=== PATIENT | male | born 1950 | race Caucasian/White ===

== ENCOUNTER 2016-03-29 18:59 | Observation (INO) | payer MEDICARE ==
[2016-03-29] VITALS (9 sets, daily range): BP systolic 97–142; BP diastolic 51–89; PULSE 74–89; RESP 18–20; TEMP 98.1–98.5; O2SAT 93–99
[~2016-03-29] VITALS: Ht 180.3 cm; Wt 120.0 kg
[~2016-03-29 18:59] MED LIST: AMOX500T PO; APIX5TAB PO; ASPI81TA82 PO; DOXY100T PO; FURO40TA PO; GLUC1000 PO; GUAI100S6 PO; HYDR200T42 PO; LISI-363 PO; MECAP PO; METO50CR PO; NORC10TA2 PO; POTA10IN2 PO; ROSU5 PO; TIKO500C PO; TORS20TA PO; UBIQ1CAP4
[2016-03-29] MEDS ORDERED: SODIUM CHLORIDE 0.9% FLUSH 5 ML FLUSH IVF PRN ×2 (19:15→20:45)
[2016-03-29 19:41] LABS: AUTOMATED NEUTROPHIL # 5.2 TH/MM3 (1.8-7.7); BASOPHIL % 0.5 % (0.0-2.0); EOSINOPHIL # 0.2 TH/MM3 (0-0.4); EOSINOPHIL % 1.9 % (0.0-4.0); HEMATOCRIT 38.7 % (39.0-51.0); HEMO FLAGS DIFF FINAL; LYMPH % 23.3 % (9.0-44.0); LYMPHOCYTE # 1.9 TH/MM3 (1.0-4.8); MEAN CELL VOLUME 92.9 FL (80.0-100.0); MEAN CORPUSCULAR HEMOGLOBIN 30.7 PG (27.0-34.0); MONO % 10.3 % (0.0-8.0); PLATELET COUNT 299 TH/MM3 (150-450); RED BLOOD COUNT 4.17 MIL/MM3 (4.50-5.90); RED CELL DISTRIBUTION WIDTH 15.1 % (11.6-17.2); WHITE BLOOD COUNT 8.2 TH/MM3 (4.0-11.0)
--- NOTE | 2016-03-29 19:51 | RADRPT ---
EXAM DATE/TIME: 03/29/2016 19:41 [facility] COMPARISON: CHEST PA & LAT, July 07, 2013, 19:10. CHEST SINGLE AP, January 23, 2016, 21:49. INDICATIONS : Chest pain and shortness of breath. MEDICAL HISTORY : Hypertension. Congestive heart failure. Hypercholesterolemia. Diabetes,A-fib,lupus SURGICAL HISTORY : CABG. Cardiac stent. ENCOUNTER: Initial ACUITY: 1 day PAIN SCORE: 8/10 LOCATION: Bilateral chest FINDINGS: There is mild left base opacity, at least some of which is likely scarring but a mild acute infiltrat e also possible. Elevated left hemidiaphragm unchanged. No large effusion seen. No pneumothorax. Righ t lung is clear. Heart size stable, mildly enlarged. Patient has had previous median sternotomy. CONCLUSION: Mild left base atelectasis or scarring. Mild left base pneumonia possible in the proper clinical sett ing.. Landon Zarco MD on March 29, 2016 at 19:47 Board Certified Radiologist. This report was verified electronically.
--- NOTE | 2016-03-29 19:51 | PD ---
HPI Chief Complaint: Chest Pain Time Seen by Provider: 19:20 Travel History International Travel<30 days: No Contact w/Intl Traveler<30days: No History of Present Illness HPI Patient is a 65-year-old male who presents to the emergency department for evaluation of chest pain and tightness. Patient states the pain started approximately 2 hours prior to arrival when he was moving boxes. The pain was brought on with exertion, patient states he sat down and approximately 30 minutes later the pain was resolved. He denies any radiation to his arm or jaw , he denies any nausea, diaphoresis. Patient took 81 mg of aspirin this morning as he normally does. Patient reports feeling short of breath for approximately the last month. He reports being treated for pneumonia but states that he has not felt completely better. Patient does have an underlying COPD and is compliant with nebulizer treatments. PFSH Past Medical History Hx Anticoagulant Therapy: Yes (ELIQUIS) Arthritis: Yes Atrial Fibrillation: Yes Anxiety: No Depression: Yes Cancer: No Cardiac Catheterization: Yes High Cholesterol: Yes Chemotherapy: No Chest Pain: Yes Congestive Heart Failure: Yes COPD: Yes Coronary Artery Disease: Yes Diabetes: Yes Diminished Hearing: No Gastrointestinal Disorders: No Genitourinary: Yes (BPH) Hypertension: Yes Immune Disorder: No Implanted Vascular Access Dvce: No Kidney Stones: Yes Neurologic: No Reproductive: No Respiratory: No Pneumonia: Yes Past Surgical History Abdominal Surgery: Yes (HERNIA REPAIR) Cardiac Surgery: Yes (CARDIAC ABLATION X2) Coronary Artery Bypass Graft: Yes (TRIPLE BYPASS ) Coronary Stent: Yes Endocrine Surgery: No Genitourinary Surgery: Yes (LITHOTRIPSY;GREEN LIGHT PROCEDURE) Thoracic Surgery: Yes Other Surgery: Yes (FATTY TUMOR REMOVED TOP OF HEAD) Social History Alcohol Use: Yes (RARE) Tobacco Use: No Substance Use: No Allergies-Medications (Allergen,Severity, Reaction): Uncoded Allergies: STATINS (Adverse Reaction, Cramping, 06/30/13) Reported Meds & Prescriptions Reported Meds & Active Scripts Active Reported Potassium 99 Mg Tab Potassium 75 Mg Tab 1 PO DAILY Metan1 1 PO BID Metan1 1 PO Aspir-81 (Aspirin) 81 Mg Tab 81 Mg PO DAILY Ultra Coq10 (Ubiquinone) 75 Mg Cap Glucophage 1000 mg (Metformin HCl) 1,000 Mg Tab 1,000 Mg PO BIDPC Crestor (Rosuvastatin Calcium) 5 Mg Tab 5 Mg PO DAILY [id number] Mc1 500 Mcg Cap 500 Mcg PO BID Plaquenil (Hydroxychloroquine Sulfate) 200 Mg Tab 200 Mg PO BID Potassium Chloride 10 Meq Cap 1 Cap PO BID Eliquis (Apixaban) 5 Mg Tab 5 Mg PO BID Furosemide 40 Mg Tab 40 Mg PO DAILY Metoprolol Succinate ER 50 mg (Metoprolol Succinate) 50 Mg Tab 50 Mg PO DAILY [id number] M1 20 Mg Tab 20 Mg PO DAILY Lisinopril 20 mg (Lisinopril) 20 Mg Tab 10 Mg PO DAILY Review of Systems Except as stated in HPI: all other systems reviewed are Neg HENT: No: Headaches, Lightheadedness Cardiovascular: Positive: Chest Pain or Discomfort, No: Palpitations, Tachycardia, Diaphoresis, Dyspnea on exertion Respiratory: No: Shortness of Breath Gastrointestinal: No: Nausea, Abdominal Pain Neurologic: No: Dizziness, Syncope, Focal Abnormalities Physical Exam Narrative GENERAL: Obese, well-developed, alert male. Resting comfortably in no acute distress. SKIN: Warm and dry. HEAD: Atraumatic. Normocephalic. EYES: Pupils equal and round. No scleral icterus. No injection or drainage. ENT: No nasal bleeding or discharge. Mucous membranes pink and moist. NECK: Trachea midline. No JVD. CARDIOVASCULAR: Regular rate and rhythm. RESPIRATORY: No accessory muscle use. Clear to auscultation. Breath sounds equal bilaterally. GASTROINTESTINAL: Abdomen obese, soft, non-tender, nondistended. Hepatic and splenic margins not palpable. Positive bowel sounds, no rebound, no guarding. MUSCULOSKELETAL: Extremities without clubbing, cyanosis, or edema. No obvious deformities. NEUROLOGICAL: Awake and alert. No obvious cranial nerve deficits. Motor grossly within normal limits. Five out of 5 muscle strength in the arms and legs. Normal speech. PSYCHIATRIC: Appropriate mood and affect; insight and judgment normal. Data Data Last Documented VS Vital Signs Date Time Temp Pulse Resp B/P Pulse Ox O2 Delivery O2 Flow Rate FiO2 03/29/16 19:56 86 20 97/64 99 Nasal Cannula 2 03/29/16 19:47 98.1 Orders Electrocardiogram (03/29/16 19:15) B-Type Natriuretic Peptide (03/29/16 19:15) Ckmb (Isoenzyme) Profile (03/29/16 19:15) Complete Blood Count With Diff (03/29/16 19:15) Comprehensive Metabolic Panel (03/29/16 19:15) Magnesium (Mg) (03/29/16 19:15) Prothrombin Time / Inr (Pt) (03/29/16 19:15) Act Partial Throm Time (Ptt) (03/29/16 19:15) Troponin I (03/29/16 19:15) Chest, Single Ap (03/29/16 19:15) Ecg Monitoring (03/29/16 19:15) Bilateral Bp Monitoring (03/29/16 19:15) Iv Access Insert/Monitor (03/29/16 19:15) Oximetry (03/29/16 19:15) Oxygen Administration (03/29/16 19:15) Sodium Chloride 0.9% Flush (Ns Flush) (03/29/16 19:15) CKMB (03/29/16 19:25) CKMB% (03/29/16 19:25) Admit Order (Ed Use Only) (03/29/16 20:43) Activity Bed Rest With Brp (03/29/16 20:43) Vital Signs (Adult) Q4H (03/29/16 20:43) Cardiac Rhythm .As Directed (03/29/16 20:43) ^ Notify Dr: Other .PRN (03/29/16 20:43) ^ Notify Dr. Parameters (03/29/16 20:43) Resp Oxygen Nasal Cannula (03/29/16 ) Diet Npo (03/30/16 Breakfast) Ckmb (Isoenzyme) Profile (03/29/16 22:40) Ckmb (Isoenzyme) Profile (03/30/16 01:40) Troponin I (03/29/16 22:40) Troponin I (03/30/16 01:40) Electrocardiogram (03/29/16 20:43) Electrocardiogram (03/29/16 23:43) ^ Obtain (03/29/16 20:43) Sodium Chloride 0.9% Flush (Ns Flush) (03/29/16 20:45) Sodium Chloride 0.9% Flush (Ns Flush) (03/29/16 21:00) Acetaminophen (Tylenol) (03/29/16 20:45) Ondansetron Inj (Zofran Inj) (03/29/16 20:45) Pharmacologic Contraindication (03/29/16 20:43) Labs Laboratory Tests Test 03/29/16 19:25 White Blood Count 8.2 TH/MM3 Red Blood Count 4.17 MIL/MM3 Hemoglobin 12.8 GM/DL Hematocrit 38.7 % Mean Corpuscular Volume 92.9 FL Mean Corpuscular Hemoglobin 30.7 PG Mean Corpuscular Hemoglobin 33.0 % Concent Red Cell Distribution Width 15.1 % Platelet Count 299 TH/MM3 Mean Platelet Volume 7.2 FL Neutrophils (%) (Auto) 64.0 % Lymphocytes (%) (Auto) 23.3 % Monocytes (%) (Auto) 10.3 % Eosinophils (%) (Auto) 1.9 % Basophils (%) (Auto) 0.5 % Neutrophils # (Auto) 5.2 TH/MM3 Lymphocytes # (Auto) 1.9 TH/MM3 Monocytes # (Auto) 0.8 TH/MM3 Eosinophils # (Auto) 0.2 TH/MM3 Basophils # (Auto) 0.0 TH/MM3 CBC Comment DIFF FINAL Differential Comment Prothrombin Time 11.2 SEC Prothromb Time International 1.0 RATIO Ratio Activated Partial 29.2 SEC Thromboplast Time Sodium Level 137 MEQ/L Potassium Level 4.6 MEQ/L Chloride Level 100 MEQ/L Carbon Dioxide Level 30.4 MEQ/L Anion Gap 7 MEQ/L Blood Urea Nitrogen 17 MG/DL Creatinine 1.09 MG/DL Estimat Glomerular Filtration 67 ML/MIN Rate Random Glucose 102 MG/DL Calcium Level 8.5 MG/DL Magnesium Level 1.8 MG/DL Total Bilirubin 0.3 MG/DL Aspartate Amino Transf 26 U/L (AST/SGOT) Alanine Aminotransferase 49 U/L (ALT/SGPT) Alkaline Phosphatase 74 U/L Total Creatine Kinase 134 U/L Creatine Kinase MB 1.5 NG/ML Troponin I LESS THAN 0.02 NG/ML B-Type Natriuretic Peptide 114 PG/ML Total Protein 7.4 GM/DL Albumin 3.7 GM/DL MDM Medical Decision Making Medical Screen Exam Complete: Yes Emergency Medical Condition: Yes Medical Record Reviewed: Yes Interpretation(s) Vital Signs Date Time Temp Pulse Resp B/P Pulse Ox O2 Delivery O2 Flow Rate FiO2 03/29/16 19:36 96 Nasal Cannula 2 03/29/16 19:00 98.1 89 18 134/80 93 Room Air Differential Diagnosis Unstable angina versus acute UT versus PE versus CHF versus pneumonia Narrative Course Patient is a 65-year-old male who tender to emergency department for evaluation of chest pain and shortness of breath. Symptoms started approximately 2 hours prior to arrival. Patient has significant past medical history. Patient placed on telemetry monitoring, continuous pulse oximetry, IV access initiated and EKG was completed. Labs and imaging ordered and pending. at bedside. CBC shows no elevated white count or left shift, chemistry is unremarkable, troponin is negative, BNP is 114. EKG was reviewed by my attending physician. Chest x-ray shows left lower lobe scarring versus infiltrate. Patient has been afebrile with no congestion or cough. Patient is well oxygenated on room air, his vital signs are stable. Patient was also seen and evaluated by my attending physician. At this time patient is appropriate for chest pain Center , admission orders were placed. Patient and are agreeable to plan. Diagnosis Primary Impression: Chest pain on exertion Admitting Information Admitting Physician Requests: Observation Condition: Stable Nguyen Mix Mar 29, 2016 19:51
[2016-03-29 20:10] LABS: APTT (PATIENT) 29.2 SEC (24.3-30.1); PROTHROMBIN TIME - PATIENT 11.2 SEC (9.8-11.6)
[2016-03-29 20:17] LABS: ANION GAP 7 MEQ/L (5-15); AST (GOT) 26 U/L (15-37); BICARBONATE 30.4 MEQ/L (21.0-32.0); BLOOD UREA NITROGEN 17 MG/DL (7-18); CHLORIDE 100 MEQ/L (98-107); GLOMERULAR FILTRATION RATE 67 ML/MIN (>89); MAGNESIUM 1.8 MG/DL (1.5-2.5); POTASSIUM 4.6 MEQ/L (3.5-5.1); SODIUM (NA) 137 MEQ/L (136-145)
[2016-03-29 20:21] LABS: ALKALINE PHOSPHATASE 74 U/L (45-117); ALT (GPT) 49 U/L (12-78); CREATINE KINASE 134 U/L (39-308); TOTAL BILIRUBIN ADULT 0.3 MG/DL (0.2-1.0)
[2016-03-29] MEDS ORDERED: POTA75TA PO (20:22)
[2016-03-29] MEDS ORDERED: POTA99TA PO (20:22)
[2016-03-29 20:34] LABS: CKMB 1.5 NG/ML (0.5-3.6)
[2016-03-29] MEDS ORDERED: ACETAMINOPHEN 500 MG CPLT PO PRN (20:45)
[2016-03-29] MEDS ORDERED: ONDANSETRON HCL 4 MG/2 ML VIAL IV PRN (20:45)
[2016-03-29] MEDS: SODIUM CHLORIDE 0.9% FLUSH 5 ML FLUSH IVF SCH (21:00)
[2016-03-29] MEDS ORDERED: GLUCAGON 1 MG/ML VIAL OTHER PRN (21:15)
[2016-03-29] MEDS ORDERED: DEXTROSE 50% IN WATER 50 ML VIAL(D50) IV PUSH PRN (21:15)
[2016-03-29] MEDS ORDERED: CYCLOBENZAPRINE HCL 10 MG TAB PO ONE (21:30)
[2016-03-29 23:39] LABS: CREATINE KINASE 109 U/L (39-308)
[2016-03-29 23:51] LABS: CKMB 1.2 NG/ML (0.5-3.6)
[2016-03-30] VITALS: PULSE 78
[2016-03-30 02:23] LABS: CREATINE KINASE 100 U/L (39-308)
[2016-03-30 04:00] VITALS: PULSE 78
[2016-03-30 04:29] VITALS: BP 126/72; PULSE 75; RESP 18; TEMP 97.8; O2SAT 95
[2016-03-30 07:25] VITALS: BP 142/85; PULSE 83; RESP 20; TEMP 97.8; O2SAT 91
[2016-03-30 08:07] VITALS: PULSE 76
[2016-03-30] MEDS ORDERED: RESP: ALBUTEROL 2.5 MG/3 ML NEB (PRN) NEB (08:45)
[2016-03-30] MEDS ORDERED: METO50TA11 PO (08:47)
[2016-03-30] MEDS ORDERED: FURO1TAB60 PO (08:47)
[2016-03-30] MEDS ORDERED: APIX5TAB PO (08:47)
[2016-03-30] MEDS ORDERED: METF1000 PO (08:47)
[2016-03-30] MEDS ORDERED: LISI10TA3 PO (08:47)
[2016-03-30] MEDS ORDERED: ROSU5 PO (08:47)
[2016-03-30] MEDS ORDERED: PLAQ200T PO (08:51)
[2016-03-30] MEDS ORDERED: ASPI81CH CHEW (08:51)
[2016-03-30] MEDS ORDERED: DOFE500 PO (08:52)
[2016-03-30] MEDS ORDERED: LISINOPRIL 10 MG TAB PO SCH (09:30)
[2016-03-30] MEDS ORDERED: APIXABAN 5 MG TABLET PO SCH (10:00)
[2016-03-30] MEDS ORDERED: DOFETILIDE 500 MCG CAP PO SCH (10:00)
[2016-03-30] MEDS: SODIUM CHLORIDE 0.9% FLUSH 5 ML FLUSH IVF SCH (10:07)
[2016-03-30] MEDS ORDERED: TORS20TA PO (10:49)
[2016-03-30] MEDS ORDERED: L-ME1CAP2 PO (10:53)
[2016-03-30] MEDS ORDERED: POTA10CA PO (10:57)
[2016-03-30] MEDS ORDERED: MAGN250T11 PO (10:59)
[2016-03-30] MEDS ORDERED: DOFETILIDE 250 MCG CAP PO SCH (11:00)
[2016-03-30] MEDS ORDERED: HYDROXYCHLOROQUINE SULFATE 200 MG TAB PO SCH (11:00)
[2016-03-30] MEDS ORDERED: UBIQ1CAP4 PO (11:01)
[2016-03-30] MEDS ORDERED: NITROGLYCERIN 0.4 MG SL 25 TABS/BTL SL PRN (11:15)
[2016-03-30] MEDS ORDERED: REGADENOSON INJ 0.4 MG/5 ML SYR ONE (11:47)
[2016-03-30 13:00] VITALS: BP 116/68; PULSE 83; RESP 18; TEMP 97.9; O2SAT 95
--- NOTE | 2016-03-30 13:14 | RADRPT ---
EXAM DATE/TIME: 03/30/2016 11:28 [facility] COMPARISON: No previous studies available for comparison. INDICATIONS : Mid chest pain for one day. Angina. Atrial fibrillation. DOSE: 35.0 mCi Tc99m Myoview at stress. 11.0 mCi Tc99m Myoview at rest. 0.4 mg Lexiscan STRESS SYMPTOMS: Flush. EJECTION FRACTION: 48% MEDICAL HISTORY : Chronic obstructive pulmonary disease. Hypertension. Cardiovascular disease SURGICAL HISTORY : CABG Umbilical hernia repair. ENCOUNTER: Initial ACUITY: 1 day PAIN SCALE: 7/10 LOCATION: Midsternal chest TECHNIQUE: The patient underwent pharmacologic stress with infusion of prescribed dose. Continuous ECG tracing was monitored during stress. Gated SPECT imaging was performed after stress and conventional SPECT i maging was performed at rest. The examination was performed on a SPECT/CT scanner, both attenuation and non-corrected datasets were reviewed. FINDINGS: DISTRIBUTION: The maximum perfused segment at stress is in the inferior wall. PERFUSION STUDY: The pattern of perfusion at stress is within normal limits. GATED STUDY: There is intact wall motion and thickening without hypokinetic or dyskinetic segments. CONCLUSION: 1. No definite reversible perfusion defects are identified at this time. RISK CATEGORY: Intermediate (1-3% Annual Mortality Rate) Jarvis Rodrigez MD on March 30, 2016 at 13:10 Board Certified Radiologist. This report was verified electronically.
[2016-03-30] MEDS ORDERED: FUROSEMIDE 40 MG TAB PO SCH (13:30)
[2016-03-30] MEDS ORDERED: METOPROLOL SUCCINATE 50 MG EXTENDED RELEASE TAB PO SCH (13:30)
--- NOTE | 2016-03-30 13:41 | EKG ---
Date Performed: 03/29/2016 Time Performed: 19:11:27 PTAGE: 65 years EKG: Sinus rhythm WITH OCCASIONAL VENTRICULAR PREMATURE COMPLEXES POSSIBLE RIGHT VENTRICULAR HYPERTROPHY MINIMAL ST DE PRESSION PROLONGED QT INTERVAL ABNORMAL ECG Compared to PREVIOUS TRACING , there has been improvement in the anterolateral ST segment changes but otherwise no significant serial change. PREVIOUS TRACIN01/23/2016 21.01 DOCTOR: Cora Barfield Interpretating Date/Time 03/30/2016 13:41:22
--- NOTE | 2016-03-30 13:43 | EKG ---
Date Performed: 03/29/2016 Time Performed: 23:07:17 PTAGE: 65 years EKG: Sinus rhythm WITH OCCASIONAL SUPRAVENTRICULAR PREMATURE COMPLEXES POSSIBLE RIGHT VENTRICULAR HYPERTROPHY LATERAL MYOCARDIAL INFARCTION ABNORMAL ECG Compared to PREVIOUS TRACING , there has been some reduction in limb lead voltage. Possibility of an ectopic atrial rhythm persists. PREVIOUS TRACING 03/29/2016 19.11.27 DOCTOR: Cora Barfield Interpretating Date/Time 03/30/2016 13:42:30
--- NOTE | 2016-03-30 13:44 | EKG ---
Date Performed: 03/30/2016 Time Performed: 01:48:01 PTAGE: 65 years EKG: ECTOPIC ATRIAL RHYTHM INTRAVENTRICULAR CONDUCTION DELAY MINIMAL ANTEROLATERAL ST SEGMENT CH ANGES ABNORMAL ECG Since PREVIOUS TRACING , no significant change noted PREVIOUS TRACIN03/29/2016 19.11 DOCTOR: Cora Barfield Interpretating Date/Time 03/30/2016 13:43:10
--- NOTE | 2016-03-30 13:58 | TR ---
Date Performed: 03/30/2016 Time Performed: 11:59:36 DOCTOR: Marcial Parsons DRUG LIST: CLINICAL HISTORY: ANGINA REASON FOR TEST: Angina REASON FOR ENDING: OBSERVATION: CONCLUSION: Lexiscan stress test was performed under standard four minute protocol. Radionuclide was injected one minute prior to ending the test. Developed flushing of the face. Frequent PACs were noted. No electrocardiographic abnormalities were present to suggest ischemia. Recovery was quick an d uneventful with resolution of facial flushing. Nuclear imaging and interpretation are pending. COMMENTS:
[2016-03-30] MEDS ORDERED: MAGNESIUM OXIDE 400 MG TAB PO SCH (14:00)
[2016-03-30] MEDS ORDERED: NITR1SUB3 SL (14:20)
--- NOTE | 2016-03-30 14:21 | HHI.DCPOC ---
Discharge Care Plan Diagnosis: (1) Atypical chest pain (2) Hx of coronary artery disease Goals to Promote Your Health * To prevent worsening of your condition and complications * To maintain your health at the optimal level Directions to Meet Your Goals Take your medications as prescribed Follow your dietary instruction Follow activity as directed Keep your appointments as scheduled Take your immunizations and boosters as scheduled If your symptoms worsen call your PCP, if no PCP go to Urgent Care Center or Emergency Room Smoking is Dangerous to Your Health. Avoid second hand smoke Call the 24-hour hour crisis hotline for domestic abuse at [facility] Mar 30, 2016 14:21
--- NOTE | 2016-03-31 08:34 | MH ---
cc: OSCAR PARSONS DATE OF ADMISSION: 03/29/2016 DATE OF : 1950 CHIEF COMPLAINT Chest pain. HISTORY OF PRESENT ILLNESS: This is a 65-year-old patient with known coronary artery disease, triple bypass, hypertension, hyperlipidemia and type 2 diabetes, and COPD, who presents to the emergency room for further evaluation with an onset of substernal chest pressure approximately 3:00 p.m. yesterday while moving boxes at his office. He describes the characteristic as a quick pressure and pain, however, was not severe. Duration was 2 hours. The pain gradually went away on its own. Associated symptoms included some shortness of breath, however, he does state it is difficult for him differentiate between his COPD. Precipitating factors, he has had pain similar to this in the past but usually lasts about 20 to 30 minutes and is relieved by holding area and has no known relieving factors. PAST MEDICAL HISTORY: 1. Hypertension. 2. Hyperlipidemia. 3. Type 2 diabetes. 4. A-fib. 5. COPD. 6. Chronic kidney stones. 7. PAD. 8. Lupus. 9. Congestive heart failure. 10. Depression. 11. BPH. 12. Angina. 13. Cardiomyopathy. PAST SURGICAL HISTORY: 1. One cardiac stent placed 8 years ago. 2. CABG x3 12 years ago. 3. Hernia repair. 4. Fatty tumor removed from his head. 5. Four ablations. SOCIAL HISTORY: He is . 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 He quit smoking 28 years ago. However, he does state he smoked heavily prior to that, anywhere from 3 to 3-1/2 pack of cigarettes daily, for approximately 10 years. Rare alcohol use. No illegal drug use. He does have hypertension, hyperlipidemia and diabetes. He has not been very active lately, related to his COPD. He becomes very short of breath and has been using a motor cart mostly to get around. PAST CARDIAC TESTING He has had a total of four ablations, the last ablation completed 05/03/14, with Dr. Kline which was successful to his knowledge, and last stress test was four years ago, it was an exercise stress test. He follows with Dr. Barfield, structures assembler, and Dr. Kline for his A-fib. There has been no recent cardiac testing. ALLERGIES STATINS CAUSES CRAMPING IN HIS LOWER LEGS MEDICATIONS Current medications include: 1. Lisinopril 10 mg daily. 2. Eliquis 5 mg b.i.d. 3. Metoprolol succinate 50 q day. 4. Tikosyn 500 micrograms b.i.d. 5. Plaquenil 200 milligrams p.o. b.i.d. 6. Metformin 1000 milligrams b.i.d. 7. Crestor 5 milligrams daily. He has not taken this for five days. He was having muscle cramps from his legs. He was concerned it could be from the Crestor, however, the muscle cramps in legs has not relieved since starting Crestor. 8. Furosemide 40 milligrams daily. He takes this in the evening. 9. Torsemide 20 milligrams daily. He takes in the a.m. 10. Aspirin 81 milligrams. 11. Potassium [id number] 99 milligram tablet. 12. Potassium chloride 10 milliequivalents p.o. b.i.d. 13. Metanx one capsule b.i.d. 14. Magnesium 250 milligrams daily. REVIEW OF SYSTEMS General: No recent illness, fevers, chills, weakness, fatigue, change in appetite. HEENT: No headache or visual changes, nasal congestion or dysphagia. Cardiovascular: No current chest pain or pressure or palpitations. Respiratory: Believes his COPD is well controlled. He does not wear oxygen at home. No recent upper respiratory infection. He had pneumonia at the end of December, however, this has since resolved. Wheeze occasionally on exertion and he is currently in the process of having a home C-PAP machine for the evening. Abdomen: No bowel changes, diarrhea, constipation, pain, distension, blood in stool or dark stool, nausea or vomiting or change in appetite. : No dysuria, hematuria. Extremities: He has chronic lower leg edema. This is unchanged and stable. Musculoskeletal: He has lower leg peripheral neuropathy. Skin: There are no rashes or concerning lesions. He does follow with a hide inspector and recently has noticed his second digit on his right foot looks as though he hit it, and has made an appointment to follow up as he has had chronic sores in the past which he follows with a hide inspector in [place]. Neuro: No difficulty with balance per se although due to shortness of breath. He uses a motorized cart. There are no motor or sensory deficits, loss of consciousness, change in memory. Psych: No anxiety or depression. PHYSICAL EXAMINATION: Vital signs: Temperature 97.8, pulse 83, respiratory 20, blood pressure 142/85 and 95% on room air. General: He is alert, obese, well-nourished, well-developed in no acute distress, pleasant man. Head: Normocephalic, atraumatic. Eyes: Sclerae clear. Pupils were equal and round. Neck: Supple. Trachea is midline. Cardiovascular: He has a regular rate and rhythm without murmur, rub or gallop. S1-S2. No S3. No S4. Respiratory: He has actually clear lung sounds bilaterally with no crackles, wheezes or rhonchi, nonlabored, symmetrical chest rise. Abdomen: Soft, obese, non-tender, non-distended. No masses. Positive bowel tones. Extremities: Pulses +2 x4. There is +2 pitting edema of his lower extremities. Musculoskeletal: Normal tone x4. No obvious deformities, nontender. Neuro: CN II-XII grossly intact. Motor strength 5/5. Psych: Alert and oriented x 3, pleasant affect. Appropriate mood, insight and judgment. Skin: Normal turgor, normal texture. Warm and dry. Brisk capillary refill. There are no rashes. Second digit on his right foot toe is purple. LABORATORY DATA: CBC: Hemoglobin 12.8, hematocrit 38.7. Chemistry is unremarkable. Three sets of cardiac enzymes are negative. Coagulation is unremarkable. BNP 114. Chest x-ray read by the radiologist has an impression of conclusion of mild left base atelectasis or scarring. Mild left base pneumonia, possible in the proper clinical settiang. EKG: Normal sinus rhythm and sinus arrhythmia with slight ST depression in V3-4 and 5. ASSESSMENT/PLAN 1. Chest pain. Patient has been admitted to the chest pain center and was ruled out with three sets of EKGs, cardiac enzymes and monitoring overnight. He will be seen and evaluated by Dr. Oscar Parsons. He will also undergo a chemical stress test this a.m. This has been discussed with the patient and he is agreeable to this plan as he is concerned that although he feels his shortness of breath and chest discomfort could be coming from his COPD he would like to be reassured that his coronary arteries are not blocked. Naturally if his Lexiscan comes back negative he will be encouraged to follow up with Dr. Barfield as previously scheduled and his primary care provider, Dr. Ring. 2. COPD, p.r.n. treatments ordered. 3. A-fib. I have reordered his antiarrhythmic and Eliquis as previously ordered prior to coming to the emergency room. All of his other medications will be reordered as appropriate while in the Chest Pain Center and his oral anti-glycemic will be held at this time. Dictated by ERICA Márquez MD FANNIE Mckeon/JENNIE /10:56 AM /8:31 AM
[2016-03-31] MEDS ORDERED: ASPIRIN 325 MG TAB PO SCH (09:00)
--- NOTE | 2016-03-31 18:06 | EKG ---
Date Performed: 03/30/2016 Time Performed: 13:09:59 PTAGE: 65 years EKG: Sinus rhythm WITH OCCASIONAL VENTRICULAR PREMATURE COMPLEXES POSSIBLE RIGHT VENTRICULAR HYPERTROPHY MINIMAL ST DE PRESSION PROLONGED QT INTERVAL When compared to previous tracing, the patient has a prolonged QT inte rval. ABNORMAL ECG PREVIOUS TRACING : 03/30/2016 01.48 DOCTOR: Barbi Chaves Interpretating Date/Time 03/31/2016 18:05:38
== END 2016-03-30 15:35 | disposition home or self-care (01) ==
LOC: NEPE 18:59 → NEDA 20:47 → NEPHCDU 22:17
PROVIDERS: ADMIT Family Medicine; ATTEND Family Medicine
DX: R07.89 Other chest pain (principal); J44.0 Chronic obstructive pulmonary disease with (acute) lower respiratory infection; Z79.01 Long term (current) use of anticoagulants; I48.91 Unspecified atrial fibrillation; I50.9 Heart failure, unspecified; I25.10 Atherosclerotic heart disease of native coronary artery without angina pectoris; I10 Essential (primary) hypertension; E11.9 Type 2 diabetes mellitus without complications; J18.9 Pneumonia, unspecified organism; E78.00 Pure hypercholesterolemia, unspecified; M19.90 Unspecified osteoarthritis, unspecified site; E78.5 Hyperlipidemia, unspecified; M32.9 Systemic lupus erythematosus, unspecified; I42.9 Cardiomyopathy, unspecified; N40.0 Benign prostatic hyperplasia without lower urinary tract symptoms; Z95.5 Presence of coronary angioplasty implant and graft; Z95.1 Presence of aortocoronary bypass graft; Z87.442 Personal history of urinary calculi; Z87.891 Personal history of nicotine dependence; Z79.84 Long term (current) use of oral hypoglycemic drugs
CPT/HCPCS: 71010; 78452; 80053; 82550; 82552; 82948; 83735; 83880; 84484; 85025; 85610; 85730; 93005; 93017; 99285; A9502; G0378; J2785

== ENCOUNTER 2016-04-16 07:25 | Day surgery (SDC) | payer MEDICARE ==
[~2016-04-16] VITALS: Ht 190.5 cm; Wt 148.1 kg
[~2016-04-16 07:25] MED LIST changes: -AMOX500T PO; +ASPI81CH CHEW; -ASPI81TA82 PO; +DOFE500 PO; -DOXY100T PO; +FURO1TAB60 PO; -FURO40TA PO; -GLUC1000 PO; -GUAI100S6 PO; -HYDR200T42 PO; +L-ME1CAP2 PO; -LISI-363 PO; +LISI10TA3 PO; +MAGN250T11 PO; -MECAP PO; +METF1000 PO; -METO50CR PO; +METO50TA11 PO; +NITR1SUB3 SL; -NORC10TA2 PO; +PLAQ200T PO; +POTA10CA PO; -POTA10IN2 PO; +POTA99TA PO; -TIKO500C PO; -UBIQ1CAP4; +UBIQ1CAP4 PO
[2016-04-16] MEDS ORDERED: NS 1000P @30 MLS/HR (KVO) IV SCH (07:45)
[2016-04-16 08:12] VITALS: BP 120/82; PULSE 76; RESP 18; TEMP 98; O2SAT 93
[2016-04-16] MEDS ORDERED: HYDR-3583 PO (08:24)
[2016-04-16] MEDS ORDERED: BACL10TA PO (08:24)
[2016-04-16] MEDS ORDERED: PLAQ200T PO (08:24)
[2016-04-16] MEDS ORDERED: BUDE1SUS2 NASAL (08:24)
[2016-04-16] MEDS ORDERED: FLUT50SP EACH NARE (08:24)
[2016-04-16] MEDS ORDERED: MAGN400T2 PO (08:24)
[2016-04-16] MEDS ORDERED: ALBU1.25 NEB (08:24)
[2016-04-16] MEDS ORDERED: VITA500T49 SL (08:24)
[2016-04-16] MEDS ORDERED: APIX2.5T PO (08:24)
[2016-04-16] MEDS ORDERED: FLUT1INH INH (08:24)
[2016-04-16] MEDS ORDERED: LIVA4TAB PO (08:24)
[2016-04-16 08:32] LABS: BASOPHIL # 0.1 TH/MM3 (0-0.2); BASOPHIL % 1.1 % (0.0-2.0); EOSINOPHIL # 0.2 TH/MM3 (0-0.4); EOSINOPHIL % 2.6 % (0.0-4.0); HEMATOCRIT 39.2 % (39.0-51.0); HEMO FLAGS DIFF FINAL; LYMPH % 24.1 % (9.0-44.0); LYMPHOCYTE # 1.6 TH/MM3 (1.0-4.8); MEAN CELL VOLUME 93.1 FL (80.0-100.0); MEAN CORPUSCULAR HEMOGLOBIN 30.6 PG (27.0-34.0); MEAN CORPUSCULAR HGB CONC 32.9 % (32.0-36.0); MONO % 10.6 % (0.0-8.0); NEUT % 61.6 % (16.0-70.0); PLATELET COUNT 323 TH/MM3 (150-450); RED BLOOD COUNT 4.21 MIL/MM3 (4.50-5.90); RED CELL DISTRIBUTION WIDTH 15.7 % (11.6-17.2); WHITE BLOOD COUNT 6.5 TH/MM3 (4.0-11.0)
[2016-04-16 08:37] LABS: INTERNATIONAL NORMALIZED RATIO 1.1 RATIO; PROTHROMBIN TIME - PATIENT 11.8 SEC (9.8-11.6)
[2016-04-16 08:48] LABS: BICARBONATE 27.8 MEQ/L (21.0-32.0); POTASSIUM 4.6 MEQ/L (3.5-5.1)
[2016-04-16] MEDS ORDERED: HEPARIN-NS/PF INJ 500 ML ONE (09:15)
[2016-04-16] MEDS ORDERED: MIDAZOLAM HCL 2 MG/2 ML VIAL ONE (09:16)
[2016-04-16] MEDS ORDERED: HEPARIN SODIUM - IV 10,000 UNITS/10 ML VIAL ONE (09:16)
[2016-04-16] MEDS ORDERED: VERAPAMIL HCL 5 MG/2 ML VIAL ONE (09:16)
[2016-04-16] MEDS ORDERED: NITROGLYCERIN INJ 5 ML ONE (09:16)
[2016-04-16] MEDS ORDERED: MISC INFORMATION XX ONE (11:45)
[2016-04-16] MEDS ORDERED: SODIUM CHLORIDE 0.9% FLUSH 5 ML FLUSH IVF PRN (11:45)
[2016-04-16] MEDS ORDERED: IOHEXOL 350 MG/ML 100 ML BTL (for Cath Lab) OTHER ONE (16:18)
[2016-04-16] MEDS ORDERED: SODIUM CHLORIDE 0.9% FLUSH 5 ML FLUSH IVF SCH (21:00)
--- NOTE | 2016-04-16 22:07 | MA ---
cc: CORA ANTHONY M.D., VINCENT G. DO DATE: April 16, 2016 PRIMARY [employer]S REQUIREMENTS PLANNER [address]. Cora Anthony PROCEDURE Left heart catheterization, right heart catheterization, coronary angiogram, ultrasound-guided venous access. PREPROCEDURE DIAGNOSIS Chest pain with a Micronesian anginal score of three, shortness of breath, pulmonary hypertension by echocardiogram. POSTPROCEDURE DIAGNOSIS Coronary artery disease, history of coronary artery bypass grafting, elevated LVEDP, moderate pulmonary hypertension by cardiac catheterization. MEDICATIONS 1. Versed 0.5 mg. 2. Fentanyl 50 mcg 3. Radial cocktail of Verapamil 2.5 mg. 4. Nitro 200 mcg. 5. Heparin 5000 units. FLUOROSCOPY 15 minutes CONTRAST USED 100 cc ESTIMATED BLOOD LOSS 10 cc PROCEDURAL SUMMARY Marcial Paulino is a pleasant 65-year-old male who was originally seen by Dr. Anthony in the outpatient setting. He recently underwent stress testing which was found to have no ischemic areas, but of concern Mr. Paulino continues to have chest pain concerning for angina at such a low level of exertion to where it affects him daily. Because of his concern for his symptoms it was felt that he should undergo coronary angiography for coronary visualization to determine if there was any disease that may be causing his angina. The risks, benefits, alternatives were explained to him and he signed consent as such. He was brought to the lab and prepped in the usual sterile fashion. Left radial artery was accessed using a modified Seldinger technique and placement of a 5/6 slender sheath. Left brachial vein was then accessed with ultrasound guidance in a modified Seldinger technique and placement of a 5/6 slender sheath. Both sheaths were aspirated and flushed with ease. [place] catheter was then advanced from a left brachial vein to a wedge position. Pressures and saturations were measured in the usual fashion on pullback throughout the heart. [place] catheter was then removed. A JR-4 was then advanced over a J-wire to the left subclavian artery. I was unable to get a selective angiography of the BRENNAN to LAD bypass so the JR-4 was then exchanged for an IM catheter. Selective angiography of the [place] to LAD shows no significant disease through the [place] or touchdown with disease proximal to the touchdown of 50-60%. Distal runoff is good from the LAD and appears to supply either a wraparound LAD were some collaterals to the distal RCA. The catheter was then exchanged for a JR-4 and this was advanced to the ascending aortic root over the J-wire. The [place] RCA does have a mid lesion of 40-50% with diffuse disease throughout. A small secondary posterior lateral branch has a 70% lesion. The PDA is extremely small and has multiple subtotal occlusions throughout it. The JR-4 was then removed and used to access the other bypass grafts. The first was an SVG to PDA which is totally occluded. The second one is a large bypass graft which ends up being a Y graft to an obtuse marginal and probable ramus. The graft has no significant disease throughout and does not appear to have disease at touchdown but both [place] vessels are extremely small and attaches to, but did not appear to have significant disease. The JR-4 was then exchanged for a JL-4. This was used for selective angiography of the left coronary system. Left main does not appear to have significant disease. The LAD is a 99% occluded proximally with some distal competitive flow. The ramus is 99% occluded proximally with some competitive flow distally. Left circumflex has diffuse 50% disease throughout and is a small vessel. Previous stent placement in 2010 does have 30 to 40% In-stent restenosis. The JL-4 was then exchanged for a pigtail catheter and this was used to cross into the LV and measure left ventricular pressures as well as pullback showing no significant gradient of aortic stenosis. Pigtail catheter was removed over a J-wire. A TR band was placed and the radial sheath was removed. ACT was measured and since it was below 180 the left brachial sheath was removed and pressure was held. The patient left the catheterization lab stable. HEMODYNAMIC RESULTS Right atrium 16. Right ventricle 66/69 with an RVEDP of 19. Pulmonary artery 68/34 with a mean of 45. Wedge 25. Cardiac output 5.6. Cardiac index 2.1. LEFT VENTRICLE 119/23 with an LVEDP of 29. IMPRESSION: 1. Coronary artery disease with a history of coronary artery bypass grafting and PCI as above with no disease felt to be intervening upon at this time. 2. Elevated LVEDP. 3. Moderate to severe pulmonary hypertension with a mean of 45. RECOMMENDATIONS: 1. At this time Mr. Paulino does not appear to have coronary arteries that should be intervened upon, and I feel that we should continue with medical management and consider escalating his anti-anginals by adding either Norvasc or Imdur. I have asked that he carry nitro sublingual with him as he has never used one in his recent history. 2. I did talk to him that he needs to work on weight loss as I think this will help his shortness of breath and he is agreeable. 3. He did say that he is going to be worked up for obstructive sleep apnea and will attempt to wear CPAP mask if diagnosed with it, which I think is a great idea. 4. I did previously speak to Dr. Anthony preprocedure, about the consideration of further treatment options in a pulmonary hypertension clinic. Thank you for allowing me to see Marcial Paulino. If there are any questions please to not hesitate to call. Vladimir Torres DO VGP/JENNIE /9:13 PM /9:39 PM
--- NOTE | 2016-04-17 21:29 | EKG ---
Date Performed: 04/16/2016 Time Performed: 08:49:24 PTAGE: 65 years EKG: Atrial fibrillation Prolonged QT interval Right axis deviation Extensive ST-T changes are n onspecific Abnormal ECG PREVIOUS TRACING : 03/30/2016 13.09 DOCTOR: Sherwin Damon Interpretating Date/Time 04/17/2016 21:15:00
== END 2016-04-16 14:45 | disposition home or self-care (01) ==
LOC: HDOC 07:25 → HDIC 07:26 → HDOC 14:45
PROVIDERS: ATTEND Nuclear Medicine Nuclear Cardiology
DX: I20.8 Other forms of angina pectoris (principal)
CPT/HCPCS: 80048; 82810; 85002; 85025; 85610; 85730; 93005; 93456; C1769; C1893; J1644; J2250; J3010; Q9967

== ENCOUNTER 2016-08-20 15:07 | Observation (INO) | payer MEDICARE ==
[~2016-08-20 15:07] MED LIST changes: +ALBU1.25 NEB; +APIX2.5T PO; -APIX5TAB PO; +BACL10TA PO; +BUDE1SUS2 NASAL; +FLUT1INH INH; +FLUT50SP EACH NARE; +HYDR-3583 PO; -L-ME1CAP2 PO; +LIVA4TAB PO; -MAGN250T11 PO; +MAGN400T2 PO; -POTA99TA PO; -ROSU5 PO; -UBIQ1CAP4 PO; +VITA500T49 SL
[2016-08-20 15:09] VITALS: BP 132/74; PULSE 73; RESP 20; TEMP 99; O2SAT 94
--- NOTE | 2016-08-20 15:24 | PD ---
HPI Chief Complaint: Respiratory Distress Time Seen by Provider: 15:16 Travel History International Travel<30 days: No Contact w/Intl Traveler<30days: No Traveled to known affect area: No History of Present Illness HPI This is a 66-year-old gentleman with a history of diabetes mellitus, hypertension, paroxysmal atrial fib, COPD, CHF, who presents from Dr. Mitchell's office for evaluation of shortness of breath. The patient states over the last 5 days he's become progressively short of breath. He denies any chest pain, chest pressure. He states that he is unable to lay flat at night. He has to use pillows. He had a cough however denies a cough at this time. He denies any nausea or diaphoresis. PFSH Past Medical History Hx Anticoagulant Therapy: Yes (ELOQUIS) Arthritis: Yes Atrial Fibrillation: Yes Anxiety: No Depression: Yes Heart Rhythm Problems: Yes (A-Fib) Cancer: No Cardiac Catheterization: Yes Cardiovascular Problems: Yes (A-FIB) High Cholesterol: Yes Chemotherapy: No Chest Pain: Yes Congestive Heart Failure: Yes COPD: Yes Coronary Artery Disease: Yes Diabetes: Yes (METFORMIN) Patient Takes Glucophage: Yes Diminished Hearing: No Gastrointestinal Disorders: No Genitourinary: Yes (BPH) Heparin Induced Thrombocytopen: No Hypertension: Yes Immune Disorder: No Implanted Vascular Access Dvce: No Kidney Stones: Yes Neurologic: No Reproductive: No Respiratory: Yes (COPD) Pneumonia: Yes Past Surgical History Abdominal Surgery: Yes (HERNIA REPAIR) Cardiac Surgery: Yes (ABLATION x4, TRIPLE BYPASS) Coronary Artery Bypass Graft: Yes (Triple bypass) Coronary Stent: Yes Endocrine Surgery: No Genitourinary Surgery: Yes (LITHOTRIPSY;GREEN LIGHT PROCEDURE) Neurologic Surgery: No Thoracic Surgery: Yes Other Surgery: Yes (FATTY TUMOR REMOVED TOP OF HEAD) Family History Family Myocardial Infarction: No Social History Alcohol Use: Yes (RARE) Tobacco Use: No Substance Use: No Allergies-Medications (Allergen,Severity, Reaction): Coded Allergies: CRESTOR (Verified Adverse Reaction, Unknown, muscle cramps, 08/20/16) Reported Meds & Prescriptions Reported Meds & Active Scripts Active Nitroglycerin SL (Nitroglycerin) 0.4 Mg Subl 0.4 Mg SL DIRECTED PRN ONE TABLET UNDER THE TONGUE NEEDED FOR CHEST PAIN, MAY REPEAT EVERY FIVE MINUTES FOR A TOTAL OF 3 DOSES OR CALL 911 IF NO RELIEF Reported Crestor (Rosuvastatin Calcium) 5 Mg Tab 5 Mg PO HS Coq10 (Coenzyme Q10 (Ubidecarenone)) 200 Mg Cap 200 Mg PO HS One Daily (Multiple Vitamin) 1 Tab 1 Tab PO DAILY Toprol XL (Metoprolol Succinate) 25 Mg Tab 25 Mg PO HS Brovana Neb (Arformoterol Neb) 15 Mcg/2 Ml Vial 1 Nebule NEB BID NEB Maintenance treatment of bronchoconstriction in COPD. Budesonide Neb 0.5 Mg/2 Ml Neb 0.5 Mg NEB BID NEB B-12 (Cyanocobalamin) 2,500 Mcg Tab 2,500 Mcg PO DAILY Eliquis (Apixaban) 5 Mg Tab 5 Mg PO BID Magnesium Oxide 400 Mg Tab 400 Mg PO DAILY Plaquenil (Hydroxychloroquine Sulfate) 200 Mg Tab 200 Mg PO BID Take with food Hydrocodone-Acetaminophen 10-325 mg Tab 1 Tab PO TID PRN Potassium Chloride ER (Potassium Chloride) 10 Meq Cap 10 Meq PO BID Torsemide 20 Mg Tab 20 Mg PO BID Tikosyn (Dofetilide) 500 Mcg Cap 500 Mcg PO BID For Creatinine Clearance >60 mL/min Aspirin 81 Mg Chew 81 Mg CHEW BID Metformin (Metformin HCl) 1,000 Mg Tab 1,000 Mg PO BIDPC With meals Metoprolol Succinate ER 24 HR (Metoprolol Succinate) 50 Mg Tab 50 Mg PO DAILY IN THE MORNING Lisinopril 10 Mg Tab 10 Mg PO HS Review of Systems Except as stated in HPI: all other systems reviewed are Neg General / Constitutional: No: Fever, Chills HENT: No: Headaches, Lightheadedness Cardiovascular: Positive: Irregular Rhythm (history of paroxysmal atrial fibrillation), No: Chest Pain or Discomfort, Palpitations Respiratory: Positive: Shortness of Breath, No: Cough, Wheezing Gastrointestinal: No: Nausea, Vomiting, Abdominal Pain Musculoskeletal: No: Weakness, Pain Neurologic: No: Weakness, Dizziness, Headache, Change in Mentation Physical Exam Narrative GENERAL: Developed well-nourished gentleman in mild to moderate respiratory discomfort. SKIN: Focused skin assessment warm/dry. HEAD: Atraumatic. Normocephalic. EYES: No scleral icterus. No injection or drainage. ENT: Mucous membranes pink and moist. NECK: Trachea midline. No JVD. Supple CARDIOVASCULAR: Regular rate and rhythm. No murmur appreciated. RESPIRATORY: No Rales appreciated. He has decreased breath sounds noted his left lung base. GASTROINTESTINAL: Abdomen soft, non-tender, nondistended. MUSCULOSKELETAL: No obvious deformities. No clubbing. No cyanosis. 2+ pitting edema bilateral lower extremities. NEUROLOGICAL: Awake and alert. No obvious cranial nerve deficits. Motor grossly within normal limits. Normal speech. PSYCHIATRIC: Appropriate mood and affect; insight and judgment normal. Data Data Last Documented VS Vital Signs Date Time Temp Pulse Resp B/P Pulse Ox O2 Delivery O2 Flow Rate FiO2 08/20/16 16:15 97 Nasal Cannula 4.00 08/20/16 15:09 99.0 73 20 132/74 Orders Complete Blood Count With Diff (08/20/16 15:16) Comprehensive Metabolic Panel (08/20/16 15:16) B-Type Natriuretic Peptide (08/20/16 15:16) Ckmb (Isoenzyme) Profile (08/20/16 15:16) Troponin I (08/20/16 15:16) Arterial Blood Gas (Abg) (08/20/16 15:16) Iv Access Insert/Monitor (08/20/16 15:16) Ecg Monitoring (08/20/16 15:16) Oximetry (08/20/16 15:16) Oxygen Administration (08/20/16 15:16) Chest, Single Ap (08/20/16 15:16) Sodium Chloride 0.9% Flush (Ns Flush) (08/20/16 15:30) Electrocardiogram (08/20/16 15:32) Methylprednisolone So Succ Inj (Solumedr (08/20/16 16:15) Albuterol-Ipratropium Neb (Duoneb Neb) (08/20/16 16:15) Albuterol Neb (Albuterol Neb) (08/20/16 16:15) Admit To Inpatient (08/20/16 ) Code Status (08/20/16 16:48) Vital Signs (Adult) KATIE.Q4H (08/20/16 16:48) Activity Oob With Assistance (08/20/16 16:48) Senior Civil Engineer / Telemetry KATIE.Q8H (08/20/16 16:48) Diet 1800 Ada Cons Carb (08/20/16 Dinner) Resp Oxygen [place] C Titrat 1-4 L (08/20/16 ) Sodium Chloride 0.9% Flush (Ns Flush) (08/20/16 17:00) Sodium Chloride 0.9% Flush (Ns Flush) (08/20/16 21:00) Inpatient Certification (08/20/16 ) Admit Order (Ed Use Only) (08/20/16 16:44) Labs Laboratory Tests Test 08/20/16 08/20/16 15:22 15:36 White Blood Count 10.0 TH/MM3 Red Blood Count 4.58 MIL/MM3 Hemoglobin 13.5 GM/DL Hematocrit 41.7 % Mean Corpuscular Volume 91.0 FL Mean Corpuscular Hemoglobin 29.5 PG Mean Corpuscular Hemoglobin 32.4 % Concent Red Cell Distribution Width 16.1 % Platelet Count 249 TH/MM3 Mean Platelet Volume 7.7 FL Neutrophils (%) (Auto) 65.4 % Lymphocytes (%) (Auto) 22.1 % Monocytes (%) (Auto) 9.7 % Eosinophils (%) (Auto) 2.4 % Basophils (%) (Auto) 0.4 % Neutrophils # (Auto) 6.5 TH/MM3 Lymphocytes # (Auto) 2.2 TH/MM3 Monocytes # (Auto) 1.0 TH/MM3 Eosinophils # (Auto) 0.2 TH/MM3 Basophils # (Auto) 0.0 TH/MM3 CBC Comment DIFF FINAL Differential Comment Sodium Level 138 MEQ/L Potassium Level 4.5 MEQ/L Chloride Level 100 MEQ/L Carbon Dioxide Level 30.8 MEQ/L Anion Gap 7 MEQ/L Blood Urea Nitrogen 25 MG/DL Creatinine 1.33 MG/DL Estimat Glomerular Filtration 53 ML/MIN Rate Random Glucose 107 MG/DL Calcium Level 9.2 MG/DL Total Bilirubin 0.5 MG/DL Aspartate Amino Transf 25 U/L (AST/SGOT) Alanine Aminotransferase 31 U/L (ALT/SGPT) Alkaline Phosphatase 85 U/L Total Creatine Kinase 87 U/L Troponin I LESS THAN 0.02 NG/ML B-Type Natriuretic Peptide 155 PG/ML Total Protein 7.4 GM/DL Albumin 3.9 GM/DL Blood Gas Puncture Site RT RADIAL Blood Gas Patient Temperature 98.6 Blood Gas HCO3 27 mmol/L Blood Gas Base Excess 3.1 mmol/L Blood Gas Oxygen Saturation 90 % Arterial Blood pH 7.43 Arterial Blood Partial 42 mmHg Pressure CO2 Arterial Blood Partial 66 mmHG Pressure O2 Arterial Blood Oxygen Content 18.5 Vol % Arterial Blood 0.0 % Carboxyhemoglobin Arterial Blood Methemoglobin 0.5 % Blood Gas Hemoglobin 14.7 G/DL Oxygen Delivery Device RA Blood Gas Inspired Oxygen 21 % MDM Medical Decision Making Medical Screen Exam Complete: Yes Emergency Medical Condition: Yes Differential Diagnosis COPD exacerbation versus CHF versus acute coronary syndrome versus pneumothorax Narrative Course 66-year-old male who presents with shortness of breath progressive over 5 days. The patient has a history of COPD, CHF, diabetes mellitus, atrial fibrillation. He is scheduled for a cardiac ablation tomorrow. The patient has what appears to be a large atelectatic area in his left lower lung field. This could be contributing to his shortness of breath. He has been given nebulizer treatments 3 first with Atrovent. He is also been given Solu-Medrol 125 mg I V times one. There is a call out to the [facility] teaching service for admission. There is also call out to Dr. Napoles since he is scheduled for an ablation tomorrow. Suspect this is likely a COPD exacerbation as he does not appear to be in congestive heart failure. Diagnosis Primary Impression: COPD exacerbation Additional Impressions: left sided pulmonary atelectasis versus infiltrate Diabetes mellitus Atrial fibrillation Shree Pitt MD August 20, 2016 15:24
[2016-08-20] MEDS ORDERED: SODIUM CHLORIDE 0.9% FLUSH 10 ML FLUSH IVF PRN (15:30)
[2016-08-20 15:34] LABS: AUTOMATED NEUTROPHIL # 6.5 TH/MM3 (1.8-7.7); BASOPHIL % 0.4 % (0.0-2.0); EOSINOPHIL # 0.2 TH/MM3 (0-0.4); EOSINOPHIL % 2.4 % (0.0-4.0); HEMATOCRIT 41.7 % (39.0-51.0); HEMO FLAGS DIFF FINAL; LYMPH % 22.1 % (9.0-44.0); LYMPHOCYTE # 2.2 TH/MM3 (1.0-4.8); MEAN CORPUSCULAR HEMOGLOBIN 29.5 PG (27.0-34.0); MEAN CORPUSCULAR HGB CONC 32.4 % (32.0-36.0); MONO % 9.7 % (0.0-8.0); NEUT % 65.4 % (16.0-70.0); PLATELET COUNT 249 TH/MM3 (150-450); RED BLOOD COUNT 4.58 MIL/MM3 (4.50-5.90); RED CELL DISTRIBUTION WIDTH 16.1 % (11.6-17.2)
[2016-08-20 15:46] LABS: BLOOD GAS BASE EXCESS 3.1 mmol/L (-2-2); BLOOD GAS HCO3 27 mmol/L (22-26); BLOOD GAS METHEMOGLOBIN 0.5 % (0-2); BLOOD GAS O2 HGB SATURATION 90 % (90-100); BLOOD GAS OXYGEN CONTENT 18.5 Vol % (12.0-20.0); BLOOD GAS PCO2 42 mmHg (38-42); BLOOD GAS PO2 66 mmHG (61-120); BLOOD GAS TOTAL HGB 14.7 G/DL (12.0-16.0); TEMP CORR TO 98.6
[2016-08-20 15:47] LABS: ANION GAP 7 MEQ/L (5-15); BICARBONATE 30.8 MEQ/L (21.0-32.0); BLOOD UREA NITROGEN 25 MG/DL (7-18); CHLORIDE 100 MEQ/L (98-107); POTASSIUM 4.5 MEQ/L (3.5-5.1); SODIUM (NA) 138 MEQ/L (136-145)
[2016-08-20 15:47] LABS: CRITICAL VALUE NO; DRAW SITE RT RADIAL; FIO2 21 %; NUMBER OF ARTERIAL PUNCTURES 1; OXYGEN DEVICE RA; STAT YES; ULNAR PULSE PRESENT
[2016-08-20 15:55] LABS: ALKALINE PHOSPHATASE 85 U/L (45-117); ALT (GPT) 31 U/L (12-78); AST (GOT) 25 U/L (15-37); GLOMERULAR FILTRATION RATE 53 ML/MIN (>89); TOTAL BILIRUBIN ADULT 0.5 MG/DL (0.2-1.0)
[2016-08-20 16:02] LABS: CREATINE KINASE 87 U/L (39-308)
[2016-08-20] MEDS: RESP: ALBUTEROL 2.5 MG/3 ML NEB (SCH) INH (16:11)
[2016-08-20 16:15] VITALS: O2SAT 97
[2016-08-20] MEDS ORDERED: RESP: ALBUTEROL 2.5 MG/IPRATROPIUM 0.5 MG NEB (SCH) INH ONE (16:15)
[2016-08-20] MEDS ORDERED: methylPREDNISolone SOD SUCC 125 MG/2 ML VIAL IVP ONE (16:15)
--- NOTE | 2016-08-20 16:20 | RADRPT ---
EXAM DATE/TIME: 08/20/2016 15:50 [facility] COMPARISON: CHEST SINGLE AP, March 29, 2016, 19:41. INDICATIONS : Short of breath and chest tightness. MEDICAL HISTORY : Hypertension. Congestive heart failure. Hypercholesterolemia. A-fib. SURGICAL HISTORY : CABG. Cardiac stents. ENCOUNTER: Initial ACUITY: 4 - 6 days PAIN SCORE: 4/10 LOCATION: Bilateral chest FINDINGS: A single view of the chest demonstrates persistent area consolidation in the left base. Lungs are oth erwise clear. Heart size is prominent but well compensated. Postsurgical changes and findings of prio r CABG. Osseous structures are intact. CONCLUSION: 1. Persistent left basilar consolidation which may represent scarring or chronic atelectasis. 2. However, a superimposed infiltrate cannot be completely excluded. Findings are basically stable fr om February 2016. 3. Compensated cardiomegaly. 4. Stable postsurgical changes with findings of prior CABG. David Baltazar MD on August 20, 2016 at 16:16 Board Certified Radiologist. This report was verified electronically.
[2016-08-20] MEDS ORDERED: APIX5TAB PO (16:49)
[2016-08-20] MEDS ORDERED: BUDE0.5S NEB (16:53)
[2016-08-20] MEDS ORDERED: CYAN2500 PO (16:53)
[2016-08-20] MEDS ORDERED: BROV15NE NEB (16:55)
[2016-08-20] MEDS ORDERED: TOPR25TA PO (16:59)
[2016-08-20 17:00] VITALS: BP 130/84; PULSE 63; RESP 26; O2SAT 97
[2016-08-20] MEDS ORDERED: SODIUM CHLORIDE 0.9% FLUSH 10 ML FLUSH IV FLUSH PRN (17:00)
[2016-08-20] MEDS ORDERED: MULT-207 PO (17:01)
[2016-08-20] MEDS ORDERED: COQ1200C PO (17:01)
[2016-08-20] MEDS ORDERED: ROSU5 PO ×2 (17:02→17:34)
[2016-08-20] MEDS ORDERED: L-ME1CAP2 PO (17:08)
[2016-08-20] MEDS ORDERED: NALOXONE HCL 0.4 MG/ML AMP IV PRN (17:15)
[2016-08-20] MEDS ORDERED: DEXTROSE 50% IN WATER 50 ML VIAL(D50) IV PRN (17:30)
[2016-08-20] MEDS ORDERED: GLUCAGON 1 MG/ML VIAL OTHER PRN (17:30)
[2016-08-20] MEDS ORDERED: ACETAMINOPHEN/HYDROcodone 325 MG/10 MG TAB PO PRN (17:30)
[2016-08-20] MEDS ORDERED: NITROGLYCERIN 0.4 MG SL 25 TABS/BTL SL PRN (17:30)
--- NOTE | 2016-08-20 18:09 | HHI.HP ---
[facility] Service Family Medicine Primary Care Physician Uvaldo Arcos MD Admission Diagnosis COPD Exacerbation, large left atelectatic vs effusion, Diagnoses: International Travel<30 Days: No Contact w/Intl Traveler<30days: No Known Affected Area: No History of Present Illness 66-year-old male with history of COPD, CAD, triple bypass, HTN, HLD, atrial fibrillation, type 2 DM, and lupus, who presents to the emergency room for worsening shortness of breath over the past 5 days. Was seen in his cardiology office today, Dr. Mitchell, and was told to come to the ED. -He states that he is not able to sleep lying down over past 5 days and has to sit up with multiple pillows -Short of breath just walking a few feet to go across the room -Has to stop and hold onto the wall in order to catch his breath -Thinks he had an echocardiogram within the last year -States he has had laryngitis since February and is unsure of the cause -Denies chest pain, nausea or vomiting, diarrhea or constipation. -Has muscle cramping in the calves that is worse at night. In the past muscle relaxers have worked for this. Has tried many [id number] and herbal supplements without relief. Currently taking Crestor with coenzyme Q10. He used to be on Crestor alone, and had severe muscle cramping. Since using the combination, muscle cramping has been less. -Does not have an outpatient front counter clerk, but would like to see Dr. Schwartz if possible as he was seen by this doctor during the last admission here and prefers follow up with him Review of Systems Constitutional: DENIES: Fever, Chills Respiratory: COMPLAINS OF: Shortness of breath, DENIES: Cough Cardiovascular: COMPLAINS OF: Dyspnea on Exertion, Lower Extremity Edema, Orthopnea, DENIES: Chest pain Gastrointestinal: DENIES: Abdominal pain, Constipation, Diarrhea, Nausea, Vomiting Genitourinary: DENIES: Urinary frequency, Dysuria Musculoskeletal: DENIES: Back pain Neurologic: DENIES: Headache Past Family Social History Past Medical History Hypertension Hyperlipidemia Type 2 diabetes A-fib COPD Chronic kidney stones PAD Lupus Congestive heart failure Depression BPH Angina Cardiomyopathy Past Surgical History Triple bypass surgery [address] 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 In no acute distress SKIN: Warm/dry. HEAD: Atraumatic. Normocephalic. EYES: No scleral icterus. No injection or drainage. ENT: Mucous membranes pink and moist. NECK: Trachea midline. No JVD. Supple. CARDIOVASCULAR: Regular rate and rhythm. No murmur appreciated. RESPIRATORY: No increased work of breathing. Lungs are clear anteriorly and posteriorly without wheezing rhonchi or crackles. Decreased breath sounds noted his left lung base. On 4L nasal cannula GASTROINTESTINAL: +BS. Abdomen soft, non-tender, nondistended. MUSCULOSKELETAL: No obvious deformities. No clubbing. No cyanosis. 2+ pitting edema bilateral lower extremities. NEUROLOGICAL: Awake and alert. No obvious cranial nerve deficits. Motor grossly within normal limits. Normal speech. PSYCHIATRIC: Appropriate mood and affect; insight and judgment normal. Laboratory Laboratory Tests Test 08/20/16 08/20/16 15:22 15:36 White Blood Count 10.0 Red Blood Count 4.58 Hemoglobin 13.5 Hematocrit 41.7 Mean Corpuscular Volume 91.0 Mean Corpuscular Hemoglobin 29.5 Mean Corpuscular Hemoglobin 32.4 Concent Red Cell Distribution Width 16.1 Platelet Count 249 Mean Platelet Volume 7.7 Neutrophils (%) (Auto) 65.4 Lymphocytes (%) (Auto) 22.1 Monocytes (%) (Auto) 9.7 Eosinophils (%) (Auto) 2.4 Basophils (%) (Auto) 0.4 Neutrophils # (Auto) 6.5 Lymphocytes # (Auto) 2.2 Monocytes # (Auto) 1.0 Eosinophils # (Auto) 0.2 Basophils # (Auto) 0.0 CBC Comment DIFF FINAL Differential Comment Sodium Level 138 Potassium Level 4.5 Chloride Level 100 Carbon Dioxide Level 30.8 Anion Gap 7 Blood Urea Nitrogen 25 Creatinine 1.33 Estimat Glomerular Filtration 53 Rate Random Glucose 107 Calcium Level 9.2 Total Bilirubin 0.5 Aspartate Amino Transf 25 (AST/SGOT) Alanine Aminotransferase 31 (ALT/SGPT) Alkaline Phosphatase 85 Total Creatine Kinase 87 Troponin I LESS THAN 0.02 B-Type Natriuretic Peptide 155 Total Protein 7.4 Albumin 3.9 Blood Gas Puncture Site RT RADIAL Blood Gas Patient Temperature 98.6 Blood Gas HCO3 27 Blood Gas Base Excess 3.1 Blood Gas Oxygen Saturation 90 Arterial Blood pH 7.43 Arterial Blood Partial 42 Pressure CO2 Arterial Blood Partial 66 Pressure O2 Arterial Blood Oxygen Content 18.5 Arterial Blood 0.0 Carboxyhemoglobin Arterial Blood Methemoglobin 0.5 Blood Gas Hemoglobin 14.7 Oxygen Delivery Device RA Blood Gas Inspired Oxygen 21 Result Diagram: 08/20/16 1522 08/20/16 1522 Imaging Last 48 hours Impressions Chest X-Ray 08/20/16 1516 Signed Impressions: Service Date/Time: Saturday, August 20, 2016 15:50 - CONCLUSION: 1. Persistent left basilar consolidation which may represent scarring or chronic atelectasis. 2. However, a superimposed infiltrate cannot be completely excluded. Findings are basically stable from February 2016. 3. Compensated cardiomegaly. 4. Stable postsurgical changes with findings of prior CABG. David Baltazar MD Assessment and Plan Assessment and Plan 66-year-old male presents to the ED with worsening shortness of breath, and lower extremity edema admitted for COPD exacerbation Code Status Full Discussed Condition With [facility] Dr. Strong Problem List: (1) COPD exacerbation Status: Acute Plan: Worsening shortness of breath progressive over past 5 days. No reported increased sputum production or increased sputum purulence. Current lower extremity edema is worse compared to baseline per pt. History of COPD and CHF. Could also be a component of CHF exacerbation. He is scheduled for a cardiac procedure tomorrow, patient states it is not an ablation. -Given breathing treatment and IV Solu-Medrol in ED with some improvement. -Temperature 99.9, oxygen saturation 97% 4 L nasal cannula. WBC normal at 10.0. CMP with elevated creatinine at 1.33, otherwise normal. Troponin less than 0.02. BNP 155. -ABG on room air shows PO2 of 90, pH 7.43, CO2 42. Bicarb slightly elevated at 27 -Chest x-ray shows: "persistent left basilar consolidation which may represent scarring or chronic atelectasis. A superimposed infiltrate cannot be completely excluded. Findings stable from February 2016. Compensated cardiomegaly." Plan: * Pulmonology consulted, patient prefers to see Dr. Schwartz * Duonebs q4 hrs. diaz, Albuterol Q2 hrs PRN * Solu-Medrol 60 mg IV every 6 hours * Protonix 40 mg PO daily * Will hold off on antibiotics, no leukocytosis, meets one of three criteria for abx (increased dyspnea, but no increased sputum volume or increased sputum purulence) * Incentive spirometry * Supplemental O2 to maintain sats 88-92% (2) chronic medical problems Status: Chronic Plan: Diabetes type 2: Low dose sliding scale. On metformin at home Atrial fibrillation: Continue Eliquis 5mg BID, continue aspirin 81 mg daily, continue Tikosyn 500 mcg PO BID Coronary artery disease: Hypertension: Continue Metoprolol succinate ER 50 mg in the morning and 25 mg in the evening and lisinopril 10 mg by mouth daily at bedtime Hyperlipidemia: Continue Crestor 5 mg daily at bedtime, continue coenzyme Q10 200 mg by mouth daily at bedtime (Will need to bring on medication from home) PAD/muscle spams: Provided Flexeril when necessary Congestive heart failure: Continue torsemide 20 mg by mouth twice a day. Continue lisinopril 10 mg by mouth twice a day Lupus: Continue plaque when [place] milligram by mouth twice a day (3) Nutrition, metabolism, and development symptoms Status: Acute Plan: Fluids: None, tolerating by mouth Electrolytes: Normal, continue to monitor 2000 ADA diet with 2 g sodium restriction, nothing by mouth after midnight with by mouth meds in case of cardiac procedure tomorrow (4) Deep vein thrombosis (DVT) prophylaxis prescribed at discharge Status: Acute Plan: On Eliquis 5 mg by mouth twice a day Ayanna Mejia MD August 20, 2016 18:08
[2016-08-20] MEDS ORDERED: RESP: ALBUTEROL 2.5 MG/3 ML NEB (PRN) NEB (18:30)
[2016-08-20] MEDS: TORSEMIDE 20 MG TAB PO SCH (18:50)
[2016-08-20] MEDS ORDERED: RESP: ALBUTEROL 2.5 MG/3 ML NEB (PRN) INH (19:00)
[2016-08-20] MEDS: RESP: ALBUTEROL 2.5 MG/IPRATROPIUM 0.5 MG NEB (SCH) INH ×2 (19:38→23:27)
[2016-08-20 19:59] VITALS: BP 129/72; PULSE 78; RESP 20; TEMP 98.9; O2SAT 95
[2016-08-20] MEDS ORDERED: ARFORMOTEROL 15 MCG NEB SCH (20:00)
[2016-08-20 20:09] VITALS: BP 168/71; PULSE 60; RESP 20; TEMP 97.1; O2SAT 98
[2016-08-20] MEDS ORDERED: METHYLFOLATE ALGAE PO SCH (21:00)
[2016-08-20] MEDS ORDERED: DOFETILIDE 500 MCG CAP PO SCH (21:00)
[2016-08-20] MEDS: COENZYME Q10 200 MG PO SCH (21:00)
[2016-08-20] MEDS ORDERED: PATIENT OWN MEDICATION SCH (21:00)
[2016-08-20] MEDS: INSULIN ASPART SUPPLEMENTAL SCALE SQ SCH (21:26)
[2016-08-20] MEDS: ASPIRIN 81 MG CHEW TAB CHEW SCH (21:27)
[2016-08-20] MEDS: APIXABAN 5 MG TABLET PO SCH (21:27)
[2016-08-20] MEDS: METOPROLOL SUCCINATE 25 MG EXTENDED RELEASE TAB PO SCH (21:27)
[2016-08-20] MEDS: ATORVASTATIN 10 MG TAB PO SCH (21:27)
[2016-08-20] MEDS: methylPREDNISolone SOD SUCC 125 MG/2 ML VIAL IVP SCH (21:27)
[2016-08-20] MEDS: LISINOPRIL 10 MG TAB PO SCH (21:27)
[2016-08-20] MEDS: POTASSIUM CHLORIDE 10 MEQ CAP PO SCH (21:28)
[2016-08-20] MEDS: SODIUM CHLORIDE 0.9% FLUSH 10 ML FLUSH IV FLUSH SCH (21:28)
[2016-08-20] MEDS: HYDROXYCHLOROQUINE SULFATE 200 MG TAB PO SCH (21:28)
[2016-08-20] MEDS: DOFETILIDE 250 MCG CAP PO SCH (21:29)
[2016-08-20] MEDS: CYCLOBENZAPRINE HCL 10 MG TAB PO PRN (21:37)
[2016-08-20] MEDS ORDERED: cloNIDine HCL 0.1 MG TAB PO PRN (23:15)
[2016-08-20] MEDS ORDERED: hydrALAZINE HCL 10 MG TAB PO PRN (23:15)
[2016-08-20 23:28] VITALS: O2SAT 96
[2016-08-21] VITALS (14 sets, daily range): BP systolic 91–135; BP diastolic 51–81; PULSE 64–81; RESP 18–21; TEMP 96.6–98.5; O2SAT 91–97
[2016-08-21] MEDS: methylPREDNISolone SOD SUCC 125 MG/2 ML VIAL IVP SCH ×4 (02:16→23:05)
[2016-08-21] MEDS: RESP: ALBUTEROL 2.5 MG/IPRATROPIUM 0.5 MG NEB (SCH) INH ×5 (03:30→23:15)
--- NOTE | 2016-08-21 06:13 | HHI.FPPN ---
Subjective Remarks Marcial Paulino is a 66yo gentleman with history significant for COPD, CAD, 3V CABG, a fib and lupus admitted for worsening SOB for 5 days. He was evaluated at his director of materials management's office (Dr. Barfield) who advised pt to go to ER. SOB has been associated with orthopnea, exertional dyspnea, muscle cramps at night. For further details, please see resident H&P. This morning, he was to have cardiac ablation, but was in sinus rhythm at the time. He reports his breathing is better. He states he has a heart coordinator, Dr. Harman, who he sees regularly. After exam/interview, he had respiratory walk test, with O2 dropping to 86% on room air during test. ROS: + SOB, although improved. No chest pain, no palpitations. No cough. All other systems reviewed are negative. PMH/PSxH/SocHx/FamHx: Per resident H&P. Significant for: COPD, PAD, Lupus, HTN, hyperlipidemia, CAD s/p 3v CABG, a fib, DM II, nephrolithiasis, CHF with unknown last echo. BRENDAN 04/2015 with EF 50-55%; cardiac cath 03/2016 with CAD and pulmonary hypertension noted. Patient reports sleep apnea but unable to tolerate mask. 3v CABG in 2011; ablation x 4. Prior tobacco abuse. Occasional alcohol. No recreational drug use. Objective Vitals Vital Signs Date Time Temp Pulse Resp B/P Pulse Ox O2 Delivery O2 Flow Rate FiO2 08/21/16 04:00 98.1 70 20 135/68 95 08/21/16 00:00 98.4 75 20 131/81 95 08/20/16 23:28 96 Nasal Cannula 2.00 08/20/16 20:09 97.1 60 20 168/71 98 08/20/16 19:59 98.9 78 20 129/72 95 08/20/16 17:00 63 26 130/84 97 Nasal Cannula 2 08/20/16 16:15 97 Nasal Cannula 4.00 08/20/16 15:19 92 Room Air 08/20/16 15:19 Room Air 08/20/16 15:16 Room Air 08/20/16 15:09 99.0 73 20 132/74 94 I/O 08/20/16 08/20/16 08/20/16 08/21/16/25/17 5/25/17 07:00 15:00 23:00 07:00 15:00 23:00 Intake Total 220 ml Output Total 450 ml Balance -230 ml Intake Oral 220 ml Output Urine Total 450 ml Result Diagram: 08/20/16 1522 08/20/16 1522 Objective Remarks GENERAL: in NAD, no resp distress, nontoxic. Talks in complete sentences. 95% on room air during exam/interview. HEENT: NCAT, EOMI, no scleral icterus, no conjunctival injection. MMM. OP clear. NECK: Supple, no meningeal signs. CV: RRR, S1 S2. 1-2/6 systolic murmur CHEST/PULM: Decreased air movement. Otherwise, clear. No wheezes. No crackles. ABD/GI: +BS, soft, nontender, nondistended. Obese EXT: 1+ pitting edema to mid jarquin. No calf tenderness. 1+ DP pulses. NEURO: Awake, alert. Normal muscle tone. Grossly nonfocal. SKIN: No rashes, no jaundice. PSYCH: Mood and affect are appropriate. Speech fluent. Does not appear to respond to internal stimuli. A/P Assessment and Plan 66 yo gentleman admitted for worsening SOB; suspected to have COPD exacerbation Discharge Planning Patient has failed the O2 walk test and has demonstrated continued need for oxygen supplementation. Anticipate discharge in 1-2 more days. Attending Attestation Patient seen, examined, and discussed with resident team. Problem List: (1) COPD exacerbation Status: Acute Plan: Progressive worsening of SOB x 5 days. Known h/o COPD, CHF, and a fib. Continue solumedrol, nebulizers, oxygen as needed. Add antibiotics today, as well as Advair (inhaled corticosteroid/long acting beta agonist) Continue incentive spirometer. Patient failed oxygen walk test today, with 86% sat on room air. ABG on room air demonstrates PO2 of 90, pH 7.43, CO2 42. Bicarb slightly elevated at 27 Chest x-ray demonstrates: "persistent left basilar consolidation which may represent scarring or chronic atelectasis. A superimposed infiltrate cannot be completely excluded. Findings stable from February 2016. Compensated cardiomegaly." Patient has heart coordinator (Dr. Harman) as an outpatient with whom he can follow up after discharge. (2) Acute renal insufficiency Status: Resolved Plan: Resolved overnight. Will continue to monitor. (3) Atrial fibrillation Status: Chronic Plan: Continue Eliquis 5mg BID, continue aspirin 81 mg daily, continue Tikosyn 500 mcg PO BID Pt in sinus rhythm this morning. (4) Diabetes mellitus Status: Chronic Plan: Continue Low dose sliding scale. He is on metformin at home (5) CAD (coronary artery disease) Status: Chronic Plan: Asymptomatic. Continue medical management. (6) Hypertension Status: Chronic Plan: Continue Metoprolol succinate ER 50 mg in the morning and 25 mg in the evening and lisinopril 10 mg by mouth daily at bedtime (7) Lupus Status: Chronic Plan: Continue plaquenil. (8) CHF (congestive heart failure) Status: Chronic Plan: Continue medical management. Monitor Is/Os. (9) Hyperlipidemia Status: Chronic Plan: Continue statin. Patient has coenzyme Q10 to bring from home. Problem Qualifiers (1) Diabetes mellitus: (2) Lupus: Eleonora Strong MD August 21, 2016 06:13 Eleonora Strong MD August 21, 2016 06:13
[2016-08-21] MEDS: INSULIN ASPART SUPPLEMENTAL SCALE SQ SCH ×4 (07:00→23:09)
[2016-08-21] MEDS: PANTOPRAZOLE SOD 40 MG DELAYED RELEASE TAB PO SCH (08:05)
[2016-08-21] MEDS: METOPROLOL SUCCINATE 50 MG EXTENDED RELEASE TAB PO SCH (08:05)
[2016-08-21] MEDS: MAGNESIUM OXIDE 400 MG TAB PO SCH (08:05)
[2016-08-21] MEDS: DOFETILIDE 250 MCG CAP PO SCH ×2 (08:05→23:08)
[2016-08-21] MEDS: HYDROXYCHLOROQUINE SULFATE 200 MG TAB PO SCH ×2 (08:05→23:10)
[2016-08-21] MEDS: APIXABAN 5 MG TABLET PO SCH ×2 (08:05→23:10)
[2016-08-21] MEDS: ASPIRIN 81 MG CHEW TAB CHEW SCH ×2 (08:05→23:07)
[2016-08-21] MEDS: TORSEMIDE 20 MG TAB PO SCH ×2 (08:06→17:45)
[2016-08-21] MEDS: SODIUM CHLORIDE 0.9% FLUSH 10 ML FLUSH IV FLUSH SCH ×2 (08:06→23:10)
[2016-08-21] MEDS: POTASSIUM CHLORIDE 10 MEQ CAP PO SCH ×2 (08:06→23:08)
[2016-08-21 08:15] LABS: BICARBONATE 29.4 MEQ/L (21.0-32.0); POTASSIUM 4.5 MEQ/L (3.5-5.1)
[2016-08-21] MEDS: CYCLOBENZAPRINE HCL 10 MG TAB PO PRN (13:07)
[2016-08-21] MEDS: FLUTICASONE 100 MCG/VILANTEROL 25 MCG INHALER INH SCH (15:22)
--- NOTE | 2016-08-21 16:44 | EKG ---
Date Performed: 08/21/2016 Time Performed: 08:32:42 PTAGE: 66 years EKG: Sinus rhythm with 1st degree A-V block. Prolonged QT interval Right axis deviation Right ventricular hypertrophy Extensive ST-T changes are probably due to ventricular hypertrophy Abnormal ECG PREVIOUS TRACING : 08/20/2016 15.10 Compared to prior tracing no significant change DOCTOR: Vladimir Torres Interpretating Date/Time 08/21/2016 16:43:42
--- NOTE | 2016-08-21 17:01 | MB ---
cc: NIRANJAN REAVES M.D. DATE OF CONSULTATION: 08/21/2016. REASON FOR CONSULTATION: Electrophysiology consult for shortness of breath and atrial fibrillation. HISTORY OF PRESENT ILLNESS: Mr. Paulino is a 66-year-old gentleman with history of COPD, coronary artery disease, coronary bypass grafting, atrial fibrillation who was admitted due to shortness of breath. During hospitalization, the patient converted into sinus rhythm. He has a normal ejection fraction. I was consulted for further evaluation and management. The chart was reviewed. The patient was evaluated. ALLERGIES: . SOCIAL HISTORY: Denies smoking and drinking. FAMILY HISTORY: Noncontributory to his current medical condition. MEDICATIONS: The patient is currently on: 1. [place]. 2. Albuterol inhaler. 3. Eliquis 5 milligrams twice a day. 4. Aspirin. 5. Lipitor 10 milligrams a day. 6. Tikosyn 500 micrograms twice a day. 7. Lisinopril. 8. Metoprolol ER 50 milligrams a day. REVIEW OF SYSTEMS: Currently the patient refers feeling better. The shortness of breath has significantly improved. No vomiting. No fever. PHYSICAL EXAMINATION: GENERAL: Alert, fully oriented. VITAL SIGNS: Blood pressure 109/70, pulse 68, respiratory rate 18. LUNGS: Ventilated. CARDIOVASCULAR: S1 and S2 regular. No gallop. ABDOMEN: Abdomen soft, no mass. EXTREMITIES: No edema. EKGS: Electrocardiogram show sinus rhythm, PACs, Q-T around 440 milliseconds. LABORATORY DATA: Hemoglobin 13.1, white blood cells 10.0. Potassium 4.5, creatinine 1.13. GFR is 65%. ASSESSMENT AND RECOMMENDATIONS: Mr. Paulino is back into sinus rhythm. Metoprolol was increased at his last office visit. Doing better. There was no need at this point to cardiovert him. His condition has significantly improved. He is ambulating. My recommendation is to continue with current management. Mr. Paulino can be discharged home and can follow as an outpatient by Dr. Barfield. Niranjan Reaves MD /[facility] /3:15 PM /4:58 PM
--- NOTE | 2016-08-21 17:31 | EKG ---
Date Performed: 08/20/2016 Time Performed: 15:10:49 PTAGE: 66 years EKG: Sinus rhythm WITH SINUS ARRHYTHMIA POSSIBLE RIGHT VENTRICULAR HYPERTROPHY ST DEVIATION AND MODERATE T-WAVE ABNORM ALITY, CONSIDER ANTERIOR ISCHEMIA ABNORMAL ECG Compared to the PREVIOUS TRACING from 04/16/16, no significant change DOCTOR: Vladimir Torres Interpretating Date/Time 08/21/2016 17:30:06
[2016-08-21] MEDS: METOPROLOL SUCCINATE 25 MG EXTENDED RELEASE TAB PO SCH (21:00)
[2016-08-21] MEDS: LISINOPRIL 10 MG TAB PO SCH (21:00)
[2016-08-21] MEDS: COENZYME Q10 200 MG PO SCH (23:03)
[2016-08-21] MEDS: ATORVASTATIN 10 MG TAB PO SCH (23:07)
[2016-08-21] MEDS ORDERED: PROT40TA PO (23:33)
[2016-08-21] MEDS ORDERED: PRED20 PO (23:33)
[2016-08-21] MEDS ORDERED: FLUT1INH INH (23:33)
--- NOTE | 2016-08-21 23:34 | HHI.DCPOC ---
Discharge Care Plan Diagnosis: (1) COPD exacerbation Your Health Problems Are: Shortness of Breath Goals to Promote Your Health * To prevent worsening of your condition and complications, and to maintain your health at the optimal level follow up with your primary care physician and mobile home installer. Directions to Meet Your Goals Take your medications as prescribed Follow your dietary instruction Follow activity as directed Keep your appointments as scheduled Take your immunizations and boosters as scheduled If your symptoms worsen call your PCP, if no PCP go to Urgent Care Center or Emergency Room Smoking is Dangerous to Your Health. Avoid second hand smoke Call the 24-hour hour crisis hotline for domestic abuse at Donta Arcos MD R1 August 21, 2016 23:34
[2016-08-22] MEDS: methylPREDNISolone SOD SUCC 125 MG/2 ML VIAL IVP SCH ×2 (02:45→08:25)
[2016-08-22] MEDS: RESP: ALBUTEROL 2.5 MG/IPRATROPIUM 0.5 MG NEB (SCH) INH ×3 (02:55→10:56)
[2016-08-22 03:34] VITALS: BP 95/56; PULSE 74; RESP 18; TEMP 97.8; O2SAT 94
[2016-08-22] MEDS: INSULIN ASPART SUPPLEMENTAL SCALE SQ SCH ×3 (06:05→12:34)
[2016-08-22 07:17] VITALS: O2SAT 93
[2016-08-22 07:37] VITALS: BP 105/64; PULSE 77; RESP 20; TEMP 97.6; O2SAT 92
[2016-08-22 08:00] VITALS: PULSE 74
[2016-08-22] MEDS: APIXABAN 5 MG TABLET PO SCH (08:22)
[2016-08-22] MEDS: MAGNESIUM OXIDE 400 MG TAB PO SCH (08:22)
[2016-08-22] MEDS: POTASSIUM CHLORIDE 10 MEQ CAP PO SCH (08:22)
[2016-08-22] MEDS: ASPIRIN 81 MG CHEW TAB CHEW SCH (08:23)
[2016-08-22] MEDS: METOPROLOL SUCCINATE 50 MG EXTENDED RELEASE TAB PO SCH (08:23)
[2016-08-22] MEDS: TORSEMIDE 20 MG TAB PO SCH (08:23)
[2016-08-22] MEDS: DOFETILIDE 250 MCG CAP PO SCH (08:24)
[2016-08-22] MEDS: PANTOPRAZOLE SOD 40 MG DELAYED RELEASE TAB PO SCH (08:24)
[2016-08-22] MEDS: HYDROXYCHLOROQUINE SULFATE 200 MG TAB PO SCH (08:24)
[2016-08-22] MEDS: FLUTICASONE 100 MCG/VILANTEROL 25 MCG INHALER INH SCH (08:26)
[2016-08-22] MEDS: SODIUM CHLORIDE 0.9% FLUSH 10 ML FLUSH IV FLUSH SCH (08:26)
[2016-08-22] MEDS ORDERED: DOFE500 PO (08:47)
[2016-08-22] MEDS ORDERED: OXYGENTANK NAS.CANULA (09:49)
--- NOTE | 2016-08-22 10:58 | HHI.FPPN ---
Subjective Remarks Patient is doing well today. He will like to go home. He understands he needs to go home with oxygen. Denies chest pain, nausea, vomiting, fever. (Bandar Briggs MD R2) Objective Vitals Vital Signs Date Time Temp Pulse Resp B/P Pulse Ox O2 Delivery O2 Flow Rate FiO2 08/22/16 08:58 3.00 08/22/16 08:00 74 08/22/16 07:37 97.6 77 20 105/64 92 08/22/16 07:17 93 21 08/22/16 03:34 97.8 74 18 95/56 94 08/21/16 23:45 98.5 80 18 101/57 91 08/21/16 23:29 98.0 64 19 118/78 95 08/21/16 22:00 81 08/21/16 20:38 97 21 08/21/16 20:09 96.6 77 20 99/62 91 08/21/16 16:18 72 08/21/16 15:44 97.5 70 20 91/51 92 08/21/16 11:57 97.9 70 19 92/53 94 I/O 08/21/16 08/21/16 08/21/16 08/22/16 08/22/16 08/22/16 07:00 15:00 23:00 07:00 15:00 23:00 Intake Total 300 ml 750 ml Balance 300 ml 750 ml Intake Oral 300 ml 750 ml # Voids 2 2 # Bowel Movements 1 (Bandar Briggs MD R2) Result Diagram: 08/20/16 1522 08/21/16 0725 Objective Remarks GENERAL: in NAD, no resp distress, nontoxic. Talks in complete sentences. HEENT: NCAT, EOMI, no scleral icterus, no conjunctival injection. MMM. OP clear. NECK: Supple, no meningeal signs. CV: RRR, S1 S2. 1-2/6 systolic murmur CHEST/PULM: Decreased air movement. Otherwise, clear. No wheezes. No crackles. ABD/GI: +BS, soft, nontender, nondistended. Obese EXT: 1+ pitting edema to mid jarquin. No calf tenderness. 1+ DP pulses. NEURO: Awake, alert. Normal muscle tone. Grossly nonfocal. SKIN: No rashes, no jaundice. PSYCH: Mood and affect are appropriate. Speech fluent. Does not appear to respond to internal stimuli. (Bandar rBiggs MD R2) A/P Assessment and Plan 66 yo gentleman admitted for worsening SOB; suspected to have COPD exacerbation Discharge Planning Discharge home today with oxygen. (Bandar Briggs MD R2) Attending Attestation Patient seen and examined, discussed with resident team. I agree with assessment and management as documented and discussed with me. Pt feels much better this AM. He feels breathing is improved. He ambulated to bathroom without SOB. He requests discharge today. Will arrange home O2 as patient failed walk test again today. Consider changing metoprolol to cardioselective beta juan vs CCB as an outpatient - will leave this decision up to cardiology. (Eleonora Strong MD) Problem List: (1) COPD exacerbation Status: Acute Plan: Progressive worsening of SOB x 5 days. Known h/o COPD, CHF, and a fib. Continue solumedrol, nebulizers, oxygen as needed. Add antibiotics today, as well as Advair (inhaled corticosteroid/long acting beta agonist) Continue incentive spirometer. Home with oxygen Patient failed oxygen walk test, with 86% sat on room air. Patient has medical scribe (Dr. Harman) as an outpatient with whom he can follow up after discharge. (2) Acute renal insufficiency Status: Resolved Plan: Resolved overnight. Will continue to monitor. (3) Atrial fibrillation Status: Chronic Plan: Continue Eliquis 5mg BID, continue aspirin 81 mg daily, continue Tikosyn 500 mcg PO BID Pt in sinus rhythm this morning. (4) Diabetes mellitus Status: Chronic Plan: Continue Low dose sliding scale. He is on metformin at home (5) CAD (coronary artery disease) Status: Chronic Plan: Asymptomatic. Continue medical management. (6) Hypertension Status: Chronic Plan: Continue Metoprolol succinate ER 50 mg in the morning and 25 mg in the evening and lisinopril 10 mg by mouth daily at bedtime (7) Lupus Status: Chronic Plan: Continue plaquenil. (8) CHF (congestive heart failure) Status: Chronic Plan: Continue medical management. Monitor Is/Os. (9) Hyperlipidemia Status: Chronic Plan: Continue statin. Patient has coenzyme Q10 to bring from home. (Bandar Briggs MD R2) Problem Qualifiers (1) Diabetes mellitus: (2) Lupus: Bandar Briggs MD R2 August 22, 2016 10:58 Eleonora Strong MD August 22, 2016 15:28
--- NOTE | 2016-08-23 16:52 | EKG ---
Date Performed: 08/22/2016 Time Performed: 23:43:45 PTAGE: 66 years EKG: Sinus rhythm WITH OCCASIONAL SUPRAVENTRICULAR PREMATURE COMPLEXES INTRAVENTRICULAR CONDUCTION DELAY POSSIBLE RIGH T VENTRICULAR HYPERTROPHY DIFFUSED ST-T CHANGES WHICH ARE NONSPECIFIC. SINCE PREVIOUS TRACING 08/22/19 17, QT INTERVAL NO LONGER PROLONGED, OTHERWISE NO SIGNIFICANT CHANGE. ABNORMAL ECG PREVIOUS TRACING : 08/21/2016 08.32 DOCTOR: Marcial Matthews Interpretating Date/Time 08/23/2016 16:50:01
--- NOTE | 2016-08-28 13:04 | HHI.DS ---
Discharge Summary Admission Date August 20, 2016 at 16:53 Discharge Date: August 22, 2016 Admitting Diagnosis COPD Exacerbation, large left atelectatic vs effusion, (1) COPD exacerbation Diagnosis: Principal Plan: Progressive worsening of SOB x 5 days. Known h/o COPD, CHF, and a fib. Continue solumedrol, nebulizers, oxygen as needed. Add antibiotics today, as well as Advair (inhaled corticosteroid/long acting beta agonist) Continue incentive spirometer. Home with oxygen Patient failed oxygen walk test, with 86% sat on room air. Patient has employment director (Dr. Harman) as an outpatient with whom he can follow up after discharge. (2) Acute renal insufficiency Diagnosis: Secondary Plan: Resolved overnight. Will continue to monitor. (3) Atrial fibrillation Diagnosis: Secondary Plan: Continue Eliquis 5mg BID, continue aspirin 81 mg daily, continue Tikosyn 500 mcg PO BID Pt in sinus rhythm this morning. (4) Diabetes mellitus Diagnosis: Secondary Plan: Continue Low dose sliding scale. He is on metformin at home (5) CAD (coronary artery disease) Diagnosis: Secondary Plan: Asymptomatic. Continue medical management. (6) Hypertension Diagnosis: Secondary Plan: Continue Metoprolol succinate ER 50 mg in the morning and 25 mg in the evening and lisinopril 10 mg by mouth daily at bedtime (7) Lupus Diagnosis: Secondary Plan: Continue plaquenil. (8) CHF (congestive heart failure) Diagnosis: Secondary Plan: Continue medical management. Monitor Is/Os. (9) Hyperlipidemia Diagnosis: Secondary Plan: Continue statin. Patient has coenzyme Q10 to bring from home. Procedures Oxygen walk test Brief History 66-year-old male with history of COPD, CAD, triple bypass, HTN, HLD, atrial fibrillation, type 2 DM, and lupus, who presents to the emergency room for worsening shortness of breath over the past 5 days. Was seen in his cardiology office today, Dr. Mitchell, and was told to come to the ED. -He states that he is not able to sleep lying down over past 5 days and has to sit up with multiple pillows -Short of breath just walking a few feet to go across the room -Has to stop and hold onto the wall in order to catch his breath -Thinks he had an echocardiogram within the last year -States he has had laryngitis since February and is unsure of the cause -Denies chest pain, nausea or vomiting, diarrhea or constipation. -Has muscle cramping in the calves that is worse at night. In the past muscle relaxers have worked for this. Has tried many [id number] and herbal supplements without relief. Currently taking Crestor with coenzyme Q10. He used to be on Crestor alone, and had severe muscle cramping. Since using the combination, muscle cramping has been less. -Does not have an outpatient employment director, but would like to see Dr. Schwartz if possible as he was seen by this doctor during the last admission here and prefers follow up with him Imaging Last Impressions Chest X-Ray 08/20/16 1516 Signed Impressions: Service Date/Time: Thursday, August 20, 2016 15:50 - CONCLUSION: 1. Persistent left basilar consolidation which may represent scarring or chronic atelectasis. 2. However, a superimposed infiltrate cannot be completely excluded. Findings are basically stable from February 2016. 3. Compensated cardiomegaly. 4. Stable postsurgical changes with findings of prior CABG. David Baltazar MD PE at Discharge GENERAL: in NAD, no resp distress, nontoxic. Talks in complete sentences. HEENT: NCAT, EOMI, no scleral icterus, no conjunctival injection. MMM. OP clear. NECK: Supple, no meningeal signs. CV: RRR, S1 S2. 1-2/6 systolic murmur CHEST/PULM: Decreased air movement. Otherwise, clear. No wheezes. No crackles. ABD/GI: +BS, soft, nontender, nondistended. Obese EXT: 1+ pitting edema to mid jarquin. No calf tenderness. 1+ DP pulses. NEURO: Awake, alert. Normal muscle tone. Grossly nonfocal. SKIN: No rashes, no jaundice. PSYCH: Mood and affect are appropriate. Speech fluent. Does not appear to respond to internal stimuli. Hospital Course Patient was feeling better the next day and was requesting to go home. However , he failed his oxygen walk test and was requiring oxygen on discharge. Case management helped to arrange oxygen as an outpatient. I did call his medical office receptionist office and left a message that we were considering changing his metoprolol medication, but we would leave that decision to his medical office receptionist given the extent of his COPD requiring oxygen treatment. On discharge, the patient assured us he would take it easy for the next week or 2. Planning to follow with his employment director,Dr. Harman as an outpatient. Pt Condition on Discharge: Fair Discharge Disposition: Discharge Home Discharge Instructions DIET: Follow Instructions for: As Tolerated, No Restrictions Activities you can perform: Regular-No Restrictions Follow up Referrals: PCP Follow-up - 1 Week Pulmonology - 1 Week New Medications: Dofetilide (Tikosyn) 500 Mcg Cap 500 MCG PO BID For Creatinine Clearance >60 mL/min Regulate Heart Beat #60 Ref 0 CAP NS Oxygen tank (Oxygen tank) 1 Ea Tank 2 LITER JENNIE.CANAviary CONTINUOUS Oxygen Concentrator Portable Gaseous 2 L/min via Nasal Cannula Continuous For 99 months HYPOXEMIA PREVENTION #2 CYLINDER Prednisone (Prednisone) 20 Mg Tab 40 MG PO DAILY Take 40 mg (2 tablets) daily for 5 days #5 Ref 0 TAB Fluticasone-Vilanterol Inh (Breo Ellipta Inh) 100-25 Mcg/Act Inh 1 PUFF INH DAILY #30 INHALER Pantoprazole (Protonix) 40 Mg Tab 40 MG PO DAILY #14 TAB Continued Medications: Apixaban (Eliquis) 5 Mg Tab 5 MG PO BID Blood Clot Prevention #60 Ref 0 TAB Aspirin (Aspirin) 81 Mg Chew 81 MG CHEW BID Ref 0 TAB Cyanocobalamin (B-12) 2,500 Mcg Tab 2500 MCG PO DAILY Nutritional Supplement #1 Ref 0 BOTTLE Hydrocodone-Acetaminophen (Hydrocodone-Acetaminophen) 10-325 mg Tab 1 TAB PO TID PRN PAIN #30 Ref 0 TAB Hydroxychloroquine (Plaquenil) 200 Mg Tab 200 MG PO BID Take with food #30 Ref 0 TAB [id number] (Metanx) 1 Cap 1 CAP PO BID Lisinopril (Lisinopril) 10 Mg Tab 10 MG PO HS #30 Ref 0 TAB Magnesium Oxide (Magnesium Oxide) 400 Mg Tab 400 MG PO DAILY Nutritional Supplement Ref 0 TAB Metformin (Metformin) 1,000 Mg Tab 1000 MG PO BIDPC With meals Blood Sugar Management #60 Ref 0 TAB Metoprolol Succinate ER 24 HR (Metoprolol Succinate ER 24 HR) 50 Mg Tab 50 MG PO DAILY IN THE MORNING #30 Ref 0 TAB Metoprolol Succinate ER 24 HR (Toprol XL) 25 Mg Tab 25 MG PO HS #30 Ref 0 TAB Multiple Vitamin (One Daily) 1 Tab 1 TAB PO DAILY Nutritional Supplement Ref 0 TAB Nitroglycerin SL (Nitroglycerin SL) 0.4 Mg Subl 0.4 MG SL DIRECTED ONE TABLET UNDER THE TONGUE NEEDED FOR CHEST PAIN, MAY REPEAT EVERY FIVE MINUTES FOR A TOTAL OF 3 DOSES OR CALL 911 IF NO RELIEF PRN CHEST PAIN #100 Ref 1 TAB.SL Potassium Chloride ER (Potassium Chloride ER) 10 Meq Cap 10 MEQ PO BID Electrolyte Replacement #60 Ref 0 CAP Rosuvastatin (Crestor) 5 Mg Tab 5 MG PO HS Cholesterol Management #30 Ref 0 TAB Torsemide (Torsemide) 20 Mg Tab 20 MG PO BID #30 Ref 0 TAB Discontinued Medications: Arformoterol Neb (Brovana Neb) 15 Mcg/2 Ml Vial 15 MCG NEB BID NEB Maintenance treatment of bronchoconstriction in COPD. Broncospasm #60 NEBULE Budesonide Neb (Budesonide Neb) 0.5 Mg/2 Ml Neb 0.5 MG NEB BID NEB Breathing Treatment #60 Ref 0 NEBULE Dofetilide (Tikosyn) 500 Mcg Cap 500 MCG PO BID For Creatinine Clearance >60 mL/min Regulate Heart Beat #30 Ref 0 CAP Bandar Briggs MD R2 Aug 28, 2016 13:04
== END 2016-08-22 14:05 | disposition home or self-care (01) ==
LOC: NEPC 15:07 → NEDA 16:53 → NEPHCDU 18:36
PROVIDERS: ADMIT Family Medicine; ATTEND Family Medicine
DX: J44.1 Chronic obstructive pulmonary disease with (acute) exacerbation (principal); N28.9 Disorder of kidney and ureter, unspecified; I48.0 Paroxysmal atrial fibrillation; E11.9 Type 2 diabetes mellitus without complications; I25.10 Atherosclerotic heart disease of native coronary artery without angina pectoris; I11.0 Hypertensive heart disease with heart failure; I50.9 Heart failure, unspecified; E78.5 Hyperlipidemia, unspecified; E78.00 Pure hypercholesterolemia, unspecified; I42.9 Cardiomyopathy, unspecified; M32.9 Systemic lupus erythematosus, unspecified; N40.0 Benign prostatic hyperplasia without lower urinary tract symptoms; Z87.891 Personal history of nicotine dependence; Z95.1 Presence of aortocoronary bypass graft; Z79.82 Long term (current) use of aspirin; Z79.84 Long term (current) use of oral hypoglycemic drugs
CPT/HCPCS: 36600; 71010; 80048; 80053; 82550; 82805; 82948; 83880; 84484; 85025; 93005; 94150; 94620; 94640; 94664; 99285; G0378; J1815; J2930; J7613

== ENCOUNTER 2016-08-22 23:24 | Inpatient (IN) | payer MEDICARE ==
[~2016-08-22] VITALS: Ht 190.5 cm; Wt 125.2 kg
[~2016-08-22 23:24] MED LIST changes: -ALBU1.25 NEB; -APIX2.5T PO; +APIX5TAB PO; -BACL10TA PO; +BROV15NE NEB; +BUDE0.5S NEB; -BUDE1SUS2 NASAL; +CYAN2500 PO; -FLUT50SP EACH NARE; -FURO1TAB60 PO; +L-ME1CAP2 PO; -LIVA4TAB PO; +MULT-207 PO; +OXYGENTANK NAS.CANULA; +PRED20 PO; +PROT40TA PO; +ROSU5 PO; +TOPR25TA PO; -VITA500T49 SL
[2016-08-22 23:35] VITALS: BP 157/109; PULSE 86; RESP 18; TEMP 98.7; O2SAT 94
[2016-08-22 23:55] VITALS: BP 133/87; PULSE 76; RESP 26; O2SAT 95
[2016-08-23] VITALS (11 sets, daily range): BP systolic 101–150; BP diastolic 55–90; PULSE 69–82; RESP 2–20; TEMP 95.4–96.7; O2SAT 7–97
--- NOTE | 2016-08-23 00:14 | PD ---
HPI Chief Complaint: Abdominal Pain Time Seen by Provider: 00:13 Travel History International Travel<30 days: No Contact w/Intl Traveler<30days: No Traveled to known affect area: No History of Present Illness HPI 66-year-old male came to the emergency room with history of severe abdominal pain sudden onset about 2 hours prior to coming into the emergency room. Patient was just discharged a few hours ago from the hospital after staying for 2 days for chest pain. Patient [facility]. Soon after that he started having severe abdominal pain. He seems extremely uncomfortable. He says no position was getting him comfortable. He was nauseous and vomited a little bit as well. He did have a bowel movement earlier which was 1 small hard stool followed by some liquid behind it. No blood in it. He pointed the pain from subxiphoid going up to the umbilical area. No aggravating or relieving factors identified. No radiation of the pain. PFSH Past Medical History Narrative Medical List of his past medical, surgical, social and family history was reviewed from the nursing note. Hx Anticoagulant Therapy: Yes (ELOQUIS) Arthritis: Yes Atrial Fibrillation: Yes Anxiety: No Depression: Yes Heart Rhythm Problems: Yes (A-Fib) Cancer: No Cardiac Catheterization: Yes Cardiovascular Problems: Yes High Cholesterol: Yes Chemotherapy: No Chest Pain: Yes Congestive Heart Failure: Yes COPD: Yes Coronary Artery Disease: Yes Diabetes: No (type 2) Diminished Hearing: No Gastrointestinal Disorders: No Genitourinary: Yes (BPH) Heparin Induced Thrombocytopen: No Hypertension: Yes Immune Disorder: No Implanted Vascular Access Dvce: No Kidney Stones: Yes Neurologic: No Reproductive: No Respiratory: Yes (COPD) Pneumonia: Yes Past Surgical History Abdominal Surgery: Yes (HERNIA REPAIR) Cardiac Surgery: Yes (ABLATION x4, TRIPLE BYPASS) Coronary Artery Bypass Graft: Yes (Triple bypass) Coronary Stent: Yes Endocrine Surgery: No Genitourinary Surgery: Yes (LITHOTRIPSY;GREEN LIGHT PROCEDURE) Neurologic Surgery: No Thoracic Surgery: Yes Other Surgery: Yes (FATTY TUMOR REMOVED TOP OF HEAD) Social History Alcohol Use: Yes (RARE) Tobacco Use: No Substance Use: No Allergies-Medications (Allergen,Severity, Reaction): Coded Allergies: JOSE JUAN (Verified Adverse Reaction, Unknown, muscle cramps, 08/23/16) Comments List of his allergies reviewed from the nursing note. Reported Meds & Prescriptions Reported Meds & Active Scripts Active Oxygen tank (Oxygen) 1 Ea Tank 2 Liter JENNIE.CANULA CONTINUOUS Oxygen Concentrator Portable Gaseous 2 L/min via Nasal Cannula Continuous For 99 months Tikosyn (Dofetilide) 500 Mcg Cap 500 Mcg PO BID For Creatinine Clearance >60 mL/min Prednisone 20 Mg Tab 40 Mg PO DAILY Take 40 mg (2 tablets) daily for 5 days Protonix (Pantoprazole Sodium) 40 Mg Tab 40 Mg PO DAILY Breo Ellipta Inh (Fluticasone/Vilanterol) 100-25 Mcg/Act Inh 1 Puff INH DAILY Crestor (Rosuvastatin Calcium) 5 Mg Tab 5 Mg PO HS Nitroglycerin SL (Nitroglycerin) 0.4 Mg Subl 0.4 Mg SL DIRECTED PRN ONE TABLET UNDER THE TONGUE NEEDED FOR CHEST PAIN, MAY REPEAT EVERY FIVE MINUTES FOR A TOTAL OF 3 DOSES OR CALL 911 IF NO RELIEF Reported Metanx (m-Sizmnyuscfom-Uhgpe) 1 Cap 1 Cap PO BID One Daily (Multiple Vitamin) 1 Tab 1 Tab PO DAILY Toprol XL (Metoprolol Succinate) 25 Mg Tab 25 Mg PO HS B-12 (Cyanocobalamin) 2,500 Mcg Tab 2,500 Mcg PO DAILY Eliquis (Apixaban) 5 Mg Tab 5 Mg PO BID Magnesium Oxide 400 Mg Tab 400 Mg PO DAILY Plaquenil (Hydroxychloroquine Sulfate) 200 Mg Tab 200 Mg PO BID Take with food Hydrocodone-Acetaminophen 10-325 mg Tab 1 Tab PO TID PRN Potassium Chloride ER (Potassium Chloride) 10 Meq Cap 10 Meq PO BID Torsemide 20 Mg Tab 20 Mg PO BID Aspirin 81 Mg Chew 81 Mg CHEW BID Metformin (Metformin HCl) 1,000 Mg Tab 1,000 Mg PO BIDPC With meals Metoprolol Succinate ER 24 HR (Metoprolol Succinate) 50 Mg Tab 50 Mg PO DAILY IN THE MORNING Lisinopril 10 Mg Tab 10 Mg PO HS Narrative Medication List of his home medications reviewed from the nursing note. Review of Systems Except as stated in HPI: all other systems reviewed are Neg Physical Exam Narrative GENERAL: Awake, alert, anxious, significant distress, morbidly obese SKIN: Focused skin assessment warm/dry. HEAD: Atraumatic. Normocephalic. EYES: Pupils equal and round. No scleral icterus. No injection or drainage. ENT: No nasal bleeding or discharge. Mucous membranes pink and moist. NECK: Trachea midline. No JVD. CARDIOVASCULAR: Regular rate and rhythm. No murmur appreciated. RESPIRATORY: No accessory muscle use. Clear to auscultation. Breath sounds equal bilaterally. GASTROINTESTINAL: Abdomen tense, distended, diffuse tenderness. Hepatic and splenic margins not palpable. MUSCULOSKELETAL: No obvious deformities. No clubbing. No cyanosis. No edema. NEUROLOGICAL: Awake and alert. No obvious cranial nerve deficits. Motor grossly within normal limits. Normal speech. PSYCHIATRIC: Appropriate mood and affect; insight and judgment normal. Data Data Last Documented VS Vital Signs Date Time Temp Pulse Resp B/P Pulse Ox O2 Delivery O2 Flow Rate FiO2 08/23/16 04:46 79 20 125/82 95 Nasal Cannula 2 08/22/16 23:35 98.7 Orders Complete Blood Count With Diff (08/23/16 00:18) Comprehensive Metabolic Panel (08/23/16 00:18) Lipase (08/23/16 00:18) Prothrombin Time / Inr (Pt) (08/23/16 00:18) Ct Abd/Pel W/O Iv Contrast (08/23/16 00:18) Iv Access Insert/Monitor (08/23/16 00:18) Ecg Monitoring (08/23/16 00:18) Oximetry (08/23/16 00:18) Morphine Inj (Morphine Inj) (08/23/16 00:30) Ondansetron Inj (Zofran Inj) (08/23/16 00:30) Sodium Chloride 0.9% Flush (Ns Flush) (08/23/16 00:30) Sodium Chlorid 0.9% 500 Ml Inj (Ns 500 M (08/23/16 00:30) Troponin I (08/23/16 01:51) Fleets Enema PRN (08/23/16 01:51) Lactic Acid (08/23/16 01:52) Morphine Inj (Morphine Inj) (08/23/16 02:15) Piperacil-Tazo 4.5 Gm Premix (Zosyn 4.5 (08/23/16 04:00) Sodium Chlor 0.9% 1000 Ml Inj (Ns 1000 M (08/23/16 04:00) Admit Order (Ed Use Only) (08/23/16 04:46) Labs Laboratory Tests Test 08/23/16 08/23/16 00:15 02:35 White Blood Count 20.8 TH/MM3 Red Blood Count 4.55 MIL/MM3 Hemoglobin 13.8 GM/DL Hematocrit 41.1 % Mean Corpuscular Volume 90.5 FL Mean Corpuscular Hemoglobin 30.3 PG Mean Corpuscular Hemoglobin 33.5 % Concent Red Cell Distribution Width 16.1 % Platelet Count 279 TH/MM3 Mean Platelet Volume 7.8 FL Neutrophils (%) (Auto) 87.6 % Lymphocytes (%) (Auto) 5.6 % Monocytes (%) (Auto) 6.7 % Eosinophils (%) (Auto) 0.0 % Basophils (%) (Auto) 0.1 % Neutrophils # (Auto) 18.2 TH/MM3 Lymphocytes # (Auto) 1.2 TH/MM3 Monocytes # (Auto) 1.4 TH/MM3 Eosinophils # (Auto) 0.0 TH/MM3 Basophils # (Auto) 0.0 TH/MM3 CBC Comment DIFF FINAL Differential Comment Prothrombin Time 12.0 SEC Prothromb Time International 1.1 RATIO Ratio Sodium Level 139 MEQ/L Potassium Level 4.7 MEQ/L Chloride Level 103 MEQ/L Carbon Dioxide Level 27.5 MEQ/L Anion Gap 9 MEQ/L Blood Urea Nitrogen 30 MG/DL Creatinine 1.28 MG/DL Estimat Glomerular Filtration 56 ML/MIN Rate Random Glucose 171 MG/DL Calcium Level 9.1 MG/DL Total Bilirubin 0.5 MG/DL Aspartate Amino Transf 27 U/L (AST/SGOT) Alanine Aminotransferase 35 U/L (ALT/SGPT) Alkaline Phosphatase 73 U/L Total Protein 7.5 GM/DL Albumin 4.0 GM/DL Lipase 177 U/L Lactic Acid Level 3.3 mmol/L Troponin I LESS THAN 0.02 NG/ML MDM Medical Decision Making Medical Screen Exam Complete: Yes Emergency Medical Condition: Yes Medical Record Reviewed: Yes Interpretation(s) Twelve-lead EKG was reviewed by me. Atrial fibrillation, normal axis, diffuse ST depression and T-wave inversions but they are unchanged from 08/22/2015. Heart rate of 77 bpm. Differential Diagnosis Acute cholecystitis, acute pancreatitis, renal colic, small bowel obstruction, ACS Narrative Course 4:30 AM blood test results of back and suggestive of significant leukocytosis and lactic acidosis. CT scan of the abdomen and pelvis however does not show any acute abnormality except for moderate sized stool with distended bowel loops. I ordered a Fleet enema for this patient. Patient was also given IV Zosyn for the lactic acidosis and leukocytosis. He has received total of 2 L of IV fluid bolus. He had to be medicated for pain times twice. At this point I feel that there might be some intra-abdominal pathology going on that CAT scan has not discovered. However he was very uncomfortable with the pain and his leukocytosis and lactic acidosis is reflective of that. I would like to admit him and awaiting for the residents to call back. I discussed this with the patient and he is comfortable with the plan. Critical Care Narrative Aggregate critical care time was 45 minutes. Time to perform other separately billable procedures was not included in the critical care time. My time did not include minutes spent treating any other patients simultaneously or on activities that did not directly contribute to the patient's treatment. The services I provided to this patient were to treat and/or prevent clinically significant deterioration that could result in: Leukocytosis, lactic acidosis I provided critical care services requiring my management, as noted below: Chart data review, documentation time, medication orders and management, vital sign assessments/reviewing monitor data, ordering and reviewing lab tests, ordering and interpreting/reviewing x-rays and diagnostic studies, care of the patient and discussion of the patient with the admitting physicians. Procedures EKG Prior to Arrival: No Diagnosis Primary Impression: Abdominal pain Qualified Code: R10.9 - Abdominal pain, unspecified location Additional Impressions: Leukocytosis Qualified Code: D72.829 - Leukocytosis, unspecified type Lactic acidosis Admitting Information Admitting Physician Requests: Varsha Vizcarra MD August 23, 2016 00:14
[2016-08-23] MEDS ORDERED: SODIUM CHLORID 0.9% 500 ML INJ 500 ML IV ONE (00:30)
[2016-08-23] MEDS ORDERED: MORPHINE SULFATE 4 MG/ML INJ IV PUSH ONE ×2 (00:30→02:15)
[2016-08-23] MEDS ORDERED: ONDANSETRON HCL 4 MG/2 ML VIAL IVP ONE (00:30)
[2016-08-23] MEDS: SODIUM CHLORIDE 0.9% FLUSH 10 ML FLUSH IV FLUSH PRN ×3 (00:32→09:40)
[2016-08-23 00:59] LABS: AUTOMATED NEUTROPHIL # 18.2 TH/MM3 (1.8-7.7); BASOPHIL % 0.1 % (0.0-2.0); HEMATOCRIT 41.1 % (39.0-51.0); HEMO FLAGS DIFF FINAL; LYMPH % 5.6 % (9.0-44.0); LYMPHOCYTE # 1.2 TH/MM3 (1.0-4.8); MEAN CELL VOLUME 90.5 FL (80.0-100.0); MEAN CORPUSCULAR HEMOGLOBIN 30.3 PG (27.0-34.0); MEAN CORPUSCULAR HGB CONC 33.5 % (32.0-36.0); MONO % 6.7 % (0.0-8.0); NEUT % 87.6 % (16.0-70.0); PLATELET COUNT 279 TH/MM3 (150-450); RED BLOOD COUNT 4.55 MIL/MM3 (4.50-5.90); RED CELL DISTRIBUTION WIDTH 16.1 % (11.6-17.2); WHITE BLOOD COUNT 20.8 TH/MM3 (4.0-11.0)
[2016-08-23 01:12] LABS: INTERNATIONAL NORMALIZED RATIO 1.1 RATIO
--- NOTE | 2016-08-23 01:17 | RADRPT ---
EXAM DATE/TIME: 08/23/2016 00:55 [facility] COMPARISON: No previous studies available for comparison. INDICATIONS : Epigastric pain. ORAL CONTRAST: No oral contrast ingested. RADIATION DOSE: 27.21 CTDIvol (mGy) MEDICAL HISTORY : Cardiovascular disease. Diabetes mellitus type 2. Chronic obstructive pulmonary disease. SURGICAL HISTORY : CABG Hernia repair ENCOUNTER: Initial ACUITY: 1 day PAIN SCALE: 10/10 LOCATION: abdomen TECHNIQUE: Volumetric scanning of the abdomen and pelvis was performed. Using automated exposure control and ad justment of the mA and/or kV according to patient size, radiation dose was kept as low as reasonably achievable to obtain optimal diagnostic quality images. FINDINGS: LOWER LUNGS: Minimal scarring and consolidation in the left lower lobe. The heart is enlarged LIVER: Homogeneous density without lesion. There is no dilation of the biliary tree. No calcified gallston es. SPLEEN: Normal size without lesion. PANCREAS: Within normal limits. KIDNEYS: Normal in size and shape. There is no mass, stone, or hydronephrosis except for tiny left exophytic cyst. ADRENAL GLANDS: Within normal limits. VASCULAR: There is no aortic aneurysm. BOWEL/MESENTERY: The stomach, small bowel, and colon demonstrate no acute abnormality. There is no free intraperitone al air or fluid. A small amount of fluid in the right lower quadrant. The appendix is normal. Stool d ensity material throughout the small bowel without any evidence of obstruction or dilatation ABDOMINAL WALL: Within normal limits. RETROPERITONEUM: There is no lymphadenopathy. BLADDER: No wall thickening or mass. REPRODUCTIVE: Within normal limits. INGUINAL: There is no lymphadenopathy or hernia. MUSCULOSKELETAL: Within normal limits for patient age. CONCLUSION: Unremarkable exam with the exception of free fluid in the right lower quadrant. The appendix is casimiro l. There is extensive stool type density throughout the small bowel without any evidence of obstructi on or dilated lumen. Mayco Johnson MD on August 23, 2016 at 1:12 Board Certified Radiologist. This report was verified electronically.
[2016-08-23 01:27] LABS: ALT (GPT) 35 U/L (12-78); ANION GAP 9 MEQ/L (5-15); AST (GOT) 27 U/L (15-37); BICARBONATE 27.5 MEQ/L (21.0-32.0); BLOOD UREA NITROGEN 30 MG/DL (7-18); CHLORIDE 103 MEQ/L (98-107); GLOMERULAR FILTRATION RATE 56 ML/MIN (>89); POTASSIUM 4.7 MEQ/L (3.5-5.1); SODIUM (NA) 139 MEQ/L (136-145)
[2016-08-23 01:29] LABS: ALKALINE PHOSPHATASE 73 U/L (45-117); TOTAL BILIRUBIN ADULT 0.5 MG/DL (0.2-1.0)
[2016-08-23] MEDS ORDERED: SODIUM CHLOR 0.9% 1000 ML INJ 1,000 ML IV ONE (04:00)
[2016-08-23] MEDS ORDERED: PIPERACIL-TAZO 4.5 GM PREMIX 100 ML IV ONE (04:00)
--- NOTE | 2016-08-23 05:24 | HHI.HP ---
[facility] Service Family Medicine Primary Care Physician Uvaldo Arcos MD Admission Diagnosis abdominal pain, lactic acidosis, leukocytosis Diagnoses: International Travel<30 Days: No Contact w/Intl Traveler<30days: No Known Affected Area: No History of Present Illness 66-year-old male with history of COPD, CAD, triple bypass, HTN, HLD, atrial fibrillation, type 2 DM, and lupus. He was recently hospitalized for COPD exacerbation. 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 While there they saw a restaurant next door that looked appealing, he went over and had some [employer] olmedo chops. He says this was very tasty however shortly afterwards he started to have severe abdominal pain. He took some Gas-X was did not help, and he tried to rest and relax and thought the pain would eventually go away, however it continued to worsen. He started to feel nauseated and vomited a small about 1 time. He also had one hard small bowel movement followed by some liquid stool and nothing since. He feels like he really needs to have a bowel movement but feels unable to do so. At its worst the pain has been a 10 out of 10. He reports most of his pain being the epigastric region though the left upper and lower quadrants are also tender. With all this going on around midnight () he decided to return to the hospital to be evaluated. His pain was only slightly relieved with morphine in the ED. His labs showed leukocytosis and an elevated lactic acid and it was decided that he be readmitted to the hospital. (Charlie Crowell MD R2) Review of Systems Constitutional: COMPLAINS OF: Fatigue, Change in appetite (decreased), DENIES : Fever, Weight gain, Weight loss, Dizziness Endocrine: DENIES: Polyuria Eyes: DENIES: Blurred vision, Eye pain, Double Vision Ears, nose, mouth, throat: COMPLAINS OF: Hoarseness, DENIES: Nasal discharge, Throat pain, Running Nose, Sinus Pain Respiratory: COMPLAINS OF: Cough (mild), Sputum production (mild), Shortness of breath Cardiovascular: COMPLAINS OF: Dyspnea on Exertion, Lower Extremity Edema, DENIES: Chest pain Gastrointestinal: COMPLAINS OF: Abdominal pain, Constipation, Nausea, Vomiting Musculoskeletal: DENIES: Joint pain, Stiffness, Back pain Integumentary: DENIES: Rash Hematologic/lymphatic: DENIES: Bruising Immunologic/allergic: DENIES: Eczema Neurologic: DENIES: Abnormal gait, Seizures, Tremor, Poor Balance Psychiatric: DENIES: Anxiety, Confusion, Depression (Charlie Crowell MD R2) Past Family Social History Past Medical History Hypertension Hyperlipidemia Type 2 diabetes A-fib COPD Chronic kidney stones PAD Lupus Congestive heart failure Depression BPH Angina Cardiomyopathy Past Surgical History Triple bypass surgery [address] 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 Reported Medications Reported Meds & Active Scripts Active Oxygen tank (Oxygen) 1 Ea Tank 2 Liter [facility] CONTINUOUS Oxygen Concentrator Portable Gaseous 2 L/min via Nasal Cannula Continuous For 99 months Tikosyn (Dofetilide) 500 Mcg Cap 500 Mcg PO BID For Creatinine Clearance >60 mL/min Prednisone 20 Mg Tab 40 Mg PO DAILY Take 40 mg (2 tablets) daily for 5 days Protonix (Pantoprazole Sodium) 40 Mg Tab 40 Mg PO DAILY Breo Ellipta Inh (Fluticasone/Vilanterol) 100-25 Mcg/Act Inh 1 Puff INH DAILY Crestor (Rosuvastatin Calcium) 5 Mg Tab 5 Mg PO HS Nitroglycerin SL (Nitroglycerin) 0.4 Mg Subl 0.4 Mg SL DIRECTED PRN ONE TABLET UNDER THE TONGUE NEEDED FOR CHEST PAIN, MAY REPEAT EVERY FIVE MINUTES FOR A TOTAL OF 3 DOSES OR CALL 911 IF NO RELIEF Reported Metanx (r-[id number]) 1 Cap 1 Cap PO BID One Daily (Multiple Vitamin) 1 Tab 1 Tab PO DAILY Toprol XL (Metoprolol Succinate) 25 Mg Tab 25 Mg PO HS B-12 (Cyanocobalamin) 2,500 Mcg Tab 2,500 Mcg PO DAILY Eliquis (Apixaban) 5 Mg Tab 5 Mg PO BID Magnesium Oxide 400 Mg Tab 400 Mg PO DAILY Plaquenil (Hydroxychloroquine Sulfate) 200 Mg Tab 200 Mg PO BID Take with food Hydrocodone-Acetaminophen 10-325 mg Tab 1 Tab PO TID PRN Potassium Chloride ER (Potassium Chloride) 10 Meq Cap 10 Meq PO BID Torsemide 20 Mg Tab 20 Mg PO BID Aspirin 81 Mg Chew 81 Mg CHEW BID Metformin (Metformin HCl) 1,000 Mg Tab 1,000 Mg PO BIDPC With meals Metoprolol Succinate ER 24 HR (Metoprolol Succinate) 50 Mg Tab 50 Mg PO DAILY IN THE MORNING Lisinopril 10 Mg Tab 10 Mg PO HS (Charlie Crowell MD R2) Allergies: Coded Allergies: CRESTOR (Verified Adverse Reaction, Unknown, muscle cramps, 08/23/16) Family History noncontributory Social History Alcohol Use: Occasional Tobacco Use: Quit 30 years sago Substance Use: Denies (Charlie Crowell MD R2) Physical Exam Vital Signs Vital Signs Date Time Temp Pulse Resp B/P Pulse Ox O2 Delivery O2 Flow Rate FiO2 08/23/16 04:46 79 20 125/82 95 Nasal Cannula 2 08/23/16 02:33 82 19 150/90 95 Nasal Cannula 2 08/23/16 00:05 94 Room Air 08/22/16 23:55 76 26 133/87 95 Room Air 08/22/16 23:35 98.7 86 18 157/109 94 Room Air Physical Exam GENERAL: Pleasant, alert, obese, well developed. In no acute distress SKIN: Warm/dry. HEAD: Atraumatic. Normocephalic. EYES: No scleral icterus. No injection or drainage. ENT: Mucous membranes pink and moist. NECK: Trachea midline. No JVD. Supple. CARDIOVASCULAR: Regular rate and rhythm. No murmur appreciated. RESPIRATORY: No increased work of breathing. Lungs are clear anteriorly and posteriorly without wheezing rhonchi or crackles. On 1L nasal cannula GASTROINTESTINAL: +BS. Abdomen obese, soft, tender to palpation in the epigastric, LUQ and LLQ. The tenderness is most severe in the epigastric region. nondistended. No hepatosplenomegaly. No palpable masses MUSCULOSKELETAL: No obvious deformities. No clubbing. No cyanosis. 2+ pitting edema bilateral lower extremities. NEUROLOGICAL: Awake and alert. No obvious cranial nerve deficits. Motor grossly within normal limits. Normal speech. PSYCHIATRIC: Appropriate mood and affect; insight and judgment normal. Laboratory Laboratory Tests Test 08/23/16 08/23/16 00:15 02:35 White Blood Count 20.8 Red Blood Count 4.55 Hemoglobin 13.8 Hematocrit 41.1 Mean Corpuscular Volume 90.5 Mean Corpuscular Hemoglobin 30.3 Mean Corpuscular Hemoglobin 33.5 Concent Red Cell Distribution Width 16.1 Platelet Count 279 Mean Platelet Volume 7.8 Neutrophils (%) (Auto) 87.6 Lymphocytes (%) (Auto) 5.6 Monocytes (%) (Auto) 6.7 Eosinophils (%) (Auto) 0.0 Basophils (%) (Auto) 0.1 Neutrophils # (Auto) 18.2 Lymphocytes # (Auto) 1.2 Monocytes # (Auto) 1.4 Eosinophils # (Auto) 0.0 Basophils # (Auto) 0.0 CBC Comment DIFF FINAL Differential Comment Prothrombin Time 12.0 Prothromb Time International 1.1 Ratio Sodium Level 139 Potassium Level 4.7 Chloride Level 103 Carbon Dioxide Level 27.5 Anion Gap 9 Blood Urea Nitrogen 30 Creatinine 1.28 Estimat Glomerular Filtration 56 Rate Random Glucose 171 Calcium Level 9.1 Total Bilirubin 0.5 Aspartate Amino Transf 27 (AST/SGOT) Alanine Aminotransferase 35 (ALT/SGPT) Alkaline Phosphatase 73 Total Protein 7.5 Albumin 4.0 Lipase 177 Lactic Acid Level 3.3 Troponin I LESS THAN 0.02 (Charlie Crowell MD R2) Result Diagram: 08/23/16 0015 08/23/16 0015 Imaging Last Impressions Abdomen/Pelvis CT 08/23/16 0018 Signed Impressions: Service Date/Time: Thursday, August 23, 2016 00:55 - CONCLUSION: Unremarkable exam with the exception of free fluid in the right lower quadrant. The appendix is normal. There is extensive stool type density throughout the small bowel without any evidence of obstruction or dilated lumen. Mayco Johnson MD (Charlie Crowell MD R2) Assessment and Plan Assessment and Plan 66-year-old male with history of COPD, CAD, triple bypass, HTN, HLD, atrial fibrillation, type 2 DM, and lupus. Being admitted for severe abdominal pain current cause believed to be constipation. Also concern for infection due to Leukocytosis and elevated Lactic acid. Code Status full code Discussed Condition With wdw: Dr. Strong and Med Team B (Charlie Croewll MD R2) Attending Attestation Patient seen, examined, and discussed with Dr. Arcos. I agree with assessment and management as documented and discussed with me. The patient has been seen and examined. The chart and all resident notes have been reviewed. I agree that inpatient care is appropriate and that a two midnight stay is expected for the reasons documented in the resident history and physical. I have discussed this with the resident and certify the resident s order for inpatient admission. Marcial Paulino is a 66yo gentleman admitted earlier this morning for severe abdominal pain. He was recently admitted under observation for SOB and felt to have COPD exacerbation. He was treated with oral steroids, but also with PPI for stomach protection. This morning, patient reports abdominal pain has improved with pain medication to a 5/10 (down from 10/10). He denies flatus. Last BM was yesterday. He had one episode of vomiting. No nausea. No diarrhea. Concern for mesenteric ischemia, with elevated lactic acid, dilated loops of bowel on Abd Xray, and severe pain occurring after a meal. Check CTA abdomen/ pelvis to evaluate. Continue NPO. (Eleonora Strong MD) Problem List: (1) Abdominal pain Status: Acute Plan: Patient is having severe abdominal pain. CT of the abdomen does not show any small bowel obstruction. It does show large amounts of stool in the small bowel consistent with severe constipation. Actually identify all sources of abdominal pain not completely certain at this time. * Admitted to inpatient * Consulted GI, recommendations appreciated, day team can decide whether they wish to continue this consult if patient has a bowel movement and symptoms improve * Nothing by mouth except medications, discussed NG tube patient wishes to further discuss this with day team or GI * D5 half-normal saline at 100 MLS per hour, will stop once patient is taking an adequate oral intake * [place] 5/325 by mouth every 4 hours when necessary pain scale 1-5 * [place] 10/325 by mouth every 4 hours when necessary pain scale 6-10 * Morphine 2 mg IV every 4 hours when necessary breakthrough pain * Zofran 4 mg IV every 6 hours when necessary nausea * Protonix 40 mg IV will transition to by mouth with improvement of abdominal pain * Jihan-Colace 2 tablets by mouth twice a day * Fleets enema 1 pending * Abdomen flat and upright x-ray pending * CBC, BMP ordered for a.m. (2) Leukocytosis Status: Acute Plan: Patient is meeting SIRS criteria due to leukocytosis of 20 and elevated lactic acid of 3.3, he is afebrile, and no source of infection is known at this time. Possible reasons for leukocytosis is steroid-induced, stress-induced, or infection. Status post NS bolus 2 * Continue Zosyn 4.5 g IV every 8 hours * Blood cultures pending * UA pending * Continue to monitor white blood cell count and for fevers * Lactic acid protocol pending (3) chronic medical problems Status: Chronic Plan: Diabetes type 2: Low dose sliding scale. On metformin at home Atrial fibrillation: Continue Eliquis 5mg BID, continue aspirin 81 mg daily, continue Tikosyn 500 mcg PO BID Coronary artery disease: Continue Eliquis Hypertension: Continue Metoprolol succinate ER 50 mg in the morning and 25 mg in the evening and lisinopril 10 mg by mouth daily at bedtime Hyperlipidemia: Continue Crestor 5 mg daily at bedtime, continue coenzyme Q10 200 mg by mouth daily at bedtime (Will need to bring on medication from home) PAD/muscle spams: Provided Flexeril when necessary Congestive heart failure: Continue torsemide 20 mg by mouth twice a day. Continue lisinopril 10 mg by mouth twice a day Lupus: Continue plaque when Pioneer milligram by mouth twice a day COPD with recent exacerbation: Continue Prednisone 40mg daily per discharge orders, Alternate albuterol and DuoNeb's, Continue oxygen as needed (4) Nutrition, metabolism, and development symptoms Status: Acute Plan: Diet: Nothing by mouth at this time due to abdominal pain Fluids: D5 half-normal saline at 100 MLS per hour Out of bed ad willard. Vitals every 4 Monitor electrolytes replace accordingly DVT prophylaxis with Eliquis and SCDs CODE STATUS: Full code Disposition: Pending improvement of abdominal pain (Charlie Crowell MD R2) Physician Certification 2 Midnight Certification Type: Admission for Inpatient Services Order for Inpatient Services The services are ordered in accordance with Medicare regulations or non- Medicare payer requirements, as applicable. In the case of services not specified as inpatient-only, they are appropriately provided as inpatient services in accordance with the 2-midnight benchmark. Estimated LOS (days): 3 days is the estimated time the patient will need to remain in the hospital, assuming treatment plan goals are met and no additional complications. Post-Hospital Plan: Home (Charlie Crowell MD R2) Problem Qualifiers (1) Abdominal pain: Qualified Code: R10.9 - Abdominal pain, unspecified location (2) Leukocytosis: Qualified Code: D72.829 - Leukocytosis, unspecified type Charlie Crowell MD R2 August 23, 2016 05:24 Eleonora Strong MD August 23, 2016 17:33
[2016-08-23] MEDS ORDERED: SOD PHOSPHATE/SOD BIPHOSPHATE (ADULT) ENEMA 133ML PR PRN (05:30)
[2016-08-23] MEDS ORDERED: ACETAMINOPHEN/HYDROcodone 325 MG/5 MG TAB PO PRN (05:30)
[2016-08-23] MEDS ORDERED: ZOLPIDEM TARTRATE 5 MG TAB PO PRN (05:30)
[2016-08-23] MEDS: ACETAMINOPHEN/HYDROcodone 325 MG/10 MG TAB PO PRN ×3 (05:56→16:25)
[2016-08-23] MEDS ORDERED: RESP: ALBUTEROL 2.5 MG/3 ML NEB (PRN) NEB (06:00)
[2016-08-23] MEDS ORDERED: GLUCAGON 1 MG/ML VIAL OTHER PRN (06:00)
[2016-08-23] MEDS ORDERED: DEXTROSE 50% IN WATER 50 ML VIAL(D50) IV PRN (06:00)
[2016-08-23] MEDS ORDERED: HEPARIN SODIUM - SQ 10,000 UNITS/ML VIAL SQ SCH (06:00)
[2016-08-23] MEDS: D5-1/2 NS + KCL 20 MEQ INJ 1,000 ML IV SCH ×3 (06:29→17:57)
--- NOTE | 2016-08-23 06:36 | RADRPT ---
EXAM DATE/TIME: 08/23/2016 05:59 [facility] COMPARISON: No previous studies available for comparison. INDICATIONS : Pt having upper abdominal pain x 1 day. MEDICAL HISTORY : Cardiovascular disease. Chronic obstructive pulmonary disease. Diabetes mellitus type II. SURGICAL HISTORY : CABG. Hernia repair ENCOUNTER: Initial ACUITY: 1 day PAIN SCORE: 8/10 LOCATION: Bilateral Abdomen FINDINGS: Supine and upright views of the abdomen were performed. The patient has numerous distended and dilate d mostly air filled loops of small bowel throughout the abdomen. No air fluid levels are seen. No a bnormal masses, calcifications, or organomegaly is seen. The visualized lower lungs are clear. No e vidence of free intraperitoneal gas. The osseous structures are unremarkable. CONCLUSION: Dilated loops of small bowel throughout the abdomen up to 5.6 cm across. Mayco Johnson MD on August 23, 2016 at 6:34 Board Certified Radiologist. This report was verified electronically.
[2016-08-23] MEDS: INSULIN ASPART SUPPLEMENTAL SCALE SQ SCH ×4 (07:00→20:57)
--- NOTE | 2016-08-23 07:51 | HHI.FPPN ---
Subjective Remarks Patient states his abdominal pain is now at about a 2-3/10 after receiving morphine. He states his abdominal pain was at a 10/10 after eating his meal last night at [facility]. He describes that abdominal pain as epigastric and mid abdominal pain, very severe, non radiating, and lasting for about 5 hours before finally coming into the ED. He states his last BM was last night at 19:30; he states he had a small bowel movement. He states he vomited a small amount that appeared to be gravy last night as well. Denies any other episode of vomiting. He denies visible blood in stools or melena. (Donta Arcos MD R1) Objective Vitals Vital Signs Date Time Temp Pulse Resp B/P Pulse Ox O2 Delivery O2 Flow Rate FiO2 08/23/16 07:15 Nasal Cannula 1.00 08/23/16 05:54 80 20 128/82 97 Nasal Cannula 1 08/23/16 04:46 79 20 125/82 95 Nasal Cannula 2 08/23/16 02:33 82 19 150/90 95 Nasal Cannula 2 08/23/16 00:05 94 Room Air 08/22/16 23:55 76 26 133/87 95 Room Air 08/22/16 23:35 98.7 86 18 157/109 94 Room Air (Donta Arcos MD R1) Result Diagram: 08/23/16 0015 08/23/16 0015 Objective Remarks GENERAL: Pleasant, alert, obese, well developed. NAD SKIN: Warm/dry. HEAD: Atraumatic. Normocephalic. EYES: No scleral icterus. No injection or drainage. ENT: Mucous membranes pink and moist. NECK: Trachea midline. No JVD. Supple. CARDIOVASCULAR: Regular rate and rhythm. No murmur appreciated. RESPIRATORY: No increased work of breathing. Lungs are clear anteriorly without wheezing rhonchi or crackles. GASTROINTESTINAL: +BS. Abdomen obese, soft, slightly tender to palpation in the epigastric region. Nondistended. No palpable masses. No rebound tenderness. No guarding. MUSCULOSKELETAL: No obvious deformities. No clubbing. No cyanosis. 2+ pitting edema bilateral lower extremities. NEUROLOGICAL: Awake and alert. No obvious cranial nerve deficits. Motor grossly within normal limits. Normal speech. PSYCHIATRIC: Appropriate mood and affect; insight and judgment normal. ( Donta Arcos MD R1) A/P Assessment and Plan 66-year-old male with history of COPD, CAD s/p 3-vessel CABG, HTN, HLD, atrial fibrillation, type 2 DM, and lupus. Patient admitted due to severe 10/10 epigastric abdominal pain somewhat concerning for mesenteric ischemia given his elevated lactic acid and pain out of proportion to the examination as well as abdominal x-ray showing dilated loops of small bowel throughout the abdomen. Discharge Planning Unclear timetable. Pending ongoing studies. (Donta Arcos MD R1) Attending Attestation Patient seen, examined, and discussed with Dr. Arcos. I agree with assessment and management as documented and discussed with me. See H&P from today for my attending attestation. (Eleonora Strong MD) Problem List: (1) Abdominal pain Status: Acute Plan: Patient admitted with severe abdl pain now better controlled with morphine. CT of the abdomen does not show any small bowel obstruction. It does show large amounts of stool in the small bowel. * Consulted GI, recommendations appreciated * D5 half-normal saline at 100 MLS per hour, will stop once patient is taking an adequate oral intake * Sharon 5/325 by mouth every 4 hours when necessary pain scale 1-5 * [place] 10/325 by mouth every 4 hours when necessary pain scale 6-10 * Morphine 2 mg IV every 4 hours when necessary breakthrough pain * Zofran 4 mg IV every 6 hours when necessary nausea * Protonix 40 mg IV will transition to by mouth with improvement of abdominal pain * Jihan-Colace 2 tablets by mouth twice a day * Lactic acid 3.3 on admission, repeat 2.5 * Abdomen is soft, mild TTP epigastric region, nondistended, no guarding, no rebound tenderness * Concern for mesenteric ischemia * Will obtain CTA abdomen/pelvis and consult general surgery pending results (2) Leukocytosis Status: Acute Plan: Patient is meeting SIRS criteria due to leukocytosis of 20 and elevated lactic acid of 3.3, he is afebrile, and no source of infection is known at this time. Possible reasons for leukocytosis is steroid-induced, stress-induced, or infection. Status post NS bolus 2 * Continue Zosyn 4.5 g IV every 8 hours * Blood cultures pending * Obtain UA * Continue to monitor white blood cell count and for fevers * Lactic acid this AM 2.5 (3) chronic medical problems Status: Chronic Plan: Diabetes type 2: Low dose sliding scale. On metformin at home Atrial fibrillation: Continue Eliquis 5mg BID, continue aspirin 81 mg daily, continue Tikosyn 500 mcg PO BID Coronary artery disease: Continue Eliquis Hypertension: Continue Metoprolol succinate ER 50 mg in the morning and 25 mg in the evening and lisinopril 10 mg by mouth daily at bedtime Hyperlipidemia: Continue Crestor 5 mg daily at bedtime, continue coenzyme Q10 200 mg by mouth daily at bedtime (Will need to bring on medication from home) PAD/muscle spams: Provided Flexeril when necessary Congestive heart failure: Continue torsemide 20 mg by mouth twice a day. Continue lisinopril 10 mg by mouth twice a day Lupus: Continue Plaquenil COPD with recent exacerbation: Continue Prednisone 40mg daily per discharge orders, Alternate albuterol and DuoNeb's, Continue oxygen as needed (4) Nutrition, metabolism, and development symptoms Status: Acute Plan: Diet: NPO for now, awaiting CTA results Fluids: D5 half-normal saline at 100 cc/hr Monitor electrolytes replace accordingly DVT prophylaxis: Eliquis and SCDs (Donta Arcos MD R1) Problem Qualifiers (1) Abdominal pain: Qualified Code: R10.9 - Abdominal pain, unspecified location (2) Leukocytosis: Qualified Code: D72.829 - Leukocytosis, unspecified type Donta Arcos MD R1 August 23, 2016 07:50 Eleonora Strong MD August 23, 2016 17:35
[2016-08-23] MEDS ORDERED: PANTOPRAZOLE SOD 40 MG DELAYED RELEASE TAB PO SCH (09:00)
[2016-08-23 09:03] LABS: AUTOMATED NEUTROPHIL # 15.9 TH/MM3 (1.8-7.7); BASOPHIL % 0.2 % (0.0-2.0); HEMATOCRIT 41.8 % (39.0-51.0); HEMO FLAGS DIFF FINAL; LYMPH % 6.6 % (9.0-44.0); LYMPHOCYTE # 1.2 TH/MM3 (1.0-4.8); MEAN CELL VOLUME 91.8 FL (80.0-100.0); MEAN CORPUSCULAR HEMOGLOBIN 29.3 PG (27.0-34.0); MEAN CORPUSCULAR HGB CONC 31.9 % (32.0-36.0); MONO % 7.5 % (0.0-8.0); NEUT % 85.7 % (16.0-70.0); PLATELET COUNT 254 TH/MM3 (150-450); RED BLOOD COUNT 4.56 MIL/MM3 (4.50-5.90); RED CELL DISTRIBUTION WIDTH 16.2 % (11.6-17.2); WHITE BLOOD COUNT 18.5 TH/MM3 (4.0-11.0)
[2016-08-23 09:35] LABS: BICARBONATE 28.8 MEQ/L (21.0-32.0); POTASSIUM 5.1 MEQ/L (3.5-5.1)
[2016-08-23] MEDS: TORSEMIDE 20 MG TAB PO SCH ×2 (09:39→20:35)
[2016-08-23] MEDS: ASPIRIN 81 MG CHEW TAB CHEW SCH ×2 (09:39→20:36)
[2016-08-23] MEDS: HYDROXYCHLOROQUINE SULFATE 200 MG TAB PO SCH ×2 (09:39→20:37)
[2016-08-23] MEDS: METOPROLOL SUCCINATE 50 MG EXTENDED RELEASE TAB PO SCH (09:39)
[2016-08-23] MEDS: DOFETILIDE 250 MCG CAP PO SCH ×2 (09:39→21:37)
[2016-08-23] MEDS: predniSONE 20 MG TAB PO SCH (09:39)
[2016-08-23] MEDS: PANTOPRAZOLE SODIUM 40 MG VIAL IV PUSH SCH (09:40)
[2016-08-23] MEDS: MORPHINE SULFATE 4 MG/ML INJ IV PRN ×2 (09:42→20:43)
[2016-08-23] MEDS ORDERED: IOHEXOL 350 MG/ML 10 ML VIAL (for RAD DIAG) IV ONE (10:25)
[2016-08-23 10:55] LABS: LACTIC ACID GHOST NOT REPORTABLE
[2016-08-23] MEDS: FLUTICASONE 100 MCG/VILANTEROL 25 MCG INHALER INH SCH (10:58)
--- NOTE | 2016-08-23 11:26 | RADRPT ---
EXAM DATE/TIME: 08/23/2016 10:09 [facility] COMPARISON: CT ABDOMEN & PELVIS W/O CONTRAST, August 23, 2016, 0:55. INDICATIONS : Abdominal pain, lactic acidosis; evaluate for ischemia. IV CONTRAST: 73 cc Omnipaque 350 (iohexol) IV ORAL CONTRAST: No oral contrast ingested. RADIATION DOSE: 7.53 CTDIvol (mGy) MEDICAL HISTORY : Renal calculi. Cardiovascular disease Chronic obstructive pulmonary disease.Diabetes, Lupus. SURGICAL HISTORY : Inguinal hernia repair. CABG ENCOUNTER: Initial ACUITY: 3 days PAIN SCALE: 4/10 LOCATION: Bilateral upper chest TECHNIQUE: Volumetric scanning was performed using a multi-row detector CT scanner. The data was post processed with a variety of visualization algorithms including full volume maximum intensity projection, multi -planar sliding thin slab reformation, curved planar reformation, and surface rendering techniques. Using automated exposure control and adjustment of the mA and/or kV according to patient size, radiat ion dose was kept as low as reasonably achievable to obtain optimal diagnostic quality images. FINDINGS: There is severe atherosclerotic disease of the abdominal aorta. Celiac trunk demonstrates atheroscler otic disease. Splenic artery and common hepatic artery demonstrate mild atherosclerotic disease. Righ t hepatic artery arises from the superior mesenteric artery. The SMA demonstrates [id number] at herosclerotic disease. However, no occlusion is appreciated. NINA is patent. There are 2 left renal ar teries and a single right renal artery without significant stenosis identified. The the NINA remains p atent. Iliac vessels demonstrate moderate to severe atherosclerotic disease but no occlusion. Small bowel is mildly dilated similar to the prior study measuring up to 3.4 cm. Some of the small blane wel loops contain fecal-like material. Also, there is mild fluid and stranding within the ileal mesen silviano in the right mid abdomen. This is a new finding. No bowel wall thickening or pneumatosis intesti nalis is visualized. The appendix is normal. There is no free intraperitoneal air. Other findings include stable complex left pleural effusion. There is a stable 2.1 cm left renal cyst . CONCLUSION: 1. Moderate to severe atherosclerotic disease of the aorta with moderate atherosclerotic disease of t he mesenteric arterial vasculature. However, no occlusion is visualized. Please note that the venous side of the mesenteric vasculature is not assessed on this examination. 2. Abnormal small bowel gas pattern with dilated mid to distal small bowel measuring up to 3.4 cm. Ad ditionally, some of the small bowel segments contain fecal like material and there is mild fluid and stranding in the ileal mesentery in the right abdomen. There is no bowel wall thickening. Although no nspecific these could represent some of the earliest findings of enteric ischemia. Imaging findings o f mesenteric ischemia are usually very late findings. 3. Stable complex left pleural effusion. Landon Rodríguez MD on August 23, 2016 at 11:17 Board Certified Radiologist. This report was verified electronically.
[2016-08-23] MEDS: PIPERACIL-TAZO 4.5 GM PREMIX 100 ML IV SCH ×2 (12:16→20:36)
--- NOTE | 2016-08-23 12:30 | HHI.FPPN ---
Addendum to progress note ADDENDUM Reason for addendum: Additonal documentation Additional information Patient seen and examined. Spoke with Dr. Henriquez, general surgery, regarding CTA findings of early findings that may suggest enteric ischemia. Recommended continuing with medical management as surgery would not be indicated at this time. Continue with serial abdominal exams, IV fluid hydration, pain control, and antibiotics. Patient stated his abdominal pain is now at a 0/10. He states he has not had any new nausea, vomiting, or BMs since last examination earlier this morning. Abdomen was soft, protuberant, slightly tender to palpation in mid abdomen, no longer tender in epigastric region, nontender in other quadrants, hypoactive bowel sounds, no guarding, no rebound tenderness. Will continue with serial abdominal exams q4h and place call out to Dr. Henriquez or covering general surgeon if there are any concerning signs such as worsening abdominal pain, fevers, hypotension, tachycardia, or increasing lactic acid. Donta Arcos MD R1 August 23, 2016 12:30
--- NOTE | 2016-08-23 14:07 | PD.CONS ---
HPI History of Present Illness Mr. Paulino is a pleasant 66 y/o WM with COPD, CAD s/p CABG, HTN, Hyperlipidemia , diabetes, atrial fibrillation, and lupus. He was recently hospitalized for COPD exacerbation and was discharged yesterday. He states that after discharge he went out to eat at a restaurant and ate [place] olmedo chops. He states that about 90mins later he started having severe abd pain and nausea. Most of his pain was in the epigastric region though the left upper and lower quadrants were also tender. He tried taking some Gas-X which did not help. He tried to induce vomiting but this did not help the pain go away either. He had one hard small bowel movement followed by some liquid stool last night as well. Last night prior to admission the pain was at a 10 out of 10. His pain was only slightly relieved with morphine in the ED. His labs showed leukocytosis and an elevated lactic acid. KUB in the ED noted dilated loops of small bowel throughout the abdomen up to 5.[address] Abd/pelvis w/o IV contrast in the ED noted unremarkable exam with the exception of free fluid in the right lower quadrant, the appendix was normal, extensive stool type density throughout the small bowel without any evidence of obstruction or dilated lumen. (Sarai Kay) PFSH Past Medical History Hypertension Hyperlipidemia Diabetes mellitus A. fib Pulmonary HTN per cardiac cath in 03/2016 COPD CKD PAD Lupus CHF Depression BPH Cardiomyopathy Past Surgical History Cardiac cath in 03/2016 Triple bypass surgery 2012 Ablation x [address] 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 (Sarai Kay) Coded Allergies: CRESTOR (Verified Adverse Reaction, Unknown, muscle cramps, 08/23/16) Medications Oxygen tank (Oxygen) 1 Ea Tank 2 Liter JENNIE.CANULA CONTINUOUS Oxygen Concentrator Portable Gaseous 2 L/min via Nasal Cannula Continuous For 99 months Tikosyn (Dofetilide) 500 Mcg Cap 500 Mcg PO BID For Creatinine Clearance >60 mL/min Prednisone 20 Mg Tab 40 Mg PO DAILY Take 40 mg (2 tablets) daily for 5 days Protonix (Pantoprazole Sodium) 40 Mg Tab 40 Mg PO DAILY Breo Ellipta Inh (Fluticasone/Vilanterol) 100-25 Mcg/Act Inh 1 Puff INH DAILY Crestor (Rosuvastatin Calcium) 5 Mg Tab 5 Mg PO HS Nitroglycerin SL (Nitroglycerin) 0.4 Mg Subl 0.4 Mg SL DIRECTED PRN ONE TABLET UNDER THE TONGUE NEEDED FOR CHEST PAIN, MAY REPEAT EVERY FIVE MINUTES FOR A TOTAL OF 3 DOSES OR CALL 911 IF NO RELIEF Reported Metanx ([id number]) 1 Cap 1 Cap PO BID One Daily (Multiple Vitamin) 1 Tab 1 Tab PO DAILY Toprol XL (Metoprolol Succinate) 25 Mg Tab 25 Mg PO HS B-12 (Cyanocobalamin) 2,500 Mcg Tab 2,500 Mcg PO DAILY Eliquis (Apixaban) 5 Mg Tab 5 Mg PO BID Magnesium Oxide 400 Mg Tab 400 Mg PO DAILY Plaquenil (Hydroxychloroquine Sulfate) 200 Mg Tab 200 Mg PO BID Take with food Hydrocodone-Acetaminophen 10-325 mg Tab 1 Tab PO TID PRN Potassium Chloride ER (Potassium Chloride) 10 Meq Cap 10 Meq PO BID Torsemide 20 Mg Tab 20 Mg PO BID Aspirin 81 Mg Chew 81 Mg CHEW BID Metformin (Metformin HCl) 1,000 Mg Tab 1,000 Mg PO BIDPC With meals Metoprolol Succinate ER 24 HR (Metoprolol Succinate) 50 Mg Tab 50 Mg PO DAILY IN THE MORNING Lisinopril 10 Mg Tab 10 Mg PO HS Family History Noncontributory Social History Occasional alcohol use Denies any tobacco or illicit drug use Pt with a remote hx of tobacco use, quit 30 years ago (Sarai Kay) Review of Systems Constitutional: DENIES: Fever, Chills Respiratory: DENIES: Sputum production Cardiovascular: DENIES: Chest pain, Palpitations Gastrointestinal: COMPLAINS OF: Abdominal pain, Constipation, Nausea, Vomiting Genitourinary: DENIES: Urgency, Hematuria Integumentary: DENIES: Jaundice Neurologic: DENIES: Headache (Sarai Kay) GI Exam Vitals I&O Vital Signs Date Time Temp Pulse Resp B/P Pulse Ox O2 Delivery O2 Flow Rate FiO2 08/23/16 11:50 95.4 82 18 101/63 92 08/23/16 07:23 95.7 72 18 135/90 92 08/23/16 07:15 Nasal Cannula 1.00 08/23/16 05:54 80 20 128/82 97 Nasal Cannula 1 08/23/16 04:46 79 20 125/82 95 Nasal Cannula 2 08/23/16 02:33 82 19 150/90 95 Nasal Cannula 2 08/23/16 00:05 94 Room Air 08/22/16 23:55 76 26 133/87 95 Room Air 08/22/16 23:35 98.7 86 18 157/109 94 Room Air I/O 08/22/16 08/22/16 08/22/16 08/23/16 08/23/16 08/23/16 07:00 15:00 23:00 07:00 15:00 23:00 Intake Total 400 ml Balance 400 ml Intake IV Total 400 ml Imaging Last Impressions Abdomen X-Ray 08/23/16 0600 Signed Impressions: Service Date/Time: Tuesday, August 23, 2016 05:59 - CONCLUSION: Dilated loops of small bowel throughout the abdomen up to 5.6 cm across. Mayco Johnson MD Abdomen/Pelvis CT 08/23/16 0018 Signed Impressions: Service Date/Time: Tuesday, August 23, 2016 00:55 - CONCLUSION: Unremarkable exam with the exception of free fluid in the right lower quadrant. The appendix is normal. There is extensive stool type density throughout the small bowel without any evidence of obstruction or dilated lumen. Mayco Johnson MD Laboratory Test 08/23/16 08/23/16 08/23/16 08/23/16 00:15 02:35 08:50 12:28 White Blood Count 20.8 TH/MM3 18.5 TH/MM3 Red Blood Count 4.55 MIL/MM3 4.56 MIL/MM3 Hemoglobin 13.8 GM/DL 13.3 GM/DL Hematocrit 41.1 % 41.8 % Mean Corpuscular Volume 90.5 FL 91.8 FL Mean Corpuscular Hemoglobin 30.3 PG 29.3 PG Mean Corpuscular Hemoglobin 33.5 % 31.9 % Concent Red Cell Distribution Width 16.1 % 16.2 % Platelet Count 279 TH/MM3 254 TH/MM3 Mean Platelet Volume 7.8 FL 7.4 FL Neutrophils (%) (Auto) 87.6 % 85.7 % Lymphocytes (%) (Auto) 5.6 % 6.6 % Monocytes (%) (Auto) 6.7 % 7.5 % Eosinophils (%) (Auto) 0.0 % 0.0 % Basophils (%) (Auto) 0.1 % 0.2 % Neutrophils # (Auto) 18.2 TH/MM3 15.9 TH/MM3 Lymphocytes # (Auto) 1.2 TH/MM3 1.2 TH/MM3 Monocytes # (Auto) 1.4 TH/MM3 1.4 TH/MM3 Eosinophils # (Auto) 0.0 TH/MM3 0.0 TH/MM3 Basophils # (Auto) 0.0 TH/MM3 0.0 TH/MM3 CBC Comment DIFF FINAL DIFF FINAL Differential Comment Prothrombin Time 12.0 SEC Prothromb Time International 1.1 RATIO Ratio Sodium Level 139 MEQ/L 139 MEQ/L Potassium Level 4.7 MEQ/L 5.1 MEQ/L Chloride Level 103 MEQ/L 102 MEQ/L Carbon Dioxide Level 27.5 MEQ/L 28.8 MEQ/L Anion Gap 9 MEQ/L 8 MEQ/L Blood Urea Nitrogen 30 MG/DL 30 MG/DL Creatinine 1.28 MG/DL 1.14 MG/DL Estimat Glomerular Filtration 56 ML/MIN 64 ML/MIN Rate Random Glucose 171 MG/DL 175 MG/DL Calcium Level 9.1 MG/DL 8.4 MG/DL Total Bilirubin 0.5 MG/DL Aspartate Amino Transf 27 U/L (AST/SGOT) Alanine Aminotransferase 35 U/L (ALT/SGPT) Alkaline Phosphatase 73 U/L Total Protein 7.5 GM/DL Albumin 4.0 GM/DL Lipase 177 U/L Lactic Acid Level 3.3 mmol/L 2.5 mmol/L 2.2 mmol/L Troponin I LESS THAN 0.02 NG/ML Amylase Level 62 U/L Date/Time Procedure Status Source Growth 08/23/16 08:50 Aerobic Blood Culture Received Blood Peripheral Pending 08/23/16 08:50 Anaerobic Blood Culture Received Blood Peripheral Pending Physical Examination HEENT: Pupils round and reactive to light; normocephalic; atraumatic; no jaundice. Throat is clear. NECK: Neck is supple, no JVD, no lymphadenopathy. CHEST: CTA CARDIAC: Regular ABDOMEN: +BS, soft, protuberant, minimal epigastric tenderness. EXTREMITIES: Bilateral LE edema and venous stasis skin changes SKIN: Normal; no rash; no jaundice. LOGISTICIAN: No focal deficits; alert and oriented times three. (Sarai Kay E TISH) Assessment and Plan Plan ASSESSMENT: - Severe abdominal pain. Pt was admitted with severe abdominal pain that began yesterday evening about 90 mins after eating a large meal. There was associated nausea and one episode of vomiting. Pt had a small hard BM with some loose stools following that. He has had resolution of the abd pain since admission. Denies any previous similar episodes. CT Abd/ pelvis w/o IV contrast (08/23/16) --> Unremarkable exam with the exception of free fluid in the right lower quadrant. The appendix is normal. There is extensive stool type density throughout the small bowel without any evidence of obstruction or dilated lumen. CTA Abd/pelvis (08/23) --> moderate to severe atherosclerotic disease of the aorta with moderate disease of the mesenteric arterial vasculature. However, no occlusion is visualized. Abnormal small bowel gas pattern with dilated mid to distal small bowel measuring up to 3.4cm. Additionally, some of the small bowel segments contain fecal like material and there is mild fluid and stranding in the ileal mesentery in the right abdomen. There is no bowel wall thickening. Although nonspecific these could represent some of the earliest findings of enteric ischemia. General Surgery is following. No surgical intervention planned at this time. Serial abdominal exam evaluation planned currently. Pt is currently pain free. Pts last colonoscopy was 5-6 years ago in [place]. He denies any hx of polyps, IBD, or diverticulosis that he is aware of. - Constipation. Pt appears to have stool throughout on the CT scans. Pt hasn't had a significant BM in several days. - Leukocytosis. Pt has been afebrile, no source of infection is known at this time. Zosyn 4.5 g IV every 8 hours. Blood cultures pending. Of note pt is on steroids for recent COPD exacerbation. - Diabetes mellitus, Atrial fibrillation on Eliquis 5mg BID and ASA 81 mg daily , CAD, HTN, Hyperlipidemia, CHF, Lupus. Management per attending. PLAN: - Lactulose 30mg daily, first dose now - Stool softeners - Cont. serial abdominal examination. - General Surgery is aware of the pt should his clinical status worsen - Monitor labs and clinical status closely - Would hold off on evaluation with colonoscopy at this time and monitor clinical status, the pt is on Eliquis. - Supportive care - Pt is currently NPO except meds - IVF - Further recs as the case develops - The pt was seen and examined by myself and Dr. Santoro, this note was written on his behalf. (Sarai Kay) Physician Comments Seen and examined, stable and asymptomatic now, will start clear liquid diet and follow plan as above, further recommendations to follow. (Kristi Santoro MD) Sarai Kay August 23, 2016 14:07 Kristi Santoro MD August 23, 2016 16:44
[2016-08-23] MEDS ORDERED: LACTULOSE SYRUP 20 GM/30 ML CUP PO ONE (14:45)
[2016-08-23] MEDS: APIXABAN 5 MG TABLET PO SCH ×2 (16:23→20:36)
[2016-08-23 19:52] LABS: AUTOMATED NEUTROPHIL # 13.1 TH/MM3 (1.8-7.7); BASOPHIL % 0.2 % (0.0-2.0); EOSINOPHIL % 0.1 % (0.0-4.0); HEMATOCRIT 40.3 % (39.0-51.0); HEMO FLAGS DIFF FINAL; LYMPH % 6.2 % (9.0-44.0); LYMPHOCYTE # 0.9 TH/MM3 (1.0-4.8); MEAN CELL VOLUME 91.8 FL (80.0-100.0); MEAN CORPUSCULAR HEMOGLOBIN 30.1 PG (27.0-34.0); MEAN CORPUSCULAR HGB CONC 32.8 % (32.0-36.0); NEUT % 86.5 % (16.0-70.0); PLATELET COUNT 257 TH/MM3 (150-450); RED BLOOD COUNT 4.39 MIL/MM3 (4.50-5.90); RED CELL DISTRIBUTION WIDTH 16.6 % (11.6-17.2); WHITE BLOOD COUNT 15.1 TH/MM3 (4.0-11.0)
[2016-08-23 20:24] LABS: ALKALINE PHOSPHATASE 61 U/L (45-117); ALT (GPT) 41 U/L (12-78); ANION GAP 10 MEQ/L (5-15); AST (GOT) 32 U/L (15-37); BICARBONATE 27.4 MEQ/L (21.0-32.0); BLOOD UREA NITROGEN 34 MG/DL (7-18); CHLORIDE 103 MEQ/L (98-107); GLOMERULAR FILTRATION RATE 57 ML/MIN (>89); POTASSIUM 4.7 MEQ/L (3.5-5.1); SODIUM (NA) 140 MEQ/L (136-145); TOTAL BILIRUBIN ADULT 0.7 MG/DL (0.2-1.0)
--- NOTE | 2016-08-23 20:35 | HHI.FPPN ---
Addendum to progress note ADDENDUM Reason for addendum: Additonal documentation Additional information ADDENDUM Patient seen and examined at bedside to assess patient status. Noted in EMR that general surgery consult was canceled per day team, patient was placed on clear liquid diet per GI. Patient ate soup and drank some water, stated thereafter he had mid-abdominal pain of 4/10 intensity. Abdominal exam performed and noted for slightly tender to palpation in mid abdomen along midline and above umbilicus. No rebound tenderness. Bowel sounds hyperactive in lower quadrants, normoactive in upper quadrants. Cardiac exam normal sinus rhythm, rate approx 80 on palpation. Patient walking about the room without assistance normally. Assessment: Patient with DM and atrial fibrillation. Severe abdominal pain on admission. Recent admission for atrial fibrillation which spontaneously converted. Lactic acidosis. Imaging studies as below. No significant change in exam. Pain returned after eating clear liquid diet. CT Abd/pelvis w/o IV contrast (08/23/16) --> Unremarkable exam with the exception of free fluid in the right lower quadrant. The appendix is normal. There is extensive stool type density throughout the small bowel without any evidence of obstruction or dilated lumen. CTA Abd/pelvis (08/23) --> moderate to severe atherosclerotic disease of the aorta with moderate disease of the mesenteric arterial vasculature. However, no occlusion is visualized. Abnormal small bowel gas pattern with dilated mid to distal small bowel measuring up to 3.4cm. Additionally, some of the small bowel segments contain fecal like material and there is mild fluid and stranding in the ileal mesentery in the right abdomen. There is no bowel wall thickening. Although nonspecific these could represent some of the earliest findings of enteric ischemia. Plan: Make patient NPO except meds. Get abdominal flat and upright ordered now to assess if any change. If pain worsens, will re-consult general surgery as it appears consult has been canceled. Would consider mesenteric ischemia work-up ( arteriogram) if patient's pain worsens acutely. GI on board. Lactulose 30mg daily, stool softeners. Continue IVF. Haydee Hoffman MD R1 August 23, 2016 20:35 - General Surgery is aware of the pt should his clinical status worsen - Monitor labs and clinical status closely - Would hold off on evaluation with colonoscopy at this time and monitor clinical status, the pt is on Eliquis. - Supportive care - Pt is currently NPO except meds - IVF - Further recs as the case develops - The pt was seen and examined by myself and Dr. Santoro, this note was written on his behalf. (Sarai Kay) Physician Comments Seen and examined, stable and asymptomatic now, will start clear liquid diet and follow plan as above, further recommendations to follow. (Kristi Santoro MD) Haydee Hoffman MD R1 August 23, 2016 20:35
[2016-08-23] MEDS: METOPROLOL SUCCINATE 25 MG EXTENDED RELEASE TAB PO SCH (20:36)
[2016-08-23] MEDS: ATORVASTATIN 10 MG TAB PO SCH (20:36)
[2016-08-23] MEDS: LISINOPRIL 10 MG TAB PO SCH (20:36)
--- NOTE | 2016-08-23 22:05 | RADRPT ---
EXAM DATE/TIME: 08/23/2016 21:27 [facility] COMPARISON: CTA ABDOMEN & PELVIS W 3D RECON, August 23, 2016, 10:09. ABDOMEN FLAT & UPRIGHT , August 23, 2016, 5:59. INDICATIONS : Lower abdominal pain. MEDICAL HISTORY : Cardiovascular disease. Chronic obstructive pulmonary disease. Diabetes SURGICAL HISTORY : CABG. Hernia repair. ENCOUNTER: Subsequent ACUITY: 1 day PAIN SCORE: 10/10 LOCATION: Bilateral abdomen. FINDINGS: There are multiple air-fluid levels present in predominantly small bowel with some colonic gas. Ther e is solid stool in the cecum. There is no significant stool in the descending colon. There is no f ree air. CONCLUSION: Abnormal bowel gas pattern. There is no significant air in the descending colon. This is similar to what was seen on the CTA of 08/24/2016. At that time, the descending colon was noted to be decompres sed. Hebert Saldana MD FACR on August 23, 2016 at 21:56 Board Certified Radiologist. This report was verified electronically.
[2016-08-23 22:29] LABS: BLOOD, URINE NEG (NEG); GLUCOSE,URINE NEG (NEG); KETONE, URINE NEG (NEG); NITRITE,URINE NEG (NEG); PH, URINE 5.5 (5.0-8.5); URINE COLOR YELLOW (YELLW/STRAW)
[2016-08-23 22:30] LABS: COMMENT (UR) CULT NOT INDICATED; CULTURE IF INDICATED CULT NOT INDICATED
[2016-08-24] VITALS (7 sets, daily range): BP systolic 106–123; BP diastolic 63–79; PULSE 64–70; RESP 18–19; TEMP 95.8–97.6; O2SAT 92–93
[2016-08-24] MEDS: DOCUSATE SODIUM 50 MG/SENNA 8.6 MG TAB PO PRN (04:06)
[2016-08-24] MEDS: D5-1/2 NS + KCL 20 MEQ INJ 1,000 ML IV SCH ×3 (04:09→21:23)
[2016-08-24] MEDS: PIPERACIL-TAZO 4.5 GM PREMIX 100 ML IV SCH ×3 (04:51→21:07)
[2016-08-24] MEDS: PANTOPRAZOLE SODIUM 40 MG VIAL IV PUSH SCH (06:07)
[2016-08-24] MEDS: INSULIN ASPART SUPPLEMENTAL SCALE SQ SCH ×4 (06:38→21:20)
[2016-08-24 07:40] LABS: AUTOMATED NEUTROPHIL # 10.3 TH/MM3 (1.8-7.7); BASOPHIL % 0.1 % (0.0-2.0); HEMATOCRIT 38.4 % (39.0-51.0); HEMO FLAGS DIFF FINAL; LYMPH % 8.4 % (9.0-44.0); MEAN CELL VOLUME 91.6 FL (80.0-100.0); MEAN CORPUSCULAR HEMOGLOBIN 29.4 PG (27.0-34.0); MEAN CORPUSCULAR HGB CONC 32.1 % (32.0-36.0); MONO % 7.5 % (0.0-8.0); PLATELET COUNT 224 TH/MM3 (150-450); RED BLOOD COUNT 4.19 MIL/MM3 (4.50-5.90); RED CELL DISTRIBUTION WIDTH 16.2 % (11.6-17.2); WHITE BLOOD COUNT 12.2 TH/MM3 (4.0-11.0)
[2016-08-24 08:02] LABS: ALT (GPT) 52 U/L (12-78); ANION GAP 11 MEQ/L (5-15); AST (GOT) 39 U/L (15-37); BLOOD UREA NITROGEN 29 MG/DL (7-18); CHLORIDE 102 MEQ/L (98-107); GLOMERULAR FILTRATION RATE 65 ML/MIN (>89); POTASSIUM 4.7 MEQ/L (3.5-5.1); SODIUM (NA) 140 MEQ/L (136-145)
--- NOTE | 2016-08-24 08:02 | HHI.FPPN ---
Subjective Remarks Patient seen and evaluated overnight. Patient had 4/10 abdominal pain after trial of clear liquid diet. Patient had then been made NPO again. This AM he states his abdominal pain is 0/10. He reports he has not had a BM since being readmitted here. His last bowel movement was the evening of 08/22 before admission. He does state this morning he has been able to pass a small amount of gas. He does not have any other complaints; denies chest pain, shortness of breath, pain elsewhere. He states his temperatures have been low, and the temperature in his room was increased; he states this was too hot and the temperature was brought back down. (Donta Arcos MD R1) Objective Vitals Vital Signs Date Time Temp Pulse Resp B/P Pulse Ox O2 Delivery O2 Flow Rate FiO2 08/24/16 07:28 96.2 67 19 111/67 92 08/24/16 04:30 95.8 70 19 106/63 93 08/23/16 23:09 96.7 70 20 111/55 92 08/23/16 21:52 96.3 08/23/16 21:30 96.1 08/23/16 20:59 95.5 73 19 133/89 93 08/23/16 15:16 95.8 69 18 136/83 93 08/23/16 11:50 95.4 82 18 101/63 92 I/O 08/23/16 08/23/16 08/23/16 08/24/16 08/24/16 08/24/16 07:00 15:00 23:00 07:00 15:00 23:00 Intake Total 400 ml 510 ml 0 ml Output Total 1000 ml Balance 400 ml 510 ml -1000 ml Intake Oral 0 ml 510 ml 0 ml IV Total 400 ml Output Urine Total 1000 ml Stool Total 0 ml # Voids 3 4 # Bowel Movements 0 0 (Donta Arcos MD R1) Result Diagram: 08/24/16 0556 08/23/161936 Objective Remarks GENERAL: Pleasant, alert, obese, well developed. NAD SKIN: Warm/dry. HEAD: Atraumatic. Normocephalic. EYES: No scleral icterus. No injection or drainage. ENT: Mucous membranes pink and moist. NECK: Trachea midline. No JVD. Supple. CARDIOVASCULAR: Regular rate and rhythm. No murmur appreciated. RESPIRATORY: No increased work of breathing. Lungs are clear anteriorly without wheezing rhonchi or crackles. GASTROINTESTINAL: +BS throughout. Abdomen obese, soft, slightly tender to palpation in the mid-abdominal region. Nontender in other quadrants. Appears distended compared to prior examination. No palpable masses. No rebound tenderness. No guarding. MUSCULOSKELETAL: No obvious deformities. No clubbing. No cyanosis. 2+ pitting edema bilateral lower extremities. NEUROLOGICAL: Awake and alert. No obvious cranial nerve deficits. Motor grossly within normal limits. Normal speech. PSYCHIATRIC: Appropriate mood and affect; insight and judgment normal. ( Donta Arcos MD R1) A/P Assessment and Plan 66-year-old male with history of COPD, CAD s/p 3-vessel CABG, HTN, HLD, atrial fibrillation, type 2 DM, and lupus. Patient admitted due to severe /10 epigastric abdominal pain somewhat concerning for mesenteric ischemia given his elevated lactic acid and pain out of proportion to the examination as well as abdominal x-ray showing dilated loops of small bowel throughout the abdomen. His abdominal pain this AM 08/24 seems to have resolved, however there is still a concern given his elevated lactic acid of 2.7 and no bowel movements. Discharge Planning Unclear timetable. Pending resolution of abdominal pain and further studies if indicated (Donta Arcos MD R1) Attending Attestation Patient seen and examined, discussed with resident team. I agree with assessment and management as documented and discussed with me. Patient denies pain. No successful BM with enema. On exam today, patient with tenderness to palpation of abdomen, rebound tenderness, as well as abdominal pain with rotation of his hip. Decreased bowel sounds. (Eleonora Strong MD) Problem List: (1) Abdominal pain Status: Acute Plan: Patient admitted with severe abdl pain now better controlled with morphine. CT of the abdomen does not show any small bowel obstruction. It does show large amounts of stool in the small bowel. * Consulted GI, recommendations appreciated * D5 half-normal saline at 100 mL/hr, will stop once patient is taking an adequate oral intake * Give fleets enema x1 now * Continue lactulose per GI recommendations; 30 mL PO daily * Strawberry 5/325 by mouth every 4 hours when necessary pain scale 1-5 * Strawberry 10/325 by mouth every 4 hours when necessary pain scale 6-10 * Morphine 2 mg IV every 4 hours when necessary breakthrough pain * Zofran 4 mg IV every 6 hours when necessary nausea * Protonix 40 mg IV will transition to by mouth with improvement of abdominal pain * Jihan-Colace 2 tablets by mouth twice a day * Lactic acid 3.3 on admission, repeat 2.5 -> 2.2 -> 2.7 * Abdomen is soft, mild TTP mid abdominal region, slightly distended compared to prior exam, no guarding, no rebound tenderness * Concern for mesenteric ischemia * CTA abdomen/pelvis showed abnormal small bowel gas pattern with dilated mid to distal small bowel measuring up to 3.4 cm. Some small bowel segments containing fecal like material and mild fluid and stranding in the ileal mesentery in the right abdomen. No bowel wall thickening. There are nonspecific but could represent some of the earliest findings of enteric ischemia * General surgery is aware of the case and findings on scans. Recommended to continue with serial abdominal exams, antibiotics, pain control, IVF hydration, and close monitoring of vitals. Will consult general surgery of abdominal pain does not resolve (2) Leukocytosis Status: Acute Plan: Patient is meeting SIRS criteria due to leukocytosis of 20 and elevated lactic acid of 3.3, he is afebrile, and no source of infection is known at this time. Possible reasons for leukocytosis is steroid-induced, stress-induced, or infection. Status post NS bolus 2 * Continue Zosyn 4.5 g IV every 8 hours * Blood cultures pending * UA not indicating culture * Continue to monitor WBC and vital signs (3) chronic medical problems Status: Chronic Plan: Diabetes type 2: Low dose sliding scale. On metformin at home Atrial fibrillation: Continue Eliquis 5mg BID, continue aspirin 81 mg daily, continue Tikosyn 500 mcg PO BID Coronary artery disease: Continue Eliquis Hypertension: Continue Metoprolol succinate ER 50 mg in the morning and 25 mg in the evening and lisinopril 10 mg by mouth daily at bedtime Hyperlipidemia: Continue Crestor 5 mg daily at bedtime, continue coenzyme Q10 200 mg by mouth daily at bedtime (Will need to bring on medication from home) PAD/muscle spams: Provided Flexeril when necessary Congestive heart failure: Continue torsemide 20 mg by mouth twice a day. Continue lisinopril 10 mg by mouth twice a day Lupus: Continue Plaquenil COPD with recent exacerbation: Continue Prednisone 40mg daily per discharge orders, Alternate albuterol and DuoNeb's, Continue oxygen as needed (4) Nutrition, metabolism, and development symptoms Status: Acute Plan: Diet: NPO for now Fluids: D5 half-normal saline at 100 cc/hr Electrolytes: WNLs, continue to monitor and replete as necessary DVT prophylaxis: Eliquis and SCDs GI prophylaxis: Continue Protonix (Donta Arcos MD R1) Problem Qualifiers (1) Abdominal pain: Qualified Code: R10.9 - Abdominal pain, unspecified location (2) Leukocytosis: Qualified Code: D72.829 - Leukocytosis, unspecified type Donta Arcos MD R1 August 24, 2016 08:02 Eleonora Strong MD August 24, 2016 11:35
[2016-08-24 08:04] LABS: ALKALINE PHOSPHATASE 59 U/L (45-117); TOTAL BILIRUBIN ADULT 0.7 MG/DL (0.2-1.0)
[2016-08-24] MEDS ORDERED: SOD PHOSPHATE/SOD BIPHOSPHATE (ADULT) ENEMA 133ML RECTAL ONE ×2 (08:15→12:00)
[2016-08-24] MEDS: DOFETILIDE 250 MCG CAP PO SCH ×2 (08:35→21:06)
[2016-08-24] MEDS: ASPIRIN 81 MG CHEW TAB CHEW SCH ×2 (08:36→21:06)
[2016-08-24] MEDS: TORSEMIDE 20 MG TAB PO SCH ×2 (08:36→21:07)
[2016-08-24] MEDS: predniSONE 20 MG TAB PO SCH (08:37)
[2016-08-24] MEDS: HYDROXYCHLOROQUINE SULFATE 200 MG TAB PO SCH ×2 (08:37→21:07)
[2016-08-24] MEDS: METOPROLOL SUCCINATE 50 MG EXTENDED RELEASE TAB PO SCH ×2 (08:37→08:50)
[2016-08-24] MEDS: APIXABAN 5 MG TABLET PO SCH ×2 (08:37→21:06)
[2016-08-24] MEDS: LACTULOSE SYRUP 20 GM/30 ML CUP PO SCH (08:39)
[2016-08-24] MEDS: FLUTICASONE 100 MCG/VILANTEROL 25 MCG INHALER INH SCH (08:40)
--- NOTE | 2016-08-24 11:58 | HHI.GIFU ---
Subjective Remarks Had a minimal abdominal discomfort after a trial of fluid diet, minimal flatus over the last 24 hours. Objective Vitals I&O Vital Signs Date Time Temp Pulse Resp B/P Pulse Ox O2 Delivery O2 Flow Rate FiO2 08/24/16 07:28 96.2 67 19 111/67 92 08/24/16 07:05 96.7 08/24/16 04:30 95.8 70 19 106/63 93 08/23/16 23:09 96.7 70 20 111/55 92 08/23/16 21:52 96.3 08/23/16 21:30 96.1 08/23/16 20:59 95.5 73 19 133/89 93 08/23/16 15:16 95.8 69 18 136/83 93 I/O 08/23/16 08/23/16 08/23/16 08/24/16 08/24/16 08/24/16 07:00 15:00 23:00 07:00 15:00 23:00 Intake Total 400 ml 510 ml 0 ml Output Total 1000 ml Balance 400 ml 510 ml -1000 ml Intake Oral 0 ml 510 ml 0 ml IV Total 400 ml Output Urine Total 1000 ml Stool Total 0 ml # Voids 3 4 # Bowel Movements 0 0 Laboratory Laboratory Tests Test 08/23/16 08/23/16 08/23/16 08/24/16 12:28 19:37 22:13 05:56 Lactic Acid Level 2.2 2.7 White Blood Count 15.1 12.2 Red Blood Count 4.39 4.19 Hemoglobin 13.2 12.3 Hematocrit 40.3 38.4 Mean Corpuscular Volume 91.8 91.6 Mean Corpuscular Hemoglobin 30.1 29.4 Mean Corpuscular Hemoglobin 32.8 32.1 Concent Red Cell Distribution Width 16.6 16.2 Platelet Count 257 224 Mean Platelet Volume 7.6 7.8 Neutrophils (%) (Auto) 86.5 84.0 Lymphocytes (%) (Auto) 6.2 8.4 Monocytes (%) (Auto) 7.0 7.5 Eosinophils (%) (Auto) 0.1 0.0 Basophils (%) (Auto) 0.2 0.1 Neutrophils # (Auto) 13.1 10.3 Lymphocytes # (Auto) 0.9 1.0 Monocytes # (Auto) 1.1 0.9 Eosinophils # (Auto) 0.0 0.0 Basophils # (Auto) 0.0 0.0 CBC Comment DIFF FINAL DIFF FINAL Differential Comment Sodium Level 140 140 Potassium Level 4.7 4.7 Chloride Level 103 102 Carbon Dioxide Level 27.4 27.0 Anion Gap 10 11 Blood Urea Nitrogen 34 29 Creatinine 1.25 1.13 Estimat Glomerular Filtration 57 65 Rate Random Glucose 187 154 Calcium Level 8.5 7.9 Total Bilirubin 0.7 0.7 Aspartate Amino Transf 32 39 (AST/SGOT) Alanine Aminotransferase 41 52 (ALT/SGPT) Alkaline Phosphatase 61 59 Total Protein 6.7 6.1 Albumin 3.6 3.2 Urine Color YELLOW Urine Turbidity CLEAR Urine pH 5.5 Urine Specific [place] 1.033 Urine Protein TRACE Urine Glucose (UA) NEG Urine Ketones NEG Urine Occult Blood NEG Urine Nitrite NEG Urine Bilirubin NEG Urine Urobilinogen LESS THAN 2.0 Urine Leukocyte Esterase NEG Urine RBC LESS THAN 1 Microscopic Urinalysis Comment CULT NOT INDICATED Date/Time Procedure Status Source Growth 08/23/16 08:50 Aerobic Blood Culture - Preliminary Resulted Blood Peripheral NO GROWTH IN 1 DAY 08/23/16 08:50 Anaerobic Blood Culture - Preliminary Resulted Blood Peripheral NO GROWTH IN 1 DAY Physical Exam HEENT: Pupils round and reactive to light; normocephalic; atraumatic; no jaundice. Throat is clear. NECK: Neck is supple, no JVD, no lymphadenopathy. CHEST: Chest is clear to auscultation and percussion. CARDIAC: Regular rate and rhythm with no murmur gallop or rubs. ABDOMEN: Soft, distended, nontender; no hepatosplenomegaly; bowel sounds Faint. EXTREMITIES: No clubbing, cyanosis, or edema. SKIN: Normal; no rash; no jaundice. 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 Assessment and Plan Plan ASSESSMENT: - Severe abdominal pain. Pt was admitted with severe abdominal pain that began yesterday evening about 90 mins after eating a large meal. There was associated nausea and one episode of vomiting. Pt had a small hard BM with some loose stools following that. He has had resolution of the abd pain since admission. Denies any previous similar episodes. CT Abd/ pelvis w/o IV contrast (08/23/16) --> Unremarkable exam with the exception of free fluid in the right lower quadrant. The appendix is normal. There is extensive stool type density throughout the small bowel without any evidence of obstruction or dilated lumen. CTA Abd/pelvis (08/23) --> moderate to severe atherosclerotic disease of the aorta with moderate disease of the mesenteric arterial vasculature. However, no occlusion is visualized. Abnormal small bowel gas pattern with dilated mid to distal small bowel measuring up to 3.4cm. Additionally, some of the small bowel segments contain fecal like material and there is mild fluid and stranding in the ileal mesentery in the right abdomen. There is no bowel wall thickening. Although nonspecific these could represent some of the earliest findings of enteric ischemia. General Surgery is following. No surgical intervention planned at this time. Serial abdominal exam evaluation planned currently. Pt is currently pain free. Pts last colonoscopy was 5-6 years ago in [place]. He denies any hx of polyps, IBD, or diverticulosis that he is aware of. - Constipation. Pt appears to have stool throughout on the CT scans. Pt hasn't had a significant BM in several days. - Leukocytosis. Pt has been afebrile, no source of infection is known at this time. Zosyn 4.5 g IV every 8 hours. Blood cultures pending. Of note pt is on steroids for recent COPD exacerbation. - Diabetes mellitus, Atrial fibrillation on Eliquis 5mg BID and ASA 81 mg daily , CAD, HTN, Hyperlipidemia, CHF, Lupus. Management per attending. PLAN: - Re trial with clear liquid diet - Abd X-Ray Erect - Daily Lactic Acid - Lactulose 30mg daily - Stool softeners - Cont. serial abdominal examination. - General Surgery is aware of the pt should his clinical status worsen - Monitor labs and clinical status closely - Would hold off on evaluation with colonoscopy at this time and monitor clinical status, the pt is on Eliquis. - Supportive care - IVF Kristi Santoro MD August 24, 2016 11:58
--- NOTE | 2016-08-24 14:40 | PD.VS.CON ---
History of Present Illness Chief Complaint: Abdominal pain, possible mesenteric ischemia Consult Requested by: [facility] [place] of Present Illness 66 yo male with CAD and COPD who presented through the emergency department w abdominal pain. Onset was 1h after eating steak dinner and was unlike anything he has had before. Pain has subsided but he has not eaten anything more substantial than liquid and has had narcotics for pain control. No antecedent post-prandial abdominal pain. 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 Home Medications Active Scripts Oxygen tank 1 Ea Tank #2 Liter Zenon.canAyudarum Continuous Oxygen Concentrator Portable Gaseous 2 L/min via Nasal Cannula Continuous For 99 months Prov:Bandar Briggs MD R2 08/22/16 Dofetilide (Tikosyn)500 Mcg Pzm762 Mcg PO BID #60 CAP Ref 0 NS For Creatinine Clearance >60 mL/min Prov:Eleonora Strong MD 08/22/16 Prednisone 20 Mg Tab40 Mg PO DAILY #5 TAB Ref 0 Take 40 mg (2 tablets) daily for 5 days Prov:Donta Arcos MD R1 08/21/16 Pantoprazole (Protonix)40 Mg Tab40 Mg PO DAILY #14 TAB Prov:Donta Arcos MD R1 08/21/16 Fluticasone-Vilanterol Inh (Breo Ellipta Inh)100-25 Mcg/Act Inh1 Puff INH DAILY #30 INHALER Prov:Donta Arcos MD R1 08/21/16 Rosuvastatin (Crestor)5 Mg Tab5 Mg PO HS #30 TAB Ref 0 Prov:Ayanna Mejia MD 08/20/16 Nitroglycerin SL 0.4 Mg Subl0.4 Mg SL DIRECTED PRN (CHEST PAIN) #100 TAB.SL Ref 1 ONE TABLET UNDER THE TONGUE NEEDED FOR CHEST PAIN, MAY REPEAT EVERY FIVE MINUTES FOR A TOTAL OF 3 DOSES OR CALL 911 IF NO RELIEF Prov:Crystal Artis 03/30/16 Reported Medications [id number] (Metanx)1 Cap1 Cap PO BID 08/20/16 Multiple Vitamin (One Daily)1 Tab1 Tab PO DAILY Ref 0 08/20/16 Metoprolol Succinate ER 24 HR (Toprol XL)25 Mg Tab25 Mg PO HS #30 TAB Ref 0 08/20/16 Cyanocobalamin (B-12)2,500 Mcg Tab2,500 Mcg PO DAILY #1 BOTTLE Ref 0 08/20/16 Apixaban (Eliquis)5 Mg Tab5 Mg PO BID #60 TAB Ref 0 08/20/16 Magnesium Oxide 400 Mg Nck403 Mg PO DAILY Ref 0 04/16/16 Hydroxychloroquine (Plaquenil)200 Mg Fgk805 Mg PO BID #30 TAB Ref 0 Take with food 04/16/16 Hydrocodone-Acetaminophen 10-325 mg Tab1 Tab PO TID PRN (PAIN) #30 TAB Ref 0 04/16/16 Potassium Chloride ER 10 Meq Cap10 Meq PO BID #60 CAP Ref 0 03/30/16 Torsemide 20 Mg Tab20 Mg PO BID #30 TAB Ref 0 03/30/16 Aspirin 81 Mg Chew81 Mg CHEW BID Ref 0 03/30/16 Metformin 1,000 Mg Tab1,000 Mg PO BIDPC #60 TAB Ref 0 With meals 03/30/16 Metoprolol Succinate ER 24 HR 50 Mg Tab50 Mg PO DAILY IN THE MORNING #30 TAB Ref 0 03/30/16 Lisinopril 10 Mg Tab10 Mg PO HS #30 TAB Ref 0 03/30/16 Discontinued Reported Medications Arformoterol Neb (Brovana Neb)15 Mcg/2 Ml Vial15 Mcg NEB BID NEB #60 NEBULE Maintenance treatment of bronchoconstriction in COPD. 08/20/16 Budesonide Neb 0.5 Mg/2 Ml Neb0.5 Mg NEB BID NEB #60 NEBULE Ref 0 08/20/16 Dofetilide (Tikosyn)500 Mcg Mif532 Mcg PO BID #30 CAP Ref 0 For Creatinine Clearance >60 mL/min 03/30/16 Rosuvastatin (Crestor)5 Mg Tab5 Mg PO HS #30 TAB Ref 0 08/20/16 Cyanocobalamin (Vitamin B12)500 Mcg Tab1,000 Mcg SL DAILY #1 BOTTLE 04/16/16 Pitavastatin (Livalo)4 Mg Tab4 Mg PO DAILY #30 TAB Ref 0 04/16/16 Fluticasone Nasal [place] 50 Mcg/Act Naspr50 Mcg EACH NARE BID #1 BOTTLE Ref 0 50 mcg/spray 04/16/16 Apixaban (Eliquis)2.5 Mg Tab2.5 Mg PO BID Ref 0 04/16/16 Budesonide (Nasal) (Budesonide)32 Mcg/Act Sus0.5 Mg NASAL DAILY 04/16/16 Fluticasone-Vilanterol Inh (Breo Ellipta Inh)100-25 Mcg/Act Inh1 Puff INH DAILY #1 INHALER Ref 0 Use daily at the same time. 04/16/16 Baclofen 10 Mg Tab10 Mg PO DIRECTED PRN (MUSCLE SPASM) Ref 0 04/16/16 Albuterol Neb 1.25 Mg/3 Ml Neb1.25 Mg NEB TID NEB PRN (SHORTNESS OF BREATH) # 100 NEBULE Ref 0 04/16/16 Furosemide (Lasix)40 Mg Tab40 Mg PO DAILY #30 TAB Ref 0 03/30/16 Coded Allergies: CRESTOR (Verified Adverse Reaction, Unknown, muscle cramps, 08/23/16) Review of Systems Constitutional: DENIES: Fatigue, Weight loss Respiratory: COMPLAINS OF: Shortness of breath Gastrointestinal: COMPLAINS OF: Bloody stools, Constipation Physical Exam Vitals/I&O Date Time Temp Pulse Resp B/P Pulse Ox O2 Delivery O2 Flow Rate FiO2 08/24/16 11:32 96.2 70 19 119/77 93 08/24/16 07:28 96.2 67 19 111/67 92 08/24/16 07:05 96.7 08/24/16 04:30 95.8 70 19 106/63 93 08/23/16 23:09 96.7 70 20 111/55 92 08/23/16 21:52 96.3 08/23/16 21:30 96.1 08/23/16 20:59 95.5 73 19 133/89 93 08/23/16 15:16 95.8 69 18 136/83 93 Neuro: WARREN; resting comfortably in bed HEENT: NC/AT; anicteric sclera Neck: no JVD Heart: + systolic murmur; occasionally irreg beat Lungs: clear B Abdomen: mildly TTP but no peritonitis Vascular: difficult to palpate femoral pulses (?body habitus) Laboratory Tests Test 08/23/16 08/23/16 08/24/16 5/28/17 19:37 22:13 05:56 12:18 White Blood Count 15.1 12.2 Red Blood Count 4.39 4.19 Hemoglobin 13.2 12.3 Hematocrit 40.3 38.4 Mean Corpuscular Volume 91.8 91.6 Mean Corpuscular Hemoglobin 30.1 29.4 Mean Corpuscular Hemoglobin 32.8 32.1 Concent Red Cell Distribution Width 16.6 16.2 Platelet Count 257 224 Mean Platelet Volume 7.6 7.8 Neutrophils (%) (Auto) 86.5 84.0 Lymphocytes (%) (Auto) 6.2 8.4 Monocytes (%) (Auto) 7.0 7.5 Eosinophils (%) (Auto) 0.1 0.0 Basophils (%) (Auto) 0.2 0.1 Neutrophils # (Auto) 13.1 10.3 Lymphocytes # (Auto) 0.9 1.0 Monocytes # (Auto) 1.1 0.9 Eosinophils # (Auto) 0.0 0.0 Basophils # (Auto) 0.0 0.0 CBC Comment DIFF FINAL DIFF FINAL Differential Comment Sodium Level 140 140 Potassium Level 4.7 4.7 Chloride Level 103 102 Carbon Dioxide Level 27.4 27.0 Anion Gap 10 11 Blood Urea Nitrogen 34 29 Creatinine 1.25 1.13 Estimat Glomerular Filtration 57 65 Rate Random Glucose 187 154 Lactic Acid Level 2.7 2.5 Calcium Level 8.5 7.9 Total Bilirubin 0.7 0.7 Aspartate Amino Transf 32 39 (AST/SGOT) Alanine Aminotransferase 41 52 (ALT/SGPT) Alkaline Phosphatase 61 59 Total Protein 6.7 6.1 Albumin 3.6 3.2 Urine Color YELLOW Urine Turbidity CLEAR Urine pH 5.5 Urine Specific [place] 1.033 Urine Protein TRACE Urine Glucose (UA) NEG Urine Ketones NEG Urine Occult Blood NEG Urine Nitrite NEG Urine Bilirubin NEG Urine Urobilinogen LESS THAN 2.0 Urine Leukocyte Esterase NEG Urine RBC LESS THAN 1 Microscopic Urinalysis Comment CULT NOT INDICATED Date/Time Procedure Status Source Growth 08/23/16 08:50 Aerobic Blood Culture - Preliminary Resulted Blood Peripheral NO GROWTH IN 1 DAY 08/23/16 08:50 Anaerobic Blood Culture - Preliminary Resulted Blood Peripheral NO GROWTH IN 1 DAY Last 48 hours Impressions Abdomen X-Ray 08/23/16 0600 Signed Impressions: Service Date/Time: Tuesday, August 23, 2016 05:59 - CONCLUSION: Dilated loops of small bowel throughout the abdomen up to 5.6 cm across. Mayco Johnson MD Abdomen/Pelvis CT 08/23/16 0018 Signed Impressions: Service Date/Time: Tuesday, August 23, 2016 00:55 - CONCLUSION: Unremarkable exam with the exception of free fluid in the right lower quadrant. The appendix is normal. There is extensive stool type density throughout the small bowel without any evidence of obstruction or dilated lumen. Mayco Johnson MD Abdomen/Pelvis CT 08/23/16 0000 Signed Impressions: Service Date/Time: Tuesday, August 23, 2016 10:09 - CONCLUSION: 1. Moderate to severe atherosclerotic disease of the aorta with moderate atherosclerotic disease of the mesenteric arterial vasculature. However, no occlusion is visualized. Please note that the venous side of the mesenteric vasculature is not assessed on this examination. 2. Abnormal small bowel gas pattern with dilated mid to distal small bowel measuring up to 3.4 cm. Additionally, some of the small bowel segments contain fecal like material and there is mild fluid and stranding in the ileal mesentery in the right abdomen. There is no bowel wall thickening. Although nonspecific these could represent some of the earliest findings of enteric ischemia. Imaging findings of mesenteric ischemia are usually very late findings. 3. Stable complex left pleural effusion. Landon Rodríguez MD Abdomen X-Ray 08/23/16 0000 Signed Impressions: Service Date/Time: Tuesday, August 23, 2016 21:27 - CONCLUSION: Abnormal bowel gas pattern. There is no significant air in the descending colon. This is similar to what was seen on the CTA of 08/24/2016. At that time, the descending colon was noted to be decompressed. Hebert Saldana MD FACR Assessment and Plan Plan Likely non-vascular cause of mesenteric ischemia. I reviewed his CTA and he has infrarenal (aorto-iliac) calcific disease but no aortic ostial visceral occlusive disease that would be consistent with mesenteric ischemia and certainly he does not appear the classic patient for this despite the risk factors. Additionally, he does not appear to have embolic mesenteric ischemia by CT and by the fact that his abdominal pain has largely gone away, albeit with pain medications. Furthermore, I don't think he has IVORY (non-occlusive mesenteric ischemia) given CI 2.1 on [facility] in Mar. The only vascular etiology not evaluated is mesenteric venous thrombosis and if no other cause of abdominal pain identified, would recommend delayed CT with IV contrast. Thank you for this consult. I talked with the patient and his about the low chance of needing vascular intervention. I will follow with you. Dalton Reilly MD FACS machine tool operator [facility] - Heart and Vascular Surgery at [facility] [phone] Dalton Reilly MD August 24, 2016 14:40
[2016-08-24] MEDS: MORPHINE SULFATE 4 MG/ML INJ IV PRN (15:27)
--- NOTE | 2016-08-24 16:49 | MB ---
cc: LADARIUS SNELL DATE OF CONSULTATION 08/24/[address] Eden Santos MD REASON FOR CONSULTATION Abdominal pain. HISTORY OF PRESENT ILLNESS The patient is a 66-year-old male with an extensive heart history who was in his normal state of health with sudden, onset of constant, nonradiating periumbilical abdominal pain. This was associated with the one episode of vomiting and he also had some obstipation initially. The patient presented to the [facility] Emergency Department and underwent admission. The patient did have complete relief of this pain with morphine, however, this recurred today. The patient did have an evaluation with a CT angiogram which was essentially negative. The patient continued to have persistent pain after 24 hours did have a KUB that showed some dilated loops of small bowel. The patient has no nausea or vomiting at this time. The patient is able to tolerate clear liquids without any vomiting but does have some recurrence of the pain. The patient denies fever, chills, night sweats. Denies chest pain, shortness of breath or urinary symptoms. REVIEW OF SYSTEMS 12-point you systems described from the patient is negative except for the pertinent positives mentioned above. PAST MEDICAL HISTORY 1. History of COPD. 2. Coronary artery disease status post coronary artery bypass grafting. 3. Hypertension. 4. Hyperlipidemia. 5. Diabetes. 6. Atrial fibrillation. 7. Lupus. PAST SURGICAL HISTORY 1. Cardiac catheterization in March of 2016. 2. Triple bypass in 2011. 3. History of previous ablation. 4. Coronary artery bypass grafting 12 years ago. 5. Hernia repair. 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 MEDICATIONS 1. Tikosyn. 2. Oxygen. 3. Prednisone 40 mg daily. 4. Protonix. 5. Fluticasone. 6. vitamins. 7. Nitroglycerin p.r.n. 8. Toprol XL. 9. Plaquenil. 10. Aspirin 81 milligrams. 11. Eliquis. 12. Lisinopril. 13. Metformin. FAMILY HISTORY Noncontributory. SOCIAL HISTORY The patient occasionally uses alcohol. Denies tobacco or illicit drug use. PHYSICAL EXAMINATION VITAL SIGNS: Temperature is 96.2, heart rate 70, blood pressure 119/77, O2 saturation 93%. GENERAL: The patient is an obese, elderly male no acute distress. Does not appear acute or chronically ill. HEENT: Head is normocephalic, atraumatic. Pupils round and reactive to light and accommodation. Sclerae anicteric. Mucous membranes are moist. NECK: Supple. No JVD. LUNGS: Clear to auscultation bilaterally. Nonlabored breathing pattern. HEART: Regular rate and rhythm. ABDOMEN: Soft. Mildly distended, tympanic to percussion. He has some subjective tenderness in the right upper quadrant and periumbilical area and less in the other areas. No diffuse rebound tenderness. No hernias. BACK: No CVA tenderness. EXTREMITIES: No clubbing, cyanosis or edema. NEUROLOGIC: The patient is awake, alert, oriented times three. Moving all extremities. Nonfocal. Cranial nerves II through XII grossly intact. LABORATORY FINDINGS White blood cell count 20. Lactic acid 2.2. ASSESSMENT/PLAN Patient is a 66-year-old male with abdominal pain, lactic acidosis, leukocytosis. Multiple cardiac and medical comorbidities. I agree with the current management with empiric antibiotics and serial abdominal examinations. The patient was seen by gastroenterology and recommended catharsis. The patient seen by vascular surgery and felt that the patient does not have acute bowel ischemia. I agree the patient likely has acute bowel ischemia as his imaging and clinical history and exam are not consistent with this. The patient does have a clinical history that could be consistent with acute cholecystitis. However with atypical presentation perhaps due to his immunosuppressive medications I feel we should rule this out. I will order a HIDA scan, questionable decompressed gallbladder with some inflammation on the CT scan. Also if the patient does not improve, a small bowel follow-through with water soluble contrast would also be indicated to better evaluate the patient rule out obstruction and evaluate the patient's small bowel. I will follow along with the patient. Thank you very much for this consultation. MD BRIDGER Felix/MATT /3:27 PM /4:17 PM MTDPavle
[2016-08-24] MEDS: ATORVASTATIN 10 MG TAB PO SCH (21:06)
[2016-08-24] MEDS: METOPROLOL SUCCINATE 25 MG EXTENDED RELEASE TAB PO SCH (21:06)
[2016-08-24] MEDS: LISINOPRIL 10 MG TAB PO SCH (21:06)
--- NOTE | 2016-08-24 22:47 | HHI.PR ---
Addendum to Inpatient Note Addendum Reason: Additional Documentation Additional Information S: Patient seen and examined at bedside to assess status. Patient currently lying in bed in no acute distress. He does complain of mild epigastric abdominal tenderness upon self palpation, however the patient reports that this is his baseline since admission. He states that his abdominal pain is currently a 4/10 on the pain scale with only one dose morphine given today at approximately 1530. He has not had a bowel movement, but has passed "a little gas." He denies any fevers, chills, shortness of breath, chest pain, NVD, or calf tenderness. Patient was evaluated by GI, Dr. Santoro, this afternoon who recommended restarting a clear liquid diet and an additional erect abdominal x-ray. Patient was evaluated by vascular surgery, Dr. Reilly, for possible vascular cause of abdominal pain who currently recommends medical management at this time. Patient was also evaluated by general surgery, Dr. Cordero, who has ordered a HIDA scan and will consider a possible small bowel follow-through without clinical improvement to rule out obstruction. O: GENERAL: 66-year-old obese male lying in bed in no acute distress. SKIN: Warm and dry. No rash. HEENT: Normocephalic. Atraumatic. MMM. No scleral icterus. No injection or drainage. PERRLA. EOMI. NECK: No visible JVD or lymphadenopathy. CARDIOVASCULAR: RRR with no MGR. RESPIRATORY: CTAB with no CRW. GASTROINTESTINAL: Abdomen soft, mildly distended with bowel sounds in all 4 quadrants. Patient mildly tender to deep palpation in the epigastric region of the upper 2 quadrants. No rebound tenderness. No Funez's sign. No hepatosplenomegaly or mass appreciated. MUSCULOSKELETAL: Strength grossly WNL. 2+ pulses in all 4 extremities. 2+ pitting edema of the BL LE. NEURO/PSYCH: Afocal. Awake, alert, and oriented x3. A: Mr. Paulino is a 66 y/o with history of COPD, CAD s/p 3-vessel CABG, HTN, HLD, atrial fibrillation, type 2 DM, and lupus admitted for severe abdominal pain due to unknown etiology at this time. P: Exam unchanged from prior examinations throughout the day. Continue current medical management. Continue clear liquid diet as tolerated. Fleets enema 2 unsuccessful in producing a bowel movement during the day. Continue to monitor. Repeat erect abdominal x-ray, HIDA scan ordered. Discussed with patient the need to notify staff with any acute change in abdominal pain. Nursing order placed previously to notify M.D. with any worsening abdominal pain, tachycardia, hypotension, or fevers. Humberto Silva MD R1 August 24, 2016 22:47
[2016-08-25] VITALS (7 sets, daily range): BP systolic 118–149; BP diastolic 77–90; PULSE 67–69; RESP 18–20; TEMP 95.6–96.5; O2SAT 92–96
[2016-08-25] MEDS: RESP: ALBUTEROL 2.5 MG/IPRATROPIUM 0.5 MG NEB (PRN) NEB (01:36)
[2016-08-25] MEDS: BENZONATATE 100 MG CAP PO PRN (03:17)
[2016-08-25] MEDS: PANTOPRAZOLE SODIUM 40 MG VIAL IV PUSH SCH (05:55)
[2016-08-25] MEDS: PIPERACIL-TAZO 4.5 GM PREMIX 100 ML IV SCH ×3 (05:55→20:33)
[2016-08-25] MEDS: ACETAMINOPHEN/HYDROcodone 325 MG/10 MG TAB PO PRN ×3 (06:08→17:33)
[2016-08-25] MEDS: INSULIN ASPART SUPPLEMENTAL SCALE SQ SCH ×4 (06:12→20:33)
[2016-08-25] MEDS: predniSONE 20 MG TAB PO SCH (09:00)
[2016-08-25] MEDS: FLUTICASONE 100 MCG/VILANTEROL 25 MCG INHALER INH SCH (09:00)
[2016-08-25] MEDS: APIXABAN 5 MG TABLET PO SCH (09:34)
[2016-08-25] MEDS: ASPIRIN 81 MG CHEW TAB CHEW SCH ×2 (09:34→20:33)
[2016-08-25] MEDS: DOFETILIDE 250 MCG CAP PO SCH ×2 (09:34→20:33)
[2016-08-25] MEDS: METOPROLOL SUCCINATE 50 MG EXTENDED RELEASE TAB PO SCH (09:34)
[2016-08-25] MEDS: LACTULOSE SYRUP 20 GM/30 ML CUP PO SCH (09:34)
[2016-08-25] MEDS: TORSEMIDE 20 MG TAB PO SCH ×2 (09:35→20:33)
[2016-08-25] MEDS: D5-1/2 NS + KCL 20 MEQ INJ 1,000 ML IV SCH ×3 (09:36→23:45)
[2016-08-25] MEDS: HYDROXYCHLOROQUINE SULFATE 200 MG TAB PO SCH ×2 (09:36→20:33)
--- NOTE | 2016-08-25 09:41 | RADRPT ---
EXAM DATE/TIME: 08/25/2016 09:12 [place] COMPARISON: CTA ABDOMEN & PELVIS W 3D RECON, August 23, 2016, 10:09. ABDOMEN FLAT & UPRIGHT, August 23, 2016, 21:27. INDICATIONS : Low abdominal pain, evaluate for ileus MEDICAL HISTORY : Cardiovascular disease. Chronic obstructive pulmonary disease. diabetic SURGICAL HISTORY : CABG. hernia repair ENCOUNTER: Subsequent ACUITY: 3 days PAIN SCORE: 7/10 LOCATION: Bilateral abdomen FINDINGS: Supine and upright views of the abdomen demonstrate abnormally dilated small bowel measuring up to 5. 8 cm similar to the prior study. There is mild gaseous distention of the stomach. Upright image demon strates no significant air-fluid level or free intraperitoneal air. There is a paucity of distal smal l bowel gas and colon gas. The bones demonstrate no acute finding. CONCLUSION: Abnormal small bowel gas pattern suspicious for some degree of small bowel obstruction. Based on the amount of dilated bowel present and the prior studies, the transition point is somewhere in the mid t o distal small bowel. There has been no significant change since the study from 2 days ago. Landon Rodríguez MD on August 25, 2016 at 9:36 Board Certified Radiologist. This report was verified electronically.
[2016-08-25 09:51] LABS: BASOPHIL % 0.1 % (0.0-2.0); HEMATOCRIT 40.5 % (39.0-51.0); HEMO FLAGS DIFF FINAL; LYMPH % 9.5 % (9.0-44.0); MEAN CELL VOLUME 91.8 FL (80.0-100.0); MEAN CORPUSCULAR HGB CONC 31.6 % (32.0-36.0); MONO % 9.3 % (0.0-8.0); NEUT % 81.1 % (16.0-70.0); PLATELET COUNT 225 TH/MM3 (150-450); RED BLOOD COUNT 4.41 MIL/MM3 (4.50-5.90); RED CELL DISTRIBUTION WIDTH 16.1 % (11.6-17.2)
[2016-08-25 10:18] LABS: ALKALINE PHOSPHATASE 53 U/L (45-117); ALT (GPT) 57 U/L (12-78); ANION GAP 8 MEQ/L (5-15); AST (GOT) 28 U/L (15-37); BICARBONATE 31.1 MEQ/L (21.0-32.0); BLOOD UREA NITROGEN 31 MG/DL (7-18); CHLORIDE 103 MEQ/L (98-107); GLOMERULAR FILTRATION RATE 54 ML/MIN (>89); POTASSIUM 4.9 MEQ/L (3.5-5.1); SODIUM (NA) 142 MEQ/L (136-145); TOTAL BILIRUBIN ADULT 0.7 MG/DL (0.2-1.0)
[2016-08-25] MEDS ORDERED: MAGNESIUM CITRATE SOLN 300 ML BTL PO PRN (10:30)
[2016-08-25] MEDS ORDERED: BISACODYL 10 MG SUPP RECTAL PRN (10:45)
[2016-08-25] MEDS ORDERED: BISACODYL 10 MG SUPP RECTAL ONE (10:45)
--- NOTE | 2016-08-25 11:07 | HHI.GIFU ---
Subjective Remarks Still having episodes of epigastric pain after eating. Objective Vitals I&O Vital Signs Date Time Temp Pulse Resp B/P Pulse Ox O2 Delivery O2 Flow Rate FiO2 08/25/16 07:22 96.3 68 19 149/83 92 08/25/16 04:00 96.0 68 20 118/77 93 08/25/16 01:40 95 21 08/24/16 23:55 97.6 69 19 123/79 93 08/24/16 19:00 96.0 64 18 117/74 93 08/24/16 15:30 97.1 67 19 115/74 93 08/24/16 11:32 96.2 70 19 119/77 93 I/O 08/24/16 08/24/16 08/24/16 08/25/16 08/25/16 08/25/16 07:00 15:00 23:00 07:00 15:00 23:00 Intake Total 0 ml 480 ml 480 ml 480 ml Output Total 1000 ml 600 ml 600 ml Balance -1000 ml 480 ml -120 ml -120 ml Intake Oral 0 ml 480 ml 480 ml 480 ml Output Urine Total 1000 ml 600 ml 600 ml Stool Total 0 ml # Voids 4 # Bowel Movements 0 0 0 Laboratory Laboratory Tests Test 08/24/16 08/25/16 08/25/16 12:18 08:36 09:36 Lactic Acid Level 2.5 Sodium Level 142 Potassium Level 4.9 Chloride Level 103 Carbon Dioxide Level 31.1 Anion Gap 8 Blood Urea Nitrogen 31 Creatinine 1.31 Estimat Glomerular Filtration 54 Rate Random Glucose 174 Calcium Level 8.4 Total Bilirubin 0.7 Aspartate Amino Transf 28 (AST/SGOT) Alanine Aminotransferase 57 (ALT/SGPT) Alkaline Phosphatase 53 Total Protein 6.4 Albumin 3.3 White Blood Count 11.0 Red Blood Count 4.41 Hemoglobin 12.8 Hematocrit 40.5 Mean Corpuscular Volume 91.8 Mean Corpuscular Hemoglobin 29.0 Mean Corpuscular Hemoglobin 31.6 Concent Red Cell Distribution Width 16.1 Platelet Count 225 Mean Platelet Volume 7.7 Neutrophils (%) (Auto) 81.1 Lymphocytes (%) (Auto) 9.5 Monocytes (%) (Auto) 9.3 Eosinophils (%) (Auto) 0.0 Basophils (%) (Auto) 0.1 Neutrophils # (Auto) 9.0 Lymphocytes # (Auto) 1.0 Monocytes # (Auto) 1.0 Eosinophils # (Auto) 0.0 Basophils # (Auto) 0.0 CBC Comment DIFF FINAL Differential Comment Date/Time Procedure Status Source Growth 08/23/16 08:50 Aerobic Blood Culture - Preliminary Resulted Blood Peripheral NO GROWTH IN 1 DAY 08/23/16 08:50 Anaerobic Blood Culture - Preliminary Resulted Blood Peripheral NO GROWTH IN 1 DAY Physical Exam HEENT: Pupils round and reactive to light; normocephalic; atraumatic; no jaundice. Throat is clear. NECK: Neck is supple, no JVD, no lymphadenopathy. CHEST: Chest is clear to auscultation and percussion. CARDIAC: Regular rate and rhythm with no murmur gallop or rubs. ABDOMEN: Soft, minimal tenderness; no hepatosplenomegaly; bowel sounds Faint. EXTREMITIES: No clubbing, cyanosis, or edema. SKIN: Normal; no rash; no jaundice. HABILITATION SPECIALIST: No focal deficits; alert and oriented times three. Assessment and Plan Plan ASSESSMENT: - Severe abdominal pain/ Epigastric. Pt was admitted with severe abdominal pain that began yesterday evening about 90 mins after eating a large meal. There was associated nausea and one episode of vomiting. Pt had a small hard BM with some loose stools following that. He has had resolution of the abd pain since admission. Denies any previous similar episodes. CT Abd/ pelvis w/o IV contrast (08/23/16) --> Unremarkable exam with the exception of free fluid in the right lower quadrant. The appendix is normal. There is extensive stool type density throughout the small bowel without any evidence of obstruction or dilated lumen. CTA Abd/pelvis (08/23) --> moderate to severe atherosclerotic disease of the aorta with moderate disease of the mesenteric arterial vasculature. However, no occlusion is visualized. Abnormal small bowel gas pattern with dilated mid to distal small bowel measuring up to 3.4cm. Additionally, some of the small bowel segments contain fecal like material and there is mild fluid and stranding in the ileal mesentery in the right abdomen. There is no bowel wall thickening. Although nonspecific these could represent some of the earliest findings of enteric ischemia. General Surgery is following. No surgical intervention planned at this time. Serial abdominal exam evaluation planned currently. Pt is currently pain free. Pts last colonoscopy was 5-6 years ago in [place]. He denies any hx of polyps, IBD, or diverticulosis that he is aware of. - Constipation. Pt appears to have stool throughout on the CT scans. Pt hasn't had a significant BM in several days. - Leukocytosis. Pt has been afebrile, no source of infection is known at this time. Zosyn 4.5 g IV every 8 hours. Blood cultures pending. Of note pt is on steroids for recent COPD exacerbation. - Diabetes mellitus, Atrial fibrillation on Eliquis 5mg BID and ASA 81 mg daily , CAD, HTN, Hyperlipidemia, CHF, Lupus. Management per attending. PLAN: - EGD in AM ( diagnostic while on Eliquis) - Hold next dose of Eliquis - NPO after midnight - Daily Lactic Acid - Lactulose 30mg daily - Stool softeners. - Supportive care - Further recommendations to follow Kristi Santoro MD August 25, 2016 11:07
--- NOTE | 2016-08-25 11:22 | HHI.FPPN ---
Subjective Remarks No acute events overnight. Afebrile, vitals stable. Patient continues to report 4/10 abdominal pain in his mid to upper abdomen. He states it may be slightly worse after eating his CLD. Denies any radiation of the pain. Denies pain in outer quadrants. Denies N/V. Denies any BMs still. States the last time he passed gas was yesterday morning. Denies fevers, CP, SOB, pain elsewhere. (Donta Arcos MD R1) Objective Vitals Vital Signs Date Time Temp Pulse Resp B/P Pulse Ox O2 Delivery O2 Flow Rate FiO2 08/25/16 07:22 96.3 68 19 149/83 92 08/25/16 04:00 96.0 68 20 118/77 93 08/25/16 01:40 95 21 08/24/16 23:55 97.6 69 19 123/79 93 08/24/16 19:00 96.0 64 18 117/74 93 08/24/16 15:30 97.1 67 19 115/74 93 08/24/16 11:32 96.2 70 19 119/77 93 I/O 08/24/16 08/24/16 08/24/16 08/25/16 08/25/16 08/25/16 07:00 15:00 23:00 07:00 15:00 23:00 Intake Total 0 ml 480 ml 480 ml 480 ml Output Total 1000 ml 600 ml 600 ml Balance -1000 ml 480 ml -120 ml -120 ml Intake Oral 0 ml 480 ml 480 ml 480 ml Output Urine Total 1000 ml 600 ml 600 ml Stool Total 0 ml # Voids 4 # Bowel Movements 0 0 0 (Donta Arcos MD R1) Result Diagram: 08/25/16 0936 08/25/16 0836 Objective Remarks GENERAL: Pleasant, alert, obese, well developed, sitting in chair. NAD SKIN: Warm/dry. HEAD: Atraumatic. Normocephalic. EYES: No scleral icterus. No injection or drainage. ENT: Mucous membranes pink and moist. NECK: Trachea midline. No JVD. Supple. CARDIOVASCULAR: Regular rate and rhythm. No murmur appreciated. RESPIRATORY: No increased work of breathing. Lungs are clear anteriorly without wheezing rhonchi or crackles. GASTROINTESTINAL: +BS throughout. Abdomen obese, soft, mild to moderate tenderness to palpation in the mid-abdominal region. Nontender in other quadrants. Appears equally distended compared to prior examination. No palpable masses. ?rebound tenderness in the mid-abdominal region. No guarding. MUSCULOSKELETAL: No obvious deformities. No clubbing. No cyanosis. 2+ pitting edema bilateral lower extremities. NEUROLOGICAL: Awake and alert. No obvious cranial nerve deficits. Motor grossly within normal limits. Normal speech. PSYCHIATRIC: Appropriate mood and affect; insight and judgment normal. ( Donta Arcos MD R1) A/P Assessment and Plan 66-year-old male with history of COPD, CAD s/p 3-vessel CABG, HTN, HLD, atrial fibrillation, type 2 DM, and lupus. Patient admitted due to severe 10/10 epigastric abdominal pain somewhat concerning for mesenteric ischemia given his elevated lactic acid and pain out of proportion to the examination as well as abdominal x-ray showing dilated loops of small bowel throughout the abdomen. Discharge Planning Unclear timetable. Pending resolution of abdominal pain and further studies if indicated (Donta Arcos MD R1) Attending Attestation Patient seen, examined, and discussed with resident team. I agree with assessment and management as documented and discussed with me. Pt remains with 4/10 abdominal pain. Exam essentially unchanged. He remains without flatus or BM. (Eleonora Strong MD) Problem List: (1) Abdominal pain Status: Acute Plan: Patient admitted with severe abdl pain now better controlled with morphine. CT of the abdomen does not show any small bowel obstruction. It does show large amounts of stool in the small bowel. * Continue D5 half-normal saline at 100 mL/hr * Patient given fleets enema x2 08/24 AM; no BMs * Continue lactulose per GI recommendations; 30 mL PO daily * [place] 5/325 by mouth every 4 hours when necessary pain scale 1-5 * [place] 10/325 by mouth every 4 hours when necessary pain scale 6-10 * Morphine 2 mg IV every 4 hours when necessary breakthrough pain * Zofran 4 mg IV every 6 hours when necessary nausea * Protonix 40 mg IV will transition to by mouth with improvement of abdominal pain * Jihan-Colace 2 tablets by mouth twice a day * Lactic acid 3.3 on admission, repeat 2.5 -> 2.2 -> 2.7; continue to monitor daily * Abdomen is soft, mild-moderate TTP mid abdominal region, appears equally distended compared to prior exam, no guarding, ?rebound tenderness in mid-abdl region, +BS * Concern for mesenteric ischemia remains * CTA abdomen/pelvis showed abnormal small bowel gas pattern with dilated mid to distal small bowel measuring up to 3.4 cm. Some small bowel segments containing fecal like material and mild fluid and stranding in the ileal mesentery in the right abdomen. No bowel wall thickening. There are nonspecific but could represent some of the earliest findings of enteric ischemia * Abdomen x-ray 08/25 shows abnormal small bowel gas pattern suspicious for some degree of small bowel obstruction * Consulted GI, recommendations appreciated; holding Eliquis today ahead of EGD tomorrow AM. Patient NPO after MN * General surgery consulted, appreciate recommendations. Continue empiric antibiotics and serial abdominal examinations. Obtain HIDA scan to help r/o acute cholecystitis. If the patient does not improve, consider SBFT * Vascular surgery consulted, appreciate seeing the patient. Considering non- vascular cause of mesenteric ischemia; if no other cause of abdominal pain is identified, recommended to obtain delayed CT with IV contrast (2) Leukocytosis Status: Resolved Plan: Patient met SIRS criteria due to leukocytosis of 20 and elevated lactic acid of 3.3, he is afebrile, and no source of infection is known at this time. Possible reasons for leukocytosis is steroid-induced, stress-induced, or infection * Continue Zosyn 4.5 g IV every 8 hours * Blood cultures no growth after 2 days * UA not indicating culture * Continue to monitor WBC and vital signs (3) chronic medical problems Status: Chronic Plan: Diabetes type 2: Low dose sliding scale. On metformin at home Atrial fibrillation: Hold Eliquis 5mg BID today, continue aspirin 81 mg daily, continue Tikosyn 500 mcg PO BID Coronary artery disease: Hold Eliquis Hypertension: Continue Metoprolol succinate ER 50 mg in the morning and 25 mg in the evening and lisinopril 10 mg by mouth daily at bedtime Hyperlipidemia: Continue Crestor 5 mg daily at bedtime, continue coenzyme Q10 200 mg by mouth daily at bedtime (Will need to bring on medication from home) PAD/muscle spams: Provided Flexeril when necessary Congestive heart failure: Continue torsemide 20 mg by mouth twice a day. Continue lisinopril 10 mg by mouth twice a day Lupus: Continue Plaquenil COPD with recent exacerbation: Continue Prednisone 40mg daily per discharge orders, Alternate albuterol and DuoNeb's, Continue oxygen as needed (4) Nutrition, metabolism, and development symptoms Status: Acute Plan: Diet: CLD, NPO after MN Fluids: D5 half-normal saline at 100 cc/hr Electrolytes: WNLs, continue to monitor and replete as necessary DVT prophylaxis: b/l SCDs; hold Eliquis today GI prophylaxis: Continue Protonix 40 mg IV q24h (Donta Arcos MD R1) Problem Qualifiers (1) Abdominal pain: Qualified Code: R10.84 - Generalized abdominal pain (2) Leukocytosis: Qualified Code: D72.829 - Leukocytosis, unspecified type Donta Arcos MD R1 August 25, 2016 11:22 Eleonora Strong MD August 25, 2016 12:42
--- NOTE | 2016-08-25 11:51 | HHI.PR ---
Subjective Subjective Notes DAILY PROGRESS NOTE FOR SURGICAL ATTENDING, DR. CHARISSE NAVARRO Up to chair Reports epigastric pain after eating Objective Vitals/I&O Vital Signs Date Time Temp Pulse Resp B/P Pulse Ox O2 Delivery O2 Flow Rate FiO2 08/25/16 11:26 96.3 69 18 132/86 94 08/25/16 01:40 21 08/23/16 07:15 Nasal Cannula 1.00 Labs Laboratory Tests Test 08/24/16 08/25/16 08/25/16 12:18 08:36 09:36 Lactic Acid Level 2.5 Sodium Level 142 Potassium Level 4.9 Chloride Level 103 Carbon Dioxide Level 31.1 Anion Gap 8 Blood Urea Nitrogen 31 Creatinine 1.31 Estimat Glomerular Filtration 54 Rate Random Glucose 174 Calcium Level 8.4 Total Bilirubin 0.7 Aspartate Amino Transf 28 (AST/SGOT) Alanine Aminotransferase 57 (ALT/SGPT) Alkaline Phosphatase 53 Total Protein 6.4 Albumin 3.3 White Blood Count 11.0 Red Blood Count 4.41 Hemoglobin 12.8 Hematocrit 40.5 Mean Corpuscular Volume 91.8 Mean Corpuscular Hemoglobin 29.0 Mean Corpuscular Hemoglobin 31.6 Concent Red Cell Distribution Width 16.1 Platelet Count 225 Mean Platelet Volume 7.7 Neutrophils (%) (Auto) 81.1 Lymphocytes (%) (Auto) 9.5 Monocytes (%) (Auto) 9.3 Eosinophils (%) (Auto) 0.0 Basophils (%) (Auto) 0.1 Neutrophils # (Auto) 9.0 Lymphocytes # (Auto) 1.0 Monocytes # (Auto) 1.0 Eosinophils # (Auto) 0.0 Basophils # (Auto) 0.0 CBC Comment DIFF FINAL Differential Comment Date/Time Procedure Status Source Growth 08/23/16 08:50 Aerobic Blood Culture - Preliminary Resulted Blood Peripheral NO GROWTH IN 2 DAYS 08/23/16 08:50 Anaerobic Blood Culture - Preliminary Resulted Blood Peripheral NO GROWTH IN 2 DAYS Cardiovascular: Regular Lungs: Clear Abdomen: Other (epigastric pain with palpation ) Extremities: No edema A/P Problem List: (1) Abdominal pain (2) chronic medical problems (3) CHF (congestive heart failure) (4) CAD (coronary artery disease) (5) Diabetes mellitus (6) Atrial fibrillation (7) CHF exacerbation (8) Acute renal insufficiency (9) Constipation Assessment and Plan 66 year old male with extensive cardiac history with epigastric pain; unknown etiology -GI following---plan for EDG tomorrow -Reviewed scans -Cathartics -HIDA scan today to evaluate gallbladder Attending Statement NOTE FOR SURGICAL ATTENDING, DR. CHARISSE NAVARRO I agree with above assessment and plan. The exam, history, and the medical decision-making described in the above note were completed with the assistance of the mid-level provider. I reviewed and agree with the findings presented. Patient appears to be tender in the midepigastric region down to the umbilicus in the midline Minimal pain to the right upper quadrant Await HIDA scan EGD later May have a Component of Constipation I attest that I had a [id number] encounter with the patient on the same day, and personally performed and documented my assessment and findings in the medical record. The following services were provided during this hospital visit: Chart data review, vital sign assessments/reviewing monitor data Review of consultations notes if present. Medication orders/review and/or management Ordering and/or reviewing lab tests Ordering and/or interpreting/reviewing x-rays and/or diagnostic studies Care of the patient and discussion of the patient with the care team Documentation time To help prompt me to consider important information that might be impacting today's encounter and assessment, information from prior notes written by myself or my colleagues may have been "brought forward/copy and pasted" into today's note. Problem Qualifiers (1) Abdominal pain: Qualified Code: R10.84 - Generalized abdominal pain Karena Cordon August 25, 2016 11:51 Charisse Navarro MD August 25, 2016 12:31
[2016-08-25] MEDS: MORPHINE SULFATE 4 MG/ML INJ IV PRN (16:03)
[2016-08-25] MEDS: METOPROLOL SUCCINATE 25 MG EXTENDED RELEASE TAB PO SCH (20:33)
[2016-08-25] MEDS: ATORVASTATIN 10 MG TAB PO SCH (20:33)
[2016-08-25] MEDS: LISINOPRIL 10 MG TAB PO SCH (20:33)
[2016-08-26] VITALS (8 sets, daily range): BP systolic 139–148; BP diastolic 85–99; PULSE 64–81; RESP 16–19; TEMP 95.2–98; O2SAT 93–98
[2016-08-26] MEDS: MORPHINE SULFATE 4 MG/ML INJ IV PRN ×2 (01:24→12:37)
[2016-08-26] MEDS: RESP: ALBUTEROL 2.5 MG/IPRATROPIUM 0.5 MG NEB (PRN) NEB (01:55)
[2016-08-26] MEDS: ACETAMINOPHEN/HYDROcodone 325 MG/10 MG TAB PO PRN ×3 (02:29→10:28)
[2016-08-26] MEDS: PIPERACIL-TAZO 4.5 GM PREMIX 100 ML IV SCH ×3 (05:44→20:50)
[2016-08-26] MEDS: PANTOPRAZOLE SODIUM 40 MG VIAL IV PUSH SCH (05:45)
[2016-08-26 06:17] LABS: AUTOMATED NEUTROPHIL # 8.9 TH/MM3 (1.8-7.7); BASOPHIL % 0.2 % (0.0-2.0); HEMATOCRIT 39.8 % (39.0-51.0); LYMPH % 8.7 % (9.0-44.0); MEAN CELL VOLUME 90.8 FL (80.0-100.0); MEAN CORPUSCULAR HEMOGLOBIN 30.2 PG (27.0-34.0); MEAN CORPUSCULAR HGB CONC 33.2 % (32.0-36.0); MONO % 11.6 % (0.0-8.0); NEUT % 79.5 % (16.0-70.0); PLATELET COUNT 242 TH/MM3 (150-450); RED BLOOD COUNT 4.39 MIL/MM3 (4.50-5.90); RED CELL DISTRIBUTION WIDTH 16.3 % (11.6-17.2); WHITE BLOOD COUNT 11.2 TH/MM3 (4.0-11.0)
[2016-08-26 06:21] LABS: HEMO FLAGS AUTO DIFF
[2016-08-26] MEDS: INSULIN ASPART SUPPLEMENTAL SCALE SQ SCH ×4 (06:29→21:03)
[2016-08-26 06:54] LABS: ALKALINE PHOSPHATASE 51 U/L (45-117); ALT (GPT) 69 U/L (12-78); ANION GAP 9 MEQ/L (5-15); AST (GOT) 38 U/L (15-37); BICARBONATE 28.3 MEQ/L (21.0-32.0); BLOOD UREA NITROGEN 30 MG/DL (7-18); CHLORIDE 103 MEQ/L (98-107); GLOMERULAR FILTRATION RATE 61 ML/MIN (>89); POTASSIUM 4.3 MEQ/L (3.5-5.1); SODIUM (NA) 140 MEQ/L (136-145); TOTAL BILIRUBIN ADULT 0.9 MG/DL (0.2-1.0)
[2016-08-26 08:27] LABS: OVALOCYTES 1+ (NORMAL); SCAN/DIFF AUTO DIFF CONFIRMED
--- NOTE | 2016-08-26 08:59 | HHI.FPPN ---
Subjective Remarks No acute events overnight. Afebrile, vitals are stable. He reports he had two BMs yesterday however state these were both small and did not provide much relief of his abdominal pain. He states he passed about a large grape-sized stool that floated and was somewhat pale looking; later he passed stool slightly larger than a golf ball that he states was soft. He did inspect his stool and did not notice any black or visible blood. He had blood on the toilet paper. He states his abdominal pain has been varying in intensity, at times last night it was up to a 6-7/10; currently it is at a 2/10. Reports mid-upper and periumbilical abdominal pain, still nonradiating, no other pain in his outer quadrants. He had some clears last night, he does not think this worsened his pain. Denies fevers. (Donta Arcos MD R1) Objective Vitals Vital Signs Date Time Temp Pulse Resp B/P Pulse Ox O2 Delivery O2 Flow Rate FiO2 08/26/16 04:18 97.2 68 19 139/85 96 08/26/16 00:05 96.0 65 18 139/94 98 08/25/16 20:00 69 08/25/16 19:35 96.2 67 18 133/88 96 08/25/16 18:33 18 08/25/16 16:08 18 08/25/16 15:50 96.5 67 18 146/90 93 08/25/16 11:26 96.3 69 18 132/86 94 I/O 08/25/16 08/25/16 08/25/16 08/26/16 08/26/16 08/26/16 07:00 15:00 23:00 07:00 15:00 23:00 Intake Total 480 ml 600 ml 240 ml 852 ml Output Total 600 ml 500 ml 500 ml 300 ml Balance -120 ml 100 ml -260 ml 552 ml Intake Oral 480 ml 600 ml 240 ml 0 ml IV Total 852 ml Output Urine Total 600 ml 500 ml 500 ml 300 ml # Voids 2 2 # Bowel Movements 0 0 2 0 (Donta Arcos MD R1) Result Diagram: 08/26/16 0551 08/26/16 0551 Objective Remarks GENERAL: Pleasant, alert, overweight, well developed, sitting in chair. NAD SKIN: Warm/dry. HEAD: Atraumatic. Normocephalic. EYES: No scleral icterus. No injection or drainage. ENT: Mucous membranes pink and moist. NECK: Trachea midline. No JVD. Supple. CARDIOVASCULAR: Regular rate and rhythm. No murmur appreciated. RESPIRATORY: No increased work of breathing. Lungs are clear anteriorly without wheezing rhonchi or crackles. GASTROINTESTINAL: +BS throughout. Abdomen obese, not rigid but more firm than prior examination, mild to moderate tenderness to palpation in the mid- abdominal region down to area of umbilicus. Nontender in other quadrants. Appears equally distended compared to prior examination. No palpable masses. ? rebound tenderness in the mid-abdominal region and periumbilical region. No guarding. MUSCULOSKELETAL: No obvious deformities. No clubbing. No cyanosis. 2+ pitting edema bilateral lower extremities. NEUROLOGICAL: Awake and alert. No obvious cranial nerve deficits. Motor grossly within normal limits. Normal speech. PSYCHIATRIC: Appropriate mood and affect; insight and judgment normal. ( Donta Arcos MD R1) A/P Assessment and Plan 66-year-old male with history of COPD, CAD s/p 3-vessel CABG, HTN, HLD, atrial fibrillation, type 2 DM, and lupus. Patient admitted due to severe 10/10 epigastric abdominal pain somewhat concerning for mesenteric ischemia given his elevated lactic acid and pain out of proportion to the examination as well as abdominal x-ray showing dilated loops of small bowel throughout the abdomen. Discharge Planning Unclear timetable. Pending resolution of abdominal pain and further studies if indicated (Donta Arcos MD R1) Attending Attestation Patient is seen and examined, discussed with resident team. I agree with assessment and management as documented and discussed with me. Pt is seen after EGD, after his diet was advanced. After eating meatloaf and mashed potatoes, he developed 10/10 abdominal pain, epigastric. He is very uncomfortable and very tender on my exam. I remain concerned about nonocclusive mesenteric ischemia, given that patient has 10/10 abdominal pain after advancing diet. Check X-ray abdomen, small bowel follow through, and lactic acid. Increase bowel regimen as patient has not had substantial BM (2 BMs listed in computer are small BMs) Make pt NPO. He may need NG tube as treatment for SBO. (Eleonora Strong MD) Problem List: (1) Abdominal pain Status: Acute Plan: Patient admitted with severe abdl pain now better controlled with morphine. CT of the abdomen does not show any small bowel obstruction. It does show large amounts of stool in the small bowel. * Continue D5 half-normal saline at 100 mL/hr * Fleets enemas prn * Lactulose 30 mL PO BID * [place] 10/325 po q4h prn pain 7-10 * Discontinued morphine * Protonix 40 mg IV daily * Jihan-Colace 2 tablets by mouth twice a day * Lactic acid 3.3 on admission, repeat 2.5 -> 2.2 -> 2.7; continue to monitor daily * Abdomen is soft, mild-moderate TTP mid abdominal region, appears equally distended compared to prior exam, no guarding, ?rebound tenderness in mid-abdl region, +BS * CTA abdomen/pelvis showed abnormal small bowel gas pattern with dilated mid to distal small bowel measuring up to 3.4 cm. Some small bowel segments containing fecal like material and mild fluid and stranding in the ileal mesentery in the right abdomen. No bowel wall thickening. 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 Possible reasons for leukocytosis is steroid-induced, stress-induced, or infection * Continue Zosyn 4.5 g IV every 8 hours * Blood cultures no growth after 3 days * UA not indicating culture * Continue to monitor WBC and vital signs (3) chronic medical problems Status: Chronic Plan: Diabetes type 2: Low dose sliding scale. On metformin at home Atrial fibrillation: Continue Eliquis 5mg BID today, continue aspirin 81 mg daily, continue Tikosyn 500 mcg PO BID Coronary artery disease: Continue Eliquis Hypertension: Continue Metoprolol succinate ER 50 mg in the morning and 25 mg in the evening and lisinopril 10 mg by mouth daily at bedtime Hyperlipidemia: Continue Crestor 5 mg daily at bedtime, continue coenzyme Q10 200 mg by mouth daily at bedtime (Will need to bring on medication from home) PAD/muscle spams: Provided Flexeril when necessary Congestive heart failure: Continue torsemide 20 mg by mouth twice a day. Continue lisinopril 10 mg by mouth twice a day Lupus: Continue Plaquenil COPD with recent exacerbation: Continue Prednisone 40mg daily per discharge orders, Alternate albuterol and DuoNeb's, Continue oxygen as needed (4) Nutrition, metabolism, and development symptoms Status: Acute Plan: Diet: 2000 ADA per GI, advised patient to ease into diet Fluids: D5 half-normal saline at 100 cc/hr Electrolytes: WNLs, continue to monitor and replete as necessary DVT prophylaxis: b/l SCDs; Continue Eliquis today GI prophylaxis: Continue Protonix 40 mg IV q24h (Donta Arcos MD R1) Problem Qualifiers (1) Abdominal pain: Qualified Code: R10.9 - Abdominal pain, unspecified location (2) Leukocytosis: Qualified Code: D72.829 - Leukocytosis, unspecified type Donta Arcos MD R1 August 26, 2016 08:59 Eleonora Strong MD August 26, 2016 19:46
[2016-08-26] MEDS: FLUTICASONE 100 MCG/VILANTEROL 25 MCG INHALER INH SCH (09:00)
[2016-08-26] MEDS: predniSONE 20 MG TAB PO SCH (09:00)
[2016-08-26] MEDS: DOFETILIDE 250 MCG CAP PO SCH ×2 (10:29→20:53)
[2016-08-26] MEDS: ASPIRIN 81 MG CHEW TAB CHEW SCH ×2 (10:31→20:53)
[2016-08-26] MEDS: LACTULOSE SYRUP 20 GM/30 ML CUP PO SCH ×2 (10:31→20:51)
[2016-08-26] MEDS: HYDROXYCHLOROQUINE SULFATE 200 MG TAB PO SCH ×2 (10:31→20:51)
[2016-08-26] MEDS: TORSEMIDE 20 MG TAB PO SCH ×2 (10:31→20:52)
[2016-08-26] MEDS: METOPROLOL SUCCINATE 50 MG EXTENDED RELEASE TAB PO SCH (10:31)
--- NOTE | 2016-08-26 10:31 | RADRPT ---
EXAM DATE/TIME: 08/26/2016 08:48 [facility] COMPARISON: No previous studies available for comparison. INDICATIONS : Abdominal pain and vomiting for one day. DOSE: 4.2 mCi Tc99m Mebrofenin IV MEDICAL HISTORY : Congestive heart failure. Cerebrovascular disease. Chronic obstructive pulmonary disease. SURGICAL HISTORY : None. ENCOUNTER: Initial ACUITY: 1 day PAIN SCALE: 2/10 LOCATION: Right upper quadrant TECHNIQUE: Following the intravenous administration of radiotracer, dynamic sequential images were performed wit h continuous acquisition. FINDINGS: HEPATIC KINETICS: There is prompt uptake of radiotracer in the liver. No focal defects are seen. There is normal rate of washout from the hepatic parenchyma. BILIARY CLEARANCE: Activity is first seen in the extrahepatic biliary system at 20 minutes. There is normal excretion i nto the small bowel. GALLBLADDER: Activity is first seen in the gallbladder at 20 minutes. Common bile duct kinetics are normal and th ere is no evidence of biliary obstruction. Approximately 40% ejection fraction at 65 minutes BILIARY ENTRIC REFLUX: None observed. CONCLUSION: Negative exam. No scintigraphic findings of acute or chronic cholecystitis. No significant bilia ry enteric reflux. David Baltazar MD on August 26, 2016 at 10:22 Board Certified Radiologist. This report was verified electronically.
--- NOTE | 2016-08-26 12:07 | GIPROC ---
[facility] [address] [facility]. [facility] [place], [address] EGD PROCEDURE REPORT EXAM DATE: 08/26/2016 PATIENT NAME: Marcial Paulino MR #: [id number] BIRTHDATE: 1950 ATTENDING: Kristi Santoro MD ORDER #: [id number] RESEARCH STAFF MEMBER: Rickie Spencer and Lupis Rodriguez STATUS: inpatient INDICATIONS: The patient is a 66 yr old male here for an EGD due to epigastric abdominal pain PROCEDURE PERFORMED: EGD w/ Brushing MEDICATIONS: None and Per Anesthesia. TOPICAL ANESTHETIC: Lidocaine [place] CONSENT: The patient understands the risks and benefits of the procedure and understands that these risks include, but are not limited to: sedation, allergic reaction, infection, perforation and/or bleeding. Alternative means of evaluation and treatment include, among others: physical exam, x-rays, and/or surgical intervention. The patient elects to proceed with this endoscopic procedure. medical equipment was checked for proper function. Hand hygiene and appropriate measures for infection prevention was taken. After the risks, benefits and alternatives of the procedure were thoroughly explained, Informed consent was verified, confirmed and timeout was successfully executed by the treatment team. The patient was anesthetized with topical anesthesia and the Pentax EG-[id number] endoscope was introduced through the mouth and advanced to the second portion of the duodenum. Retroflexion was performed and was normal The gastroscope was then slowly withdrawn and removed. ESOPHAGUS: White exudates consistent with candidiasis were found in the entire esophagus. There was a 5cm segment of suspected Marcano's esophagus found in the distal esophagus. The length of circumferential Marcano's was 2cm (Gilman C2). There was no nodular mucosa noted in the Marcano's segment. A brush cytology was performed. Sample obtained for microbiology. STOMACH: There was mild gastritis in the entire examined stomach. DUODENUM: The duodenal mucosa appeared normal in the 2nd part of the duodenum. ADVERSE EVENTS: There were no complications. IMPRESSIONS: 1. White exudates consistent with candidiasis in the entire esophagus, brushing for microbiology done 2. There was a 5cm segment of suspected Marcano's esophagus found in the distal esophagus, no biopsies obtained with use of Eliquis 3. There was mild gastritis in the entire examined stomach, no biopsies obtained while on Eliquis 4. Normal duodenal mucosa in the 2nd part of the duodenum 5. Retroflexion was performed and was normal RECOMMENDATIONS: Await cytology results. results will not be ready for 7-10 days. If you don't hear from us in two weeks, call our office for biopsy results. PATIENT CONDITION: stable DISPOSITION: Observation REPEAT EXAM: Repeat EGD for Barretts biopsies and Gastritis biopsies off Eliquis NOT Urgent Kristi Santoro MD eSigned: Kristi Santoro MD 08/26/2016 12:06 PM cc: PATIENT NAME: Marcial Paulino MR#: [id number]
--- NOTE | 2016-08-26 13:34 | HHI.PR ---
Subjective Subjective Notes Up to chair Just back from EGD Objective Vitals/I&O Vital Signs Date Time Temp Pulse Resp B/P Pulse Ox O2 Delivery O2 Flow Rate FiO2 08/26/16 12:10 64 16 146/98 97 08/26/16 12:01 97.7 08/25/16 01:40 21 08/23/16 07:15 Nasal Cannula 1.00 Labs Laboratory Tests Test 08/26/16 05:51 White Blood Count 11.2 Red Blood Count 4.39 Hemoglobin 13.2 Hematocrit 39.8 Mean Corpuscular Volume 90.8 Mean Corpuscular Hemoglobin 30.2 Mean Corpuscular Hemoglobin 33.2 Concent Red Cell Distribution Width 16.3 Platelet Count 242 Mean Platelet Volume 7.5 Neutrophils (%) (Auto) 79.5 Lymphocytes (%) (Auto) 8.7 Monocytes (%) (Auto) 11.6 Eosinophils (%) (Auto) 0.0 Basophils (%) (Auto) 0.2 Neutrophils # (Auto) 8.9 Lymphocytes # (Auto) 1.0 Monocytes # (Auto) 1.3 Eosinophils # (Auto) 0.0 Basophils # (Auto) 0.0 CBC Comment AUTO DIFF Differential Comment AUTO DIFF CONFIRMED Ovalocytes 1+ Sodium Level 140 Potassium Level 4.3 Chloride Level 103 Carbon Dioxide Level 28.3 Anion Gap 9 Blood Urea Nitrogen 30 Creatinine 1.18 Estimat Glomerular Filtration 61 Rate Random Glucose 166 Lactic Acid Level 2.2 Calcium Level 8.1 Total Bilirubin 0.9 Aspartate Amino Transf 38 (AST/SGOT) Alanine Aminotransferase 69 (ALT/SGPT) Alkaline Phosphatase 51 Total Protein 6.4 Albumin 3.4 Date/Time Procedure Status Source Growth 08/23/16 08:50 Aerobic Blood Culture - Preliminary Resulted Blood Peripheral NO GROWTH IN 3 DAYS 08/23/16 08:50 Anaerobic Blood Culture - Preliminary Resulted Blood Peripheral NO GROWTH IN 3 DAYS Cardiovascular: Regular Lungs: Clear Abdomen: Non-distended, Other (epigastric and supraumbical pain with palpation ) Extremities: No edema A/P Problem List: (1) Abdominal pain (2) chronic medical problems (3) CHF (congestive heart failure) (4) CAD (coronary artery disease) (5) Diabetes mellitus (6) Atrial fibrillation (7) CHF exacerbation (8) Acute renal insufficiency (9) Constipation Assessment and Plan 66 year old male with extensive cardiac history with epigastric pain; unknown etiology -GI following---EGD done this AM -HIDA reviewed--no evidence of acute or chronic cholecystitis -Cathartics---+BM -Will advance diet as tolerated -No surgical plans at this time Problem Qualifiers (1) Abdominal pain: Qualified Code: R10.9 - Abdominal pain, unspecified location Karena Cordon August 26, 2016 13:34
[2016-08-26] MEDS ORDERED: PROPOFOL 200 MG/20 ML AMP IV ONE (13:47)
[2016-08-26] MEDS: D5-1/2 NS + KCL 20 MEQ INJ 1,000 ML IV SCH ×2 (14:20→21:27)
[2016-08-26] MEDS ORDERED: SOD PHOSPHATE/SOD BIPHOSPHATE (ADULT) ENEMA 133ML RECTAL ONE (15:00)
[2016-08-26] MEDS ORDERED: ACETAMINOPHEN 1000 MG/100 ML VIAL IV PRN (15:00)
[2016-08-26] MEDS ORDERED: SOD PHOSPHATE/SOD BIPHOSPHATE (ADULT) ENEMA 133ML RECTAL PRN (15:15)
[2016-08-26] MEDS: FLUCONAZOLE 200 MG TAB PO SCH (15:27)
--- NOTE | 2016-08-26 15:57 | HHI.FPPN ---
Addendum to progress note ADDENDUM Reason for addendum: Additonal documentation Additional information Patient seen and examined this afternoon. Patient was informed of the findings on EGD. He was started on a 2000 ADA diet and was advised to take it very slowly easing into his diet. Patient had eaten about half of his meal and stated he began to experience 10/10 epigastric abdominal pain similar to the abdominal pain he was having on presentation when he was admitted. Abdomen is not rigid , +BS, TTP in his mid-upper abdomen down to periumbilical region, nontender in other quadrants, ?rebound tenderness in the mid-upper abdomen and periumbilical region remains, no guarding. Plan: - Continue serial abdominal exams - Give mag citrate 300 mL po 2 doses 2 hours apart - Fleets enemas prn; continue lactulose 30 mL po BID - Obtain lactic acid today at 18:00 as concern for mesenteric ischemia persists - Keep NPO - Continue ofirmev for pain control; norco if pain does not respond to ofirmev - Started patient on Diflucan 400 mg po daily for esophageal petar; patient verbally consented to be tested for hepatitis and HIV - Continue Zosyn - Continue IVF hydration with D5-1/2NS at 100cc/hr - Will place a stat call out to general surgery or gastroenterology if there are any significant concerns particularly peritoneal signs, worsening abdominal pain, fevers, hypotension, tachycardia Donta Arcos MD R1 August 26, 2016 15:56
[2016-08-26] MEDS: MAGNESIUM CITRATE SOLN 300 ML BTL PO SCH ×2 (18:08→18:49)
--- NOTE | 2016-08-26 19:16 | RADRPT ---
EXAM DATE/TIME: 08/26/2016 18:30 [facility] COMPARISON: ABDOMEN FLAT & UPRIGHT, August 25, 2016, 9:12. INDICATIONS : Nausea, vomiting, constipation, abdominal pain. MEDICAL HISTORY : Hypertension. Lupus. Diabetes mellitus type II. Congestive Heart Failure. Athritis. COPD. SURGICAL HISTORY : CABG. Coronary artery stent. Inguinal hernia repair. ENCOUNTER: Subsequent ACUITY: 4 - 6 days PAIN SCORE: 10/10 LOCATION: Abdomen midline. FINDINGS: Supine and upright views the abdomen show worsening gas-distention of the small bowel relative to the prior study. Colon is decompressed. No free air observed. Left lower lobe atelectasis versus infiltr ate. No appreciable organomegaly. CONCLUSION: Worsening dilatation of the small bowel with a radiographic pattern consistent with distal small willy l obstruction. Jr Parker Jr., MD on August 26, 2016 at 19:13 Board Certified Radiologist. This report was verified electronically.
[2016-08-26] MEDS: ATORVASTATIN 10 MG TAB PO SCH (20:51)
[2016-08-26] MEDS: LISINOPRIL 10 MG TAB PO SCH (20:51)
[2016-08-26] MEDS: METOPROLOL SUCCINATE 25 MG EXTENDED RELEASE TAB PO SCH (20:53)
[2016-08-26] MEDS: SODIUM CHLORIDE 0.9% FLUSH 10 ML FLUSH IV FLUSH PRN (20:54)
--- NOTE | 2016-08-26 21:57 | HHI.FPPN ---
Subjective Remarks S Patient seen and examined this evening. KUB showed: "Worsening dilatation of the small bowel with a radiographic pattern consistent with distal small bowel obstruction." He was informed of the findings on KUB. Has been NPO and still experiencing 10/ 10 epigastric abdominal pain similar to the abdominal pain he was having this afternoon when examined. Pain medications were changed this afternoon to Have [place] q6hr and morphine was d/c'd as it was thought to be contributing to constipation. Patient was scheduled for small bowel follow through tomorrow. Has not yet taken prep for this. O Abdomen is tight, hypoactive BS. TTP mid-upper abdomen down to periumbilical region, nontender in other quadrants Plan: - Place NGT due to SBO - Morphine 2mg IV q3hr PRN breakthrough pain - Discontinued small bowel follow through - Lactic acid today at 18:00 2.3 (previously 2.2) - Keep NPO - Continue Zosyn - Continue IVF hydration with D5-1/2NS at 100cc/hr - Will place call out to general surgery or gastroenterology if there are any significant concerns particularly peritoneal signs, worsening abdominal pain, fevers, hypotension, tachycardia SDW Dr. Christensen Objective Vitals Vital Signs Date Time Temp Pulse Resp B/P Pulse Ox O2 Delivery O2 Flow Rate FiO2 08/26/16 20:00 96.5 67 18 148/97 93 08/26/16 16:00 95.2 68 16 139/94 94 08/26/16 16:00 68 08/26/16 12:40 96.3 70 16 147/99 95 08/26/16 12:10 64 16 146/98 97 08/26/16 12:06 74 16 146/98 98 08/26/16 12:01 97.7 66 16 132/73 96 08/26/16 11:25 98.0 81 16 146/85 96 08/26/16 08:00 96.1 64 16 143/93 96 08/26/16 04:18 97.2 68 19 139/85 96 08/26/16 00:05 96.0 65 18 139/94 98 I/O 08/25/16 08/25/16 08/25/16 08/26/16 08/26/16 08/26/16 07:00 15:00 23:00 07:00 15:00 23:00 Intake Total 480 ml 600 ml 240 ml 852 ml 790 ml Output Total 600 ml 500 ml 500 ml 300 ml Balance -120 ml 100 ml -260 ml 552 ml 790 ml Intake Oral 480 ml 600 ml 240 ml 0 ml 480 ml IV Total 852 ml 310 ml Output Urine Total 600 ml 500 ml 500 ml 300 ml # Voids 2 2 4 # Bowel Movements 0 0 2 0 0 Result Diagram: 08/26/1655008/26/16550 Objective Remarks GENERAL: Pleasant, alert, overweight, well developed, sitting in chair. NAD SKIN: Warm/dry. HEAD: Atraumatic. Normocephalic. EYES: No scleral icterus. No injection or drainage. ENT: Mucous membranes pink and moist. NECK: Trachea midline. No JVD. Supple. CARDIOVASCULAR: Regular rate and rhythm. No murmur appreciated. RESPIRATORY: No increased work of breathing. Lungs are clear anteriorly without wheezing rhonchi or crackles. GASTROINTESTINAL: +BS throughout. Abdomen obese, not rigid but more firm than prior examination, mild to moderate tenderness to palpation in the mid- abdominal region down to area of umbilicus. Nontender in other quadrants. Appears equally distended compared to prior examination. No palpable masses. ? rebound tenderness in the mid-abdominal region and periumbilical region. No guarding. MUSCULOSKELETAL: No obvious deformities. No clubbing. No cyanosis. 2+ pitting edema bilateral lower extremities. NEUROLOGICAL: Awake and alert. No obvious cranial nerve deficits. Motor grossly within normal limits. Normal speech. PSYCHIATRIC: Appropriate mood and affect; insight and judgment normal. A/P Assessment and Plan 66-year-old male with history of COPD, CAD s/p 3-vessel CABG, HTN, HLD, atrial fibrillation, type 2 DM, and lupus. Patient admitted due to severe 10/10 epigastric abdominal pain somewhat concerning for mesenteric ischemia given his elevated lactic acid and pain out of proportion to the examination as well as abdominal x-ray showing dilated loops of small bowel throughout the abdomen. Discharge Planning Unclear timetable. Pending resolution of abdominal pain and further studies if indicated Problem List: (1) Abdominal pain Status: Acute Plan: Patient admitted with severe abdl pain now better controlled with morphine. CT of the abdomen does not show any small bowel obstruction. It does show large amounts of stool in the small bowel. * Continue D5 half-normal saline at 100 mL/hr * Fleets enemas prn * Lactulose 30 mL PO BID * [place] 10/325 po q4h prn pain 7-10 * Discontinued morphine * Protonix 40 mg IV daily * Jihan-Colace 2 tablets by mouth twice a day * Lactic acid 3.3 on admission, repeat 2.5 -> 2.2 -> 2.7; continue to monitor daily * Abdomen is soft, mild-moderate TTP mid abdominal region, appears equally distended compared to prior exam, no guarding, ?rebound tenderness in mid-abdl region, +BS * CTA abdomen/pelvis showed abnormal small bowel gas pattern with dilated mid to distal small bowel measuring up to 3.4 cm. Some small bowel segments containing fecal like material and mild fluid and stranding in the ileal mesentery in the right abdomen. No bowel wall thickening. 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 Possible reasons for leukocytosis is steroid-induced, stress-induced, or infection * Continue Zosyn 4.5 g IV every 8 hours * Blood cultures no growth after 3 days * UA not indicating culture * Continue to monitor WBC and vital signs (3) chronic medical problems Status: Chronic Plan: Diabetes type 2: Low dose sliding scale. On metformin at home Atrial fibrillation: Continue Eliquis 5mg BID today, continue aspirin 81 mg daily, continue Tikosyn 500 mcg PO BID Coronary artery disease: Continue Eliquis Hypertension: Continue Metoprolol succinate ER 50 mg in the morning and 25 mg in the evening and lisinopril 10 mg by mouth daily at bedtime Hyperlipidemia: Continue Crestor 5 mg daily at bedtime, continue coenzyme Q10 200 mg by mouth daily at bedtime (Will need to bring on medication from home) PAD/muscle spams: Provided Flexeril when necessary Congestive heart failure: Continue torsemide 20 mg by mouth twice a day. Continue lisinopril 10 mg by mouth twice a day Lupus: Continue Plaquenil COPD with recent exacerbation: Continue Prednisone 40mg daily per discharge orders, Alternate albuterol and DuoNeb's, Continue oxygen as needed (4) Nutrition, metabolism, and development symptoms Status: Acute Plan: Diet: 2000 ADA per GI, advised patient to ease into diet Fluids: D5 half-normal saline at 100 cc/hr Electrolytes: WNLs, continue to monitor and replete as necessary DVT prophylaxis: b/l SCDs; Continue Eliquis today GI prophylaxis: Continue Protonix 40 mg IV q24h Problem Qualifiers (1) Abdominal pain: Qualified Code: R10.9 - Abdominal pain, unspecified location (2) Leukocytosis: Qualified Code: D72.829 - Leukocytosis, unspecified type Ayanna Mejia MD August 26, 2016 21:57
[2016-08-26] MEDS ORDERED: ACETAMINOPHEN/HYDROcodone 325 MG/5 MG TAB PO PRN (22:30)
[2016-08-27] VITALS (8 sets, daily range): BP systolic 120–156; BP diastolic 72–97; PULSE 68–76; RESP 14–22; TEMP 95.5–97; O2SAT 92–93
[2016-08-27] MEDS: MORPHINE SULFATE 4 MG/ML INJ IV PUSH PRN ×4 (02:50→18:44)
[2016-08-27] MEDS: ONDANSETRON HCL 4 MG/2 ML VIAL IV PRN ×2 (02:50→10:37)
[2016-08-27] MEDS: PANTOPRAZOLE SODIUM 40 MG VIAL IV PUSH SCH (05:56)
[2016-08-27] MEDS: PIPERACIL-TAZO 4.5 GM PREMIX 100 ML IV SCH ×3 (05:57→20:22)
[2016-08-27] MEDS: INSULIN ASPART SUPPLEMENTAL SCALE SQ SCH ×4 (06:01→20:23)
[2016-08-27 06:04] LABS: AUTOMATED NEUTROPHIL # 8.5 TH/MM3 (1.8-7.7); BASOPHIL % 0.1 % (0.0-2.0); EOSINOPHIL # 0.1 TH/MM3 (0-0.4); EOSINOPHIL % 0.5 % (0.0-4.0); HEMATOCRIT 42.8 % (39.0-51.0); LYMPH % 9.9 % (9.0-44.0); LYMPHOCYTE # 1.1 TH/MM3 (1.0-4.8); MEAN CELL VOLUME 91.7 FL (80.0-100.0); MEAN CORPUSCULAR HEMOGLOBIN 29.3 PG (27.0-34.0); MONO % 14.8 % (0.0-8.0); NEUT % 74.7 % (16.0-70.0); PLATELET COUNT 241 TH/MM3 (150-450); RED BLOOD COUNT 4.67 MIL/MM3 (4.50-5.90); RED CELL DISTRIBUTION WIDTH 16.1 % (11.6-17.2); WHITE BLOOD COUNT 11.4 TH/MM3 (4.0-11.0)
[2016-08-27 06:06] LABS: HEMO FLAGS AUTO DIFF
[2016-08-27 06:32] LABS: ALT (GPT) 84 U/L (12-78); ANION GAP 6 MEQ/L (5-15); AST (GOT) 47 U/L (15-37); BICARBONATE 36.7 MEQ/L (21.0-32.0); BLOOD UREA NITROGEN 30 MG/DL (7-18); CHLORIDE 100 MEQ/L (98-107); GLOMERULAR FILTRATION RATE 51 ML/MIN (>89); POTASSIUM 4.7 MEQ/L (3.5-5.1); SODIUM (NA) 143 MEQ/L (136-145)
[2016-08-27 06:34] LABS: ALKALINE PHOSPHATASE 57 U/L (45-117); TOTAL BILIRUBIN ADULT 1.2 MG/DL (0.2-1.0)
[2016-08-27 06:38] LABS: PLATELET ESTIMATE SMEAR NORMAL (NORMAL); PLATELET MORPHOLOGY NORMAL (NORMAL); SCAN/DIFF AUTO DIFF CONFIRMED
--- NOTE | 2016-08-27 08:40 | HHI.FPPN ---
Subjective Remarks NG tube placed last night, draining about 2L so far. Patient has been NPO since having half of his meal yesterday afternoon. Afebrile. Vitals stable. Patient this morning c/o 01/06 mid-upper abdomen and periumbilical abdominal pain. He denies any BMs since having the 2 small BMs two days ago. He endorses passing a small amount of gas this morning. (Donta Arcos MD R1) Objective Vitals Vital Signs Date Time Temp Pulse Resp B/P Pulse Ox O2 Delivery O2 Flow Rate FiO2 08/27/16 08:00 95.9 70 22 156/97 93 08/27/16 04:55 96.2 74 19 136/90 92 08/27/16 01:50 73 08/27/16 00:05 96.9 71 19 139/93 92 08/26/16 20:25 67 08/26/16 20:00 96.5 67 18 148/97 93 08/26/16 16:00 95.2 68 16 139/94 94 08/26/16 16:00 68 08/26/16 12:40 96.3 70 16 147/99 95 08/26/16 12:10 64 16 146/98 97 08/26/16 12:06 74 16 146/98 98 08/26/16 12:01 97.7 66 16 132/73 96 08/26/16 11:25 98.0 81 16 146/85 96 I/O 08/26/16 08/26/16 08/26/16 08/27/16 08/27/16 08/27/16 07:00 15:00 23:00 07:00 15:00 23:00 Intake Total 852 ml 790 ml 0 ml 309 ml Output Total 300 ml 1000 ml 1450 ml Balance 552 ml 790 ml -1000 ml -1141 ml Intake Oral 0 ml 480 ml 0 ml 0 ml IV Total 852 ml 310 ml 309 ml Output Urine Total 300 ml 600 ml Gastric Drainage Total 1000 ml 850 ml # Voids 2 4 1 # Bowel Movements 0 0 0 0 (Donta Arcos MD R1) Result Diagram: 08/27/16 0554 08/27/16 0554 Objective Remarks GENERAL: Visible distress 2/2 abdominal pain, lying flat in bed. SKIN: Warm/dry. HEAD: Atraumatic. Normocephalic. EYES: No scleral icterus. No injection or drainage. ENT: MMM. NECK: Trachea midline. No JVD. Supple. CARDIOVASCULAR: Regular rate and rhythm. No murmur appreciated. RESPIRATORY: No increased work of breathing. Lungs are clear anteriorly without wheezing, rhonchi or crackles. GASTROINTESTINAL: Abdomen obese, not rigid but remains firm similar to prior examination, very tender to palpation in the mid-upper abdomen down to area of umbilicus. Some tenderness as well in his RUQ and LLQ. Abdomen is distended. Hypoactive BS throughout. Rebound tenderness in the mid-upper abdomen and periumbilical region. No guarding. MUSCULOSKELETAL: No obvious deformities. No cyanosis. 2+ pitting edema bilateral lower extremities. NEUROLOGICAL: Awake and alert. 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 Motor grossly within normal limits. Normal speech. PSYCHIATRIC: Appropriate mood and affect; insight and judgment normal. ( Donta Arcos MD R1) A/P Assessment and Plan 66-year-old male with history of COPD, CAD s/p 3-vessel CABG, HTN, HLD, atrial fibrillation, type 2 DM, and lupus. Patient admitted due to severe 10/10 epigastric abdominal pain concerning for mesenteric ischemia given his elevated lactic acid and pain out of proportion to the examination as well as abdominal x -ray showing dilated loops of small bowel throughout the abdomen. Abdomen x-ray 08/26 showing worsening dilation of the small bowel c/w distal SBO. Discharge Planning Unclear timetable. Pending resolution of abdominal pain and further studies if indicated (Donta Arcos MD R1) Attending Attestation Patient seen and examined, discussed with resident team. I agree with assessment and management as documented and discussed with me. Pt in 10/10 pain this morning at the time of my exam. nearly 2L output from NG tube. Abdomen more distended today. Appreciate Gen surg. Check CTA as ordered (Eleonora Strong MD) Problem List: (1) Abdominal pain Status: Acute Plan: Patient admitted with severe abdl pain now better controlled with morphine. CT of the abdomen does not show any small bowel obstruction. It does show large amounts of stool in the small bowel. * Continue D5 half-normal saline at 100 mL/hr * Fleets enemas prn * Lactulose 30 mL PO BID * s/p Mag citrate 30 x2 * [place] 10/325 1 tab po q4h prn pain 7-10 * Protonix 40 mg IV daily * Jihan-Colace 2 tablets by mouth twice a day * Lactic acid 3.3 on admission, repeat 2.5 -> 2.2 -> 2.7; continue to monitor daily * Abdomen is soft, mild-moderate TTP mid abdominal region, appears equally distended compared to prior exam, no guarding, ?rebound tenderness in mid-abdl region, +BS * CTA abdomen/pelvis showed abnormal small bowel gas pattern with dilated mid to distal small bowel measuring up to 3.4 cm. Some small bowel segments containing fecal like material and mild fluid and stranding in the ileal mesentery in the right abdomen. No bowel wall thickening. 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 Ordered 500 cc NS bolus prior to obtaining CT * Spoke with Karena Cordon, general surgery, regarding the patient having worsening abdominal pain, firm abdomen with distension and questionable rebound tenderness. Recommended continue to get the flat and upright abdominal x-ray, continue with NG tube to suction, keep patient NPO. Will f/u x-ray and Dr. Cordero will be made aware (2) Leukocytosis Status: Resolved Plan: Patient met SIRS criteria due to leukocytosis of 20 and elevated lactic acid of 3.3, he is afebrile, and no source of infection is known at this time. Possible reasons for leukocytosis is steroid-induced, stress-induced, or infection * Continue Zosyn 4.5 g IV every 8 hours * Blood cultures no growth after 3 days * UA not indicating culture * Continue to monitor WBC and vital signs (3) chronic medical problems Status: Chronic Plan: Diabetes type 2: Low dose sliding scale. On metformin at home Atrial fibrillation: Hold Eliquis, continue aspirin 81 mg daily, continue Tikosyn 500 mcg PO BID Coronary artery disease: Hold Eliquis Hypertension: Continue Metoprolol succinate ER 50 mg in the morning and 25 mg in the evening and lisinopril 10 mg by mouth daily at bedtime Hyperlipidemia: Continue Crestor 5 mg daily at bedtime, continue coenzyme Q10 200 mg by mouth daily at bedtime (Will need to bring on medication from home) PAD/muscle spams: Provided Flexeril when necessary Congestive heart failure: Continue torsemide 20 mg by mouth twice a day. Continue lisinopril 10 mg by mouth twice a day Lupus: Continue Plaquenil COPD with recent exacerbation: Continue Prednisone 40mg daily per discharge orders, Alternate albuterol and DuoNeb's, Continue oxygen as needed (4) Nutrition, metabolism, and development symptoms Status: Acute Plan: Diet: NPO Fluids: D5 half-normal saline at 100 cc/hr Electrolytes: WNLs, continue to monitor and replete as necessary DVT prophylaxis: b/l SCDs; Hold Eliquis GI prophylaxis: Continue Protonix 40 mg IV q24h (Donta Arcos MD R1) Problem Qualifiers (1) Abdominal pain: Qualified Code: R10.9 - Abdominal pain, unspecified location (2) Leukocytosis: Qualified Code: D72.829 - Leukocytosis, unspecified type Donta Arcos MD R1 August 27, 2016 08:40 Eleonora Strong MD August 27, 2016 20:46
[2016-08-27] MEDS ORDERED: MORPHINE SULFATE 4 MG/ML INJ IV ONE (08:45)
[2016-08-27] MEDS: ASPIRIN 81 MG CHEW TAB CHEW SCH ×2 (09:00→20:17)
[2016-08-27] MEDS ORDERED: MISCELLANEOUS NURSING INFORMATION ONE (09:00)
[2016-08-27] MEDS: TORSEMIDE 20 MG TAB PO SCH (09:00)
[2016-08-27] MEDS: LACTULOSE SYRUP 20 GM/30 ML CUP PO SCH ×2 (09:00→20:22)
[2016-08-27] MEDS: DOFETILIDE 250 MCG CAP PO SCH ×2 (09:00→20:23)
[2016-08-27] MEDS: METOPROLOL SUCCINATE 50 MG EXTENDED RELEASE TAB PO SCH (09:00)
[2016-08-27] MEDS: HYDROXYCHLOROQUINE SULFATE 200 MG TAB PO SCH ×2 (09:00→20:22)
[2016-08-27] MEDS: FLUCONAZOLE 200 MG TAB PO SCH (09:00)
[2016-08-27] MEDS: predniSONE 20 MG TAB PO SCH (09:00)
[2016-08-27] MEDS: FLUTICASONE 100 MCG/VILANTEROL 25 MCG INHALER INH SCH (09:00)
[2016-08-27] MEDS: D5-1/2 NS + KCL 20 MEQ INJ 1,000 ML IV SCH ×3 (10:02→20:24)
[2016-08-27] MEDS ORDERED: SODIUM CHLORID 0.9% 500 ML INJ 500 ML IV ONE (10:15)
--- NOTE | 2016-08-27 11:41 | RADRPT ---
EXAM DATE/TIME: 08/27/2016 11:09 [facility] COMPARISON: CHEST SINGLE AP, August 20, 2016, 15:50. INDICATIONS : Shortness of breath. MEDICAL HISTORY : Hypertension. Lupus. Diabetes mellitus type II. Congestive Heart Failure. Arthritis. COPD. SURGICAL HISTORY : CABG. Coronary artery stent. Inguinal hernia repair ENCOUNTER: Subsequent ACUITY: 1 day PAIN SCORE: 0/10 LOCATION: Bilateral chest FINDINGS: Nasogastric tube is across the GE junction. The lungs are better aerated. Minimal parenchymal rivera es are present in the left base. Mild interstitial edema is present. Sternal wires from previous me cherelle sternotomy are noted. CONCLUSION: Interval improvement with less parenchymal changes left base. Hebert Saldana MD FACR on August 27, 2016 at 11:34 Board Certified Radiologist. This report was verified electronically.
--- NOTE | 2016-08-27 11:55 | RADRPT ---
EXAM DATE/TIME: 08/27/2016 11:07 [facility] COMPARISON: ABDOMEN FLAT & UPRIGHT, August 26, 2016, 18:30. INDICATIONS : Abdominal pain and distention. MEDICAL HISTORY : Hypertension. Lupus. Diabetes mellitus type II. Congestive Heart Failure. Athritis. COPD. SURGICAL HISTORY : CABG. Coronary artery stent. Inguinal hernia repair ENCOUNTER: Subsequent ACUITY: 1 week PAIN SCORE: 10/10 LOCATION: Bilateral abdomen. FINDINGS: Supine and upright views of the abdomen were performed. As seen previously, there is distention of mu ltiple small bowel loops. Air-fluid levels identified in the mid abdomen concerning for some degree o f small bowel structure. No pneumoperitoneum. Interval placement of a nasogastric tube with the tip i n the expected location of the gastric antrum. CONCLUSION: 1. Persistent air distention of multiple small bowel loops with air-fluid levels concerning for at le ast a partial small bowel obstruction. No significant change from prior. 2. Interval placement of a nasogastric tube with the tip in the expected location of the gastric antr um. David Baltazar MD on August 27, 2016 at 11:46 Board Certified Radiologist. This report was verified electronically.
[2016-08-27] MEDS ORDERED: IOHEXOL 350 MG/ML 10 ML VIAL (for RAD DIAG) IV ONE (12:24)
--- NOTE | 2016-08-27 15:22 | HHI.PR ---
Subjective Subjective Notes Resting in bed Objective Vitals/I&O Vital Signs Date Time Temp Pulse Resp B/P Pulse Ox O2 Delivery O2 Flow Rate FiO2 08/27/16 13:02 70 08/27/16 08:00 95.9 22 156/97 93 08/25/16 01:40 21 08/23/16 07:15 Nasal Cannula 1.00 Labs Laboratory Tests Test 08/26/16 08/26/16 08/27/16 18:57 19:45 05:54 Hepatitis A IgM Antibody NEGATIVE Hepatitis B Surface Antigen NEGATIVE Hepatitis B Core IgM Antibody NEGATIVE Hepatitis C Antibody NEGATIVE HIV (1&2) Antibody NEGATIVE Lactic Acid Level 2.3 1.9 White Blood Count 11.4 Red Blood Count 4.67 Hemoglobin 13.7 Hematocrit 42.8 Mean Corpuscular Volume 91.7 Mean Corpuscular Hemoglobin 29.3 Mean Corpuscular Hemoglobin 32.0 Concent Red Cell Distribution Width 16.1 Platelet Count 241 Mean Platelet Volume 7.4 Neutrophils (%) (Auto) 74.7 Lymphocytes (%) (Auto) 9.9 Monocytes (%) (Auto) 14.8 Eosinophils (%) (Auto) 0.5 Basophils (%) (Auto) 0.1 Neutrophils # (Auto) 8.5 Lymphocytes # (Auto) 1.1 Monocytes # (Auto) 1.7 Eosinophils # (Auto) 0.1 Basophils # (Auto) 0.0 CBC Comment AUTO DIFF Differential Comment AUTO DIFF CONFIRMED Platelet Estimate NORMAL Platelet Morphology Comment NORMAL Red Cell Morphology Comment NORMAL Sodium Level 143 Potassium Level 4.7 Chloride Level 100 Carbon Dioxide Level 36.7 Anion Gap 6 Blood Urea Nitrogen 30 Creatinine 1.38 Estimat Glomerular Filtration 51 Rate Random Glucose 131 Calcium Level 8.6 Total Bilirubin 1.2 Aspartate Amino Transf 47 (AST/SGOT) Alanine Aminotransferase 84 (ALT/SGPT) Alkaline Phosphatase 57 Total Protein 6.4 Albumin 3.4 Date/Time Procedure Status Source Growth 08/23/16 08:50 Aerobic Blood Culture - Preliminary Resulted Blood Peripheral NO GROWTH IN 4 DAYS 08/23/16 08:50 Anaerobic Blood Culture - Preliminary Resulted Blood Peripheral NO GROWTH IN 4 DAYS Cardiovascular: Regular Lungs: Clear Abdomen: Other (distended ) Extremities: No edema Narrative Exam NGT in place A/P Problem List: (1) Abdominal pain (2) chronic medical problems (3) CHF (congestive heart failure) (4) CAD (coronary artery disease) (5) Diabetes mellitus (6) Atrial fibrillation (7) CHF exacerbation (8) Acute renal insufficiency (9) Constipation Assessment and Plan 66 year old male with extensive cardiac history with epigastric pain; unknown etiology -CTA ordered for today -KUB suspicious for possible PSBO -NGT to LIWS -NPO -GI following---EGD done yesterday showed gastritis and candidiasis in the esophagus -HIDA reviewed--no evidence of acute or chronic cholecystitis -Hold anticoagulation -Further plans after CT completed Attending Statement The exam, history, and the medical decision-making described in the above note were completed with the assistance of the mid-level provider. I reviewed and agree with the findings presented. I attest that I had a [id number] encounter with the patient on the same day, and personally performed and documented my assessment and findings in the medical record. abdominal pain slightly better, non-surgical exam, but very distended, tympanic c/w ileus will follow, agree with repeat CT scan Problem Qualifiers (1) Abdominal pain: Qualified Code: R10.9 - Abdominal pain, unspecified location Karena Cordon August 27, 2016 15:22 Jovani Cordero MD Aug 28, 2016 13:40
--- NOTE | 2016-08-27 16:25 | HHI.GIFU ---
Subjective Remarks Pt resting in bed, in no distress. Says is abd pain is on the left side, on and off, and a 3 today. No BM today. (Leah Ovalle) Objective Vitals I&O Vital Signs Date Time Temp Pulse Resp B/P Pulse Ox O2 Delivery O2 Flow Rate FiO2 08/27/16 13:02 70 08/27/16 08:00 95.9 70 22 156/97 93 08/27/16 04:55 96.2 74 19 136/90 92 08/27/16 01:50 73 08/27/16 00:05 96.9 71 19 139/93 92 08/26/16 20:25 67 08/26/16 20:00 96.5 67 18 148/97 93 I/O 08/26/16 08/26/16 08/26/16 08/27/16 08/27/16 08/27/16 07:00 15:00 23:00 07:00 15:00 23:00 Intake Total 852 ml 790 ml 0 ml 309 ml Output Total 300 ml 1000 ml 1450 ml Balance 552 ml 790 ml -1000 ml -1141 ml Intake Oral 0 ml 480 ml 0 ml 0 ml IV Total 852 ml 310 ml 309 ml Output Urine Total 300 ml 600 ml Gastric Drainage Total 1000 ml 850 ml # Voids 2 4 1 # Bowel Movements 0 0 0 0 Laboratory Laboratory Tests Test 08/26/16 08/26/16 08/27/16 18:57 19:45 05:54 Hepatitis A IgM Antibody NEGATIVE Hepatitis B Surface Antigen NEGATIVE Hepatitis B Core IgM Antibody NEGATIVE Hepatitis C Antibody NEGATIVE HIV (1&2) Antibody NEGATIVE Lactic Acid Level 2.3 1.9 White Blood Count 11.4 Red Blood Count 4.67 Hemoglobin 13.7 Hematocrit 42.8 Mean Corpuscular Volume 91.7 Mean Corpuscular Hemoglobin 29.3 Mean Corpuscular Hemoglobin 32.0 Concent Red Cell Distribution Width 16.1 Platelet Count 241 Mean Platelet Volume 7.4 Neutrophils (%) (Auto) 74.7 Lymphocytes (%) (Auto) 9.9 Monocytes (%) (Auto) 14.8 Eosinophils (%) (Auto) 0.5 Basophils (%) (Auto) 0.1 Neutrophils # (Auto) 8.5 Lymphocytes # (Auto) 1.1 Monocytes # (Auto) 1.7 Eosinophils # (Auto) 0.1 Basophils # (Auto) 0.0 CBC Comment AUTO DIFF Differential Comment AUTO DIFF CONFIRMED Platelet Estimate NORMAL Platelet Morphology Comment NORMAL Red Cell Morphology Comment NORMAL Sodium Level 143 Potassium Level 4.7 Chloride Level 100 Carbon Dioxide Level 36.7 Anion Gap 6 Blood Urea Nitrogen 30 Creatinine 1.38 Estimat Glomerular Filtration 51 Rate Random Glucose 131 Calcium Level 8.6 Total Bilirubin 1.2 Aspartate Amino Transf 47 (AST/SGOT) Alanine Aminotransferase 84 (ALT/SGPT) Alkaline Phosphatase 57 Total Protein 6.4 Albumin 3.4 Date/Time Procedure Status Source Growth 08/23/16 08:50 Aerobic Blood Culture - Preliminary Resulted Blood Peripheral NO GROWTH IN 4 DAYS 08/23/16 08:50 Anaerobic Blood Culture - Preliminary Resulted Blood Peripheral NO GROWTH IN 4 DAYS Imaging Last Impressions Abdomen X-Ray 08/27/16 0000 Signed Impressions: Service Date/Time: Saturday, August 27, 2016 11:07 - CONCLUSION: 1. Persistent air distention of multiple small bowel loops with air-fluid levels concerning for at least a partial small bowel obstruction. No significant change from prior. 2. Interval placement of a nasogastric tube with the tip in the expected location of the gastric antrum. David Baltazar MD Hepatobiliary Scan Nuclear Medicine 08/26/16 0000 Signed Impressions: Service Date/Time: Friday, August 26, 2016 08:48 - CONCLUSION: Negative exam. No scintigraphic findings of acute or chronic cholecystitis. No significant biliary enteric reflux. David Baltazar MD Abdomen/Pelvis CT 08/23/16 0018 Signed Impressions: Service Date/Time: Tuesday, August 23, 2016 00:55 - CONCLUSION: Unremarkable exam with the exception of free fluid in the right lower quadrant. The appendix is normal. There is extensive stool type density throughout the small bowel without any evidence of obstruction or dilated lumen. Mayco Johnson MD Physical Exam HEENT: EOMI; atraumatic; no jaundice. NGT CHEST: CTA CARDIAC: RRR ABDOMEN: somewhat firm, tympanitic, TTP left side abd; no hepatosplenomegaly; bowel sounds Faint. EXTREMITIES: No clubbing, cyanosis, or edema. SKIN: Normal; no rash; no jaundice. ICU TECH: No focal deficits; alert and oriented times three. (Leah Ovalle) Assessment and Plan Plan ASSESSMENT: - Severe abdominal pain/ Epigastric. KUB suspicious for partial SBO. CT pending. CT Abd/pelvis w/o IV contrast (08/23/16) --> Unremarkable exam with the exception of free fluid in the right lower quadrant. The appendix is normal. There is extensive stool type density throughout the small bowel without any evidence of obstruction or dilated lumen. CTA Abd/pelvis (08/23) --> moderate to severe atherosclerotic disease of the aorta with moderate disease of the mesenteric arterial vasculature. However, no occlusion is visualized. Abnormal small bowel gas pattern with dilated mid to distal small bowel measuring up to 3.4cm. Additionally, some of the small bowel segments contain fecal like material and there is mild fluid and stranding in the ileal mesentery in the right abdomen. There is no bowel wall thickening. Although nonspecific these could represent some of the earliest findings of enteric ischemia. General Surgery is following. Pts last colonoscopy was 5-6 years ago in [place]. He denies any hx of polyps , IBD, or diverticulosis that he is aware of. - Constipation. Pt appears to have stool throughout on the CT scans. Pt hasn't had a significant BM in several days. - Leukocytosis. Pt has been afebrile, no source of infection is known at this time. Zosyn 4.5 g IV every 8 hours. Blood cultures pending. Of note pt is on steroids for recent COPD exacerbation. - Diabetes mellitus, Atrial fibrillation on Eliquis 5mg BID and ASA 81 mg daily , CAD, HTN, Hyperlipidemia, CHF, Lupus. Management per attending. PLAN: - await CT abd results - Daily Lactic Acid - Lactulose 30mg daily - Stool softeners. - Supportive care - Further recommendations to follow (Leah Ovalle) Physician Comments Agree with the plan as above, further recommendations to follow. (Kristi Santoro MD) Leah Ovalle August 27, 2016 16:25 Kristi Santoro MD Aug 28, 2016 07:03
[2016-08-27] MEDS: FLUCONAZOLE 400 MG PREMIX BAG 200 ML IV SCH (17:12)
[2016-08-27] MEDS: RESP: ALBUTEROL 2.5 MG/IPRATROPIUM 0.5 MG NEB (PRN) NEB (18:23)
--- NOTE | 2016-08-27 18:33 | RADRPT ---
EXAM DATE/TIME: 08/27/2016 11:21 [facility] COMPARISON: CTA ABDOMEN & PELVIS W 3D RECON, August 23, 2016, 10:09. INDICATIONS : Evaluate for mesenteric venous thrombosis IV CONTRAST: 84 cc Omnipaque 350 (iohexol) IV ORAL CONTRAST: No oral contrast ingested. RADIATION DOSE: 16.79 CTDIvol (mGy) MEDICAL HISTORY : Cardiovascular disease. Hypertension. Chronic obstructive pulmonary disease. SURGICAL HISTORY : CABG Hernia,lithotripsy ENCOUNTER: Initial ACUITY: 4 - 6 days PAIN SCALE: 7/10 LOCATION: Abdomen TECHNIQUE: Volumetric scanning was performed using a multi-row detector CT scanner. The data was post processed with a variety of visualization algorithms including full volume maximum intensity projection, multi -planar sliding thin slab reformation, curved planar reformation, and surface rendering techniques. Using automated exposure control and adjustment of the mA and/or kV according to patient size, radiat ion dose was kept as low as reasonably achievable to obtain optimal diagnostic quality images. FINDINGS: Mesenteric veins are better opacified on this exam, however, there is some limited opacification of t he structures. There is a subtle filling defect involving the superior mesenteric vein concerning for thrombus. This is not felt occlusive in nature. The remainin mesenteric veins are patent. The arteri al side is better opacified on this exam than the venous side. Diffuse atherosclerotic changes are no anthony but no thrombus within the arterial structures. No hemodynamically significant stenosis. The kevin ac, SMA, and NINA are patent. 2 renal arteries on the left and a single on the right. These are patent . Dilated small bowel seen throughout the abdomen. This is more prominent from the prior examination. T he bowel slowly tapers distally. No focal transition point appreciated. A small amount of free fluid within the right lower quadrant. Colon is normal in caliber. No free air. A small left pleural effusi on is stable. Calcified pleural plaque is again noted. The liver, pancreas, kidneys, and spleen are u nremarkable. CONCLUSION: 1. A subtle filling defect involving the superior mesenteric vein. This raises concern for nonocclusi ve thrombus. 2. Worsening dilatation of the small bowel without a focal transition point. Small amount of free flu id. No free air. 3. Stable small left effusion. Jr Parker Jr., MD on August 27, 2016 at 18:23 Board Certified Radiologist. This report was verified electronically.
[2016-08-27] MEDS ORDERED: HEPARIN SODIUM - IV 10,000 UNITS/10 ML VIAL IV ONE (20:00)
[2016-08-27] MEDS: ATORVASTATIN 10 MG TAB PO SCH (20:22)
[2016-08-27] MEDS: METOPROLOL SUCCINATE 25 MG EXTENDED RELEASE TAB PO SCH (20:23)
[2016-08-27] MEDS: LISINOPRIL 10 MG TAB PO SCH (20:23)
[2016-08-27] MEDS: LORazepam 2 MG/ML VIAL IV PUSH PRN (20:24)
[2016-08-27 20:49] LABS: HEMATOCRIT 42.6 % (39.0-51.0); MEAN CELL VOLUME 91.4 FL (80.0-100.0); MEAN CORPUSCULAR HEMOGLOBIN 29.8 PG (27.0-34.0); MEAN CORPUSCULAR HGB CONC 32.6 % (32.0-36.0); PLATELET COUNT 251 TH/MM3 (150-450); RED BLOOD COUNT 4.66 MIL/MM3 (4.50-5.90); RED CELL DISTRIBUTION WIDTH 16.3 % (11.6-17.2); REVIEW FLAG FINAL; WHITE BLOOD COUNT 10.7 TH/MM3 (4.0-11.0)
[2016-08-27 21:00] LABS: APTT (PATIENT) 25.5 SEC (24.3-30.1); INTERNATIONAL NORMALIZED RATIO 1.1 RATIO; PROTHROMBIN TIME - PATIENT 12.3 SEC (9.8-11.6)
[2016-08-27] MEDS: HEPARIN-D5W INJ 250 ML IV SCH (22:27)
[2016-08-28] VITALS (8 sets, daily range): BP systolic 113–134; BP diastolic 75–91; PULSE 64–112; RESP 18–20; TEMP 95.4–97.1; O2SAT 90–95
[2016-08-28] MEDS ORDERED: HEPARIN SODIUM - IV 10,000 UNITS/10 ML VIAL IV PRN (01:30)
[2016-08-28 03:58] LABS: AUTOMATED NEUTROPHIL # 6.8 TH/MM3 (1.8-7.7); BASOPHIL % 0.2 % (0.0-2.0); EOSINOPHIL # 0.1 TH/MM3 (0-0.4); EOSINOPHIL % 0.7 % (0.0-4.0); HEMATOCRIT 41.4 % (39.0-51.0); HEMO FLAGS DIFF FINAL; LYMPH % 14.1 % (9.0-44.0); LYMPHOCYTE # 1.4 TH/MM3 (1.0-4.8); MEAN CELL VOLUME 91.7 FL (80.0-100.0); MEAN CORPUSCULAR HEMOGLOBIN 29.2 PG (27.0-34.0); MEAN CORPUSCULAR HGB CONC 31.9 % (32.0-36.0); MONO % 13.5 % (0.0-8.0); NEUT % 71.5 % (16.0-70.0); PLATELET COUNT 225 TH/MM3 (150-450); RED BLOOD COUNT 4.52 MIL/MM3 (4.50-5.90); RED CELL DISTRIBUTION WIDTH 16.3 % (11.6-17.2); WHITE BLOOD COUNT 9.6 TH/MM3 (4.0-11.0)
[2016-08-28] MEDS: MORPHINE SULFATE 4 MG/ML INJ IV PUSH PRN ×3 (04:15→23:08)
[2016-08-28 04:19] LABS: APTT (PATIENT) 30.6 SEC (24.3-30.1)
[2016-08-28 04:27] LABS: ALKALINE PHOSPHATASE 59 U/L (45-117); ALT (GPT) 75 U/L (12-78); ANION GAP 5 MEQ/L (5-15); AST (GOT) 30 U/L (15-37); BICARBONATE 33.2 MEQ/L (21.0-32.0); BLOOD UREA NITROGEN 27 MG/DL (7-18); CHLORIDE 105 MEQ/L (98-107); GLOMERULAR FILTRATION RATE 65 ML/MIN (>89); POTASSIUM 3.9 MEQ/L (3.5-5.1); SODIUM (NA) 143 MEQ/L (136-145); TOTAL BILIRUBIN ADULT 1.3 MG/DL (0.2-1.0)
[2016-08-28] MEDS: PIPERACIL-TAZO 4.5 GM PREMIX 100 ML IV SCH ×3 (04:38→20:10)
[2016-08-28] MEDS: PANTOPRAZOLE SODIUM 40 MG VIAL IV PUSH SCH (04:38)
[2016-08-28] MEDS: HEPARIN SODIUM - IV 10,000 UNITS/10 ML VIAL IV PRN ×3 (04:39→21:33)
--- NOTE | 2016-08-28 06:57 | HHI.FPPN ---
Subjective Remarks No acute events overnight. Afebrile, vitals stable. Patient reports his abdominal pain is now minimal after receiving morphine early this AM; he last felt more significant pain about 7-8/10 in severity he states late last night in the same region as before primarily in the mid-upper abdomen and also some pain periumbilical. Denies any fevers. He denies any BMs. His last BMs were about 3 days ago which were both very small and did not provide him much relief. He is able to pass gas; he states he passed a lot of gas this morning. ( Donta Arcos MD R1) Objective Vitals Vital Signs Date Time Temp Pulse Resp B/P Pulse Ox O2 Delivery O2 Flow Rate FiO2 08/28/16 01:15 96.0 77 20 113/78 90 08/27/16 20:15 75 08/27/16 20:15 90 Nasal Cannula 2.00 08/27/16 20:15 97.0 68 19 120/72 92 08/27/16 16:00 95.5 76 14 121/81 92 08/27/16 13:02 70 08/27/16 12:00 96.0 71 18 140/90 93 08/27/16 08:00 95.9 70 22 156/97 93 I/O 08/27/16 08/27/16 08/27/16 08/28/16 08/28/16 08/28/16 07:00 15:00 23:00 07:00 15:00 23:00 Intake Total 309 ml 900 ml 300 ml 725 ml Output Total 1450 ml 950 ml 50 ml 100 ml Balance -1141 ml -50 ml 250 ml 625 ml Intake Oral 0 ml 0 ml 0 ml IV Total 309 ml 900 ml 300 ml 725 ml Output Urine Total 600 ml 800 ml Gastric Drainage Total 850 ml 150 ml 50 ml 100 ml # Voids 4 1 # Bowel Movements 0 0 (Donta Arcos MD R1) Result Diagram: 08/28/1634208/28/16342 Objective Remarks GENERAL: Sitting up in chair, not much distress this morning SKIN: Warm/dry. HEAD: Atraumatic. Normocephalic. EYES: No scleral icterus. No injection or drainage. ENT: MMM. NECK: Trachea midline. No JVD. Supple. CARDIOVASCULAR: Regular rate and rhythm. No murmur appreciated. RESPIRATORY: No increased work of breathing. Lungs are clear anteriorly without wheezing, rhonchi or crackles. GASTROINTESTINAL: Abdomen obese, not rigid but remains firm similar to prior examination, mild tender to palpation in the mid-upper abdomen down to area of umbilicus. Abdomen is distended. Hypoactive BS throughout. No rebound tenderness this morning. No guarding. MUSCULOSKELETAL: No obvious deformities. No cyanosis. 2+ pitting edema bilateral lower extremities. NEUROLOGICAL: Awake and alert. 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 Motor grossly within normal limits. Normal speech. PSYCHIATRIC: Appropriate mood and affect; insight and judgment normal. ( Donta Arcos MD R1) A/P Assessment and Plan 66-year-old male with history of COPD, CAD s/p 3-vessel CABG, HTN, HLD, atrial fibrillation, type 2 DM, and lupus. Patient admitted due to severe 10/10 epigastric abdominal pain concerning for mesenteric ischemia given his elevated lactic acid on admission. Discharge Planning Unclear timetable. Pending resolution of abdominal pain and further studies if indicated (Donta Arcos MD R1) Attending Attestation Patient seen and examined, discussed with resident team. I agree with assessment and management as documented and discussed with me. Pt reports pain is greatly improved. He has passed gas but no BM yet. Await recs from hematology re: anticoagulation, as patient developed venous thrombosis while on Eliquis. 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 CT of the abdomen does not show any small bowel obstruction. It does show large amounts of stool in the small bowel. * Abdomen is soft, mild TTP mid-upper abdominal region, appears equally distended compared to prior exam, no guarding, no rebound tenderness, hypoactive BS * Continue D5 half-normal saline at 100 mL/hr * Continue Zosyn * Fleets enemas prn * Lactulose 30 mL PO BID * s/p Mag citrate /30 x2 * Protonix 40 mg IV daily * Jihan-Colace 2 tablets by mouth twice a day * Lactic acid 3.3 on admission, repeat 2.5 -> 2.2 -> 2.7 -> 1.2 today 08/28; continue to monitor * Gastroenterology consulted * General surgery consulted * Vascular surgery consulted, sent page out to notify of recent CTA findings appreciate further recommendations * HIDA scan negative * EGD findings of white exudates consistent with candidiasis in the entire esophagus with brushing for microbiology done; 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, no biopsies obtained due to patient on Eliquis; mild gastritis in the entire examined stomach, no biopsies obtained ; nml duodenal mucosa in the 2nd part of the duodenum * Continue Diflucan 400 mg IV daily, complete course of 14-21 days (started 08/26 ) * Ofirmev 650 mg IV q6h for pain * Morphine 2mg IV q6h prn breakthrough pain * NG tube to LIWS * Keep patient NPO * Abdomen x-ray 08/27 showing persistent air distention of multiple small bowel loops with air-fluid levels concerning for at least a PSBO * CT abdomen/pelvis with delayed IV contrast showing subtle filling defect involving the superior mesenteric vein raising concern for nonocclusive thrombus ; worsening dilatation of the small bowel without a focal transition point; no free air * Started pt on heparin drip 08/27 * Consulted hematology/oncology for recommendations regarding anticoagulation (2) SBO (small bowel obstruction) Status: Acute Plan: Plan as above (3) Leukocytosis Status: Resolved Plan: Patient met SIRS criteria due to leukocytosis of 20 and elevated lactic acid of 3.3, he is afebrile, and no source of infection is known at this time. Possible reasons for leukocytosis is steroid-induced, stress-induced, or infection * Continue Zosyn 4.5 g IV every 8 hours * Blood cultures no growth after 4 days * UA not indicating culture * Continue to monitor (4) chronic medical problems Status: Chronic Plan: Hold home PO meds with exception of Tikosyn 500 mcg via NG tube BID and metoprolol via NG tube while NGT is clamped for at least 30 minutes DM: low dose ISS (5) Nutrition, metabolism, and development symptoms Status: Acute Plan: Diet: NPO Fluids: D5 half-normal saline at 100 cc/hr Electrolytes: WNLs, continue to monitor and replete as necessary DVT prophylaxis: b/l SCDs; heparin drip GI prophylaxis: Continue Protonix 40 mg IV q24h (Donta Arcos MD R1) Problem Qualifiers (1) Leukocytosis: Qualified Code: D72.829 - Leukocytosis, unspecified type Donta Arcos MD R1 Aug 28, 2016 06:56 Eleonora Strong MD Aug 28, 2016 16:55 Donta Arcos MD R1 Aug 28, 2016 06:56
[2016-08-28] MEDS: INSULIN ASPART SUPPLEMENTAL SCALE SQ SCH ×4 (07:00→20:12)
[2016-08-28] MEDS: METOPROLOL SUCCINATE 50 MG EXTENDED RELEASE TAB PO SCH (09:00)
[2016-08-28] MEDS: HYDROXYCHLOROQUINE SULFATE 200 MG TAB PO SCH ×2 (09:00→20:11)
[2016-08-28] MEDS: LACTULOSE SYRUP 20 GM/30 ML CUP PO SCH ×2 (09:00→20:10)
[2016-08-28] MEDS: LORazepam 2 MG/ML VIAL IV PUSH PRN ×2 (09:00→20:11)
[2016-08-28] MEDS: ASPIRIN 81 MG CHEW TAB CHEW SCH ×2 (09:00→20:11)
[2016-08-28] MEDS: DOFETILIDE 250 MCG CAP PO SCH ×2 (09:01→20:11)
--- NOTE | 2016-08-28 10:29 | PD.VS.PN ---
Subjective Subjective/Hospital Course abdominal pain improved. Objective Vitals/I&O Date Time Temp Pulse Resp B/P Pulse Ox O2 Delivery O2 Flow Rate FiO2 08/28/16 08:00 97.1 70 20 134/82 95 08/28/16 07:35 64 08/28/16 04:15 96.5 112 20 121/75 94 08/28/16 01:15 96.0 77 20 113/78 90 08/27/16 20:15 75 08/27/16 20:15 90 Nasal Cannula 2.00 08/27/16 20:15 97.0 68 19 120/72 92 08/27/16 16:00 95.5 76 14 121/81 92 08/27/16 13:02 70 08/27/16 12:00 96.0 71 18 140/90 93 08/28/16 08/28/16 08/28/16 07:00 15:00 23:00 Intake Total 965 ml Output Total 400 ml Balance 565 ml Physical Exam abdomen distended NT, minimal bowel sounds. Laboratory Laboratory Tests Test 08/27/16 08/28/16 20:00 03:43 White Blood Count 10.7 9.6 Red Blood Count 4.66 4.52 Hemoglobin 13.9 13.2 Hematocrit 42.6 41.4 Mean Corpuscular Volume 91.4 91.7 Mean Corpuscular Hemoglobin 29.8 29.2 Mean Corpuscular Hemoglobin 32.6 31.9 Concent Red Cell Distribution Width 16.3 16.3 Platelet Count 251 225 Mean Platelet Volume 7.6 7.2 Prothrombin Time 12.3 Prothromb Time International 1.1 Ratio Activated Partial 25.5 30.6 Thromboplast Time Neutrophils (%) (Auto) 71.5 Lymphocytes (%) (Auto) 14.1 Monocytes (%) (Auto) 13.5 Eosinophils (%) (Auto) 0.7 Basophils (%) (Auto) 0.2 Neutrophils # (Auto) 6.8 Lymphocytes # (Auto) 1.4 Monocytes # (Auto) 1.3 Eosinophils # (Auto) 0.1 Basophils # (Auto) 0.0 CBC Comment DIFF FINAL Differential Comment Sodium Level 143 Potassium Level 3.9 Chloride Level 105 Carbon Dioxide Level 33.2 Anion Gap 5 Blood Urea Nitrogen 27 Creatinine 1.13 Estimat Glomerular Filtration 65 Rate Random Glucose 127 Lactic Acid Level 1.2 Calcium Level 8.0 Total Bilirubin 1.3 Aspartate Amino Transf 30 (AST/SGOT) Alanine Aminotransferase 75 (ALT/SGPT) Alkaline Phosphatase 59 Total Protein 6.1 Albumin 3.1 Imaging Last 48 hours Impressions Abdomen/Pelvis CT 08/27/16 1023 Signed Impressions: Service Date/Time: Saturday, August 27, 2016 11:21 - CONCLUSION: 1. A subtle filling defect involving the superior mesenteric vein. This raises concern for nonocclusive thrombus. 2. Worsening dilatation of the small bowel without a focal transition point. Small amount of free fluid. No free air. 3. Stable small left effusion. Jr Parker Jr., MD Chest X-Ray 08/27/16 0000 Signed Impressions: Service Date/Time: Saturday, August 27, 2016 11:09 - CONCLUSION: Interval improvement with less parenchymal changes left base. Hebert Saldana MD FACR Abdomen X-Ray 08/27/16 0000 Signed Impressions: Service Date/Time: Saturday, August 27, 2016 11:07 - CONCLUSION: 1. Persistent air distention of multiple small bowel loops with air-fluid levels concerning for at least a partial small bowel obstruction. No significant change from prior. 2. Interval placement of a nasogastric tube with the tip in the expected location of the gastric antrum. David Baltazar MD Abdomen X-Ray 08/26/16 1900 Signed Impressions: Service Date/Time: Friday, August 26, 2016 18:30 - CONCLUSION: Worsening dilatation of the small bowel with a radiographic pattern consistent with distal small bowel obstruction. Jr Parker Jr., MD Assessment and Plan Plan Patient with resolving abdominal pain and continued ileus. Appears to have filling defect in the SMV. Based on clinical course Mesenteric Venous Thrombosis seems likely. Treatment is anticoagulation and to identify possible hypercoagulable association. Patient denies hx of DVT or specific family hypercoagulable state (notes father of a clot to his heart). Would consult hematology to assist in hypercoagulable workup. General surgery following/ Prophylactic antibiotics could be an option. Humberto Ochoa DO, CLAUDE hydrographic engineer [facility] - Heart [facility] V[facility] Surgery at [facility] Humberto Ochoa DO Aug 28, 2016 10:29
[2016-08-28] MEDS ORDERED: SOD PHOSPHATE/SOD BIPHOSPHATE (ADULT) ENEMA 133ML RECTAL ONE (10:45)
--- NOTE | 2016-08-28 11:31 | HHI.PR ---
Subjective Subjective Notes Up to chair Reports minimal abdominal pain; passing gas Objective Vitals/I&O Vital Signs Date Time Temp Pulse Resp B/P Pulse Ox O2 Delivery O2 Flow Rate FiO2 08/28/16 08:00 97.1 70 20 134/82 95 08/27/16 20:15 Nasal Cannula 2.00 08/25/16 01:40 21 Labs Laboratory Tests Test 08/27/16 08/28/16 20:00 03:43 White Blood Count 10.7 9.6 Red Blood Count 4.66 4.52 Hemoglobin 13.9 13.2 Hematocrit 42.6 41.4 Mean Corpuscular Volume 91.4 91.7 Mean Corpuscular Hemoglobin 29.8 29.2 Mean Corpuscular Hemoglobin 32.6 31.9 Concent Red Cell Distribution Width 16.3 16.3 Platelet Count 251 225 Mean Platelet Volume 7.6 7.2 Prothrombin Time 12.3 Prothromb Time International 1.1 Ratio Activated Partial 25.5 30.6 Thromboplast Time Neutrophils (%) (Auto) 71.5 Lymphocytes (%) (Auto) 14.1 Monocytes (%) (Auto) 13.5 Eosinophils (%) (Auto) 0.7 Basophils (%) (Auto) 0.2 Neutrophils # (Auto) 6.8 Lymphocytes # (Auto) 1.4 Monocytes # (Auto) 1.3 Eosinophils # (Auto) 0.1 Basophils # (Auto) 0.0 CBC Comment DIFF FINAL Differential Comment Sodium Level 143 Potassium Level 3.9 Chloride Level 105 Carbon Dioxide Level 33.2 Anion Gap 5 Blood Urea Nitrogen 27 Creatinine 1.13 Estimat Glomerular Filtration 65 Rate Random Glucose 127 Lactic Acid Level 1.2 Calcium Level 8.0 Total Bilirubin 1.3 Aspartate Amino Transf 30 (AST/SGOT) Alanine Aminotransferase 75 (ALT/SGPT) Alkaline Phosphatase 59 Total Protein 6.1 Albumin 3.1 Cardiovascular: Regular Lungs: Clear Abdomen: Other (minimally tender; distended) Extremities: No edema Narrative Exam NGT in place A/P Problem List: (1) Abdominal pain (2) chronic medical problems (3) CHF (congestive heart failure) (4) CAD (coronary artery disease) (5) Diabetes mellitus (6) Atrial fibrillation (7) CHF exacerbation (8) Acute renal insufficiency (9) Constipation Assessment and Plan 66 year old male with extensive cardiac history with epigastric pain; unknown etiology -CTA reviewed--- shows subtle filling defect involving mesenteric vein; possible non occlusive thrombus -Heparin drip started -Vascular following -NGT to LIWS -NPO -Discussed with Dr. Cordero Attending Statement The exam, history, and the medical decision-making described in the above note were completed with the assistance of the mid-level provider. I reviewed and agree with the findings presented. I attest that I had a [id number] encounter with the patient on the same day, and personally performed and documented my assessment and findings in the medical record. abdominal pain better, agree with vascular surgery recommendations, will follow , unlikely will need surgery however if operative intervention needed will be available to assist vascular surgery Problem Qualifiers (1) Abdominal pain: Qualified Code: R10.9 - Abdominal pain, unspecified location Karena Cordon Aug 28, 2016 11:31 Jovani Cordero MD Aug 28, 2016 13:42
[2016-08-28 12:44] LABS: APTT (PATIENT) 31.8 SEC (24.3-30.1)
--- NOTE | 2016-08-28 14:24 | HHI.GIFU ---
Subjective Remarks Pt OOB to chair, in no apparent distress. Says he has no pain, no nausea. No BM. (Leah Ovalle) Objective Vitals I&O Vital Signs Date Time Temp Pulse Resp B/P Pulse Ox O2 Delivery O2 Flow Rate FiO2 08/28/16 08:00 97.1 70 20 134/82 95 08/28/16 07:35 64 08/28/16 04:15 96.5 112 20 121/75 94 08/28/16 01:15 96.0 77 20 113/78 90 08/27/16 20:15 75 08/27/16 20:15 90 Nasal Cannula 2.00 08/27/16 20:15 97.0 68 19 120/72 92 08/27/16 16:00 95.5 76 14 121/81 92 I/O 08/27/16 08/27/16 08/27/16 08/28/16 08/28/16 08/28/16 07:00 15:00 23:00 07:00 15:00 23:00 Intake Total 309 ml 900 ml 300 ml 965 ml Output Total 1450 ml 950 ml 50 ml 400 ml Balance -1141 ml -50 ml 250 ml 565 ml Intake Oral 0 ml 0 ml 0 ml 240 ml IV Total 309 ml 900 ml 300 ml 725 ml Output Urine Total 600 ml 800 ml 300 ml Gastric Drainage Total 850 ml 150 ml 50 ml 100 ml # Voids 4 1 1 # Bowel Movements 0 0 0 Laboratory Laboratory Tests Test 08/27/16 08/28/16 08/28/16 20:00 03:43 12:16 White Blood Count 10.7 9.6 Red Blood Count 4.66 4.52 Hemoglobin 13.9 13.2 Hematocrit 42.6 41.4 Mean Corpuscular Volume 91.4 91.7 Mean Corpuscular Hemoglobin 29.8 29.2 Mean Corpuscular Hemoglobin 32.6 31.9 Concent Red Cell Distribution Width 16.3 16.3 Platelet Count 251 225 Mean Platelet Volume 7.6 7.2 Prothrombin Time 12.3 Prothromb Time International 1.1 Ratio Activated Partial 25.5 30.6 31.8 Thromboplast Time Neutrophils (%) (Auto) 71.5 Lymphocytes (%) (Auto) 14.1 Monocytes (%) (Auto) 13.5 Eosinophils (%) (Auto) 0.7 Basophils (%) (Auto) 0.2 Neutrophils # (Auto) 6.8 Lymphocytes # (Auto) 1.4 Monocytes # (Auto) 1.3 Eosinophils # (Auto) 0.1 Basophils # (Auto) 0.0 CBC Comment DIFF FINAL Differential Comment Sodium Level 143 Potassium Level 3.9 Chloride Level 105 Carbon Dioxide Level 33.2 Anion Gap 5 Blood Urea Nitrogen 27 Creatinine 1.13 Estimat Glomerular Filtration 65 Rate Random Glucose 127 Lactic Acid Level 1.2 Calcium Level 8.0 Total Bilirubin 1.3 Aspartate Amino Transf 30 (AST/SGOT) Alanine Aminotransferase 75 (ALT/SGPT) Alkaline Phosphatase 59 Total Protein 6.1 Albumin 3.1 Imaging Last Impressions Abdomen/Pelvis CT 08/27/16 1023 Signed Impressions: Service Date/Time: Saturday, August 27, 2016 11:21 - CONCLUSION: 1. A subtle filling defect involving the superior mesenteric vein. This raises concern for nonocclusive thrombus. 2. Worsening dilatation of the small bowel without a focal transition point. Small amount of free fluid. No free air. 3. Stable small left effusion. Jr Parker Jr., MD Chest X-Ray 08/27/16 0000 Signed Impressions: Service Date/Time: Saturday, August 27, 2016 11:09 - CONCLUSION: Interval improvement with less parenchymal changes left base. Hebert Saldana MD FACR Abdomen X-Ray 08/27/16 0000 Signed Impressions: Service Date/Time: Saturday, August 27, 2016 11:07 - CONCLUSION: 1. Persistent air distention of multiple small bowel loops with air-fluid levels concerning for at least a partial small bowel obstruction. No significant change from prior. 2. Interval placement of a nasogastric tube with the tip in the expected location of the gastric antrum. David Baltazar MD Hepatobiliary Scan Nuclear Medicine 08/26/16 0000 Signed Impressions: Service Date/Time: Friday, August 26, 2016 08:48 - CONCLUSION: Negative exam. No scintigraphic findings of acute or chronic cholecystitis. No significant biliary enteric reflux. David Baltazar MD Physical Exam HEENT: EOMI; atraumatic; no jaundice. NGT CHEST: CTA CARDIAC: RRR ABDOMEN: somewhat firm, distended, tympanitic, nontender; no hepatosplenomegaly ; bowel sounds Faint. EXTREMITIES: No clubbing, cyanosis, or edema. SKIN: Normal; no rash; no jaundice. HORSE EXERCISER: No focal deficits; alert and oriented times three. (Leah Ovalle) Assessment and Plan Plan ASSESSMENT: - Severe abdominal pain/ Epigastric. CT 08-27-16 --> A subtle filling defect involving the superior mesenteric vein. This raises concern for nonocclusive thrombus. 2. Worsening dilatation of the small bowel without a focal transition point. Small amount of free fluid. No free air. 3. Stable small left effusion CT Abd/pelvis w/o IV contrast (08/23/16) --> Unremarkable exam with the exception of free fluid in the right lower quadrant. The appendix is normal. There is extensive stool type density throughout the small bowel without any evidence of obstruction or dilated lumen. CTA Abd/pelvis (08/23) --> moderate to severe atherosclerotic disease of the aorta with moderate disease of the mesenteric arterial vasculature. However, no occlusion is visualized. Abnormal small bowel gas pattern with dilated mid to distal small bowel measuring up to 3.4cm. Additionally, some of the small bowel segments contain fecal like material and there is mild fluid and stranding in the ileal mesentery in the right abdomen. There is no bowel wall thickening. Although nonspecific these could represent some of the earliest findings of enteric ischemia. General Surgery is following. Vascular surgery following Pts last colonoscopy was 5-6 years ago in [place]. He denies any hx of polyps , IBD, or diverticulosis that he is aware of. - Constipation. Pt appears to have stool throughout on the CT scans. Pt hasn't had a significant BM in several days. - Leukocytosis. Pt has been afebrile, no source of infection is known at this time. Zosyn 4.5 g IV every 8 hours. Blood cultures pending. Of note pt is on steroids for recent COPD exacerbation. - Diabetes mellitus, Atrial fibrillation on Eliquis 5mg BID and ASA 81 mg daily , CAD, HTN, Hyperlipidemia, CHF, Lupus. Management per attending. PLAN: - consider stenting by IR - mgmt PSBO per GS - Daily Lactic Acid - Lactulose 30mg daily - Stool softeners. - Supportive care - Further recommendations to follow This pt seen by myself and Dr Santoro and this note is written on his behalf ( Leah Ovalle) Physician Comments Symptoms recurring, will consider IR evaluation for possible stenting, will follow up with you. (Kristi Santoro MD) Leah Ovalle Aug 28, 2016 14:24 Kristi Santoro MD Aug 28, 2016 21:58
[2016-08-28] MEDS: FLUCONAZOLE 400 MG PREMIX BAG 200 ML IV SCH (16:14)
[2016-08-28] MEDS: D5-1/2 NS + KCL 20 MEQ INJ 1,000 ML IV SCH ×2 (16:15→20:08)
[2016-08-28] MEDS: METOPROLOL SUCCINATE 25 MG EXTENDED RELEASE TAB PO SCH (20:11)
[2016-08-28] MEDS: ATORVASTATIN 10 MG TAB PO SCH (20:11)
[2016-08-28] MEDS: LISINOPRIL 10 MG TAB PO SCH (20:11)
[2016-08-28] MEDS: HEPARIN-D5W INJ 250 ML IV SCH (20:13)
[2016-08-28 20:39] LABS: APTT (PATIENT) 30.8 SEC (24.3-30.1)
[2016-08-29] VITALS (8 sets, daily range): BP systolic 118–136; BP diastolic 78–92; PULSE 69–75; RESP 18–19; TEMP 95.9–97.5; O2SAT 92–95
[2016-08-29] MEDS: ACETAMINOPHEN 1000 MG/100 ML VIAL IV PRN (02:03)
[2016-08-29] MEDS: LORazepam 2 MG/ML VIAL IV PUSH PRN (02:04)
[2016-08-29 03:58] LABS: AUTOMATED NEUTROPHIL # 7.8 TH/MM3 (1.8-7.7); BASOPHIL % 0.3 % (0.0-2.0); EOSINOPHIL # 0.2 TH/MM3 (0-0.4); EOSINOPHIL % 1.5 % (0.0-4.0); HEMATOCRIT 39.8 % (39.0-51.0); HEMO FLAGS DIFF FINAL; LYMPH % 10.4 % (9.0-44.0); LYMPHOCYTE # 1.1 TH/MM3 (1.0-4.8); MEAN CELL VOLUME 91.8 FL (80.0-100.0); MEAN CORPUSCULAR HEMOGLOBIN 29.4 PG (27.0-34.0); NEUT % 75.8 % (16.0-70.0); PLATELET COUNT 220 TH/MM3 (150-450); RED BLOOD COUNT 4.34 MIL/MM3 (4.50-5.90); RED CELL DISTRIBUTION WIDTH 16.1 % (11.6-17.2); WHITE BLOOD COUNT 10.3 TH/MM3 (4.0-11.0)
[2016-08-29 04:13] LABS: APTT (PATIENT) 40.6 SEC (24.3-30.1)
[2016-08-29 04:15] LABS: ALT (GPT) 56 U/L (12-78); ANION GAP 5 MEQ/L (5-15); AST (GOT) 20 U/L (15-37); BICARBONATE 32.2 MEQ/L (21.0-32.0); BLOOD UREA NITROGEN 19 MG/DL (7-18); CHLORIDE 106 MEQ/L (98-107); GLOMERULAR FILTRATION RATE 78 ML/MIN (>89); POTASSIUM 3.8 MEQ/L (3.5-5.1); SODIUM (NA) 143 MEQ/L (136-145)
[2016-08-29 04:17] LABS: ALKALINE PHOSPHATASE 58 U/L (45-117); TOTAL BILIRUBIN ADULT 1.1 MG/DL (0.2-1.0)
[2016-08-29] MEDS: PIPERACIL-TAZO 4.5 GM PREMIX 100 ML IV SCH ×3 (05:28→20:58)
[2016-08-29] MEDS: PANTOPRAZOLE SODIUM 40 MG VIAL IV PUSH SCH (05:29)
[2016-08-29] MEDS: MORPHINE SULFATE 4 MG/ML INJ IV PUSH PRN ×2 (05:30→20:56)
[2016-08-29] MEDS: INSULIN ASPART SUPPLEMENTAL SCALE SQ SCH ×4 (07:00→21:00)
[2016-08-29] MEDS: ASPIRIN 81 MG CHEW TAB CHEW SCH ×2 (09:00→20:58)
[2016-08-29] MEDS: LACTULOSE SYRUP 20 GM/30 ML CUP PO SCH ×2 (09:00→20:58)
[2016-08-29] MEDS: HYDROXYCHLOROQUINE SULFATE 200 MG TAB PO SCH ×2 (09:00→20:59)
[2016-08-29] MEDS: DOFETILIDE 250 MCG CAP PO SCH ×2 (09:24→20:57)
[2016-08-29] MEDS: METOPROLOL SUCCINATE 50 MG EXTENDED RELEASE TAB PO SCH (09:24)
--- NOTE | 2016-08-29 10:55 | HHI.PR ---
Subjective Subjective Notes Up to chair Tolerating ice chips 0/10 abdominal pain Reports 3 BMs Objective Vitals/I&O Vital Signs Date Time Temp Pulse Resp B/P Pulse Ox O2 Delivery O2 Flow Rate FiO2 08/29/16 09:30 74 08/29/16 08:00 95.9 18 129/80 95 08/29/16 07:39 Room Air 08/27/16 20:15 2.00 Labs Laboratory Tests Test 08/28/16 08/28/16 08/29/16 12:16 19:41 03:29 Activated Partial 31.8 30.8 40.6 Thromboplast Time White Blood Count 10.3 Red Blood Count 4.34 Hemoglobin 12.7 Hematocrit 39.8 Mean Corpuscular Volume 91.8 Mean Corpuscular Hemoglobin 29.4 Mean Corpuscular Hemoglobin 32.0 Concent Red Cell Distribution Width 16.1 Platelet Count 220 Mean Platelet Volume 7.6 Neutrophils (%) (Auto) 75.8 Lymphocytes (%) (Auto) 10.4 Monocytes (%) (Auto) 12.0 Eosinophils (%) (Auto) 1.5 Basophils (%) (Auto) 0.3 Neutrophils # (Auto) 7.8 Lymphocytes # (Auto) 1.1 Monocytes # (Auto) 1.2 Eosinophils # (Auto) 0.2 Basophils # (Auto) 0.0 CBC Comment DIFF FINAL Differential Comment Sodium Level 143 Potassium Level 3.8 Chloride Level 106 Carbon Dioxide Level 32.2 Anion Gap 5 Blood Urea Nitrogen 19 Creatinine 0.96 Estimat Glomerular Filtration 78 Rate Random Glucose 126 Lactic Acid Level 1.0 Calcium Level 7.8 Total Bilirubin 1.1 Aspartate Amino Transf 20 (AST/SGOT) Alanine Aminotransferase 56 (ALT/SGPT) Alkaline Phosphatase 58 Total Protein 5.9 Albumin 2.8 Date/Time Procedure Status Source Growth 08/29/16 05:15 Stool Occult Blood (KINJAL) - Final Complete Stool Stool HEMOCCULT POSITIVE 08/28/16 23:01 Stool Occult Blood (KINJAL) Received Stool Stool Pending Cardiovascular: Regular Lungs: Clear Abdomen: Non-tender, Other (distended; tight abdomen ) Extremities: No edema Narrative Exam NGT in place A/P Problem List: (1) Abdominal pain (2) chronic medical problems (3) CHF (congestive heart failure) (4) CAD (coronary artery disease) (5) Diabetes mellitus (6) Atrial fibrillation (7) CHF exacerbation (8) Acute renal insufficiency (9) Constipation Assessment and Plan 66 year old male with extensive cardiac history with epigastric pain; unknown etiology -CTA reviewed--- shows subtle filling defect involving mesenteric vein; possible non occlusive thrombus -Continue Heparin drip; Hematology following -Vascular following -NGT to LIWS -NPO; ice chips okay -Discussed with Dr. Cordero Attending Statement The exam, history, and the medical decision-making described in the above note were completed with the assistance of the mid-level provider. I reviewed and agree with the findings presented. I attest that I had a [id number] encounter with the patient on the same day, and personally performed and documented my assessment and findings in the medical record. abdominal exam stable: mildly distended, no guarding or peritonitis agree with vascular surgery recommendations, will follow Problem Qualifiers (1) Abdominal pain: Qualified Code: R10.9 - Abdominal pain, unspecified location Karena Cordon Aug 29, 2016 10:55 Jovani Cordero MD Sep 19, 2016 09:53
[2016-08-29] MEDS: D5-1/2 NS + KCL 20 MEQ INJ 1,000 ML IV SCH ×2 (11:29→20:58)
--- NOTE | 2016-08-29 12:22 | HHI.FPPN ---
Subjective Remarks Patient had 3 BMs overnight. He states the first BM was small however the ones thereafter were slightly larger. He states he has relief of abdominal pain and discomfort following these BMs. He currently denies any abdominal pain. Denies fevers, CP, SOB. He is requesting for popsicles or any form of diet. No issues ambulating. (Donta Arcos MD R1) Objective Vitals Vital Signs Date Time Temp Pulse Resp B/P Pulse Ox O2 Delivery O2 Flow Rate FiO2 08/29/16 09:30 74 08/29/16 08:00 95.9 69 18 129/80 95 08/29/16 07:39 Room Air 08/29/16 04:15 97.5 75 19 124/92 94 08/29/16 00:05 96.5 70 19 127/83 93 08/28/16 20:15 96.3 78 18 133/91 92 08/28/16 20:08 74 08/28/16 16:00 96.9 72 20 128/88 91 I/O 08/28/16 08/28/16 08/28/16 08/29/16 08/29/16 08/29/16 07:00 15:00 23:00 07:00 15:00 23:00 Intake Total 965 ml 995 ml 508 ml 947 ml Output Total 400 ml 150 ml 101 ml 200 ml Balance 565 ml 845 ml 407 ml 747 ml Intake Oral 240 ml 0 ml 0 ml 0 ml IV Total 725 ml 888 ml 508 ml 947 ml Other 107 ml Output Urine Total 300 ml 1 ml Gastric Drainage Total 100 ml 150 ml 100 ml 200 ml # Voids 1 2 1 # Bowel Movements 0 0 0 1 (Donta Arcos MD R1) Result Diagram: 08/29/169 08/29/16328 Objective Remarks GENERAL: Sitting up in chair, not much distress this morning SKIN: Warm/dry. HEAD: Atraumatic. Normocephalic. EYES: No scleral icterus. No injection or drainage. ENT: MMM. NECK: Trachea midline. No JVD. Supple. CARDIOVASCULAR: Regular rate and rhythm. No murmur appreciated. RESPIRATORY: No increased work of breathing. Lungs are clear anteriorly without wheezing, rhonchi or crackles. GASTROINTESTINAL: Abdomen obese, softer than prior examination, nontender. Abdomen is distended. +BS throughout. No rebound tenderness. No guarding. MUSCULOSKELETAL: No obvious deformities. No cyanosis. 2+ pitting edema bilateral lower extremities. NEUROLOGICAL: Awake and alert. quill cleaner grossly intact. Motor grossly within normal limits. Normal speech. PSYCHIATRIC: Appropriate mood and affect; insight and judgment normal. ( Donta Arcos MD R1) A/P Assessment and Plan 66-year-old male with history of COPD, CAD s/p 3-vessel CABG, HTN, HLD, atrial fibrillation, type 2 DM, and lupus. Patient admitted due to severe /10 epigastric abdominal pain concerning for mesenteric ischemia given his elevated lactic acid on admission. Discharge Planning Unclear timetable. Pending resolution of abdominal pain and further studies if indicated (Donta Arcos MD R1) Attending Attestation Patient seen, examined, and discussed with resident team. I agree with assessment and management as documented and discussed with me. Pt reports 5 bowel movements. He feels ready to eat. Will clamp NG tube, start clear liquids. Appreciate hematology, await anticoagulation recs. 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 CT of the abdomen does not show any small bowel obstruction. It does show large amounts of stool in the small bowel. 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, no biopsies obtained due to patient on Eliquis; mild gastritis in the entire examined stomach, no biopsies obtained ; nml duodenal mucosa in the 2nd part of the duodenum * Continue Diflucan 400 mg IV daily, complete course of 14-21 days (started 08/26 ) * Ofirmev 650 mg IV q6h for pain * Morphine 2mg IV q6h prn breakthrough pain * Clamp NGT * Trial of CLD * Abdomen x-ray 08/27 showing persistent air distention of multiple small bowel loops with air-fluid levels concerning for at least a PSBO * CT abdomen/pelvis with delayed IV contrast showing subtle filling defect involving the superior mesenteric vein raising concern for nonocclusive thrombus ; worsening dilatation of the small bowel without a focal transition point; no free air * Started pt on heparin drip 08/27 * Consulted hematology/oncology for recommendations regarding anticoagulation as patient developed nonocclusive thrombus in SMV despite on Eliquis (2) SBO (small bowel obstruction) Status: Acute Plan: Patient had 3 BMs overnight, now has relief of abdominal pain and discomfort Continue medications as above to promote BMs Trial CLD today (3) Leukocytosis Status: Resolved Plan: Patient met SIRS criteria due to leukocytosis of 20 and elevated lactic acid of 3.3 * Continue Zosyn 4.5 g IV every 8 hours * Blood cultures no growth after 5 days * UA not indicating culture * Continue to monitor (4) chronic medical problems Status: Chronic Plan: Atrial fibrillation: On heparin drip, continue aspirin 81 mg daily, continue Tikosyn 500 mcg PO BID Hypertension: Continue Metoprolol succinate ER 50 mg in the morning and 25 mg in the evening and lisinopril 10 mg by mouth daily at bedtime Hyperlipidemia: Continue Crestor 5 mg daily at bedtime, continue coenzyme Q10 200 mg by mouth daily at bedtime (Will need to bring on medication from home) Congestive heart failure: Continue torsemide 20 mg by mouth twice a day. Continue lisinopril 10 mg by mouth twice a day Lupus: Continue Plaquenil COPD with recent exacerbation: Alternate albuterol and DuoNeb's, oxygen as needed (5) Nutrition, metabolism, and development symptoms Status: Acute Plan: Diet: Trial CLD Fluids: D5 half-normal saline at 100 cc/hr Electrolytes: WNLs, continue to monitor and replete as necessary DVT prophylaxis: b/l SCDs; heparin drip GI prophylaxis: Continue Protonix 40 mg IV q24h (Donta Arcos MD R1) Problem Qualifiers (1) Leukocytosis: Qualified Code: D72.829 - Leukocytosis, unspecified type Donta Arcos MD R1 Aug 29, 2016 12:22 Eleonora Strong MD Aug 29, 2016 17:23
[2016-08-29] MEDS: HEPARIN SODIUM - IV 10,000 UNITS/10 ML VIAL IV PRN ×2 (12:34→21:19)
[2016-08-29 12:54] LABS: APTT (PATIENT) 37.1 SEC (24.3-30.1)
[2016-08-29] MEDS: FLUCONAZOLE 400 MG PREMIX BAG 200 ML IV SCH (16:11)
[2016-08-29] MEDS: HEPARIN-D5W INJ 250 ML IV SCH (16:17)
--- NOTE | 2016-08-29 17:42 | MB ---
cc: EDWARD CONKLIN DATE OF CONSULTATION: 08/29/2016 DATE OF : 1950 REASON FOR CONSULTATION: Patient with superior mesenteric vein nonocclusive thrombus. HISTORY OF PRESENT ILLNESS Mr. Paulino is a 66-year-old male with a history of COPD status post coronary artery bypass graft, chronic obstructive pulmonary disease, hypertension, hyperlipidemia, diabetes, atrial fibrillation. He was recently discharged from the hospital. On that admission he was admitted for chronic obstructive pulmonary disease exacerbation and Afib. He went home on 08/22/2016. He ate at a restaurant and subsequently he felt ill with severe abdominal pain. He took Gas-X but did not help his pain. He felt nauseated and vomited. He also had diarrhea. He presented to the emergency department. The patient was found to have leukocytosis and elevated lactic acid on admission. He had persistent abdominal pain and he underwent CT of the abdomen and pelvis without contrast on admission. This showed moderate to severe atherosclerotic disease of the aorta and mesenteric arterial vasculature but there was no occlusion visualized. There was a normal small bowel gas pattern. There was suspicion for mesenteric ischemia. The patient was evaluated by surgery and conservative management was recommended. He also underwent a HIDA scan which did not show any abnormality. With continued abdominal pain. He underwent a second CT of the abdomen and pelvis. There was a subtle filling defect involving the superior mesenteric vein concerning for thrombus. This was not felt to be occlusive. The patient is currently on heparin. Hematology has been consulted to make further recommendations. REVIEW OF SYSTEMS A comprehensive 14-point review of systems was completed which is negative except as described in history of present illness. PAST MEDICAL HISTORY: 1. Hypertension 2. Hyperlipidemia 3. Type 2 diabetes. 4. Atrial fibrillation. 5. Chronic obstructive pulmonary disease. 6. Chronic kidney stones 7. Peripheral arterial disease. 8. Lupus 9. Congestive heart failure. 10. Depression. 11. Benign prostatic hypertrophy. 12. Angina 13. Cardiomyopathy. PAST SURGICAL HISTORY 1. Triple bypass surgery 2011 2. Ablation x4 3. coronary artery bypass graft x3 4. hernia repair 5. fatty tumor removal from the scalp MEDICATIONS: 1. Heparin GTT 2. Morphine injection IV q.2-6 h 3. Fluconazole IV q. 24 hours. 4. Ativan 1 mg IV q.6 h p.r.n. 5. Lactulose 30 cc p.o. b.i.d. 6. Bisacodyl 10 mg Rectal suppository daily p.r.n. 7. Tessalon 200 mg p.o. t.i.d. p.r.n. 8. Lisinopril 10 mg p.o. q.h.s. 9. Metoprolol 25 mg p.o. q.h.s. 10. Lipitor 10 mg p.o. q.h.s. 11. Zosyn IV q.8 h 12. Aspirin 81 mg b.i.d. 13. Tikosyn 500 mcg b.i.d. 14. Plaquenil 200 mg p.o. b.i.d. 15. Metoprolol 550 mg p.o. daily 16. Torsemide 20 mg p.o. b.i.d. 17. Sliding scale insulin. 18. Protonix 40 mg IV q.24 h 19. DuoNeb's q.4 h p.r.n. 20. Zofran 4 mg IV q.6 h 21. Senna 22. Docusate 2 tablets p.o. b.i.d. 23. Ambien 5 mg p.o. q.h.s. ALLERGIES He is allergic to CRESTOR. PHYSICAL EXAMINATION VITAL SIGNS: Blood pressure is 125/84, pulse is in the 70s, temperature is 96.3, O2 sats are 93% on room air. ASSESSMENT/PLAN This is a 66-year-old male with a history of chronic obstructive pulmonary disease, coronary artery disease, triple bypass, hypertension, hyperlipidemia. Atrial fibrillation, Type 2 diabetes and lupus who presents to the emergency room after acutely becoming sick with abdominal pain. 1. Acute abdominal pain/Mesenteric Thrombosis. He had a CT of the abdomen which showed subtle filling defect involving the superior mesenteric vein. This is a nonocclusive thrombus. The patient has been on Eliquis previously for atrial fibrillation. He has developed a nonocclusive thrombus while being on Eliquis. I would recommend switching this patient to Coumadin. We will obtain hypercoagulable workup. Since he also has atrial fibrillation he will be on anticoagulation indefinitely. 2. Small bowel obstruction. He had had 3 bowel movements today. NGT in place and still has output with black colored liquid. 3. Leukocytosis without any source of infection. His lactic acid was elevated as well. He is currently on IV Zosyn. Blood cultures have been negative. Further management per primary team. Thank you for allowing me to participate in the care of this patient. I will continue to follow this patient along. MD ANDREW Fields/veronica /2:23 PM /5:12 PM JULIO
[2016-08-29] MEDS: RESP: ALBUTEROL 2.5 MG/IPRATROPIUM 0.5 MG NEB (PRN) NEB (19:52)
[2016-08-29] MEDS: ATORVASTATIN 10 MG TAB PO SCH (20:57)
[2016-08-29] MEDS: LISINOPRIL 10 MG TAB PO SCH (20:57)
[2016-08-29] MEDS: TORSEMIDE 20 MG TAB PO SCH (20:57)
[2016-08-29] MEDS: BENZONATATE 100 MG CAP PO PRN (20:57)
[2016-08-29] MEDS: METOPROLOL SUCCINATE 25 MG EXTENDED RELEASE TAB PO SCH (20:58)
[2016-08-30] VITALS (7 sets, daily range): BP systolic 106–144; BP diastolic 66–87; PULSE 65–74; RESP 16–20; TEMP 95.2–97.8; O2SAT 92–94
--- NOTE | 2016-08-30 00:30 | HHI.PR ---
Addendum to Inpatient Note Addendum Reason: Additional Documentation Additional Information S: Medical team paged at approximately 2340 for acute abdominal pain. Per chart review patient was started on a clear liquid diet trial today with his NG tube clamped. Throughout the day he tolerated the liquids well and had 2 BM without signs of blood in stool, but did report BRB when wiping. Tonight at around 2300 the patient started feeling LUQ pain that since increased in severity to 8/10 on the pain scale. The pain does not radiate and was described as throbbing. Otherwise he has no complaints and denies any fevers, chills, SOB, chest pain, NVD, or calf tenderness. O: GENERAL: 66-year-old male lying in bed in mild discomfort. SKIN: Warm and dry. No rash. HEENT: NC, AT with EOMI. MMM. CARDIOVASCULAR: Regular rate and rhythm without obvious murmurs, gallops, or rubs. RESPIRATORY: Clear to auscultation bilaterally with no CRW. No increased work of breathing. GASTROINTESTINAL: Abdomen obese soft, distended with positive bowel sounds in all 4 quadrants. Patient tender to moderate palpation in the left upper quadrant with mild tenderness to deep palpation in the other 3 quadrants. Mild guarding with no rebound tenderness. Negative Funez sign. MUSCULOSKELETAL: No cyanosis or edema. Strength grossly WNL. NEURO/PSYCH: Afocal. Awake, alert, and oriented x3. A: Mr. Paulino is a 66-year-old male with history of COPD, CAD s/p 3-vessel CABG, HTN, HLD, atrial fibrillation, type 2 DM, and lupus admitted for abdominal pain and found to have superior mesenteric venous thrombosis. P: Patient appears in mild discomfort likely from abdominal distention from restarting his clear liquid diet with clamping of his NG tube. Vital signs stable with tenderness in the upper left quadrant of his ABD. Restart NG tube to low intermittent suction. Patient to be nothing by mouth. Stat abdominal x-ray (flat and upright). Medical team will continue to monitor and patient given instructions to inform nursing staff with any acute status change. Humberto Silva MD R1 Aug 30, 2016 00:30
--- NOTE | 2016-08-30 00:45 | RADRPT ---
EXAM DATE/TIME: 08/30/2016 00:28 [facility] COMPARISON: ABDOMEN FLAT & UPRIGHT, August 26, 2016, 18:30. CT ABDOMEN & PELVIS W/O CONTRAST, August 23, 2016, 0:55. ABDOMEN FLAT & UPRIGHT, August 27, 2016, 11:07. INDICATIONS : Abdominal pain. MEDICAL HISTORY : Cardiovascular disease. Chronic obstructive pulmonary disease. Diabetes. SURGICAL HISTORY : CABG. Hernia repair. ENCOUNTER: Subsequent ACUITY: 1 week PAIN SCORE: 5/10 LOCATION: abdomen, all quadrants. FINDINGS: NG tube is present with tip in the stomach. There are persistent loops of small bowel with maximum di ameter of 6.8 cm which are organized in the midportion of the abdomen with gas and stool in the colon . No definite free air is identified for technique. CONCLUSION: There appears to be slightly more distention of loops of small bowel characteristic of small bowel ob struction. KBirdie Rivas MD on August 30, 2016 at 0:40 Board Certified Radiologist. This report was verified electronically.
[2016-08-30] MEDS: MORPHINE SULFATE 4 MG/ML INJ IV PUSH PRN ×4 (03:13→23:07)
[2016-08-30 04:23] LABS: APTT (PATIENT) 36.6 SEC (24.3-30.1)
[2016-08-30 04:38] LABS: ANION GAP 4 MEQ/L (5-15); BICARBONATE 33.6 MEQ/L (21.0-32.0); BLOOD UREA NITROGEN 13 MG/DL (7-18); CHLORIDE 102 MEQ/L (98-107); GLOMERULAR FILTRATION RATE 69 ML/MIN (>89); POTASSIUM 3.7 MEQ/L (3.5-5.1); SODIUM (NA) 140 MEQ/L (136-145)
[2016-08-30 04:40] LABS: ALT (GPT) 46 U/L (12-78); AST (GOT) 19 U/L (15-37)
[2016-08-30 04:42] LABS: ALKALINE PHOSPHATASE 62 U/L (45-117)
[2016-08-30 04:43] LABS: AUTOMATED NEUTROPHIL # 7.3 TH/MM3 (1.8-7.7); BASOPHIL % 0.5 % (0.0-2.0); EOSINOPHIL # 0.1 TH/MM3 (0-0.4); EOSINOPHIL % 1.2 % (0.0-4.0); HEMATOCRIT 37.8 % (39.0-51.0); HEMO FLAGS DIFF FINAL; LYMPH % 12.1 % (9.0-44.0); LYMPHOCYTE # 1.1 TH/MM3 (1.0-4.8); MEAN CELL VOLUME 91.9 FL (80.0-100.0); MEAN CORPUSCULAR HEMOGLOBIN 30.1 PG (27.0-34.0); MEAN CORPUSCULAR HGB CONC 32.8 % (32.0-36.0); MONO % 8.3 % (0.0-8.0); NEUT % 77.9 % (16.0-70.0); PLATELET COUNT 198 TH/MM3 (150-450); RED BLOOD COUNT 4.11 MIL/MM3 (4.50-5.90); RED CELL DISTRIBUTION WIDTH 16.3 % (11.6-17.2); WHITE BLOOD COUNT 9.4 TH/MM3 (4.0-11.0)
[2016-08-30] MEDS: PANTOPRAZOLE SODIUM 40 MG VIAL IV PUSH SCH (04:45)
[2016-08-30] MEDS: PIPERACIL-TAZO 4.5 GM PREMIX 100 ML IV SCH (04:45)
[2016-08-30] MEDS: HEPARIN SODIUM - IV 10,000 UNITS/10 ML VIAL IV PRN (04:46)
[2016-08-30] MEDS: INSULIN ASPART SUPPLEMENTAL SCALE SQ SCH ×4 (07:00→21:00)
[2016-08-30] MEDS: HEPARIN-D5W INJ 250 ML IV SCH (08:24)
[2016-08-30] MEDS: DOFETILIDE 250 MCG CAP PO SCH ×2 (09:49→21:17)
[2016-08-30] MEDS: HYDROXYCHLOROQUINE SULFATE 200 MG TAB PO SCH ×2 (09:49→21:00)
[2016-08-30] MEDS: METOPROLOL SUCCINATE 50 MG EXTENDED RELEASE TAB PO SCH (09:49)
[2016-08-30] MEDS: TORSEMIDE 20 MG TAB PO SCH ×2 (09:50→21:18)
[2016-08-30] MEDS: ASPIRIN 81 MG CHEW TAB CHEW SCH ×2 (09:50→21:17)
[2016-08-30] MEDS: D5-1/2 NS + KCL 20 MEQ INJ 1,000 ML IV SCH ×2 (09:50→17:29)
[2016-08-30] MEDS: LACTULOSE SYRUP 20 GM/30 ML CUP PO SCH ×2 (09:53→21:11)
--- NOTE | 2016-08-30 10:02 | HHI.FPPN ---
Subjective Remarks NG tube shows approximately 100 mL output. Patient is doing slightly better this morning. Is passing gas and had bowel movements 3 yesterday. Belly pain remains, but is improved. Denies fever, chills, vomiting. (Bandar Briggs MD R2) Objective Vitals Vital Signs Date Time Temp Pulse Resp B/P Pulse Ox O2 Delivery O2 Flow Rate FiO2 08/30/16 08:00 96.3 70 17 144/69 94 08/30/16 04:55 97.1 74 20 120/77 92 08/30/16 00:50 96.6 74 19 124/87 92 08/29/16 20:55 73 08/29/16 20:25 97.2 72 19 136/84 94 08/29/16 16:00 95.9 72 18 118/78 92 08/29/16 12:00 96.3 73 18 125/84 93 I/O 08/29/16 08/29/16 08/29/16 08/30/16 08/30/16 08/30/16 07:00 15:00 23:00 07:00 15:00 23:00 Intake Total 947 ml 1841 ml 768 ml 862 ml Output Total 200 ml 100 ml 1700 ml Balance 747 ml 1741 ml 768 ml -838 ml Intake Oral 0 ml 1200 ml 240 ml 0 ml IV Total 947 ml 641 ml 528 ml 862 ml Output Urine Total 1550 ml Gastric Drainage Total 200 ml 100 ml 150 ml # Voids 1 4 2 # Bowel Movements 1 1 1 0 (Bandar Briggs MD R2) Result Diagram: 08/30/16 0400 08/30/16 0400 Objective Remarks GENERAL: Sitting up in chair, no acute distress. SKIN: Warm/dry. HEAD: Atraumatic. Normocephalic. EYES: No scleral icterus. No injection or drainage. ENT: MMM. NECK: Trachea midline. No JVD. Supple. CARDIOVASCULAR: Regular rate and rhythm. No murmur appreciated. RESPIRATORY: No increased work of breathing. Lungs are clear anteriorly without wheezing, rhonchi or crackles. GASTROINTESTINAL: Abdomen obese, nontender to palpation. Abdomen is distended. + BS throughout. No rebound tenderness. No guarding. MUSCULOSKELETAL: No obvious deformities. No cyanosis. 2+ pitting edema bilateral lower extremities. NEUROLOGICAL: Awake and alert. 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 Motor grossly within normal limits. Normal speech. PSYCHIATRIC: Appropriate mood and affect; insight and judgment normal. (Bandar Briggs MD R2) A/P Assessment and Plan 66-year-old male with history of COPD, CAD s/p 3-vessel CABG, HTN, HLD, atrial fibrillation, type 2 DM, and lupus. The imaging findings concerning for small bowel obstruction and mesenteric ischemia. Discharge Planning Unclear timetable. Pending resolution of abdominal pain and further studies if indicated Pending GI, vascular surgery, general surgery, hematology recommendations. ( Bandar Briggs MD R2) Attending Attestation Patient seen and examined, discussed with Dr. Zee Briggs. I agree with assessment and management as documented and discussed with me. Pt with increased abdominal pain last night, NG tube placed back on suction. He reports pain is 5/10 this AM. Continue NG tube. 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 CT of the abdomen does not show any small bowel obstruction. It does show large amounts of stool in the small bowel. * Continue D5 half-normal saline at 100 mL/hr * Continue Zosyn * Fleets enemas prn * Lactulose 30 mL PO BID * s/p Mag citrate 08/26 x2 * Protonix 40 mg IV daily * Jihan-Colace 2 tablets by mouth twice a day * Lactic acid now WNLs at 1.0 * Gastroenterology consulted * General surgery consulted * Vascular surgery consulted * Consulted hematology/oncology for recommendations regarding anticoagulation as patient developed nonocclusive thrombus in SMV despite on Eliquis * Hypercoagulable Labs ordered per hematology: Anti-thrombin, protein C, factor V 5, homocystine, lupus anticoagulant, cardiolipin, protein S, factor VIII, russel 2 mutation, ANA PAULA * HIDA scan negative * EGD findings of white exudates consistent with candidiasis in the entire esophagus with brushing for microbiology done; 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, no biopsies obtained due to patient on Eliquis; mild gastritis in the entire examined stomach, no biopsies obtained ; nml duodenal mucosa in the 2nd part of the duodenum * Continue Diflucan 400 mg IV daily, complete course of 14-21 days (started 08/26 ) * Ofirmev 650 mg IV q6h for pain * Morphine 2mg IV q6h prn breakthrough pain * Clamp NGT * Trial of CLD * CT abdomen/pelvis with delayed IV contrast showing subtle filling defect involving the superior mesenteric vein raising concern for nonocclusive thrombus ; worsening dilatation of the small bowel without a focal transition point; no free air * Started pt on heparin drip 08/27; per hematology recommend Coumadin. (2) SBO (small bowel obstruction) Status: Acute Plan: Gen. surgery consult Patient is passing gas and bowel movements. NG tube set to suction Diet per surgery Continue medications as above to promote BMs (3) Leukocytosis Status: Resolved Plan: Patient met SIRS criteria due to leukocytosis of 20 and elevated lactic acid of 3.3 * Continue Zosyn 4.5 g IV every 8 hours * Blood cultures no growth after 5 days * UA not indicating culture * Continue to monitor (4) chronic medical problems Status: Chronic Plan: Atrial fibrillation: On heparin drip, continue aspirin 81 mg daily, continue Tikosyn 500 mcg PO BID Hypertension: Continue Metoprolol succinate ER 50 mg in the morning and 25 mg in the evening and lisinopril 10 mg by mouth daily at bedtime Hyperlipidemia: Continue Crestor 5 mg daily at bedtime, continue coenzyme Q10 200 mg by mouth daily at bedtime (Will need to bring on medication from home) Congestive heart failure: Continue torsemide 20 mg by mouth twice a day. Continue lisinopril 10 mg by mouth twice a day Lupus: Continue Plaquenil COPD with recent exacerbation: Alternate albuterol and DuoNeb's, oxygen as needed (5) Nutrition, metabolism, and development symptoms Status: Acute Plan: Diet: Per surgery but currently nothing by mouth except meds Fluids: D5 half-normal saline at 100 cc/hr Electrolytes: WNLs, continue to monitor and replete as necessary DVT prophylaxis: b/l SCDs; heparin drip GI prophylaxis: Continue Protonix 40 mg IV q24h (Bandar Briggs MD R2) Problem Qualifiers (1) Leukocytosis: Qualified Code: D72.829 - Leukocytosis, unspecified type Bandar Briggs MD R2 Aug 30, 2016 10:02 Eleonora Strong MD Aug 30, 2016 12:09
[2016-08-30] MEDS: SODIUM CHLORIDE 0.9% FLUSH 10 ML FLUSH IV FLUSH PRN (10:10)
--- NOTE | 2016-08-30 11:38 | HHI.GIFU ---
Subjective Remarks asymptomatic now and tolerating diet well, had 3 soft BMs. Objective Vitals I&O Vital Signs Date Time Temp Pulse Resp B/P Pulse Ox O2 Delivery O2 Flow Rate FiO2 08/30/16 08:00 96.3 70 17 144/69 94 08/30/16 04:55 97.1 74 20 120/77 92 08/30/16 00:50 96.6 74 19 124/87 92 08/29/16 20:55 73 08/29/16 20:25 97.2 72 19 136/84 94 08/29/16 16:00 95.9 72 18 118/78 92 08/29/16 12:00 96.3 73 18 125/84 93 I/O 08/29/16 08/29/16 08/29/16 08/30/16 08/30/16 08/30/16 07:00 15:00 23:00 07:00 15:00 23:00 Intake Total 947 ml 1841 ml 768 ml 862 ml Output Total 200 ml 100 ml 1700 ml Balance 747 ml 1741 ml 768 ml -838 ml Intake Oral 0 ml 1200 ml 240 ml 0 ml IV Total 947 ml 641 ml 528 ml 862 ml Output Urine Total 1550 ml Gastric Drainage Total 200 ml 100 ml 150 ml # Voids 1 4 2 # Bowel Movements 1 1 1 0 Laboratory Laboratory Tests Test 08/29/16 08/29/16 08/30/16 12:34 20:20 04:00 Activated Partial 37.1 39.0 36.6 Thromboplast Time White Blood Count 9.4 Red Blood Count 4.11 Hemoglobin 12.4 Hematocrit 37.8 Mean Corpuscular Volume 91.9 Mean Corpuscular Hemoglobin 30.1 Mean Corpuscular Hemoglobin 32.8 Concent Red Cell Distribution Width 16.3 Platelet Count 198 Mean Platelet Volume 7.7 Neutrophils (%) (Auto) 77.9 Lymphocytes (%) (Auto) 12.1 Monocytes (%) (Auto) 8.3 Eosinophils (%) (Auto) 1.2 Basophils (%) (Auto) 0.5 Neutrophils # (Auto) 7.3 Lymphocytes # (Auto) 1.1 Monocytes # (Auto) 0.8 Eosinophils # (Auto) 0.1 Basophils # (Auto) 0.0 CBC Comment DIFF FINAL Differential Comment Sodium Level 140 Potassium Level 3.7 Chloride Level 102 Carbon Dioxide Level 33.6 Anion Gap 4 Blood Urea Nitrogen 13 Creatinine 1.06 Estimat Glomerular Filtration 69 Rate Random Glucose 125 Lactic Acid Level 1.9 Calcium Level 8.2 Total Bilirubin 1.0 Aspartate Amino Transf 19 (AST/SGOT) Alanine Aminotransferase 46 (ALT/SGPT) Alkaline Phosphatase 62 Total Protein 6.1 Albumin 2.9 Date/Time Procedure Status Source Growth 08/29/16 05:15 Stool Occult Blood ([facility]INJAL) - Final Complete Stool Stool HEMOCCULT POSITIVE 08/28/16 23:01 Stool Occult Blood (K[facility]JAL) Received Stool Stool Pending Physical Exam HEENT: EOMI; atraumatic; no jaundice. NGT CHEST: CTA CARDIAC: RRR ABDOMEN: somewhat firm, distended, tympanitic, nontender; no hepatosplenomegaly ; bowel sounds Faint. EXTREMITIES: No clubbing, cyanosis, or edema. SKIN: Normal; no rash; no jaundice. 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 Assessment and Plan Plan ASSESSMENT: - Severe abdominal pain/ Epigastric. CT 08-27-16 --> A subtle filling defect involving the superior mesenteric vein. This raises concern for nonocclusive thrombus. 2. Worsening dilatation of the small bowel without a focal transition point. Small amount of free fluid. No free air. 3. Stable small left effusion CT Abd/pelvis w/o IV contrast (08/23/16) --> Unremarkable exam with the exception of free fluid in the right lower quadrant. The appendix is normal. There is extensive stool type density throughout the small bowel without any evidence of obstruction or dilated lumen. CTA Abd/pelvis (08/23) --> moderate to severe atherosclerotic disease of the aorta with moderate disease of the mesenteric arterial vasculature. However, no occlusion is visualized. Abnormal small bowel gas pattern with dilated mid to distal small bowel measuring up to 3.4cm. Additionally, some of the small bowel segments contain fecal like material and there is mild fluid and stranding in the ileal mesentery in the right abdomen. There is no bowel wall thickening. Although nonspecific these could represent some of the earliest findings of enteric ischemia. General Surgery is following. Vascular surgery following Pts last colonoscopy was 5-6 years ago in [place]. He denies any hx of polyps , IBD, or diverticulosis that he is aware of. - Constipation. Pt appears to have stool throughout on the CT scans. Pt hasn't had a significant BM in several days. - Leukocytosis. Pt has been afebrile, no source of infection is known at this time. Zosyn 4.5 g IV every 8 hours. Blood cultures pending. Of note pt is on steroids for recent COPD exacerbation. - Diabetes mellitus, Atrial fibrillation on Eliquis 5mg BID and ASA 81 mg daily , CAD, HTN, Hyperlipidemia, CHF, Lupus. Management per attending. PLAN: - mgmt PSBO per GS - Daily Lactic Acid - Lactulose 30mg daily - Supportive care Kristi Santoro MD Aug 30, 2016 11:38
--- NOTE | 2016-08-30 12:54 | HHI.PR ---
Subjective Subjective Notes DAILY PROGRESS NOTE FOR SURGICAL ATTENDING, DR. TERRENCE NAVARRO Patient feeling better Objective Vitals/I&O Vital Signs Date Time Temp Pulse Resp B/P Pulse Ox O2 Delivery O2 Flow Rate FiO2 08/30/16 12:00 96.5 68 16 134/75 94 08/29/16 07:39 Room Air 08/27/16 20:15 2.00 Labs Laboratory Tests Test 08/29/16 08/30/16 08/30/16 20:20 04:00 10:47 Activated Partial 39.0 36.6 52.0 Thromboplast Time White Blood Count 9.4 Red Blood Count 4.11 Hemoglobin 12.4 Hematocrit 37.8 Mean Corpuscular Volume 91.9 Mean Corpuscular Hemoglobin 30.1 Mean Corpuscular Hemoglobin 32.8 Concent Red Cell Distribution Width 16.3 Platelet Count 198 Mean Platelet Volume 7.7 Neutrophils (%) (Auto) 77.9 Lymphocytes (%) (Auto) 12.1 Monocytes (%) (Auto) 8.3 Eosinophils (%) (Auto) 1.2 Basophils (%) (Auto) 0.5 Neutrophils # (Auto) 7.3 Lymphocytes # (Auto) 1.1 Monocytes # (Auto) 0.8 Eosinophils # (Auto) 0.1 Basophils # (Auto) 0.0 CBC Comment DIFF FINAL Differential Comment Sodium Level 140 Potassium Level 3.7 Chloride Level 102 Carbon Dioxide Level 33.6 Anion Gap 4 Blood Urea Nitrogen 13 Creatinine 1.06 Estimat Glomerular Filtration 69 Rate Random Glucose 125 Lactic Acid Level 1.9 Calcium Level 8.2 Total Bilirubin 1.0 Aspartate Amino Transf 19 (AST/SGOT) Alanine Aminotransferase 46 (ALT/SGPT) Alkaline Phosphatase 62 Total Protein 6.1 Albumin 2.9 Date/Time Procedure Status Source Growth 08/29/16 05:15 Stool Occult Blood ([facility]JAL) - Final Complete Stool Stool HEMOCCULT POSITIVE 08/28/16 23:01 Stool Occult Blood ([facility]JAL) Received Stool Stool Pending Radiology Last Impressions Abdomen X-Ray 08/30/16 0000 Signed Impressions: Service Date/Time: Tuesday, August 30, 2016 00:28 - CONCLUSION: There appears to be slightly more distention of loops of small bowel characteristic of small bowel obstruction. KBirdie Rivas MD Abdomen/Pelvis CT 08/27/16 1023 Signed Impressions: Service Date/Time: Saturday, August 27, 2016 11:21 - CONCLUSION: 1. A subtle filling defect involving the superior mesenteric vein. This raises concern for nonocclusive thrombus. 2. Worsening dilatation of the small bowel without a focal transition point. Small amount of free fluid. No free air. 3. Stable small left effusion. Jr Parker Jr., MD Chest X-Ray 08/27/16 0000 Signed Impressions: Service Date/Time: Saturday, August 27, 2016 11:09 - CONCLUSION: Interval improvement with less parenchymal changes left base. Hebert Saldana MD FACR Hepatobiliary Scan Nuclear Medicine 08/26/16 0000 Signed Impressions: Service Date/Time: Friday, August 26, 2016 08:48 - CONCLUSION: Negative exam. No scintigraphic findings of acute or chronic cholecystitis. No significant biliary enteric reflux. David Baltazar MD Abdomen: Other (mild soreness in the midepigastric region ) Narrative Exam NG tube in place Abdomen soft mild soreness in the midepigastric region A/P Problem List: (1) Abdominal pain (2) chronic medical problems (3) CHF (congestive heart failure) (4) CAD (coronary artery disease) (5) Diabetes mellitus (6) Atrial fibrillation (7) CHF exacerbation (8) Acute renal insufficiency (9) Constipation Assessment and Plan 66 year old male with extensive cardiac history with epigastric pain; unknown etiology -CTA reviewed--- shows subtle filling defect involving mesenteric vein; possible non occlusive thrombus -Continue Heparin drip; Hematology following -Vascular following -NGT to LIWS -NPO; ice chips okay Patient had 3 bowel movements today Attending Statement NOTE FOR SURGICAL ATTENDING, DR. TERRENCE NAVARRO I attest that I had a [id number]-poot encounter with the patient on the same day, and personally performed and documented my assessment and findings in the medical record. The following services were provided during this hospital visit: Chart data review, vital sign assessments/reviewing monitor data Review of consultations notes if present. Medication orders/review and/or management Ordering and/or reviewing lab tests Ordering and/or interpreting/reviewing x-rays and/or diagnostic studies Care of the patient and discussion of the patient with the care team Documentation time To help prompt me to consider important information that might be impacting today's encounter and assessment, information from prior notes written by myself or my colleagues may have been "brought forward/copy and pasted" into today's note. Problem Qualifiers (1) Abdominal pain: Qualified Code: R10.9 - Abdominal pain, unspecified location Terrence Navarro MD Aug 30, 2016 12:53
[2016-08-30] MEDS: FLUCONAZOLE 400 MG PREMIX BAG 200 ML IV SCH (16:47)
[2016-08-30 18:01] LABS: APTT (PATIENT) 48.3 SEC (24.3-30.1)
[2016-08-30] MEDS: METOPROLOL SUCCINATE 25 MG EXTENDED RELEASE TAB PO SCH (21:17)
[2016-08-30] MEDS: LISINOPRIL 10 MG TAB PO SCH (21:17)
[2016-08-30] MEDS: ATORVASTATIN 10 MG TAB PO SCH (21:18)
[2016-08-30] MEDS: BENZONATATE 100 MG CAP PO PRN (21:18)
[2016-08-31] VITALS (7 sets, daily range): BP systolic 121–161; BP diastolic 63–86; PULSE 67–76; RESP 17–22; TEMP 95.9–96.9; O2SAT 92–94
[2016-08-31] MEDS: HEPARIN-D5W INJ 250 ML IV SCH ×2 (00:13→16:26)
[2016-08-31] MEDS: D5-1/2 NS + KCL 20 MEQ INJ 1,000 ML IV SCH ×3 (02:40→22:03)
[2016-08-31] MEDS: PANTOPRAZOLE SODIUM 40 MG VIAL IV PUSH SCH (05:50)
[2016-08-31] MEDS: INSULIN ASPART SUPPLEMENTAL SCALE SQ SCH ×4 (05:51→21:00)
[2016-08-31 07:21] LABS: AUTOMATED NEUTROPHIL # 7.6 TH/MM3 (1.8-7.7); BASOPHIL % 0.4 % (0.0-2.0); EOSINOPHIL # 0.2 TH/MM3 (0-0.4); EOSINOPHIL % 1.7 % (0.0-4.0); HEMATOCRIT 36.5 % (39.0-51.0); HEMO FLAGS DIFF FINAL; LYMPH % 12.6 % (9.0-44.0); LYMPHOCYTE # 1.3 TH/MM3 (1.0-4.8); MEAN CELL VOLUME 91.1 FL (80.0-100.0); MEAN CORPUSCULAR HEMOGLOBIN 30.4 PG (27.0-34.0); MEAN CORPUSCULAR HGB CONC 33.3 % (32.0-36.0); MONO % 10.2 % (0.0-8.0); NEUT % 75.1 % (16.0-70.0); PLATELET COUNT 193 TH/MM3 (150-450); RED BLOOD COUNT 4.01 MIL/MM3 (4.50-5.90); RED CELL DISTRIBUTION WIDTH 16.3 % (11.6-17.2); WHITE BLOOD COUNT 10.1 TH/MM3 (4.0-11.0)
--- NOTE | 2016-08-31 07:25 | HHI.FPPN ---
Subjective Remarks No acute events overnight. Afebrile, vitals stable. 600 cc out via NGT. Patient states he had a good size bowel movement this morning and is passing a lot of gas. Patient has a lot of abdominal relief from this. He states his pain is currently minimal. Denies fevers, CP, SOB, pain elsewhere. No issues ambulating. He is otherwise without complaints. (Donta Arcos MD R1) Objective Vitals Vital Signs Date Time Temp Pulse Resp B/P Pulse Ox O2 Delivery O2 Flow Rate FiO2 08/31/16 04:15 96.0 70 20 121/82 92 08/31/16 00:35 96.0 71 20 138/63 92 08/30/16 23:18 18 08/30/16 20:04 Room Air 08/30/16 20:00 68 08/30/16 19:55 97.8 72 18 133/86 92 08/30/16 16:00 95.2 65 16 106/66 94 08/30/16 12:00 96.5 68 16 134/75 94 08/30/16 08:00 96.3 70 17 144/69 94 I/O 08/30/16 08/30/16 08/30/16 08/31/16 08/31/16 08/31/16 07:00 15:00 23:00 07:00 15:00 23:00 Intake Total 862 ml 1150 ml 667 ml 1349 ml Output Total 1700 ml 850 ml 800 ml 1475 ml Balance -838 ml 300 ml -133 ml -126 ml Intake Oral 0 ml 0 ml 0 ml 480 ml IV Total 862 ml 1150 ml 667 ml 869 ml Output Urine Total 1550 ml 650 ml 600 ml 1275 ml Gastric Drainage Total 150 ml 200 ml 200 ml 200 ml # Voids 4 # Bowel Movements 0 1 0 (Donta Arcos MD R1) Result Diagram: 08/31/16 0510 08/30/16 0400 Objective Remarks GENERAL: Sitting up in chair, no acute distress. SKIN: Warm/dry. HEAD: Atraumatic. Normocephalic. EYES: No scleral icterus. No injection or drainage. ENT: MMM. NECK: Trachea midline. No JVD. Supple. CARDIOVASCULAR: Regular rate and rhythm. No murmur appreciated. RESPIRATORY: No increased work of breathing. Lungs are clear anteriorly without wheezing, rhonchi or crackles. GASTROINTESTINAL: Abdomen obese, nontender to palpation. Abdomen is less distended than prior examination. +BS throughout. No rebound tenderness. No guarding. MUSCULOSKELETAL: No obvious deformities. No cyanosis. 2+ pitting edema bilateral lower extremities. NEUROLOGICAL: Awake and alert. 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 Motor grossly within normal limits. Normal speech. PSYCHIATRIC: Appropriate mood and affect; insight and judgment normal. ( Donta Arcos MD R1) A/P Assessment and Plan 66-year-old male with history of COPD, CAD s/p 3-vessel CABG, HTN, HLD, atrial fibrillation, type 2 DM, and lupus. The imaging findings concerning for small bowel obstruction and mesenteric ischemia. Discharge Planning Unclear timetable. Pending resolution of abdominal pain and further studies if indicated Pending GI, vascular surgery, general surgery, hematology recommendations. ( Donta Arcos MD R1) Attending Attestation Patient seen and examined, discussed with Dr. Arcos. I agree with assessment and management as documented and discussed with me. Pt reports pain in abdomen is better. He is passing gas and has had more BMs. NG still with decent output. Gen Surg will repeat abd xray today. If improved, will reinitiate clear liquids. Timing of initiation of coumadin remains unclear. I am concerned to start too early if patient will require surgery for bowel obstruction. Once tolerating PO better, would consider starting coumadin. (Eleonora Strong MD) Problem List: (1) Superior mesenteric vein thrombosis Status: Acute Plan: Patient admitted with severe abdl pain now improving. CT of the abdomen does not show any small bowel obstruction. It does show large amounts of stool in the small bowel. * Continue D5 half-normal saline at 100 mL/hr * Continue Zosyn * Fleets enemas prn * Lactulose 30 mL PO BID * Protonix 40 mg IV daily * Jihan-Colace 2 tablets po BID * Consulted hematology/oncology for recommendations regarding anticoagulation as patient developed nonocclusive thrombus in SMV despite on Eliquis. Recommend starting the patient on Coumadin. Will start patient on Coumadin once patient is able to tolerate diet better after diet is slowly advance. Will be cautious starting Coumadin at this time given the patient still has not proven he is able to tolerate even a CLD and patient is still high risk for possible surgical intervention. * Continue heparin drip for now * Vascular surgery consulted * Hypercoagulable Labs ordered per hematology: Anti-thrombin, protein C, factor V 5, homocystine, lupus anticoagulant, cardiolipin, protein S, factor VIII, russel 2 mutation, ANA PAULA * Continue Diflucan 400 mg IV daily, complete course of 14-21 days (started 08/26 ) * Ofirmev 650 mg IV q6h for pain * Morphine 2mg IV q6h prn breakthrough pain * Continue NGT to LIWS * Keep patient NPO * HIDA scan negative * Gastroenterology consulted * EGD findings of white exudates consistent with candidiasis in the entire esophagus with brushing for microbiology done; 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, no biopsies obtained due to patient on Eliquis; mild gastritis in the entire examined stomach, no biopsies obtained ; nml duodenal mucosa in the 2nd part of the duodenum * CT abdomen/pelvis with delayed IV contrast showing subtle filling defect involving the superior mesenteric vein raising concern for nonocclusive thrombus ; worsening dilatation of the small bowel without a focal transition point; no free air (2) SBO (small bowel obstruction) Status: Acute Plan: Gen. surgery consult Patient is passing gas and bowel movements. NG tube set to suction NPO Continue medications as above to promote BMs (3) Leukocytosis Status: Resolved Plan: Patient met SIRS criteria due to leukocytosis of 20 and elevated lactic acid of 3.3 * Continue Zosyn 4.5 g IV every 8 hours * Blood cultures no growth after 5 days * UA not indicating culture * Continue to monitor (4) chronic medical problems Status: Chronic Plan: Atrial fibrillation: On heparin drip, continue aspirin 81 mg daily, continue Tikosyn 500 mcg PO BID Hypertension: Continue Metoprolol succinate ER 50 mg in the morning and 25 mg in the evening and lisinopril 10 mg by mouth daily at bedtime Hyperlipidemia: Continue Crestor 5 mg daily at bedtime, continue coenzyme Q10 200 mg by mouth daily at bedtime (Will need to bring on medication from home) Congestive heart failure: Continue torsemide 20 mg by mouth twice a day. Continue lisinopril 10 mg by mouth twice a day Lupus: Continue Plaquenil COPD with recent exacerbation: Alternate albuterol and DuoNeb's, oxygen as needed (5) Nutrition, metabolism, and development symptoms Status: Acute Plan: Diet: NPO Fluids: D5 half-normal saline at 100 cc/hr Electrolytes: WNLs, continue to monitor and replete as necessary DVT prophylaxis: b/l SCDs; heparin drip GI prophylaxis: Continue Protonix 40 mg IV q24h (Donta Arcos MD R1) Problem Qualifiers (1) Leukocytosis: Qualified Code: D72.829 - Leukocytosis, unspecified type Donta Arcos MD R1 Aug 31, 2016 07:25 Eleonora Strong MD Aug 31, 2016 12:05
[2016-08-31 07:30] LABS: APTT (PATIENT) 46.2 SEC (24.3-30.1)
[2016-08-31 07:59] LABS: BICARBONATE 30.4 MEQ/L (21.0-32.0); CALCIUM-PROTEIN CORRECTED 7.7 MG/DL (8.5-10.1); POTASSIUM 3.8 MEQ/L (3.5-5.1); TOTAL BILIRUBIN ADULT 0.8 MG/DL (0.2-1.0)
[2016-08-31] MEDS: TORSEMIDE 20 MG TAB PO SCH ×2 (08:09→22:10)
[2016-08-31] MEDS: DOFETILIDE 250 MCG CAP PO SCH ×2 (08:09→22:09)
[2016-08-31] MEDS: LACTULOSE SYRUP 20 GM/30 ML CUP PO SCH ×2 (08:09→22:10)
[2016-08-31] MEDS: ASPIRIN 81 MG CHEW TAB CHEW SCH ×2 (08:10→22:09)
[2016-08-31] MEDS: METOPROLOL SUCCINATE 50 MG EXTENDED RELEASE TAB PO SCH (08:10)
[2016-08-31] MEDS: HYDROXYCHLOROQUINE SULFATE 200 MG TAB PO SCH ×2 (08:11→21:00)
[2016-08-31] MEDS: MORPHINE SULFATE 4 MG/ML INJ IV PUSH PRN ×2 (08:21→18:11)
--- NOTE | 2016-08-31 10:58 | HHI.PR ---
Subjective Subjective Notes +bms, no nausea, ng sxn Objective Vitals/I&O Vital Signs Date Time Temp Pulse Resp B/P Pulse Ox O2 Delivery O2 Flow Rate FiO2 08/31/16 08:26 18 08/31/16 08:00 96.5 71 123/86 94 08/30/16 20:04 Room Air 08/27/16 20:15 2.00 Labs Laboratory Tests Test 08/30/16 08/31/16 08/31/16 17:00 05:10 05:40 Activated Partial 48.3 46.2 Thromboplast Time White Blood Count 10.1 Red Blood Count 4.01 Hemoglobin 12.2 Hematocrit 36.5 Mean Corpuscular Volume 91.1 Mean Corpuscular Hemoglobin 30.4 Mean Corpuscular Hemoglobin 33.3 Concent Red Cell Distribution Width 16.3 Platelet Count 193 Mean Platelet Volume 8.8 Neutrophils (%) (Auto) 75.1 Lymphocytes (%) (Auto) 12.6 Monocytes (%) (Auto) 10.2 Eosinophils (%) (Auto) 1.7 Basophils (%) (Auto) 0.4 Neutrophils # (Auto) 7.6 Lymphocytes # (Auto) 1.3 Monocytes # (Auto) 1.0 Eosinophils # (Auto) 0.2 Basophils # (Auto) 0.0 CBC Comment DIFF FINAL Differential Comment Sodium Level 140 Potassium Level 3.8 Chloride Level 101 Carbon Dioxide Level 30.4 Anion Gap 9 Blood Urea Nitrogen 10 Creatinine 0.99 Estimat Glomerular Filtration 75 Rate Random Glucose 110 Calcium Level 7.1 Protein Corrected Calcium 7.7 Total Bilirubin 0.8 Aspartate Amino Transf 22 (AST/SGOT) Alanine Aminotransferase 41 (ALT/SGPT) Alkaline Phosphatase 61 Total Protein 6.0 Albumin 2.7 Date/Time Procedure Status Source Growth 08/29/16 05:15 Stool Occult Blood (IKNJAL) - Final Complete Stool Stool HEMOCCULT POSITIVE 08/28/16 23:01 Stool Occult Blood (KINJAL) Received Stool Stool Pending Radiology Last Impressions Abdomen X-Ray 08/30/16 0000 Signed Impressions: Service Date/Time: Tuesday, August 30, 2016 00:28 - CONCLUSION: There appears to be slightly more distention of loops of small bowel characteristic of small bowel obstruction. Oj Rivas MD Abdomen/Pelvis CT 08/27/16 1023 Signed Impressions: Service Date/Time: Saturday, August 27, 2016 11:21 - CONCLUSION: 1. A subtle filling defect involving the superior mesenteric vein. This raises concern for nonocclusive thrombus. 2. Worsening dilatation of the small bowel without a focal transition point. Small amount of free fluid. No free air. 3. Stable small left effusion. Jr Parker Jr., MD Chest X-Ray 08/27/16 0000 Signed Impressions: Service Date/Time: Saturday, August 27, 2016 11:09 - CONCLUSION: Interval improvement with less parenchymal changes left base. Hebert Saldana MD FACR Hepatobiliary Scan Nuclear Medicine 08/26/16 0000 Signed Impressions: Service Date/Time: Friday, August 26, 2016 08:48 - CONCLUSION: Negative exam. No scintigraphic findings of acute or chronic cholecystitis. No significant biliary enteric reflux. David Baltazar MD Cardiovascular: Regular Lungs: Clear Abdomen: Other (soft +ttp epigastric) A/P Problem List: (1) Abdominal pain (2) chronic medical problems (3) CHF (congestive heart failure) (4) CAD (coronary artery disease) (5) Diabetes mellitus (6) Atrial fibrillation (7) CHF exacerbation (8) Acute renal insufficiency (9) Constipation Assessment and Plan 66 year old male with extensive cardiac history with epigastric pain; unknown etiology, concern for mesenteric ischemia -CTA reviewed--- shows subtle filling defect involving mesenteric vein; possible non occlusive thrombus -Continue Heparin drip; Hematology following -Vascular following -NGT to LIWS- will recheck AXR, yesterday axr look like increasing sbo, clinically pt improving, will recheck AXR if better clamp ng and start clears if same or worse then continue current mgnt -NPO; ice chips okay Problem Qualifiers (1) Abdominal pain: Qualified Code: R10.9 - Abdominal pain, unspecified location Michelet Chino MD Aug 31, 2016 10:58
--- NOTE | 2016-08-31 12:45 | RADRPT ---
EXAM DATE/TIME: 08/31/2016 11:15 [facility] COMPARISON: ABDOMEN FLAT & UPRIGHT, August 30, 2016, 0:28. INDICATIONS : Abdominal distention. MEDICAL HISTORY : Cardiovascular disease. Chronic obstructive pulmonary disease. Diabetes SURGICAL HISTORY : CABG. Hernia ENCOUNTER: Initial ACUITY: 1 week PAIN SCORE: 7/10 LOCATION: Bilateral abdomen FINDINGS: 2 AP supine views of the abdomen. Diffusely dilated air filled small bowel again identified. Degree o f distention is less than on the comparison study. Scattered gas again seen in the colon. CONCLUSION: Persistent diffuse gas filled small bowel dilatation. Decreased in severity when compared with prior. Tomas Peña MD on August 31, 2016 at 12:40 Board Certified Radiologist. This report was verified electronically.
--- NOTE | 2016-08-31 13:12 | HHI.FPPN ---
Addendum to progress note ADDENDUM Reason for addendum: Additonal documentation Additional information Off-service Note Very pleasant 66 year old man with h/o T2DM, HTN, HLD, A-fib, COPD, PAD, SLE, CHF, cardiomyopathy admitted with 10 severe epigastric abdominal pain concerning for mesenteric ischemia versus SBO. A CT angiogram abdomen/pelvis was obtained on 08/23 given the concern for mesenteric ischemia; showed moderate atherosclerotic disease of the mesenteric arterial vasculature, however no occlusion was visualized. Some of the small bowel segments contained fecal-like material and there was mild fluid and stranding in the ileal mesentery in the right abdomen, nonspecific findings however suggestive of early signs of enteric ischemia. His initial abdominal x-ray on 08/23 showed dilated loops of small bowel throughout the abdomen. Gen. surgery was consulted given his SBO. 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 The patient was started on Diflucan on 08/26 and will require a 14-21 day course of this. The patient has been closely monitored with serial abdominal exams as well as monitoring of his lactic acid. The patient has not yet been able to tolerate a diet, which have all exacerbated his abdominal pain. An NG tube was placed which has noted to suction nearly 3.5 L of dark green fluid. The patient is currently NPO again and will need very slow advancement of his diet. Hematology was consulted for recommendations on anticoagulation given the patient to be found having a nonocclusive thrombus in his superior mesenteric vein on a repeat CT angiogram abdomen/pelvis on 08/27 which showed a subtle filling defect involving the superior mesenteric vein concerning for a nonocclusive thrombus. This occurred despite the patient being on Eliquis given his diagnosis of a-fib. Recommendations are for the patient to be bridged to Coumadin. The patient is currently still on a heparin drip. Coumadin has not yet been started given the patient not being able to tolerate even a clear liquid diet and still with a high risk for needing a surgical intervention. Coumadin may be started if the patient is able to tolerate advancement of his diet. The patient over the last few days has finally been able to have a few bowel movements which have provided him significant relief of his abdominal pain. Patient has been able to pass a lot of gas. Donta Arcos MD R1 Aug 31, 2016 13:12
[2016-08-31] MEDS: FLUCONAZOLE 400 MG PREMIX BAG 200 ML IV SCH (16:03)
[2016-08-31] MEDS: BENZONATATE 100 MG CAP PO PRN (18:11)
[2016-08-31] MEDS: LORazepam 2 MG/ML VIAL IV PUSH PRN (22:09)
[2016-08-31] MEDS: METOPROLOL SUCCINATE 25 MG EXTENDED RELEASE TAB PO SCH (22:09)
[2016-08-31] MEDS: ATORVASTATIN 10 MG TAB PO SCH (22:10)
[2016-08-31] MEDS: LISINOPRIL 10 MG TAB PO SCH (22:10)
--- NOTE | 2016-08-31 23:44 | HHI.PR ---
Addendum to Inpatient Note Addendum Reason: Additional Documentation Additional Information S: Patient by nurse regarding patient complaining of increased abdominal pain and bloating. Patient reports that this abdominal pain became gradually worse after 2 PM when his NG tube was clamped around that time. He reports that he then ate one soup in one popsicle and felt like he "blew up" with abdominal pain and distention. He describes his pain at this 9-10 out of 10 gas-like pain extending from his umbilicus to his sternum. He endorses no nausea and felt like he wanted to throw up but couldn't. He also reports 2 bowel movements today. One in the morning 1 around 1 PM. He also reports that he was passing gas well at that time, but has been passing less gas since his NG tube was clamped. O: Vital Signs Date Time Temp Pulse Resp B/P Pulse Ox O2 Delivery O2 Flow Rate FiO2 08/31/16 18:16 18 08/31/16 16:00 96.9 68 135/70 94 08/30/16 20:04 Room Air 08/27/16 20:15 2.00 Abd: Absent bowel sounds, hypertympanic to percussion between sternum and umbilicus A/P: Patient with hospitalization for SMV nonocclusive thrombus, SBO presents with likely SBO. Patient likely needs more bowel rest. Given patient's symptoms , will reverse surgeon's order to advance diet and clamp NG tube. Nothing by mouth NG tube to low intermittent suction Repeat abdominal x-ray to rule out perforation, confirm diagnosis of SBO. AXR appears c/w previous. Giuseppe Hammer MD R1 Aug 31, 2016 23:44
--- NOTE | 2016-08-31 23:58 | RADRPT ---
EXAM DATE/TIME: 08/31/2016 23:26 [facility] COMPARISON: ABDOMEN FLAT & UPRIGHT, August 30, 2016, 0:28. INDICATIONS : Obstruction. MEDICAL HISTORY : Cardiovascular disease. Chronic obstructive pulmonary disease. Diabetes SURGICAL HISTORY : None. ENCOUNTER: Subsequent ACUITY: 1 day PAIN SCORE: 0/10 LOCATION: Bilateral abdomen FINDINGS: Supine and upright views of the abdomen were performed. There again is extensive air throughout the s mall bowel although is less dilated than it was on the third No air fluid levels are seen. No abnorm al masses, calcifications, or organomegaly is seen. The visualized lower lungs are clear. No eviden ce of free intraperitoneal gas. The osseous structures are unremarkable. CONCLUSION: Improvement with numerous air-filled loops of small bowel but not as dilated as they were on the thir d. Mayco Johnson MD on August 31, 2016 at 23:55 Board Certified Radiologist. This report was verified electronically.
[2016-09-01] VITALS (7 sets, daily range): BP systolic 125–157; BP diastolic 81–92; PULSE 68–76; RESP 15–21; TEMP 95.5–97.8; O2SAT 91–94
[2016-09-01] MEDS: MORPHINE SULFATE 4 MG/ML INJ IV PUSH PRN ×2 (03:16→21:17)
[2016-09-01] MEDS: PANTOPRAZOLE SODIUM 40 MG VIAL IV PUSH SCH (05:14)
[2016-09-01] MEDS: LORazepam 2 MG/ML VIAL IV PUSH PRN (05:14)
[2016-09-01] MEDS: ACETAMINOPHEN 1000 MG/100 ML VIAL IV PRN (05:15)
[2016-09-01 06:10] LABS: AUTOMATED NEUTROPHIL # 10.5 TH/MM3 (1.8-7.7); BASOPHIL # 0.1 TH/MM3 (0-0.2); BASOPHIL % 0.8 % (0.0-2.0); EOSINOPHIL # 0.1 TH/MM3 (0-0.4); EOSINOPHIL % 0.8 % (0.0-4.0); HEMATOCRIT 37.4 % (39.0-51.0); HEMO FLAGS DIFF FINAL; LYMPH % 8.6 % (9.0-44.0); LYMPHOCYTE # 1.1 TH/MM3 (1.0-4.8); MEAN CELL VOLUME 90.3 FL (80.0-100.0); MEAN CORPUSCULAR HEMOGLOBIN 29.7 PG (27.0-34.0); MEAN CORPUSCULAR HGB CONC 32.9 % (32.0-36.0); MONO % 8.2 % (0.0-8.0); NEUT % 81.6 % (16.0-70.0); PLATELET COUNT 234 TH/MM3 (150-450); RED BLOOD COUNT 4.14 MIL/MM3 (4.50-5.90); RED CELL DISTRIBUTION WIDTH 16.5 % (11.6-17.2); WHITE BLOOD COUNT 12.9 TH/MM3 (4.0-11.0)
[2016-09-01 06:18] LABS: APTT (PATIENT) 45.4 SEC (24.3-30.1)
[2016-09-01] MEDS: INSULIN ASPART SUPPLEMENTAL SCALE SQ SCH ×4 (06:40→21:00)
[2016-09-01 06:42] LABS: ALKALINE PHOSPHATASE 67 U/L (45-117); ALT (GPT) 36 U/L (12-78); ANION GAP 4 MEQ/L (5-15); AST (GOT) 23 U/L (15-37); BICARBONATE 34.6 MEQ/L (21.0-32.0); BLOOD UREA NITROGEN 8 MG/DL (7-18); CHLORIDE 100 MEQ/L (98-107); GLOMERULAR FILTRATION RATE 79 ML/MIN (>89); POTASSIUM 3.2 MEQ/L (3.5-5.1); SODIUM (NA) 139 MEQ/L (136-145); TOTAL BILIRUBIN ADULT 0.8 MG/DL (0.2-1.0)
[2016-09-01] MEDS ORDERED: CALCIUM CHLORIDE INJ 1 GM in SODIUM CHLORIDE 0.9% INJ 100 ML IV ONE (07:30)
[2016-09-01 08:06] LABS: MAGNESIUM 1.9 MG/DL (1.5-2.5)
[2016-09-01] MEDS: ASPIRIN 81 MG CHEW TAB CHEW SCH ×2 (08:33→21:18)
[2016-09-01] MEDS: METOPROLOL SUCCINATE 50 MG EXTENDED RELEASE TAB PO SCH (08:33)
[2016-09-01] MEDS: TORSEMIDE 20 MG TAB PO SCH ×2 (08:34→21:17)
[2016-09-01] MEDS: LACTULOSE SYRUP 20 GM/30 ML CUP PO SCH ×2 (08:34→21:16)
[2016-09-01] MEDS: DOFETILIDE 250 MCG CAP PO SCH ×2 (08:34→21:18)
[2016-09-01] MEDS: HYDROXYCHLOROQUINE SULFATE 200 MG TAB PO SCH ×2 (08:34→21:00)
[2016-09-01] MEDS: D5-1/2 NS + KCL 20 MEQ INJ 1,000 ML IV SCH ×2 (08:49→21:19)
[2016-09-01] MEDS ORDERED: POTASSIUM PHOSPHATE INJ 15 MMOL in SODIUM CHLORIDE 0.9% INJ 150 ML IV ONE (09:00)
--- NOTE | 2016-09-01 09:10 | HHI.FPPN ---
Subjective Remarks Patient resting comfortably. He says that "this is the best that I felt". His abdominal pain is a 2 out of 10. Last night, he had severe 10 out of 10 RLQ abdominal pain, that was sharp in nature. This pain was relieved with 2 mg IV morphine at 0400. Yesterday, he reports not tolerating a popsicle and a sip of soup. He denies fevers, chills, chest pain, or SOB. He has noticed swelling in his legs for the past 2 days. (Ulisses Lynn MD R2) Objective Vitals Vital Signs Date Time Temp Pulse Resp B/P Pulse Ox O2 Delivery O2 Flow Rate FiO2 09/01/16 08:00 95.5 71 20 125/81 93 09/01/16 03:45 96.0 76 21 157/92 93 09/01/16 00:05 96.8 68 20 135/87 92 08/31/16 22:00 72 08/31/16 20:35 96.6 76 20 161/69 94 08/31/16 18:16 18 08/31/16 16:00 96.9 68 18 135/70 94 08/31/16 12:00 95.9 67 22 142/85 93 I/O 08/31/16 08/31/16 08/31/16 09/01/16 09/01/16 09/01/16 07:00 15:00 23:00 07:00 15:00 23:00 Intake Total 1349 ml 368 ml 235 ml Output Total 1475 ml 200 ml 2350 ml 750 ml Balance -126 ml -200 ml -1982 ml -515 ml Intake Oral 480 ml 240 ml 120 ml IV Total 869 ml 128 ml 115 ml Output Urine Total 1275 ml 2350 ml 600 ml Gastric Drainage Total 200 ml 200 ml 150 ml # Bowel Movements 0 0 1 (Ulisses Lynn MD R2) Result Diagram: 09/01/16 0556 09/01/16 0556 Objective Remarks GENERAL: Sitting up in chair, no acute distress. SKIN: Warm/dry. HEAD: Atraumatic. Normocephalic. EYES: No scleral icterus. No injection or drainage. ENT: MMM. NECK: Trachea midline. No JVD. Supple. CARDIOVASCULAR: Regular rate and rhythm. No murmur appreciated. RESPIRATORY: No increased work of breathing. Lungs are clear anteriorly without wheezing, rhonchi or crackles. GASTROINTESTINAL: Abdomen obese, tender to palpation over right lower quadrant. +BS throughout, but sluggish. Voluntary guarding. MUSCULOSKELETAL: No obvious deformities. No cyanosis. 2+ pitting edema bilateral lower extremities. NEUROLOGICAL: Awake and alert. lining baster grossly intact. Motor grossly within normal limits. Normal speech. PSYCHIATRIC: Appropriate mood and affect; insight and judgment normal. (Ulisses Lynn MD R2) A/P Assessment and Plan 66-year-old male with history of COPD, CAD s/p 3-vessel CABG, HTN, HLD, atrial fibrillation, type 2 DM, and lupus. The imaging findings concerning for small bowel obstruction and mesenteric ischemia. Discharge Planning Unclear timetable. Pending resolution of abdominal pain and further studies if indicated Pending GI, vascular surgery, general surgery, hematology recommendations. ( Ulisses Lynn MD R2) Attending Attestation Patient seen and examined. Case reviewed and discussed. Agree with plan of care as discussed with me and documented in the resident note. 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 CT of the abdomen does not show any small bowel obstruction. It does show large amounts of stool in the small bowel. * Reduce IVF from D5 half-normal saline 100 mL/hr to 60 ml/hr given pitting edema in lower extremities. * Continue Zosyn * Fleets enemas prn * Lactulose 30 mL PO BID * Protonix 40 mg IV daily * Jihan-Colace 2 tablets po BID * Consulted hematology/oncology for recommendations regarding anticoagulation as patient developed nonocclusive thrombus in SMV despite on Eliquis. Recommend starting the patient on Coumadin. Will start patient on Coumadin once patient is able to tolerate diet better after diet is slowly advance. Will be cautious starting Coumadin at this time given the patient still has not proven he is able to tolerate even a CLD and patient is still high risk for possible surgical intervention. * Continue heparin drip for now * Vascular surgery consulted * Hypercoagulable Labs ordered per hematology: Anti-thrombin, protein C, factor V 5, homocystine, lupus anticoagulant, cardiolipin, protein S, factor VIII, russel 2 mutation, ANA PAULA * Continue Diflucan 400 mg IV daily, complete course of 14-21 days (started 08/26 ) * Ofirmev 650 mg IV q6h for pain * Morphine 2mg IV q6h prn breakthrough pain * Continue NGT to LIWS * Keep patient NPO * HIDA scan negative * Gastroenterology consulted * EGD findings of white exudates consistent with candidiasis in the entire esophagus with brushing for microbiology done; 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, no biopsies obtained due to patient on Eliquis; mild gastritis in the entire examined stomach, no biopsies obtained ; nml duodenal mucosa in the 2nd part of the duodenum * CT abdomen/pelvis with delayed IV contrast showing subtle filling defect involving the superior mesenteric vein raising concern for nonocclusive thrombus ; worsening dilatation of the small bowel without a focal transition point; no free air Repeat CT scan with IV contrast today 09/01 given worsening abdominal pain, new leukocytosis, and voluntary guarding on exam. Concern for new or worsening bowel ischemia. Also will get Echocardiogram to rule out thrombus with emboli to gut. Patient is on antiarrhythmic medications. (2) SBO (small bowel obstruction) Status: Acute Plan: Gen. surgery consult Patient is passing gas and bowel movements. NG tube set to suction NPO Continue medications as above to promote BMs Out of bed to chair TID to promote gut motility. (3) Leukocytosis Status: Acute Plan: SIRS criteria resolved, WBC of 12.9 k and lactic was WNL at 0.9. * Zosyn 4.5 g IV every 8 hours d/c'ed (08/23 - 08/30). Restart antibiotics if febrile or worsening WBCs. * Blood cultures no growth after 5 days * UA not indicating culture * Continue to monitor (4) chronic medical problems Status: Chronic Plan: Atrial fibrillation: On heparin drip, continue aspirin 81 mg daily, continue Tikosyn 500 mcg PO BID Hypertension: Continue Metoprolol succinate ER 50 mg in the morning and 25 mg in the evening and lisinopril 10 mg by mouth daily at bedtime Hyperlipidemia: Continue Crestor 5 mg daily at bedtime, continue coenzyme Q10 200 mg by mouth daily at bedtime (Will need to bring on medication from home) Congestive heart failure: Continue torsemide 20 mg by mouth twice a day. Continue lisinopril 10 mg by mouth twice a day Lupus: Continue Plaquenil COPD with recent exacerbation: Alternate albuterol and DuoNeb's, oxygen as needed (5) Nutrition, metabolism, and development symptoms Status: Acute Plan: Diet: NPO Fluids: D5 half-normal saline at 100 cc/hr, decrease to 50 cc / hr given worsening 2+ pitting edema on exam. Electrolytes: WNLs, continue to monitor and replete as necessary DVT prophylaxis: b/l SCDs; heparin drip GI prophylaxis: Continue Protonix 40 mg IV q24h (Ulisses Lynn MD R2) Problem Qualifiers (1) Leukocytosis: Qualified Code: D72.829 - Leukocytosis, unspecified type Ulisses Lynn MD R2 Sep 01, 2016 09:10 Arianna Sanford MD Sep 02, 2016 16:04
--- NOTE | 2016-09-01 10:56 | PD.ONC.PN ---
Subjective Subjective Remarks Afebrile overnight. Patient resting in bed. Remains NPO. Did not tolerate clear liquids. NG tube still in place. 350cc/24hrs Objective Data Date Time Temp Pulse Resp B/P Pulse Ox O2 Delivery O2 Flow Rate FiO2 09/01/16 08:00 95.5 71 20 125/81 93 09/01/16 03:45 96.0 76 21 157/92 93 09/01/16 00:05 96.8 68 20 135/87 92 08/31/16 22:00 72 08/31/16 20:35 96.6 76 20 161/69 94 08/31/16 18:16 18 08/31/16 16:00 96.9 68 18 135/70 94 08/31/16 12:00 95.9 67 22 142/85 93 09/01/16 09/01/16 09/01/16 07:00 15:00 23:00 Intake Total 235 ml Output Total 750 ml Balance -515 ml Result Diagram: 09/01/16 0556 09/01/16 0556 Laboratory Results Laboratory Tests Test 09/01/16 05:56 White Blood Count 12.9 TH/MM3 Red Blood Count 4.14 MIL/MM3 Hemoglobin 12.3 GM/DL Hematocrit 37.4 % Mean Corpuscular Volume 90.3 FL Mean Corpuscular Hemoglobin 29.7 PG Mean Corpuscular Hemoglobin 32.9 % Concent Red Cell Distribution Width 16.5 % Platelet Count 234 TH/MM3 Mean Platelet Volume 7.4 FL Neutrophils (%) (Auto) 81.6 % Lymphocytes (%) (Auto) 8.6 % Monocytes (%) (Auto) 8.2 % Eosinophils (%) (Auto) 0.8 % Basophils (%) (Auto) 0.8 % Neutrophils # (Auto) 10.5 TH/MM3 Lymphocytes # (Auto) 1.1 TH/MM3 Monocytes # (Auto) 1.1 TH/MM3 Eosinophils # (Auto) 0.1 TH/MM3 Basophils # (Auto) 0.1 TH/MM3 CBC Comment DIFF FINAL Differential Comment Activated Partial 45.4 SEC Thromboplast Time Sodium Level 139 MEQ/L Potassium Level 3.2 MEQ/L Chloride Level 100 MEQ/L Carbon Dioxide Level 34.6 MEQ/L Anion Gap 4 MEQ/L Blood Urea Nitrogen 8 MG/DL Creatinine 0.95 MG/DL Estimat Glomerular Filtration 79 ML/MIN Rate Random Glucose 125 MG/DL Lactic Acid Level 0.9 mmol/L Calcium Level 8.1 MG/DL Phosphorus Level 2.7 MG/DL Magnesium Level 1.9 MG/DL Total Bilirubin 0.8 MG/DL Aspartate Amino Transf 23 U/L (AST/SGOT) Alanine Aminotransferase 36 U/L (ALT/SGPT) Alkaline Phosphatase 67 U/L Total Protein 6.2 GM/DL Albumin 2.9 GM/DL Administered Medications Medications (Trade) Dose Ordered Sig/Josie Route PRN Reason Start Time Stop Time Status Last Admin Dose Admin Sodium Chloride 2 ml 2 ml UNSCH PRN IV FLUSH FLUSH AFTER USING IV ACCESS 08/23/16 00:30 08/30/16 10:10 Potassium Chloride/Dextrose/ Sod Cl (D5-1/2 NS + KCl 20 Meq Inj) 1,000 ml @ 100 mls/hr Q10H IV 08/23/16 05:29 08/31/16 13:29 Ondansetron HCl (Zofran Inj) 4 mg Q6H PRN IV NAUSEA 08/23/16 05:30 08/27/16 10:37 Senna/Docusate Sodium (Jihan-Colace) 2 tab BID PRN PO CONSTIPATION 08/23/16 05:30 08/24/16 04:06 Aspirin (Aspirin Chew) 81 mg BID CHEW 08/23/16 09:00 09/01/16 08:33 Dofetilide (Tikosyn) 500 mcg BID PO 08/23/16 09:00 09/01/16 08:34 Hydroxychloroquine Sulfate (Plaquenil) 200 mg BID PO 08/23/16 09:00 08/30/16 09:49 Lisinopril (Prinivil) 10 mg HS PO 08/23/16 21:00 08/31/16 22:10 Metoprolol Succinate (Toprol Xl) 50 mg DAILY PO 08/23/16 09:00 09/01/16 08:33 Metoprolol Succinate (Toprol Xl) 25 mg HS PO 08/23/16 21:00 08/31/16 22:09 Prednisone (Deltasone) 40 mg DAILY PO 08/23/16 09:00 Hold 08/26/16 09:00 Torsemide (Demadex) 20 mg BID PO 08/23/16 09:00 09/01/16 08:34 Atorvastatin Calcium (Lipitor) 10 mg HS PO CM 08/23/16 21:00 08/31/16 22:10 Pantoprazole Sodium (Protonix Inj) 40 mg Q24H IV PUSH 08/23/16 06:30 09/01/16 05:14 Benzonatate (Tessalon) 200 mg TID PRN PO COUGH 08/25/16 03:15 08/31/16 18:11 Bisacodyl (Dulcolax Supp) 10 mg DAILY PRN RECTAL CONSTIPATION 08/25/16 10:45 08/28/16 09:01 Lactulose (Lactulose Liq) 30 ml BID PO 08/26/16 21:00 09/01/16 08:34 Acetaminophen 650 mg 650 mg Q6HR PRN IV PAIN 1-10 08/26/16 23:30 09/01/16 05:15 Fluconazole/ Sodium Chloride (Diflucan 400 Mg Premix Bag) 200 ml @ 100 mls/hr Q24H IV 08/27/16 16:00 08/31/16 16:03 Lorazepam (Ativan Inj) 1 mg Q6H PRN IV PUSH MOD - SEVERE ANXIETY/AGITATION 08/27/16 15:00 09/01/16 05:14 Morphine Sulfate (Morphine Inj) 2 mg Q6HR PRN IV PUSH BREAKTHROUGH PAIN 08/27/16 18:00 09/01/16 03:16 Heparin Sodium (Porcine) 2500 units 2,500 units UNSCH PRN IV APTT 25 TO 39 08/28/16 01:30 08/30/16 04:46 Heparin Sodium/ Dextrose 250 ml @ 0 mls/hr TITRATE IV 08/27/16 19:30 08/31/16 16:26 Potassium Phosphate/Sodium Chloride (Potassium Phosphate Inj/NS Inj) 155 ml @ 38.75 mls/ hr ONCE ONCE IV 09/01/16 09:00 09/01/16 12:59 09/01/16 08:35 Objective Remarks GENERAL: Middle aged male, lying supine in bed, NGT to LIWS. appears comfortable SKIN: Warm and dry. HEAD: Normocephalic. EYES: No injection or drainage. NECK: Supple, trachea midline. CARDIOVASCULAR: Regular rate and rhythm RESPIRATORY: Breath sounds equal bilaterally. No accessory muscle use. GASTROINTESTINAL: Abdomen soft, non-tender, nondistended. EXTREMITIES: No cyanosis NEUROLOGICAL: awake but fatigued. able to move extremities.. 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 --developed thrombus while on eliquis. -hypercoag w/u pending. --will need lifetime anticoagulation (has afib) (2) SBO (small bowel obstruction) Status: Acute Plan: --surgery following --remains NPO with NGT in place. Assessment 66y/o male with superior mesenteric vein nonocclusive thrombus. --hypertension, hyperlipidemia, diabetes, atrial fibrillation. --Lupus, Congestive heart failure, COPD -- Triple bypass surgery 2011 --Ablation x4 --coronary artery bypass graft x3 --hernia repair Plan 1. continue heparin gtt 2. monitor CBC 3. start coumadin when tolerating regular diet and all procedures complete Attending Statement The exam, history, and the medical decision-making described in the above note were completed with the assistance of the mid-level provider. I reviewed and agree with the findings presented. I attest that I had a [id number] encounter with the patient on the same day, and personally performed and documented my assessment and findings in the medical record Diana Owen Sep 01, 2016 10:56 Noah Roberson MD Sep 02, 2016 00:38
--- NOTE | 2016-09-01 14:25 | HHI.PR ---
Subjective Subjective Notes Resting in bed Reports he had episode of abdominal pain last night but now resolved Going for repeat CT scan today Objective Vitals/I&O Vital Signs Date Time Temp Pulse Resp B/P Pulse Ox O2 Delivery O2 Flow Rate FiO2 09/01/16 08:00 95.5 71 20 125/81 93 08/30/16 20:04 Room Air Labs Laboratory Tests Test 09/01/16 05:56 White Blood Count 12.9 Red Blood Count 4.14 Hemoglobin 12.3 Hematocrit 37.4 Mean Corpuscular Volume 90.3 Mean Corpuscular Hemoglobin 29.7 Mean Corpuscular Hemoglobin 32.9 Concent Red Cell Distribution Width 16.5 Platelet Count 234 Mean Platelet Volume 7.4 Neutrophils (%) (Auto) 81.6 Lymphocytes (%) (Auto) 8.6 Monocytes (%) (Auto) 8.2 Eosinophils (%) (Auto) 0.8 Basophils (%) (Auto) 0.8 Neutrophils # (Auto) 10.5 Lymphocytes # (Auto) 1.1 Monocytes # (Auto) 1.1 Eosinophils # (Auto) 0.1 Basophils # (Auto) 0.1 CBC Comment DIFF FINAL Differential Comment Activated Partial 45.4 Thromboplast Time Sodium Level 139 Potassium Level 3.2 Chloride Level 100 Carbon Dioxide Level 34.6 Anion Gap 4 Blood Urea Nitrogen 8 Creatinine 0.95 Estimat Glomerular Filtration 79 Rate Random Glucose 125 Lactic Acid Level 0.9 Calcium Level 8.1 Phosphorus Level 2.7 Magnesium Level 1.9 Total Bilirubin 0.8 Aspartate Amino Transf 23 (AST/SGOT) Alanine Aminotransferase 36 (ALT/SGPT) Alkaline Phosphatase 67 Total Protein 6.2 Albumin 2.9 Date/Time Procedure Status Source Growth 08/29/16 05:15 Stool Occult Blood ([facility]) - Final Complete Stool Stool HEMOCCULT POSITIVE 08/28/16 23:01 Stool Occult Blood ([facility]JAL) Received Stool Stool Pending Radiology Last Impressions Abdomen X-Ray 08/30/16 0000 Signed Impressions: Service Date/Time: Tuesday, August 30, 2016 00:28 - CONCLUSION: There appears to be slightly more distention of loops of small bowel characteristic of small bowel obstruction. Oj Rivas MD Abdomen/Pelvis CT 08/27/16 1023 Signed Impressions: Service Date/Time: Saturday, August 27, 2016 11:21 - CONCLUSION: 1. A subtle filling defect involving the superior mesenteric vein. This raises concern for nonocclusive thrombus. 2. Worsening dilatation of the small bowel without a focal transition point. Small amount of free fluid. No free air. 3. Stable small left effusion. Jr Parker Jr., MD Chest X-Ray 08/27/16 0000 Signed Impressions: Service Date/Time: Saturday, August 27, 2016 11:09 - CONCLUSION: Interval improvement with less parenchymal changes left base. Hebert Saldana MD FACR Hepatobiliary Scan Nuclear Medicine 08/26/16 0000 Signed Impressions: Service Date/Time: Friday, August 26, 2016 08:48 - CONCLUSION: Negative exam. No scintigraphic findings of acute or chronic cholecystitis. No significant biliary enteric reflux. David Baltazar MD Cardiovascular: Regular Lungs: Clear Abdomen: Other (Abdomen distended; non tender with palpation ) Extremities: No edema Narrative Exam NGT in place A/P Problem List: (1) Abdominal pain (2) chronic medical problems (3) CHF (congestive heart failure) (4) CAD (coronary artery disease) (5) Diabetes mellitus (6) Atrial fibrillation (7) CHF exacerbation (8) Acute renal insufficiency (9) Constipation Assessment and Plan 66 year old male with extensive cardiac history with epigastric pain; non occlusive thrombus in mesenteric vein -Repeat CT today to eval recurrent abdominal pain -Continue Heparin drip; Hematology following -Vascular following -NGT to LIWS -NPO -Discussed with Dr. Cordero Attending Statement The exam, history, and the medical decision-making described in the above note were completed with the assistance of the mid-level provider. I reviewed and agree with the findings presented. I attest that I had a [id number] encounter with the patient on the same day, and personally performed and documented my assessment and findings in the medical record. pain better today. abdominal exam stable: mildly distended, no guarding or peritonitis continue supportive care, will follow exams Problem Qualifiers (1) Abdominal pain: Qualified Code: R10.9 - Abdominal pain, unspecified location Karena Cordon Sep 01, 2016 14:25 Jovani Cordero MD Sep 19, 2016 09:57
[2016-09-01] MEDS: FLUCONAZOLE 400 MG PREMIX BAG 200 ML IV SCH (16:05)
--- NOTE | 2016-09-01 16:15 | HHI.FPPN ---
Addendum to progress note ADDENDUM Reason for addendum: Additonal documentation Additional information Patient AF and VSS. Resting comfortably in chair. No abdominal pain. NG tube suction clamped. No nausea or vomiting. No BMs today, but passing gas. Denies fevers or chills. EXAM: 153/92 pulse 73, 96.1 F, 93% on ra ABD: SOft, slightly distended, non tender, BS+ but slluggish A/P: Problem # 1: SMV Non occlusive thrombus, SBO. -Lactic acid within normal limits, mild leukocytosis without fever. Patient appears comfortable. -CT with IV contrast to rule out worsening mesenteric ischemia. -NPO. -NG tube low intermittent suction. -Will follow up CT abdomen. wdw Dr. Sanford. (Ulisses Lynn MD R2) Ulisses Lynn MD R2 Sep 01, 2016 16:15 Arianna Sanford MD Sep 02, 2016 16:04
[2016-09-01] MEDS ORDERED: IOHEXOL 350 MG/ML 10 ML VIAL (for RAD DIAG) IV ONE (18:14)
--- NOTE | 2016-09-01 18:55 | RADRPT ---
EXAM DATE/TIME: 09/01/2016 17:33 [facility] COMPARISON: CT ABDOMEN & PELVIS W/O CONTRAST, August 23, 2016, 0:55. ABDOMEN FLAT & UPRIGHT, August 31, 2016, 23:26. ABDOMEN KUB ONLY, August 31, 2016, 11:15. ABDOMEN FLAT & UPRIGHT, August 30, 2016, 0:28. CTA ABDOMEN & PELVIS W 3D RECON, August 27, 2016, 11:21. INDICATIONS : Diffuse abdomen pain last night abdomen distention. IV CONTRAST: 94 cc Omnipaque 350 (iohexol) IV ORAL CONTRAST: No oral contrast ingested. RADIATION DOSE: 27.11 CTDIvol (mGy) MEDICAL HISTORY : Cardiovascular disease. Hypertension. Lupus.Renal stones,diabetes,chf SURGICAL HISTORY : CABG Hernia repair ENCOUNTER: Initial ACUITY: 1 day PAIN SCALE: 2/10 LOCATION: Abdomen TECHNIQUE: Volumetric scanning of the abdomen and pelvis was performed. Using automated exposure control and ad justment of the mA and/or kV according to patient size, radiation dose was kept as low as reasonably achievable to obtain optimal diagnostic quality images. FINDINGS: LOWER LUNGS: Loculated effusion and consolidation again seen of the visualized left lung base. LIVER: Homogeneous density without lesion. There is no dilation of the biliary tree. No calcified gallston es. SPLEEN: Normal size without lesion. PANCREAS: Within normal limits. KIDNEYS: Bilateral renal cysts are noted. There is a 1 mm nonobstructing stone of the upper pole the right kid odette. ADRENAL GLANDS: Within normal limits. VASCULAR: Atherosclerosis again seen of the abdominal aorta and superior mesenteric artery. BOWEL/MESENTERY: Moderately distended loops of succus filled small bowel seen, especially distal ileum. The terminal i leum is decompressed the. Edema and small fluid in the right lower quadrant and right pericolic gutte r similar to before. Nasogastric tube again noted. Stomach is decompressed. ABDOMINAL WALL: Within normal limits. RETROPERITONEUM: There is no lymphadenopathy. BLADDER: No wall thickening or mass. REPRODUCTIVE: Within normal limits. INGUINAL: There is no lymphadenopathy or hernia. MUSCULOSKELETAL: No acute bony abnormality demonstrated. CONCLUSION: 1. Persistent small bowel obstruction and appears to be occurring at the level of the distal ileum. P oint of obstruction is likely in the right lower quadrant. I don't see a mass. Small mesenteric and r ight paracolic gutter fluid again noted, not significantly changed. No evidence of perforation. 2. Loculated effusion with consolidation again seen of the left lung base. 3. Cysts of both kidneys. 1 mm nonobstructing stone of the right kidney. Landon Zarco MD on September 01, 2016 at 18:46 Board Certified Radiologist. This report was verified electronically.
[2016-09-01] MEDS: DOCUSATE SODIUM 50 MG/SENNA 8.6 MG TAB PO PRN (21:16)
[2016-09-01] MEDS: LISINOPRIL 10 MG TAB PO SCH (21:17)
[2016-09-01] MEDS: ATORVASTATIN 10 MG TAB PO SCH (21:17)
[2016-09-01] MEDS: METOPROLOL SUCCINATE 25 MG EXTENDED RELEASE TAB PO SCH (21:18)
[2016-09-02] VITALS (8 sets, daily range): BP systolic 119–163; BP diastolic 67–92; PULSE 69–78; RESP 15–20; TEMP 96.6–97.8; O2SAT 90–93
[2016-09-02] MEDS: MORPHINE SULFATE 4 MG/ML INJ IV PUSH PRN ×3 (03:13→20:30)
[2016-09-02] MEDS: HEPARIN-D5W INJ 250 ML IV SCH (03:15)
[2016-09-02 06:26] LABS: AUTOMATED NEUTROPHIL # 8.9 TH/MM3 (1.8-7.7); BASOPHIL % 0.4 % (0.0-2.0); EOSINOPHIL # 0.2 TH/MM3 (0-0.4); EOSINOPHIL % 1.5 % (0.0-4.0); HEMATOCRIT 37.9 % (39.0-51.0); HEMO FLAGS DIFF FINAL; LYMPH % 12.7 % (9.0-44.0); LYMPHOCYTE # 1.5 TH/MM3 (1.0-4.8); MEAN CELL VOLUME 90.9 FL (80.0-100.0); MEAN CORPUSCULAR HEMOGLOBIN 29.8 PG (27.0-34.0); MEAN CORPUSCULAR HGB CONC 32.8 % (32.0-36.0); MONO % 9.1 % (0.0-8.0); NEUT % 76.3 % (16.0-70.0); PLATELET COUNT 219 TH/MM3 (150-450); RED BLOOD COUNT 4.16 MIL/MM3 (4.50-5.90); RED CELL DISTRIBUTION WIDTH 16.5 % (11.6-17.2); WHITE BLOOD COUNT 11.7 TH/MM3 (4.0-11.0)
[2016-09-02] MEDS: PANTOPRAZOLE SODIUM 40 MG VIAL IV PUSH SCH (06:34)
[2016-09-02] MEDS: INSULIN ASPART SUPPLEMENTAL SCALE SQ SCH ×4 (06:34→21:00)
[2016-09-02 06:51] LABS: BICARBONATE 33.9 MEQ/L (21.0-32.0)
[2016-09-02 06:52] LABS: APTT (PATIENT) 44.9 SEC (24.3-30.1)
[2016-09-02] MEDS: METOPROLOL SUCCINATE 50 MG EXTENDED RELEASE TAB PO SCH (08:14)
[2016-09-02] MEDS: DOFETILIDE 250 MCG CAP PO SCH ×2 (08:14→20:32)
[2016-09-02] MEDS: LACTULOSE SYRUP 20 GM/30 ML CUP PO SCH ×2 (08:14→20:32)
[2016-09-02] MEDS: ASPIRIN 81 MG CHEW TAB CHEW SCH ×2 (08:15→20:33)
[2016-09-02] MEDS: TORSEMIDE 20 MG TAB PO SCH ×2 (08:15→20:32)
[2016-09-02] MEDS: HYDROXYCHLOROQUINE SULFATE 200 MG TAB PO SCH ×2 (08:18→20:32)
[2016-09-02 09:20] LABS: MAGNESIUM 1.9 MG/DL (1.5-2.5)
--- NOTE | 2016-09-02 09:34 | RADRPT ---
EXAM DATE/TIME: 09/02/2016 08:40 [facility] COMPARISON: CHEST SINGLE AP, August 27, 2016, 11:09. ABDOMEN FLAT & UPRIGHT, August 31, 2016, 23:26. INDICATIONS : Post thoracentesis. MEDICAL HISTORY : Cardiovascular disease. Chronic obstructive pulmonary disease. Diabetes SURGICAL HISTORY : CABG. Hernia repair ENCOUNTER: Subsequent ACUITY: 2 weeks PAIN SCORE: 0/10 LOCATION: Bilateral chest FINDINGS: The patient is post median sternotomy. The heart is enlarged. There are chronic interstitial changes throughout the pulmonary parenchyma. There is a nasogastric tube present. No pneumothorax is identifi ed. No significant pleural effusion is present. There is mild atelectasis at the left lung base. The bony structures are intact. CONCLUSION: 1. No pneumothorax identified following thoracentesis. 2. Continued pleural and parenchymal changes. Mckay Saldana MD on September 02, 2016 at 9:31 Board Certified Radiologist. This report was verified electronically.
--- NOTE | 2016-09-02 11:05 | HHI.FPPN ---
Subjective Remarks No acute events overnight. Afebrile, vital signs stable. Patient reports feeling well. He states his abdomen is pain free. He had 2 bowel movements yesterday and multiple episodes of flatus today. (Sarai Cagle MD R3) Objective Vitals Vital Signs Date Time Temp Pulse Resp B/P Pulse Ox O2 Delivery O2 Flow Rate FiO2 09/02/16 08:03 74 09/02/16 08:00 97.2 72 20 143/72 90 09/02/16 04:00 97.5 78 16 119/67 90 09/02/16 00:00 97.6 76 15 139/85 91 09/01/16 21:16 74 09/01/16 20:09 97.8 76 15 151/84 91 09/01/16 16:00 96.0 70 16 145/86 94 09/01/16 12:00 96.1 73 19 153/92 93 I/O 09/01/16 09/01/16 09/01/16 09/02/16 09/02/16 09/02/16 07:00 15:00 23:00 07:00 15:00 23:00 Intake Total 235 ml 0 ml 608 ml 0 ml Output Total 750 ml 750 ml 625 ml 475 ml Balance -515 ml -750 ml -17 ml -475 ml Intake Oral 120 ml 0 ml 480 ml 0 ml IV Total 115 ml 128 ml Output Urine Total 600 ml 600 ml 600 ml 300 ml Gastric Drainage Total 150 ml 150 ml 25 ml 175 ml # Voids 2 # Bowel Movements 1 0 0 (Sarai Cagle MD R3) Result Diagram: 09/02/16 0520 09/02/16 0520 Objective Remarks GENERAL: Sitting up in chair, no acute distress. SKIN: Warm/dry. HEAD: Atraumatic. Normocephalic. EYES: No scleral icterus. No injection or drainage. ENT: MMM. NECK: Trachea midline. No JVD. Supple. CARDIOVASCULAR: Regular rate and rhythm. No murmur appreciated. RESPIRATORY: No increased work of breathing. Lungs are clear anteriorly without wheezing, rhonchi or crackles. GASTROINTESTINAL: Abdomen obese, nontender to palpation. Distention much improved from yesterday. MUSCULOSKELETAL: No obvious deformities. No cyanosis. 2+ pitting edema bilateral lower extremities. NEUROLOGICAL: Awake and alert. 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 Motor grossly within normal limits. Normal speech. PSYCHIATRIC: Appropriate mood and affect; insight and judgment normal. (Sarai Cagle MD R3) A/P Assessment and Plan 66-year-old male with history of COPD, CAD s/p 3-vessel CABG, HTN, HLD, atrial fibrillation, type 2 DM, and lupus. Now with partial small bowel obstruction and superior mesenteric vein partial thrombosis, currently being treated with heparin ggt. Discharge Planning Pending clinical improvement (Sarai Cagle MD R3) Attending Attestation Patient seen and examined. Case reviewed and discussed. Agree with plan of care as discussed with me and documented in the resident note. Feeling better today. For possible thoracentesis, patient informs me this finding has been present for several years and follows with Dr. Harman. (Arianna Sanford MD) Problem List: (1) Superior mesenteric vein thrombosis Status: Acute Plan: Superior mesenteric venous thrombosis, partial. Patient on heparin drip. Continue to have abdominal pain, repeat CT scan yesterday showed persistent small bowel obstruction at the level of the distal ileum. A loculated effusion with consolidation was seen in the left lung base. * IVF D5 half-normal 50 ml/hr * Fleets enemas prn * Lactulose 30 mL PO BID * Protonix 40 mg IV daily * Jihan-Colace 2 tablets po BID * Consulted hematology/oncology for recommendations regarding anticoagulation as patient developed nonocclusive thrombus in SMV despite on Eliquis. Heparin ggt. Will start patient on Coumadin once patient is able to tolerate diet better after diet is slowly advance. Will be cautious starting Coumadin at this time given the patient still has not proven he is able to tolerate even a CLD and patient is still high risk for possible surgical intervention. 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 surgery following Patient is passing gas and bowel movements. NG tube set to suction NPO Continue medications as above to promote BMs Out of bed to chair TID to promote gut motility. (3) Leukocytosis Status: Acute Plan: Persistent leukocytosis, cause unclear. Possibly secondary to abdominal process versus lung infection. Thoracentesis this afternoon for loculated effusion found on CT scan yesterday (4) Pleural effusion Status: Acute Plan: Plan as above. Labs pending. (5) chronic medical problems Status: Chronic Plan: Atrial fibrillation: On heparin drip, continue aspirin 81 mg daily, continue Tikosyn 500 mcg PO BID Hypertension: Continue Metoprolol succinate ER 50 mg in the morning and 25 mg in the evening and lisinopril 10 mg by mouth daily at bedtime Hyperlipidemia: Continue Crestor 5 mg daily at bedtime, continue coenzyme Q10 200 mg by mouth daily at bedtime (Will need to bring on medication from home) Congestive heart failure: Continue torsemide 20 mg by mouth twice a day. Continue lisinopril 10 mg by mouth twice a day Lupus: Continue Plaquenil COPD with recent exacerbation: Alternate albuterol and DuoNeb's, oxygen as needed (6) Nutrition, metabolism, and development symptoms Status: Acute Plan: Diet: NPO Fluids: D5 half-normal saline 50 cc/hour Electrolytes: WNLs, continue to monitor and replete as necessary DVT prophylaxis: b/l SCDs; heparin drip GI prophylaxis: Continue Protonix 40 mg IV q24h (Sarai Cagle MD R3) Problem Qualifiers (1) Leukocytosis: Qualified Code: D72.829 - Leukocytosis, unspecified type Sarai Cagle MD R3 Sep 02, 2016 11:05 Arianna Sanford MD Sep 02, 2016 16:05
--- NOTE | 2016-09-02 12:18 | PD.ONC.PN ---
Subjective Subjective Remarks Afebrile overnight. patient resting comfortably. Waiting to go down for procedure. Heparin gtt off in preparation for procedure. "I feel good." Objective Data Date Time Temp Pulse Resp B/P Pulse Ox O2 Delivery O2 Flow Rate FiO2 09/02/16 08:03 74 09/02/16 08:00 97.2 72 20 143/72 90 09/02/16 04:00 97.5 78 16 119/67 90 09/02/16 00:00 97.6 76 15 139/85 91 09/01/16 21:16 74 09/01/16 20:09 97.8 76 15 151/84 91 09/01/16 16:00 96.0 70 16 145/86 94 09/02/16 09/02/16 09/02/16 07:00 15:00 23:00 Intake Total 0 ml Output Total 475 ml Balance -475 ml Result Diagram: 09/02/16 0520 09/02/16 0520 Laboratory Results Laboratory Tests Test 09/02/16 05:20 White Blood Count 11.7 TH/MM3 Red Blood Count 4.16 MIL/MM3 Hemoglobin 12.4 GM/DL Hematocrit 37.9 % Mean Corpuscular Volume 90.9 FL Mean Corpuscular Hemoglobin 29.8 PG Mean Corpuscular Hemoglobin 32.8 % Concent Red Cell Distribution Width 16.5 % Platelet Count 219 TH/MM3 Mean Platelet Volume 7.8 FL Neutrophils (%) (Auto) 76.3 % Lymphocytes (%) (Auto) 12.7 % Monocytes (%) (Auto) 9.1 % Eosinophils (%) (Auto) 1.5 % Basophils (%) (Auto) 0.4 % Neutrophils # (Auto) 8.9 TH/MM3 Lymphocytes # (Auto) 1.5 TH/MM3 Monocytes # (Auto) 1.1 TH/MM3 Eosinophils # (Auto) 0.2 TH/MM3 Basophils # (Auto) 0.0 TH/MM3 CBC Comment DIFF FINAL Differential Comment Activated Partial 44.9 SEC Thromboplast Time Sodium Level 142 MEQ/L Potassium Level 3.0 MEQ/L Chloride Level 99 MEQ/L Carbon Dioxide Level 33.9 MEQ/L Anion Gap 9 MEQ/L Blood Urea Nitrogen 9 MG/DL Creatinine 0.88 MG/DL Estimat Glomerular Filtration 86 ML/MIN Rate Random Glucose 108 MG/DL Calcium Level 8.1 MG/DL Magnesium Level 1.9 MG/DL Imaging Studies Last 24 hours Impressions Chest X-Ray 09/02/16 0000 Signed Impressions: Service Date/Time: Friday, September 02, 2016 08:40 - CONCLUSION: 1. No pneumothorax identified following thoracentesis. 2. Continued pleural and parenchymal changes. Mckay Saldana MD Administered Medications Medications (Trade) Dose Ordered Sig/Josie Route PRN Reason Start Time Stop Time Status Last Admin Dose Admin Sodium Chloride 2 ml 2 ml UNSCH PRN IV FLUSH FLUSH AFTER USING IV ACCESS 08/23/16 00:30 08/30/16 10:10 Potassium Chloride/Dextrose/ Sod Cl (D5-1/2 NS + KCl 20 Meq Inj) 1,000 ml @ 50 mls/hr Q20H IV 08/23/16 05:29 08/31/16 13:29 Ondansetron HCl (Zofran Inj) 4 mg Q6H PRN IV NAUSEA 08/23/16 05:30 08/27/16 10:37 Senna/Docusate Sodium (Jihan-Colace) 2 tab BID PRN PO CONSTIPATION 08/23/16 05:30 09/01/16 21:16 Aspirin (Aspirin Chew) 81 mg BID CHEW 08/23/16 09:00 09/02/16 08:15 Dofetilide (Tikosyn) 500 mcg BID PO 08/23/16 09:00 09/02/16 08:14 Hydroxychloroquine Sulfate (Plaquenil) 200 mg BID PO 08/23/16 09:00 08/30/16 09:49 Lisinopril (Prinivil) 10 mg HS PO 08/23/16 21:00 09/01/16 21:17 Metoprolol Succinate (Toprol Xl) 50 mg DAILY PO 08/23/16 09:00 09/02/16 08:14 Metoprolol Succinate (Toprol Xl) 25 mg HS PO 08/23/16 21:00 09/01/16 21:18 Prednisone (Deltasone) 40 mg DAILY PO 08/23/16 09:00 Hold 08/26/16 09:00 Torsemide (Demadex) 20 mg BID PO 08/23/16 09:00 09/02/16 08:15 Atorvastatin Calcium (Lipitor) 10 mg HS PO CM 08/23/16 21:00 09/01/16 21:17 Pantoprazole Sodium (Protonix Inj) 40 mg Q24H IV PUSH 08/23/16 06:30 09/02/16 06:34 Benzonatate (Tessalon) 200 mg TID PRN PO COUGH 08/25/16 03:15 08/31/16 18:11 Bisacodyl (Dulcolax Supp) 10 mg DAILY PRN RECTAL CONSTIPATION 08/25/16 10:45 08/28/16 09:01 Lactulose (Lactulose Liq) 30 ml BID PO 08/26/16 21:00 09/02/16 08:14 Acetaminophen 650 mg 650 mg Q6HR PRN IV PAIN 1-10 08/26/16 23:30 09/01/16 05:15 Fluconazole/ Sodium Chloride (Diflucan 400 Mg Premix Bag) 200 ml @ 100 mls/hr Q24H IV 08/27/16 16:00 09/01/16 16:05 Lorazepam (Ativan Inj) 1 mg Q6H PRN IV PUSH MOD - SEVERE ANXIETY/AGITATION 08/27/16 15:00 09/01/16 05:14 Morphine Sulfate (Morphine Inj) 2 mg Q6HR PRN IV PUSH BREAKTHROUGH PAIN 08/27/16 18:00 09/02/16 03:13 Heparin Sodium (Porcine) 2500 units 2,500 units UNSCH PRN IV APTT 25 TO 39 08/28/16 01:30 08/30/16 04:46 Heparin Sodium/ Dextrose (Heparin-D5W Inj) 250 ml @ 0 mls/hr TITRATE IV 08/27/16 19:30 09/02/16 03:15 Objective Remarks GENERAL: Middle aged male, sitting up on couch in [facility]. SKIN: Warm and dry. HEAD: Normocephalic. NG tube clamped EYES: No injection or drainage. NECK: Supple, trachea midline. CARDIOVASCULAR: Regular rate and rhythm RESPIRATORY: Breath sounds equal bilaterally. No accessory muscle use. GASTROINTESTINAL: Abdomen soft, non-tender, nondistended. EXTREMITIES: No cyanosis NEUROLOGICAL: awake and alert, normal speech. moving all extremities. 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 --developed thrombus while on eliquis. -hypercoag w/u pending. --will need lifetime anticoagulation (has afib) (2) SBO (small bowel obstruction) Status: Acute Plan: --surgery following --remains NPO with NGT in place. Assessment 66y/o male with superior mesenteric vein nonocclusive thrombus. --hypertension, hyperlipidemia, diabetes, atrial fibrillation. --Lupus, Congestive heart failure, COPD -- Triple bypass surgery 2012 --Ablation x4 --coronary artery bypass graft x3 --hernia repair Plan 1. monitor CBC 2. continue heparin 3. start coumadin once all procedures complete and tolerating regular diet. Attending Statement The exam, history, and the medical decision-making described in the above note were completed with the assistance of the mid-level provider. I reviewed and agree with the findings presented. I attest that I had a [id number] encounter with the patient on the same day, and personally performed and documented my assessment and findings in the medical record Diana Owen Sep 02, 2016 12:18 Noah Roberson MD Sep 03, 2016 00:27
[2016-09-02] MEDS: POTASSIUM CHLOR 10 MEQ PREMIX 100 ML IV SCH ×4 (12:34→20:33)
--- NOTE | 2016-09-02 14:42 | HHI.PR ---
Subjective Subjective Notes Resting in bed Had two small BMs yesterday Objective Vitals/I&O Vital Signs Date Time Temp Pulse Resp B/P Pulse Ox O2 Delivery O2 Flow Rate FiO2 09/02/16 14:30 18 09/02/16 12:00 96.6 71 138/80 93 08/30/16 20:04 Room Air Labs Laboratory Tests Test 09/02/16 05:20 White Blood Count 11.7 Red Blood Count 4.16 Hemoglobin 12.4 Hematocrit 37.9 Mean Corpuscular Volume 90.9 Mean Corpuscular Hemoglobin 29.8 Mean Corpuscular Hemoglobin 32.8 Concent Red Cell Distribution Width 16.5 Platelet Count 219 Mean Platelet Volume 7.8 Neutrophils (%) (Auto) 76.3 Lymphocytes (%) (Auto) 12.7 Monocytes (%) (Auto) 9.1 Eosinophils (%) (Auto) 1.5 Basophils (%) (Auto) 0.4 Neutrophils # (Auto) 8.9 Lymphocytes # (Auto) 1.5 Monocytes # (Auto) 1.1 Eosinophils # (Auto) 0.2 Basophils # (Auto) 0.0 CBC Comment DIFF FINAL Differential Comment Activated Partial 44.9 Thromboplast Time Sodium Level 142 Potassium Level 3.0 Chloride Level 99 Carbon Dioxide Level 33.9 Anion Gap 9 Blood Urea Nitrogen 9 Creatinine 0.88 Estimat Glomerular Filtration 86 Rate Random Glucose 108 Calcium Level 8.1 Magnesium Level 1.9 Date/Time Procedure Status Source Growth 08/29/16 05:15 Stool Occult Blood ([facility]) - Final Complete Stool Stool HEMOCCULT POSITIVE 08/28/16 23:01 Stool Occult Blood ([facility]) Received Stool Stool Pending Radiology Last Impressions Abdomen X-Ray 08/30/16 0000 Signed Impressions: Service Date/Time: Tuesday, August 30, 2016 00:28 - CONCLUSION: There appears to be slightly more distention of loops of small bowel characteristic of small bowel obstruction. Oj Rivas MD Abdomen/Pelvis CT 08/27/16 1023 Signed Impressions: Service Date/Time: Saturday, August 27, 2016 11:21 - CONCLUSION: 1. A subtle filling defect involving the superior mesenteric vein. This raises concern for nonocclusive thrombus. 2. Worsening dilatation of the small bowel without a focal transition point. Small amount of free fluid. No free air. 3. Stable small left effusion. Jr Parker Jr., MD Chest X-Ray 08/27/16 0000 Signed Impressions: Service Date/Time: Saturday, August 27, 2016 11:09 - CONCLUSION: Interval improvement with less parenchymal changes left base. Hebert Saldana MD FACR Hepatobiliary Scan Nuclear Medicine 08/26/16 0000 Signed Impressions: Service Date/Time: Friday, August 26, 2016 08:48 - CONCLUSION: Negative exam. No scintigraphic findings of acute or chronic cholecystitis. No significant biliary enteric reflux. David Baltazar MD Cardiovascular: Regular Lungs: Clear Abdomen: Other (distended; minimally tender with palpation ) Extremities: No edema Narrative Exam NGT in place A/P Problem List: (1) Abdominal pain (2) chronic medical problems (3) CHF (congestive heart failure) (4) CAD (coronary artery disease) (5) Diabetes mellitus (6) Atrial fibrillation (7) CHF exacerbation (8) Acute renal insufficiency (9) Constipation Assessment and Plan 66 year old male with extensive cardiac history with epigastric pain; non occlusive thrombus in mesenteric vein -NGT clamped; will start clear liquids (sips only) -Continue Heparin drip; Hematology following -Vascular following -Patient has been evaluated for possible thoracentesis---US completed and thoracentesis not indicated at this time -Discussed with Dr. Cordero Attending Statement The exam, history, and the medical decision-making described in the above note were completed with the assistance of the mid-level provider. I reviewed and agree with the findings presented. I attest that I had a [id number] encounter with the patient on the same day, and personally performed and documented my assessment and findings in the medical record. abdominal exam stable: mildly distended, no guarding or peritonitis continue anticoagulation, continue to follow abdominal exams closely Problem Qualifiers (1) Abdominal pain: Qualified Code: R10.9 - Abdominal pain, unspecified location Karena Cordon Sep 02, 2016 14:42 Jovani Cordero MD Sep 19, 2016 10:02
--- NOTE | 2016-09-02 15:39 | RADRPT ---
EXAM DATE/TIME: 09/02/2016 13:22 [facility] COMPARISON: No previous studies available for comparison. INDICATIONS : Left pleural effusion. MEDICAL HISTORY : Congestive heart failure. Hypercholesterolemia. Chronic obstructive pulmonary disease. Coronary arter y stent. Triple bypass. Cardiac catheterization. Atrial fibrillation. BPH. Arthritis. Diabetes. SURGICAL HISTORY : CABG. Hernia repair. Tumor removal from head. ENCOUNTER: Initial ACUITY: 2 days PAIN SCORE: 2/10 LOCATION: Left chest FINDINGS: There is a oval area of heterogeneous echotexture without shadowing in the lower left chest which geoff sures 8.5 x 4.9-5.4 cm. This could represent complicated fluid or a solid area. No free fluid is id entified. No marking was performed. CONCLUSION: No collection of anechoic free fluid identified. Jr Simons MD on September 02, 2016 at 15:36 Board Certified Radiologist. This report was verified electronically.
[2016-09-02] MEDS: FLUCONAZOLE 400 MG PREMIX BAG 200 ML IV SCH (15:45)
[2016-09-02 16:21] LABS: APTT (PATIENT) 28.3 SEC (24.3-30.1)
[2016-09-02] MEDS: HEPARIN SODIUM - IV 10,000 UNITS/10 ML VIAL IV PRN (17:51)
--- NOTE | 2016-09-02 17:58 | ECHRPT ---
Indication: thrombosis CONCLUSIONS Normal left ventricular size. Mild concentric left ventricular hypertrophy. The left ventricular sys tolic function is grossly normal on limited imaging.The right ventricle is severely dilated.The left atrial size is epbsovyv-tk-gwnwp erasmo dilated.The right atrial size is iefkjjev-rb-zqkcduml dilated.The aortic root and proximal ascending aorta are not well visualized.Mo adrygl-hv-ecgwyc mitral valve regurgitation.There is moderate to severe tricuspid valve regurgitation.No pulmonary valve regurgita tion.The inferior vena cava was not well visualized. BP: 125 / 71 HR: 75 Rhythm: Sinus MEASUREMENTS (Male / Female) Normal Values Technical Quality:, Fair 2D ECHO LV Diastolic Diameter PLAX 5.4 cm 4.2 - 5.9 / 3.9 - 5.3 cm LV Systolic Diameter PLAX 4.0 cm IVS Diastolic Thickness 1.4 cm 0.6 - 1.0 / 0.6 - 0.9 cm LVPW Diastolic Thickness 1.4 cm 0.6 - 1.0 / 0.6 - 0.9 cm LV Relative Wall Thickness 0.5 RV Internal Dim ED PLAX 3.3 cm LA Volume Index 30.6 cm/m 16 - 28 cm/m M-MODE Aortic Root Diameter MM 3.7 cm LA Systolic Diameter MM 5.5 cm LA Ao Ratio MM 1.5 AV Cusp Separation MM 2.2 cm DOPPLER Mitral E Point Velocity 92.3 cm/s Mitral A Point Velocity 23.2 cm/s Mitral E to A Ratio 4.0 TR Peak Velocity 482.0 cm/s TR Peak Gradient 92.9 mmHg FINDINGS Left Ventricle Normal left ventricular size. Mild concentric left ventricular hypertrophy. The left ventricular sys tolic function is grossly normal on limited imaging. Right Ventricle The right ventricle is severely dilated. Left Atrium The left atrial size is vcxxueui-nz-uyqrltth dilated. Right Atrium The right atrial size is ccnsavlu-bi-nhlinush dilated. Atrial Septum Normal atrial septal thickness without atrial level shunting by limited color doppler interrogation. Aorta The aortic root and proximal ascending aorta are not well visualized. Mitral Valve Dpwtoquo-up-hwphhz mitral valve regurgitation. Aortic Valve Trileaflet aortic valve. No aortic valve stenosis or regurgitation. Tricuspid Valve There is moderate to severe tricuspid valve regurgitation. Pulmonary Valve No pulmonary valve regurgitation. Vessels The inferior vena cava was not well visualized. Pericardium No pericardial effusion. Gregorio Espinoza MD, FACC, FSCAI Edited by: [employer] CV Tube Drawing Supervisor (Electronically Signed) Final Date:02 September 2016 16:34 Amended: 02 September 2016 17:49
[2016-09-02] MEDS: ATORVASTATIN 10 MG TAB PO SCH (20:32)
[2016-09-02] MEDS: METOPROLOL SUCCINATE 25 MG EXTENDED RELEASE TAB PO SCH (20:32)
[2016-09-02] MEDS: LISINOPRIL 10 MG TAB PO SCH (20:32)
[2016-09-02] MEDS: D5-1/2 NS + KCL 20 MEQ INJ 1,000 ML IV SCH (23:22)
[2016-09-03] VITALS (8 sets, daily range): BP systolic 131–151; BP diastolic 76–95; PULSE 62–75; RESP 18–22; TEMP 96.2–97.4; O2SAT 93–95
[2016-09-03 00:17] LABS: APTT (PATIENT) 43.9 SEC (24.3-30.1)
[2016-09-03] MEDS: MORPHINE SULFATE 4 MG/ML INJ IV PUSH PRN ×2 (02:57→20:43)
[2016-09-03] MEDS: HEPARIN-D5W INJ 250 ML IV SCH ×2 (03:01→16:46)
[2016-09-03] MEDS: PANTOPRAZOLE SODIUM 40 MG VIAL IV PUSH SCH (05:56)
[2016-09-03] MEDS: INSULIN ASPART SUPPLEMENTAL SCALE SQ SCH ×4 (06:43→20:46)
[2016-09-03 07:14] LABS: AUTOMATED NEUTROPHIL # 8.1 TH/MM3 (1.8-7.7); BASOPHIL # 0.1 TH/MM3 (0-0.2); BASOPHIL % 0.6 % (0.0-2.0); EOSINOPHIL # 0.1 TH/MM3 (0-0.4); EOSINOPHIL % 1.2 % (0.0-4.0); HEMATOCRIT 35.7 % (39.0-51.0); HEMO FLAGS DIFF FINAL; LYMPH % 15.8 % (9.0-44.0); LYMPHOCYTE # 1.7 TH/MM3 (1.0-4.8); MEAN CELL VOLUME 90.3 FL (80.0-100.0); MEAN CORPUSCULAR HEMOGLOBIN 29.8 PG (27.0-34.0); MONO % 9.4 % (0.0-8.0); PLATELET COUNT 216 TH/MM3 (150-450); RED BLOOD COUNT 3.96 MIL/MM3 (4.50-5.90); RED CELL DISTRIBUTION WIDTH 16.5 % (11.6-17.2); WHITE BLOOD COUNT 11.1 TH/MM3 (4.0-11.0)
[2016-09-03] MEDS: TORSEMIDE 20 MG TAB PO SCH ×2 (08:46→20:38)
[2016-09-03] MEDS: ASPIRIN 81 MG CHEW TAB CHEW SCH ×2 (08:46→20:38)
[2016-09-03] MEDS: METOPROLOL SUCCINATE 50 MG EXTENDED RELEASE TAB PO SCH (08:46)
[2016-09-03] MEDS: LACTULOSE SYRUP 20 GM/30 ML CUP PO SCH ×2 (08:46→20:38)
[2016-09-03] MEDS: HYDROXYCHLOROQUINE SULFATE 200 MG TAB PO SCH ×2 (08:46→20:38)
[2016-09-03] MEDS: DOFETILIDE 250 MCG CAP PO SCH ×2 (08:46→20:37)
--- NOTE | 2016-09-03 09:08 | HHI.FPPN ---
Subjective Remarks No acute events overnight. Afebrile, vital signs stable. Patient states that he "feels great". He wishes to go home today. He is tolerating sips of clears without difficulty. Reports no bowel movement in the last 2 days but positive flatus. Positive voiding. He denies any abdominal pain. (Sarai Cagle MD R3) Objective Vitals Vital Signs Date Time Temp Pulse Resp B/P Pulse Ox O2 Delivery O2 Flow Rate FiO2 09/03/16 08:00 96.5 71 20 146/84 93 09/03/16 04:10 96.5 71 19 144/76 93 09/03/16 00:15 96.2 75 19 143/81 94 09/02/16 23:00 69 09/02/16 20:15 97.8 75 18 163/90 92 09/02/16 20:00 92 Room Air 09/02/16 16:00 97.1 78 18 155/92 92 09/02/16 14:30 18 09/02/16 12:00 96.6 71 18 138/80 93 I/O 09/02/16 09/02/16 09/02/16 09/03/16 09/03/16 09/03/16 07:00 15:00 23:00 07:00 15:00 23:00 Intake Total 0 ml 120 ml 970 ml 881 ml Output Total 475 ml 1375 ml Balance -475 ml 120 ml 970 ml -494 ml Intake Oral 0 ml 120 ml 480 ml 480 ml IV Total 490 ml 401 ml Output Urine Total 300 ml 1375 ml Gastric Drainage Total 175 ml # Voids 5 2 # Bowel Movements 0 0 0 0 (Sarai Cagle MD R3) Result Diagram: 09/03/1662009/03/16620 Objective Remarks GENERAL: Sitting up in chair, no acute distress. SKIN: Warm/dry. HEAD: Atraumatic. Normocephalic. EYES: No scleral icterus. No injection or drainage. ENT: MMM. NECK: Trachea midline. No JVD. Supple. CARDIOVASCULAR: Regular rate and rhythm. No murmur appreciated. RESPIRATORY: No increased work of breathing. Lungs are clear anteriorly without wheezing, rhonchi or crackles. GASTROINTESTINAL: Abdomen obese, nontender to palpation. Nondistended. Hypoactive bowel sounds. NG tube in place, clamped. MUSCULOSKELETAL: No obvious deformities. No cyanosis. 2+ pitting edema bilateral lower extremities. NEUROLOGICAL: Awake and alert. evaluation manager grossly intact. Motor grossly within normal limits. Normal speech. PSYCHIATRIC: Appropriate mood and affect; insight and judgment normal. (Sarai Cagle MD R3) A/P Assessment and Plan 66-year-old male with history of COPD, CAD s/p 3-vessel CABG, HTN, HLD, atrial fibrillation, type 2 DM, and lupus. Now with partial small bowel obstruction and superior mesenteric vein partial thrombosis, currently being treated with heparin ggt. Discharge Planning Pending improvement of bowel obstruction and therapeutic anticoagulation ( Sarai Cagle MD R3) Attending Attestation Patient seen and examined. Case reviewed and discussed Agree with plan of care as discussed with me and documented in the resident note. (Arianna Sanford MD) Problem List: (1) Superior mesenteric vein thrombosis Status: Acute Plan: Partial superior mesenteric venous thrombosis. Patient currently on heparin drip as he developed a partial small bowel obstruction and is being treated medically. PTT within therapeutic limits. We will transition patient to Coumadin once he is medically stable. Hematology consulted, patient currently undergoing hypercoagulation workup (2) SBO (small bowel obstruction) Status: Acute Plan: General surgery and gastroenterology consulted, appreciate recommendations. Patient's diet was advanced yesterday to sips of clears which she is tolerating. NG tube remains clamped. No emesis or abdominal distention. No bowel movements in the past 2 days. Will defer to general surgery for diet. (3) Leukocytosis Status: Acute Plan: Persistent leukocytosis, cause unclear. Loculated effusion noted on abdominal CT, ultrasound revealed no indication for thoracentesis of the area. Continue to monitor white blood count. No fevers/chills, no signs of sepsis. (4) Esophageal candidiasis Status: Acute Plan: Patient currently on fluconazole started 08/27. Will treat for 14 days. (5) chronic medical problems Status: Chronic Plan: Atrial fibrillation: On heparin drip, continue aspirin 81 mg daily, continue Tikosyn 500 mcg PO BID Hypertension: Continue Metoprolol succinate ER 50 mg in the morning and 25 mg in the evening and lisinopril 10 mg by mouth daily at bedtime Hyperlipidemia: Continue Crestor 5 mg daily at bedtime, continue coenzyme Q10 200 mg by mouth daily at bedtime Congestive heart failure: Continue torsemide 20 mg by mouth twice a day. Continue lisinopril 10 mg by mouth twice a day Lupus: Continue Plaquenil COPD with recent exacerbation: Alternate albuterol and DuoNeb's, oxygen as needed (6) Nutrition, metabolism, and development symptoms Status: Acute Plan: Diet: Sips of clears Fluids: D5 half-normal saline 50 cc/hour Electrolytes: WNLs, continue to monitor and replete as necessary DVT prophylaxis: b/l SCDs; heparin drip GI prophylaxis: Continue Protonix 40 mg IV q24h (Sarai Cagle MD R3) Problem Qualifiers (1) Leukocytosis: Qualified Code: D72.829 - Leukocytosis, unspecified type Sarai Cagle MD R3 Sep 03, 2016 09:08 Arianna Sanford MD Sep 03, 2016 16:02
[2016-09-03] MEDS: POTASSIUM CHLOR 10 MEQ PREMIX 100 ML IV SCH ×6 (10:19→22:40)
--- NOTE | 2016-09-03 11:07 | PD.ONC.PN ---
Subjective Subjective Remarks Afebrile overnight. Pt sitting up in chair at bedside watching TV "I want to go home, I feel great!" Objective Data Date Time Temp Pulse Resp B/P Pulse Ox O2 Delivery O2 Flow Rate FiO2 09/03/16 08:00 96.5 71 20 146/84 93 09/03/16 04:10 96.5 71 19 144/76 93 09/03/16 00:15 96.2 75 19 143/81 94 09/02/16 23:00 69 09/02/16 20:15 97.8 75 18 163/90 92 09/02/16 20:00 92 Room Air 09/02/16 16:00 97.1 78 18 155/92 92 09/02/16 14:30 18 09/02/16 12:00 96.6 71 18 138/80 93 09/03/16 09/03/16 09/03/16 07:00 15:00 23:00 Intake Total 881 ml Output Total 1375 ml Balance -494 ml Result Diagram: 09/03/1621 09/03/16620 Laboratory Results Laboratory Tests Test 09/02/16 09/02/16 09/03/16 15:28 23:39 06:21 Activated Partial 28.3 SEC 43.9 SEC 47.0 SEC Thromboplast Time White Blood Count 11.1 TH/MM3 Red Blood Count 3.96 MIL/MM3 Hemoglobin 11.8 GM/DL Hematocrit 35.7 % Mean Corpuscular Volume 90.3 FL Mean Corpuscular Hemoglobin 29.8 PG Mean Corpuscular Hemoglobin 33.0 % Concent Red Cell Distribution Width 16.5 % Platelet Count 216 TH/MM3 Mean Platelet Volume 7.9 FL Neutrophils (%) (Auto) 73.0 % Lymphocytes (%) (Auto) 15.8 % Monocytes (%) (Auto) 9.4 % Eosinophils (%) (Auto) 1.2 % Basophils (%) (Auto) 0.6 % Neutrophils # (Auto) 8.1 TH/MM3 Lymphocytes # (Auto) 1.7 TH/MM3 Monocytes # (Auto) 1.0 TH/MM3 Eosinophils # (Auto) 0.1 TH/MM3 Basophils # (Auto) 0.1 TH/MM3 CBC Comment DIFF FINAL Differential Comment Sodium Level 139 MEQ/L Potassium Level 3.0 MEQ/L Chloride Level 98 MEQ/L Carbon Dioxide Level 32.0 MEQ/L Anion Gap 9 MEQ/L Blood Urea Nitrogen 10 MG/DL Creatinine 0.98 MG/DL Estimat Glomerular Filtration 76 ML/MIN Rate Random Glucose 114 MG/DL Calcium Level 7.7 MG/DL Administered Medications Medications (Trade) Dose Ordered Sig/Josie Route PRN Reason Start Time Stop Time Status Last Admin Dose Admin Sodium Chloride 2 ml 2 ml UNSCH PRN IV FLUSH FLUSH AFTER USING IV ACCESS 08/23/16 00:30 08/30/16 10:10 Potassium Chloride/Dextrose/ Sod Cl (D5-1/2 NS + KCl 20 Meq Inj) 1,000 ml @ 50 mls/hr Q20H IV 08/23/16 05:29 09/02/16 23:22 Ondansetron HCl (Zofran Inj) 4 mg Q6H PRN IV NAUSEA 08/23/16 05:30 08/27/16 10:37 Senna/Docusate Sodium (Jihan-Colace) 2 tab BID PRN PO CONSTIPATION 08/23/16 05:30 09/01/16 21:16 Aspirin (Aspirin Chew) 81 mg BID CHEW 08/23/16 09:00 09/03/16 08:46 Dofetilide (Tikosyn) 500 mcg BID PO 08/23/16 09:00 09/03/16 08:46 Hydroxychloroquine Sulfate (Plaquenil) 200 mg BID PO 08/23/16 09:00 09/03/16 08:46 Lisinopril (Prinivil) 10 mg HS PO 08/23/16 21:00 09/02/16 20:32 Metoprolol Succinate (Toprol Xl) 50 mg DAILY PO 08/23/16 09:00 09/03/16 08:46 Metoprolol Succinate (Toprol Xl) 25 mg HS PO 08/23/16 21:00 09/02/16 20:32 Prednisone (Deltasone) 40 mg DAILY PO 08/23/16 09:00 Hold 08/26/16 09:00 Torsemide (Demadex) 20 mg BID PO 08/23/16 09:00 09/03/16 08:46 Atorvastatin Calcium (Lipitor) 10 mg HS PO CM 08/23/16 21:00 09/02/16 20:32 Pantoprazole Sodium (Protonix Inj) 40 mg Q24H IV PUSH 08/23/16 06:30 09/03/16 05:56 Benzonatate (Tessalon) 200 mg TID PRN PO COUGH 08/25/16 03:15 08/31/16 18:11 Bisacodyl (Dulcolax Supp) 10 mg DAILY PRN RECTAL CONSTIPATION 08/25/16 10:45 08/28/16 09:01 Lactulose (Lactulose Liq) 30 ml BID PO 08/26/16 21:00 09/03/16 08:46 Acetaminophen 650 mg 650 mg Q6HR PRN IV PAIN 1-10 08/26/16 23:30 09/01/16 05:15 Fluconazole/ Sodium Chloride (Diflucan 400 Mg Premix Bag) 200 ml @ 100 mls/hr Q24H IV 08/27/16 16:00 09/02/16 15:45 Lorazepam (Ativan Inj) 1 mg Q6H PRN IV PUSH MOD - SEVERE ANXIETY/AGITATION 08/27/16 15:00 09/01/16 05:14 Morphine Sulfate (Morphine Inj) 2 mg Q6HR PRN IV PUSH BREAKTHROUGH PAIN 08/27/16 18:00 09/03/16 02:57 Heparin Sodium (Porcine) 2500 units 2,500 units UNSCH PRN IV APTT 25 TO 39 08/28/16 01:30 09/02/16 17:51 Heparin Sodium/ Dextrose 250 ml @ 0 mls/hr TITRATE IV 08/27/16 19:30 09/03/16 03:01 Potassium Chloride (KCl 10 Meq Premix Inj) 100 ml @ 100 mls/hr Q1H IV 09/03/16 09:00 09/03/16 14:59 09/03/16 10:19 Objective Remarks GENERAL: Middle aged male, sitting up in chair at bedside in no distress. SKIN: Warm and dry. HEAD: Normocephalic. NG tube clamped EYES: No injection or drainage. NECK: Supple, trachea midline. CARDIOVASCULAR: Regular rate and rhythm RESPIRATORY: Breath sounds equal bilaterally. No accessory muscle use. GASTROINTESTINAL: Abdomen soft, non-tender, nondistended. EXTREMITIES: No cyanosis. Generalized edema to BLE. NEUROLOGICAL: Awake and alert, normal speech. Moving all extremities. 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 --developed thrombus while on eliquis. -hypercoag w/u pending. --will need lifetime anticoagulation (has afib) (2) SBO (small bowel obstruction) Status: Acute Plan: --surgery following --remains NPO with NGT in place. Assessment 66y/o male with superior mesenteric vein nonocclusive thrombus. --hypertension, hyperlipidemia, diabetes, atrial fibrillation. --Lupus, Congestive heart failure, COPD -- Triple bypass surgery 2011 --Ablation x4 --coronary artery bypass graft x3 --hernia repair Plan 1. Continue heparin gtt for now. 2. Spoke with service from surgery, vascular. No more procedures planned at this time. 2. Once NGT removed we will restart coumadin. 3. CBC stable, no bleeding. Attending Statement The exam, history, and the medical decision-making described in the above note were completed with the assistance of the mid-level provider. I reviewed and agree with the findings presented. I attest that I had a [id number]-[id number] encounter with the patient on the same day, and personally performed and documented my assessment and findings in the medical record Radha Sun Sep 03, 2016 11:07 Noah Roberson MD Sep 03, 2016 23:57
--- NOTE | 2016-09-03 14:48 | HHI.GIFU ---
Subjective Remarks Pt resting in bed. Says he feels much better, no pain, n/v, + BM had one just half hour ago, was formed. (Leah Ovalle) Objective Vitals I&O Vital Signs Date Time Temp Pulse Resp B/P Pulse Ox O2 Delivery O2 Flow Rate FiO2 09/03/16 12:00 96.5 72 18 139/95 94 09/03/16 08:45 71 09/03/16 08:45 Room Air 09/03/16 08:00 96.5 71 20 146/84 93 09/03/16 04:10 96.5 71 19 144/76 93 09/03/16 00:15 96.2 75 19 143/81 94 09/02/16 23:00 69 09/02/16 20:15 97.8 75 18 163/90 92 09/02/16 20:00 92 Room Air 09/02/16 16:00 97.1 78 18 155/92 92 I/O 09/02/16 09/02/16 09/02/16 09/03/16 09/03/16 09/03/16 07:00 15:00 23:00 07:00 15:00 23:00 Intake Total 0 ml 120 ml 970 ml 881 ml Output Total 475 ml 1375 ml Balance -475 ml 120 ml 970 ml -494 ml Intake Oral 0 ml 120 ml 480 ml 480 ml IV Total 490 ml 401 ml Output Urine Total 300 ml 1375 ml Gastric Drainage Total 175 ml # Voids 5 2 # Bowel Movements 0 0 0 0 Laboratory Laboratory Tests Test 09/02/16 09/02/16 09/03/16 15:28 23:39 06:21 Activated Partial 28.3 43.9 47.0 Thromboplast Time White Blood Count 11.1 Red Blood Count 3.96 Hemoglobin 11.8 Hematocrit 35.7 Mean Corpuscular Volume 90.3 Mean Corpuscular Hemoglobin 29.8 Mean Corpuscular Hemoglobin 33.0 Concent Red Cell Distribution Width 16.5 Platelet Count 216 Mean Platelet Volume 7.9 Neutrophils (%) (Auto) 73.0 Lymphocytes (%) (Auto) 15.8 Monocytes (%) (Auto) 9.4 Eosinophils (%) (Auto) 1.2 Basophils (%) (Auto) 0.6 Neutrophils # (Auto) 8.1 Lymphocytes # (Auto) 1.7 Monocytes # (Auto) 1.0 Eosinophils # (Auto) 0.1 Basophils # (Auto) 0.1 CBC Comment DIFF FINAL Differential Comment Sodium Level 139 Potassium Level 3.0 Chloride Level 98 Carbon Dioxide Level 32.0 Anion Gap 9 Blood Urea Nitrogen 10 Creatinine 0.98 Estimat Glomerular Filtration 76 Rate Random Glucose 114 Calcium Level 7.7 Physical Exam HEENT: EOMI; atraumatic; no jaundice. NGT CHEST: CTA CARDIAC: RRR ABDOMEN: somewhat firm, distended, tympanitic, nontender; no hepatosplenomegaly ; bowel sounds + EXTREMITIES: No clubbing, cyanosis, or edema. SKIN: Normal; no rash; no jaundice. RELEASE COORDINATOR: No focal deficits; alert and oriented times three. (Leah Ovalle) Assessment and Plan Plan ASSESSMENT: - Severe abdominal pain/ Epigastric. improved. CT 08-27-16 --> A subtle filling defect involving the superior mesenteric vein. This raises concern for nonocclusive thrombus. 2. Worsening dilatation of the small bowel without a focal transition point. Small amount of free fluid. No free air. 3. Stable small left effusion CT Abd/pelvis w/o IV contrast (08/23/16) --> Unremarkable exam with the exception of free fluid in the right lower quadrant. The appendix is normal. There is extensive stool type density throughout the small bowel without any evidence of obstruction or dilated lumen. CTA Abd/pelvis (08/23) --> moderate to severe atherosclerotic disease of the aorta with moderate disease of the mesenteric arterial vasculature. However, no occlusion is visualized. Abnormal small bowel gas pattern with dilated mid to distal small bowel measuring up to 3.4cm. Additionally, some of the small bowel segments contain fecal like material and there is mild fluid and stranding in the ileal mesentery in the right abdomen. There is no bowel wall thickening. Although nonspecific these could represent some of the earliest findings of enteric ischemia. General Surgery is following. Vascular surgery following Pts last colonoscopy was 5-6 years ago in [place]. He denies any hx of polyps , IBD, or diverticulosis that he is aware of. - Constipation.improved, + BM. Pt appears to have stool throughout on the CT scans. - Leukocytosis. Pt has been afebrile, no source of infection is known at this time. Zosyn 4.5 g IV every 8 hours. Blood cultures pending. Of note pt is on steroids for recent COPD exacerbation. - Diabetes mellitus, Atrial fibrillation on Eliquis 5mg BID and ASA 81 mg daily , CAD, HTN, Hyperlipidemia, CHF, Lupus. Management per attending. PLAN: - mgmt PSBO per GS - Daily Lactic Acid - Lactulose 30mg daily - Supportive care This pt seen by myself and Dr Santoro and this note is written on his behalf ( Leah Ovalle) Physician Comments Seen and examined, plan as above, further recommendations to follow, will follow up with you peripherally. (Kristi Santoro MD) Leah Ovalle Sep 03, 2016 14:48 Kristi Santoro MD Sep 03, 2016 15:28
--- NOTE | 2016-09-03 15:23 | HHI.PR ---
Subjective Subjective Notes Tired of clear liquids Feeling much better today; wants something more to eat Objective Vitals/I&O Vital Signs Date Time Temp Pulse Resp B/P Pulse Ox O2 Delivery O2 Flow Rate FiO2 09/03/16 12:00 96.5 72 18 139/95 94 09/03/16 08:45 Room Air Labs Laboratory Tests Test 09/02/16 09/02/16 09/03/16 15:28 23:39 06:21 Activated Partial 28.3 43.9 47.0 Thromboplast Time White Blood Count 11.1 Red Blood Count 3.96 Hemoglobin 11.8 Hematocrit 35.7 Mean Corpuscular Volume 90.3 Mean Corpuscular Hemoglobin 29.8 Mean Corpuscular Hemoglobin 33.0 Concent Red Cell Distribution Width 16.5 Platelet Count 216 Mean Platelet Volume 7.9 Neutrophils (%) (Auto) 73.0 Lymphocytes (%) (Auto) 15.8 Monocytes (%) (Auto) 9.4 Eosinophils (%) (Auto) 1.2 Basophils (%) (Auto) 0.6 Neutrophils # (Auto) 8.1 Lymphocytes # (Auto) 1.7 Monocytes # (Auto) 1.0 Eosinophils # (Auto) 0.1 Basophils # (Auto) 0.1 CBC Comment DIFF FINAL Differential Comment Sodium Level 139 Potassium Level 3.0 Chloride Level 98 Carbon Dioxide Level 32.0 Anion Gap 9 Blood Urea Nitrogen 10 Creatinine 0.98 Estimat Glomerular Filtration 76 Rate Random Glucose 114 Calcium Level 7.7 Radiology Last Impressions Abdomen X-Ray 08/30/16 0000 Signed Impressions: Service Date/Time: Tuesday, August 30, 2016 00:28 - CONCLUSION: There appears to be slightly more distention of loops of small bowel characteristic of small bowel obstruction. Oj Rivas MD Abdomen/Pelvis CT 08/27/16 1023 Signed Impressions: Service Date/Time: Saturday, August 27, 2016 11:21 - CONCLUSION: 1. A subtle filling defect involving the superior mesenteric vein. This raises concern for nonocclusive thrombus. 2. Worsening dilatation of the small bowel without a focal transition point. Small amount of free fluid. No free air. 3. Stable small left effusion. Jr Parker Jr., MD Chest X-Ray 08/27/16 0000 Signed Impressions: Service Date/Time: Saturday, August 27, 2016 11:09 - CONCLUSION: Interval improvement with less parenchymal changes left base. Hebert Saldana MD FACR Hepatobiliary Scan Nuclear Medicine 08/26/16 0000 Signed Impressions: Service Date/Time: Friday, August 26, 2016 08:48 - CONCLUSION: Negative exam. No scintigraphic findings of acute or chronic cholecystitis. No significant biliary enteric reflux. David Baltazar MD Cardiovascular: Regular Lungs: Clear Abdomen: Non-distended, Non-tender Extremities: No edema Narrative Exam NGT in place ---clamped A/P Problem List: (1) Abdominal pain (2) chronic medical problems (3) CHF (congestive heart failure) (4) CAD (coronary artery disease) (5) Diabetes mellitus (6) Atrial fibrillation (7) CHF exacerbation (8) Acute renal insufficiency (9) Constipation Assessment and Plan 66 year old male with extensive cardiac history with epigastric pain; non occlusive thrombus in mesenteric vein -DC NGT; start full liquids -Continue Heparin drip; Hematology following ---planning to transition to Coumadin -Vascular following -Replace K -Discussed plan of care with RN Marco Attending Statement patient seen at bedside remove ng start liquids heparin gtt Attestation The exam, history, and the medical decision-making described in the above note were completed with the assistance of the mid-level provider. I reviewed and agree with the findings presented. I attest that I had a [id number] encounter with the patient on the same day, and personally performed and documented my assessment and findings in the medical record. Problem Qualifiers (1) Abdominal pain: Qualified Code: R10.9 - Abdominal pain, unspecified location Karena Cordon Sep 03, 2016 15:23 Michelet Chino MD Sep 10, 2016 10:00
[2016-09-03] MEDS: FLUCONAZOLE 400 MG PREMIX BAG 200 ML IV SCH (16:32)
[2016-09-03] MEDS: D5-1/2 NS + KCL 20 MEQ INJ 1,000 ML IV SCH (18:35)
[2016-09-03] MEDS: LISINOPRIL 10 MG TAB PO SCH (20:38)
[2016-09-03] MEDS: ATORVASTATIN 10 MG TAB PO SCH (20:38)
[2016-09-03] MEDS: METOPROLOL SUCCINATE 25 MG EXTENDED RELEASE TAB PO SCH (20:38)
[2016-09-04] VITALS (8 sets, daily range): BP systolic 116–164; BP diastolic 68–93; PULSE 65–92; RESP 16–22; TEMP 96.1–97.3; O2SAT 93–97
[2016-09-04 03:51] LABS: THROMBIN TIME FOR LA ND sec (13-19)
[2016-09-04] MEDS: D5-1/2 NS + KCL 20 MEQ INJ 1,000 ML IV SCH ×2 (05:50→14:54)
[2016-09-04] MEDS: HEPARIN-D5W INJ 250 ML IV SCH ×2 (05:54→19:17)
[2016-09-04] MEDS: PANTOPRAZOLE SODIUM 40 MG VIAL IV PUSH SCH (05:55)
[2016-09-04 06:17] LABS: AUTOMATED NEUTROPHIL # 7.5 TH/MM3 (1.8-7.7); BASOPHIL % 0.2 % (0.0-2.0); EOSINOPHIL # 0.1 TH/MM3 (0-0.4); EOSINOPHIL % 1.1 % (0.0-4.0); HEMATOCRIT 34.9 % (39.0-51.0); HEMO FLAGS DIFF FINAL; LYMPHOCYTE # 1.5 TH/MM3 (1.0-4.8); MEAN CELL VOLUME 90.5 FL (80.0-100.0); MEAN CORPUSCULAR HEMOGLOBIN 30.4 PG (27.0-34.0); MEAN CORPUSCULAR HGB CONC 33.6 % (32.0-36.0); MONO % 9.5 % (0.0-8.0); NEUT % 74.2 % (16.0-70.0); PLATELET COUNT 212 TH/MM3 (150-450); RED BLOOD COUNT 3.85 MIL/MM3 (4.50-5.90); RED CELL DISTRIBUTION WIDTH 16.3 % (11.6-17.2); WHITE BLOOD COUNT 10.1 TH/MM3 (4.0-11.0)
[2016-09-04 06:23] LABS: APTT (PATIENT) 47.1 SEC (24.3-30.1)
[2016-09-04 06:39] LABS: BICARBONATE 33.2 MEQ/L (21.0-32.0); POTASSIUM 3.2 MEQ/L (3.5-5.1)
[2016-09-04] MEDS: INSULIN ASPART SUPPLEMENTAL SCALE SQ SCH ×4 (07:00→21:00)
[2016-09-04] MEDS: HYDROXYCHLOROQUINE SULFATE 200 MG TAB PO SCH ×2 (08:18→19:53)
[2016-09-04] MEDS: TORSEMIDE 20 MG TAB PO SCH ×2 (08:18→19:55)
[2016-09-04] MEDS: LACTULOSE SYRUP 20 GM/30 ML CUP PO SCH ×2 (08:18→19:53)
[2016-09-04] MEDS: METOPROLOL SUCCINATE 50 MG EXTENDED RELEASE TAB PO SCH ×3 (08:18→19:56)
[2016-09-04] MEDS: DOFETILIDE 250 MCG CAP PO SCH ×2 (08:18→19:53)
[2016-09-04] MEDS: ASPIRIN 81 MG CHEW TAB CHEW SCH ×2 (08:18→19:52)
[2016-09-04] MEDS: MORPHINE SULFATE 4 MG/ML INJ IV PUSH PRN ×2 (08:22→16:40)
--- NOTE | 2016-09-04 08:48 | HHI.FPPN ---
Subjective Remarks Patient is feeling much better this morning. He is tolerating clear liquid diet. He has eaten tomato soup, milk, and apple juice. He had 2 episodes of black, watery diarrhea last night. He denies any abdominal pain. He denies any fevers or chills. He denies any shortness of breath, or productive sputum. (Ulisses Lynn MD R2) Objective Vitals Vital Signs Date Time Temp Pulse Resp B/P Pulse Ox O2 Delivery O2 Flow Rate FiO2 09/04/16 04:00 96.1 92 22 164/84 93 09/04/16 00:00 97.3 68 20 155/89 94 09/03/16 23:00 62 09/03/16 20:00 74 09/03/16 20:00 97.4 72 22 131/85 95 09/03/16 20:00 95 Room Air 09/03/16 16:00 96.9 72 18 151/90 95 09/03/16 12:00 96.5 72 18 139/95 94 09/03/16 08:45 71 09/03/16 08:45 Room Air I/O 09/03/16 09/03/16 09/03/16 09/04/16 09/04/16 09/04/16 07:00 15:00 23:00 07:00 15:00 23:00 Intake Total 881 ml 1826 ml 1623 ml 1051 ml Output Total 1375 ml 700 ml Balance -494 ml 1826 ml 1623 ml 351 ml Intake Oral 480 ml 960 ml 780 ml 480 ml IV Total 401 ml 866 ml 843 ml 571 ml Output Urine Total 1375 ml 700 ml # Voids 4 3 # Bowel Movements 0 0 0 1 (Ulisses Lynn MD R2) Result Diagram: 09/04/1654009/04/16 05 Objective Remarks GENERAL: Sitting up in chair, no acute distress. SKIN: Warm/dry. HEAD: Atraumatic. Normocephalic. EYES: No scleral icterus. No injection or drainage. ENT: MMM. NECK: Trachea midline. No JVD. Supple. CARDIOVASCULAR: Regular rate and rhythm. No murmur appreciated. RESPIRATORY: No increased work of breathing. Lungs are clear anteriorly without wheezing, rhonchi or crackles. GASTROINTESTINAL: Abdomen obese, nontender to palpation. Nondistended. Hypoactive bowel sounds. MUSCULOSKELETAL: No obvious deformities. No cyanosis. 2+ pitting edema bilateral lower extremities. NEUROLOGICAL: Awake and alert. rheumatologist grossly intact. Motor grossly within normal limits. Normal speech. PSYCHIATRIC: Appropriate mood and affect; insight and judgment normal. (Ulisses Lynn MD R2) A/P Assessment and Plan 66-year-old male with history of COPD, CAD s/p 3-vessel CABG, HTN, HLD, atrial fibrillation, type 2 DM, and lupus. Now with partial small bowel obstruction and superior mesenteric vein partial thrombosis, currently being treated with heparin ggt. Discharge Planning Pending improvement of bowel obstruction and therapeutic anticoagulation ( Ulisses Lynn MD R2) Attending Attestation Patient seen and examined. Case reviewed and discussed Agree with plan of care as discussed with me and documented in the resident note. (Arianna Sanford MD) Problem List: (1) Pleural effusion Status: Acute Plan: CT Abdomen/Pelvis showed loculated effusion at the left lung base. US of thorax showed no collection of anechoic free fluid. Previous work-up by Dr. Crocker, for similar finding showed chronic scarring. Given normal WBCs and lack of fevers, patient is unlikely to have an acute infectious process. (2) Superior mesenteric vein thrombosis Status: Acute Plan: Partial superior mesenteric venous thrombosis. Patient currently on heparin drip as he developed a partial small bowel obstruction and is being treated medically. PTT within therapeutic limits. We will transition patient to Coumadin today (5 mg daily, check PT/INR daily until therapeutic). Appreciate assistance of hematology. Hematology consulted, patient currently undergoing hypercoagulation workup. (3) SBO (small bowel obstruction) Status: Acute Plan: General surgery and gastroenterology consulted, appreciate recommendations. Patient's diet was advanced yesterday to a full liquid diet, which the patient is tolerating well. NG tube was removed on 09/03. No emesis or abdominal distention. Will defer to general surgery for diet. (4) Leukocytosis Status: Resolved Plan: Leukocytosis has resolved. White blood cell count 10.1 on 09/04. Loculated effusion noted on abdominal CT, ultrasound revealed no indication for thoracentesis of the area. Continue to monitor white blood count. No fevers/ chills, no signs of sepsis. (5) Esophageal candidiasis Status: Acute Plan: Patient currently on fluconazole started 08/27. Will treat for 14 days ( end date 09/10). (6) chronic medical problems Status: Chronic Plan: Atrial fibrillation: On heparin drip, continue aspirin 81 mg daily, continue Tikosyn 500 mcg PO BID Hypertension: Continue Metoprolol succinate ER 50 mg in the morning and increase bedtime dose to 50 mg. Continue lisinopril 10 mg by mouth daily at bedtime. Hyperlipidemia: Continue Crestor 5 mg daily at bedtime, continue coenzyme Q10 200 mg by mouth daily at bedtime Congestive heart failure: Continue torsemide 20 mg by mouth twice a day. Lupus: Continue Plaquenil COPD with recent exacerbation: Alternate albuterol and DuoNeb's, oxygen as needed (7) Nutrition, metabolism, and development symptoms Status: Acute Plan: Diet: Sips of clears Fluids: D5 half-normal saline 50 cc/hour Electrolytes: WNLs, continue to monitor and replete as necessary DVT prophylaxis: b/l SCDs; heparin drip GI prophylaxis: Continue Protonix 40 mg IV q24h (Ulisses Lynn MD R2) Problem Qualifiers (1) Leukocytosis: Qualified Code: D72.829 - Leukocytosis, unspecified type Ulisses Lynn MD R2 Sep 04, 2016 08:48 Arianna Sanford MD Sep 05, 2016 17:19
[2016-09-04] MEDS: RESP: ALBUTEROL 2.5 MG/IPRATROPIUM 0.5 MG NEB (PRN) NEB (09:01)
[2016-09-04] MEDS: POTASSIUM CHLORIDE 10 MEQ CONTROLLED RELEASE TAB PO SCH (09:51)
[2016-09-04] MEDS ORDERED: oxyCODONE/ACETAMINOPHEN 10 MG/325 MG TAB PO PRN (12:00)
--- NOTE | 2016-09-04 12:09 | HHI.PR ---
Subjective Subjective Notes Up to chair Happy to have NGT out Tolerated full liquids Objective Vitals/I&O Vital Signs Date Time Temp Pulse Resp B/P Pulse Ox O2 Delivery O2 Flow Rate FiO2 09/04/16 09:01 93 21 09/04/16 08:13 Room Air 09/04/16 08:13 79 09/04/16 08:00 96.5 16 133/79 Labs Laboratory Tests Test 09/04/16 05:41 White Blood Count 10.1 Red Blood Count 3.85 Hemoglobin 11.7 Hematocrit 34.9 Mean Corpuscular Volume 90.5 Mean Corpuscular Hemoglobin 30.4 Mean Corpuscular Hemoglobin 33.6 Concent Red Cell Distribution Width 16.3 Platelet Count 212 Mean Platelet Volume 8.0 Neutrophils (%) (Auto) 74.2 Lymphocytes (%) (Auto) 15.0 Monocytes (%) (Auto) 9.5 Eosinophils (%) (Auto) 1.1 Basophils (%) (Auto) 0.2 Neutrophils # (Auto) 7.5 Lymphocytes # (Auto) 1.5 Monocytes # (Auto) 1.0 Eosinophils # (Auto) 0.1 Basophils # (Auto) 0.0 CBC Comment DIFF FINAL Differential Comment Activated Partial 47.1 Thromboplast Time Sodium Level 139 Potassium Level 3.2 Chloride Level 99 Carbon Dioxide Level 33.2 Anion Gap 7 Blood Urea Nitrogen 9 Creatinine 0.91 Estimat Glomerular Filtration 83 Rate Random Glucose 109 Calcium Level 8.4 Radiology Last Impressions Abdomen X-Ray 08/30/16 0000 Signed Impressions: Service Date/Time: Tuesday, August 30, 2016 00:28 - CONCLUSION: There appears to be slightly more distention of loops of small bowel characteristic of small bowel obstruction. Oj Rivas MD Abdomen/Pelvis CT 08/27/16 1023 Signed Impressions: Service Date/Time: Saturday, August 27, 2016 11:21 - CONCLUSION: 1. A subtle filling defect involving the superior mesenteric vein. This raises concern for nonocclusive thrombus. 2. Worsening dilatation of the small bowel without a focal transition point. Small amount of free fluid. No free air. 3. Stable small left effusion. Jr Parker Jr., MD Chest X-Ray 08/27/16 0000 Signed Impressions: Service Date/Time: Saturday, August 27, 2016 11:09 - CONCLUSION: Interval improvement with less parenchymal changes left base. Hebert G. Miles, MD FACR Hepatobiliary Scan Nuclear Medicine 08/26/16 0000 Signed Impressions: Service Date/Time: Friday, August 26, 2016 08:48 - CONCLUSION: Negative exam. No scintigraphic findings of acute or chronic cholecystitis. No significant biliary enteric reflux. David Baltazar MD Cardiovascular: Regular Lungs: Clear Abdomen: Non-distended, Non-tender Extremities: No edema Narrative Exam NGT removed A/P Problem List: (1) Abdominal pain (2) chronic medical problems (3) CHF (congestive heart failure) (4) CAD (coronary artery disease) (5) Diabetes mellitus (6) Atrial fibrillation (7) CHF exacerbation (8) Acute renal insufficiency (9) Constipation Assessment and Plan 66 year old male with extensive cardiac history with epigastric pain; non occlusive thrombus in mesenteric vein -Advance to soft diet -Continue Heparin drip; Hematology following ---planning to transition to Coumadin -Vascular following -Replace K -Continue non operative treatment; appears SBO has resolved Attending Statement The exam, history, and the medical decision-making described in the above note were completed with the assistance of the mid-level provider. I reviewed and agree with the findings presented. I attest that I had a [id number] encounter with the patient on the same day, and personally performed and documented my assessment and findings in the medical record. abdominal exam less distended, non-tender, agree with advancing diet Problem Qualifiers (1) Abdominal pain: Qualified Code: R10.9 - Abdominal pain, unspecified location Karena Cordon Sep 04, 2016 12:09 Jovani Cordero MD Sep 19, 2016 10:05
--- NOTE | 2016-09-04 15:25 | HHI.GIFU ---
Subjective Remarks Pt resting in bed. Says he's taking it easy with real food and not eating everything. No pain, n/v. Says he has diarrhea again. (Leah Ovalle) Objective Vitals I&O Vital Signs Date Time Temp Pulse Resp B/P Pulse Ox O2 Delivery O2 Flow Rate FiO2 09/04/16 12:00 96.6 65 16 116/69 94 09/04/16 09:01 93 21 09/04/16 08:13 Room Air 09/04/16 08:13 79 09/04/16 08:00 96.5 79 16 133/79 94 09/04/16 04:00 96.1 92 22 164/84 93 09/04/16 00:00 97.3 68 20 155/89 94 09/03/16 23:00 62 09/03/16 20:00 74 09/03/16 20:00 97.4 72 22 131/85 95 09/03/16 20:00 95 Room Air 09/03/16 16:00 96.9 72 18 151/90 95 I/O 09/03/16 09/03/16 09/03/16 09/04/16 09/04/16 09/04/16 07:00 15:00 23:00 07:00 15:00 23:00 Intake Total 881 ml 1826 ml 1623 ml 1051 ml Output Total 1375 ml 700 ml Balance -494 ml 1826 ml 1623 ml 351 ml Intake Oral 480 ml 960 ml 780 ml 480 ml IV Total 401 ml 866 ml 843 ml 571 ml Output Urine Total 1375 ml 700 ml # Voids 4 3 # Bowel Movements 0 0 0 1 Laboratory Laboratory Tests Test 09/04/16 05:41 White Blood Count 10.1 Red Blood Count 3.85 Hemoglobin 11.7 Hematocrit 34.9 Mean Corpuscular Volume 90.5 Mean Corpuscular Hemoglobin 30.4 Mean Corpuscular Hemoglobin 33.6 Concent Red Cell Distribution Width 16.3 Platelet Count 212 Mean Platelet Volume 8.0 Neutrophils (%) (Auto) 74.2 Lymphocytes (%) (Auto) 15.0 Monocytes (%) (Auto) 9.5 Eosinophils (%) (Auto) 1.1 Basophils (%) (Auto) 0.2 Neutrophils # (Auto) 7.5 Lymphocytes # (Auto) 1.5 Monocytes # (Auto) 1.0 Eosinophils # (Auto) 0.1 Basophils # (Auto) 0.0 CBC Comment DIFF FINAL Differential Comment Activated Partial 47.1 Thromboplast Time Sodium Level 139 Potassium Level 3.2 Chloride Level 99 Carbon Dioxide Level 33.2 Anion Gap 7 Blood Urea Nitrogen 9 Creatinine 0.91 Estimat Glomerular Filtration 83 Rate Random Glucose 109 Calcium Level 8.4 Imaging Last Impressions Chest X-Ray 09/02/16 0000 Signed Impressions: Service Date/Time: Friday, September 02, 2016 08:40 - CONCLUSION: 1. No pneumothorax identified following thoracentesis. 2. Continued pleural and parenchymal changes. Mckay Saldana MD Chest Ultrasound 09/02/16 0000 Signed Impressions: Service Date/Time: Friday, September 02, 2016 13:22 - CONCLUSION: No collection of anechoic free fluid identified. Jr Simons MD Abdomen/Pelvis CT 09/01/16 0000 Signed Impressions: Service Date/Time: Thursday, September 01, 2016 17:33 - CONCLUSION: 1. Persistent small bowel obstruction and appears to be occurring at the level of the distal ileum. Point of obstruction is likely in the right lower quadrant. I don't see a mass. Small mesenteric and right paracolic gutter fluid again noted, not significantly changed. No evidence of perforation. 2. Loculated effusion with consolidation again seen of the left lung base. 3. Cysts of both kidneys. 1 mm nonobstructing stone of the right kidney. Landon Zarco MD Abdomen X-Ray 08/31/16 0000 Signed Impressions: Service Date/Time: Wednesday, August 31, 2016 23:26 - CONCLUSION: Improvement with numerous air-filled loops of small bowel but not as dilated as they were on the third. Mayco Johnson MD Hepatobiliary Scan Nuclear Medicine 08/26/16 0000 Signed Impressions: Service Date/Time: Friday, August 26, 2016 08:48 - CONCLUSION: Negative exam. No scintigraphic findings of acute or chronic cholecystitis. No significant biliary enteric reflux. David Baltazar MD Physical Exam HEENT: EOMI; atraumatic; no jaundice. CHEST: CTA CARDIAC: RRR ABDOMEN: soft, protuberant, tympanitic, nontender; no hepatosplenomegaly; bowel sounds + EXTREMITIES: No clubbing, cyanosis, or edema. SKIN: Normal; no rash; no jaundice. 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 (Leah Ovalle) Assessment and Plan Plan ASSESSMENT: - Severe abdominal pain/ Epigastric. improved. CT 08-27-16 --> A subtle filling defect involving the superior mesenteric vein. This raises concern for nonocclusive thrombus. 2. Worsening dilatation of the small bowel without a focal transition point. Small amount of free fluid. No free air. 3. Stable small left effusion CT Abd/pelvis w/o IV contrast (08/23/16) --> Unremarkable exam with the exception of free fluid in the right lower quadrant. The appendix is normal. There is extensive stool type density throughout the small bowel without any evidence of obstruction or dilated lumen. CTA Abd/pelvis (08/23) --> moderate to severe atherosclerotic disease of the aorta with moderate disease of the mesenteric arterial vasculature. However, no occlusion is visualized. Abnormal small bowel gas pattern with dilated mid to distal small bowel measuring up to 3.4cm. Additionally, some of the small bowel segments contain fecal like material and there is mild fluid and stranding in the ileal mesentery in the right abdomen. There is no bowel wall thickening. Although nonspecific these could represent some of the earliest findings of enteric ischemia. General Surgery is following. Vascular surgery following Pts last colonoscopy was 5-6 years ago in [place]. He denies any hx of polyps , IBD, or diverticulosis that he is aware of. - Constipation.improved, + BM. Pt appears to have stool throughout on the CT scans. - Leukocytosis. Pt has been afebrile, no source of infection is known at this time. Zosyn 4.5 g IV every 8 hours. Blood cultures pending. Of note pt is on steroids for recent COPD exacerbation. - Diabetes mellitus, Atrial fibrillation on Eliquis 5mg BID and ASA 81 mg daily , CAD, HTN, Hyperlipidemia, CHF, Lupus. Management per attending. PLAN: - mgmt PSBO per GS - Daily Lactic Acid - Lactulose 30mg PRN - Supportive care This pt seen by myself and Dr Santoro and this note is written on his behalf ( Leah Ovalle) Physician Comments Agree with the plan as above. Will follow up with you as needed . (Kristi Santoro MD) Leah Ovalle Sep 04, 2016 15:25 Kristi Santoro MD Sep 04, 2016 15:37
[2016-09-04] MEDS: FLUCONAZOLE 200 MG TAB PO SCH (16:40)
[2016-09-04 17:46] LABS: INTERNATIONAL NORMALIZED RATIO 1.1 RATIO; PROTHROMBIN TIME - PATIENT 11.9 SEC (9.8-11.6)
[2016-09-04] MEDS: WARFARIN SOD 5 MG TAB PO SCH (18:03)
[2016-09-04] MEDS: ALUMINUM/MAGNESIUM/SIMETH 30 ML CUP PO PRN (18:03)
[2016-09-04] MEDS: ATORVASTATIN 10 MG TAB PO SCH (19:52)
[2016-09-04] MEDS: BENZONATATE 100 MG CAP PO PRN (19:54)
[2016-09-04] MEDS: LISINOPRIL 10 MG TAB PO SCH (19:55)
[2016-09-04 23:53] LABS: PHOSPHATIDYLSERINE AB IGA LESS THAN 20.0 U/mL (()); PHOSPHATIDYLSERINE AB IGM LESS THAN 25.0 U/mL (())
[2016-09-05] VITALS: BP 160/94; PULSE 70; RESP 24; TEMP 96.8; O2SAT 94
[2016-09-05] MEDS: oxyCODONE/ACETAMINOPHEN 10 MG/325 MG TAB PO PRN ×3 (00:21→23:26)
[2016-09-05] MEDS: D5-1/2 NS + KCL 20 MEQ INJ 1,000 ML IV SCH (00:22)
[2016-09-05] MEDS: ALUMINUM/MAGNESIUM/SIMETH 30 ML CUP PO PRN ×3 (00:34→23:30)
[2016-09-05 04:00] VITALS: BP 130/83; PULSE 66; RESP 20; TEMP 96.1; O2SAT 94
[2016-09-05] MEDS: PANTOPRAZOLE SODIUM 40 MG VIAL IV PUSH SCH (06:30)
[2016-09-05] MEDS: INSULIN ASPART SUPPLEMENTAL SCALE SQ SCH ×4 (07:00→21:00)
[2016-09-05 07:34] LABS: APTT (PATIENT) 48.5 SEC (24.3-30.1); INTERNATIONAL NORMALIZED RATIO 1.1 RATIO; PROTHROMBIN TIME - PATIENT 11.8 SEC (9.8-11.6)
[2016-09-05 07:38] LABS: AUTOMATED NEUTROPHIL # 5.2 TH/MM3 (1.8-7.7); BASOPHIL % 0.2 % (0.0-2.0); EOSINOPHIL # 0.1 TH/MM3 (0-0.4); EOSINOPHIL % 1.3 % (0.0-4.0); HEMATOCRIT 37.1 % (39.0-51.0); HEMO FLAGS DIFF FINAL; LYMPH % 22.7 % (9.0-44.0); LYMPHOCYTE # 1.8 TH/MM3 (1.0-4.8); MEAN CELL VOLUME 90.9 FL (80.0-100.0); MEAN CORPUSCULAR HEMOGLOBIN 29.4 PG (27.0-34.0); MEAN CORPUSCULAR HGB CONC 32.4 % (32.0-36.0); MONO % 9.1 % (0.0-8.0); NEUT % 66.7 % (16.0-70.0); PLATELET COUNT 223 TH/MM3 (150-450); RED BLOOD COUNT 4.08 MIL/MM3 (4.50-5.90); RED CELL DISTRIBUTION WIDTH 16.4 % (11.6-17.2); WHITE BLOOD COUNT 7.8 TH/MM3 (4.0-11.0)
[2016-09-05 07:52] LABS: BICARBONATE 29.6 MEQ/L (21.0-32.0); POTASSIUM 3.4 MEQ/L (3.5-5.1)
[2016-09-05 08:00] VITALS: BP 112/74; PULSE 68; RESP 16; TEMP 98; O2SAT 93
[2016-09-05] MEDS: HEPARIN-D5W INJ 250 ML IV SCH (08:20)
[2016-09-05] MEDS: RESP: ALBUTEROL 2.5 MG/IPRATROPIUM 0.5 MG NEB (PRN) NEB ×2 (08:26→19:05)
--- NOTE | 2016-09-05 08:35 | HHI.FPPN ---
Subjective Remarks No acute events overnight. Afebrile, vital signs stable. Patient states he was distended with abdominal pain after eating macaroni and cheese and lasagna last night. His pain was relieved with milk of magnesia and Percocet. He endorses copious amounts of flatus yesterday following place meal. Denies any emesis or diarrhea. Last bowel movement was 2 days ago. (Sarai Cagle MD R3 ) Objective Vitals Vital Signs Date Time Temp Pulse Resp B/P Pulse Ox O2 Delivery O2 Flow Rate FiO2 09/05/16 04:00 96.1 66 20 130/83 94 09/05/16 00:00 96.8 70 24 160/94 94 09/04/16 20:00 96.4 70 22 125/68 95 09/04/16 16:00 97.0 81 18 139/93 97 09/04/16 12:00 96.6 65 16 116/69 94 09/04/16 09:01 93 21 I/O 09/04/16 09/04/16 09/04/16 09/05/16 09/05/16 09/05/16 06:59 14:59 22:59 06:59 14:59 22:59 Intake Total 1051 ml 600 ml 811 ml 480 ml Output Total 700 ml 850 ml 875 ml Balance 351 ml -250 ml 811 ml -395 ml Intake Oral 480 ml 600 ml 780 ml 480 ml IV Total 571 ml Other 31 ml Output Urine Total 700 ml 850 ml 875 ml # Voids 3 # Bowel Movements 1 0 0 0 (Sarai Cagle MD R3) Result Diagram: 09/05/1648 09/05/16 0648 Objective Remarks GENERAL: Sitting up in chair, no acute distress. SKIN: Warm/dry. HEAD: Atraumatic. Normocephalic. EYES: No scleral icterus. No injection or drainage. ENT: MMM. NECK: Trachea midline. No JVD. Supple. CARDIOVASCULAR: Regular rate and rhythm. No murmur appreciated. RESPIRATORY: No increased work of breathing. Lungs are clear anteriorly without wheezing, rhonchi or crackles. GASTROINTESTINAL: Abdomen obese, nontender to palpation. Nondistended. Normoactive bowel sounds MUSCULOSKELETAL: No obvious deformities. No cyanosis. 2+ pitting edema bilateral lower extremities. NEUROLOGICAL: Awake and alert. 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 Motor grossly within normal limits. Normal speech. PSYCHIATRIC: Appropriate mood and affect; insight and judgment normal. (Sarai Cagle MD R3) A/P Assessment and Plan 66-year-old male with history of COPD, CAD s/p 3-vessel CABG, HTN, HLD, atrial fibrillation, type 2 DM, and lupus. Developed a small bowel obstruction. Currently being treated for superior mesenteric vein partial thrombosis, currently being treated with heparin ggt, transitioning to warfarin. Discharge Planning Pending therapeutic INR (Sarai Cagle MD R3) Attending Attestation Patient seen and examined. Case reviewed and discussed Agree with plan of care as discussed with me and documented in the resident note. No BM today, advised to continue ambulating. Monitor and patient advised to be careful with consuming large quantities of food. [facility] [place] [facility] to determine prior Coumadin dosing. (Arianna Sanford MD) Problem List: (1) Pleural effusion Status: Acute Plan: CT Abdomen/Pelvis showed loculated effusion at the left lung base. US of thorax showed no collection of anechoic free fluid. Previous work-up by Dr. Crocker, for similar finding showed chronic scarring. Given normal WBCs and lack of fevers, patient is unlikely to have an acute infectious process. (2) Superior mesenteric vein thrombosis Status: Acute Plan: Partial superior mesenteric venous thrombosis. Patient currently on heparin drip as he developed a partial small bowel obstruction and is being treated medically. PTT within therapeutic limits. Transitioned to Coumadin. Continue heparin drip until INR therapeutic. Hematology consulted, patient currently undergoing hypercoagulation workup, unremarkable so far (3) SBO (small bowel obstruction) Status: Acute Plan: General surgery and gastroenterology consulted, appreciate recommendations. Patient's diet was advanced yesterday to a full diet. Tolerating by mouth. (4) Leukocytosis Status: Resolved Plan: Leukocytosis has resolved. (5) Esophageal candidiasis Status: Acute Plan: Patient currently on fluconazole started 08/27. Will treat for 14 days ( end date 09/10). (6) chronic medical problems Status: Chronic Plan: Atrial fibrillation: On heparin drip, continue aspirin 81 mg daily, continue Tikosyn 500 mcg PO BID Hypertension: Continue Metoprolol succinate ER 50 mg in the morning and increase bedtime dose to 50 mg. Continue lisinopril 10 mg by mouth daily at bedtime. Hyperlipidemia: Continue Crestor 5 mg daily at bedtime, continue coenzyme Q10 200 mg by mouth daily at bedtime Congestive heart failure: Continue torsemide 20 mg by mouth twice a day. Lupus: Continue Plaquenil COPD with recent exacerbation: Alternate albuterol and DuoNeb's, oxygen as needed (7) Nutrition, metabolism, and development symptoms Status: Acute Plan: Diet: Sips of clears Fluids: D5 half-normal saline 50 cc/hour Electrolytes: WNLs, continue to monitor and replete as necessary DVT prophylaxis: b/l SCDs; heparin drip GI prophylaxis: Continue Protonix 40 mg IV q24h (Sarai Cagle MD R3) Problem Qualifiers (1) Leukocytosis: Qualified Code: D72.829 - Leukocytosis, unspecified type Sarai Cagle MD R3 Sep 05, 2016 08:35 Arianna Sanford MD Sep 05, 2016 17:21
[2016-09-05] MEDS: LACTULOSE SYRUP 20 GM/30 ML CUP PO SCH ×2 (09:00→21:14)
[2016-09-05] MEDS: TORSEMIDE 20 MG TAB PO SCH ×2 (09:00→21:01)
[2016-09-05] MEDS: METOPROLOL SUCCINATE 50 MG EXTENDED RELEASE TAB PO SCH ×2 (09:09→21:02)
[2016-09-05] MEDS: ASPIRIN 81 MG CHEW TAB CHEW SCH ×2 (09:09→21:01)
[2016-09-05] MEDS: HYDROXYCHLOROQUINE SULFATE 200 MG TAB PO SCH ×2 (09:09→21:01)
[2016-09-05] MEDS: POTASSIUM CHLORIDE 10 MEQ CONTROLLED RELEASE TAB PO SCH (09:09)
[2016-09-05] MEDS: predniSONE 20 MG TAB PO SCH (09:10)
[2016-09-05] MEDS: DOFETILIDE 250 MCG CAP PO SCH ×2 (09:15→21:01)
--- NOTE | 2016-09-05 15:26 | HHI.PR ---
Subjective Subjective Notes Up to chair Had some mild abdominal distention after eating Objective Vitals/I&O Vital Signs Date Time Temp Pulse Resp B/P Pulse Ox O2 Delivery O2 Flow Rate FiO2 09/05/16 09:04 Room Air 09/05/16 08:00 98.0 68 16 112/74 93 09/04/16 09:01 21 Labs Laboratory Tests Test 09/04/16 09/05/16 16:56 06:48 Prothrombin Time 11.9 11.8 Prothromb Time International 1.1 1.1 Ratio White Blood Count 7.8 Red Blood Count 4.08 Hemoglobin 12.0 Hematocrit 37.1 Mean Corpuscular Volume 90.9 Mean Corpuscular Hemoglobin 29.4 Mean Corpuscular Hemoglobin 32.4 Concent Red Cell Distribution Width 16.4 Platelet Count 223 Mean Platelet Volume 7.9 Neutrophils (%) (Auto) 66.7 Lymphocytes (%) (Auto) 22.7 Monocytes (%) (Auto) 9.1 Eosinophils (%) (Auto) 1.3 Basophils (%) (Auto) 0.2 Neutrophils # (Auto) 5.2 Lymphocytes # (Auto) 1.8 Monocytes # (Auto) 0.7 Eosinophils # (Auto) 0.1 Basophils # (Auto) 0.0 CBC Comment DIFF FINAL Differential Comment Activated Partial 48.5 Thromboplast Time Sodium Level 138 Potassium Level 3.4 Chloride Level 99 Carbon Dioxide Level 29.6 Anion Gap 9 Blood Urea Nitrogen 8 Creatinine 1.04 Estimat Glomerular Filtration 71 Rate Random Glucose 123 Calcium Level 8.1 Radiology Last Impressions Abdomen X-Ray 08/30/16 0000 Signed Impressions: Service Date/Time: Tuesday, August 30, 2016 00:28 - CONCLUSION: There appears to be slightly more distention of loops of small bowel characteristic of small bowel obstruction. Oj Rivas MD Abdomen/Pelvis CT 08/27/16 1023 Signed Impressions: Service Date/Time: Saturday, August 27, 2016 11:21 - CONCLUSION: 1. A subtle filling defect involving the superior mesenteric vein. This raises concern for nonocclusive thrombus. 2. Worsening dilatation of the small bowel without a focal transition point. Small amount of free fluid. No free air. 3. Stable small left effusion. Jr Parker Jr., MD Chest X-Ray 08/27/16 0000 Signed Impressions: Service Date/Time: Saturday, August 27, 2016 11:09 - CONCLUSION: Interval improvement with less parenchymal changes left base. Hebert Saldana MD FACR Hepatobiliary Scan Nuclear Medicine 08/26/16 0000 Signed Impressions: Service Date/Time: Friday, August 26, 2016 08:48 - CONCLUSION: Negative exam. No scintigraphic findings of acute or chronic cholecystitis. No significant biliary enteric reflux. David Baltazar MD Cardiovascular: Regular Lungs: Clear Abdomen: Other (very mildly distended; non tender with palpation ) Extremities: No edema Narrative Exam NGT removed A/P Problem List: (1) Abdominal pain (2) chronic medical problems (3) CHF (congestive heart failure) (4) CAD (coronary artery disease) (5) Diabetes mellitus (6) Atrial fibrillation (7) CHF exacerbation (8) Acute renal insufficiency (9) Constipation Assessment and Plan 66 year old male with extensive cardiac history with epigastric pain; non occlusive thrombus in mesenteric vein -Advance to soft diet ---encouraged small bland frequent meals -Continue Heparin drip; Hematology following --- transitioning to Coumadin -Vascular following -Continue non operative treatment; appears SBO has resolved Problem Qualifiers (1) Abdominal pain: Qualified Code: R10.9 - Abdominal pain, unspecified location Karena Cordon Sep 05, 2016 15:26
[2016-09-05 16:00] VITALS: BP 133/72; PULSE 68; RESP 18; TEMP 98; O2SAT 97
[2016-09-05] MEDS: FLUCONAZOLE 200 MG TAB PO SCH (17:09)
[2016-09-05] MEDS: WARFARIN SOD 5 MG TAB PO SCH (17:09)
[2016-09-05 19:09] VITALS: O2SAT 95
[2016-09-05 20:00] VITALS: BP 131/69; PULSE 73; RESP 20; TEMP 96.8; O2SAT 95
[2016-09-05] MEDS: LISINOPRIL 10 MG TAB PO SCH (21:02)
[2016-09-05] MEDS: ATORVASTATIN 10 MG TAB PO SCH (21:02)
[2016-09-05] MEDS: BENZONATATE 100 MG CAP PO PRN (21:06)
[2016-09-05] MEDS: SODIUM CHLORIDE 0.9% FLUSH 10 ML FLUSH IV FLUSH PRN (21:14)
[2016-09-06] VITALS (7 sets, daily range): BP systolic 106–142; BP diastolic 69–99; PULSE 67–77; RESP 18–22; TEMP 95.6–97; O2SAT 91–96
[2016-09-06] MEDS: HEPARIN-D5W INJ 250 ML IV SCH ×2 (00:11→17:42)
[2016-09-06] MEDS: PANTOPRAZOLE SODIUM 40 MG VIAL IV PUSH SCH (06:30)
[2016-09-06] MEDS: INSULIN ASPART SUPPLEMENTAL SCALE SQ SCH ×4 (07:00→21:39)
[2016-09-06 08:55] LABS: APTT (PATIENT) 49.9 SEC (24.3-30.1); INTERNATIONAL NORMALIZED RATIO 1.1 RATIO; PROTHROMBIN TIME - PATIENT 12.1 SEC (9.8-11.6)
[2016-09-06] MEDS: LACTULOSE SYRUP 20 GM/30 ML CUP PO SCH ×2 (09:00→21:36)
[2016-09-06] MEDS: ASPIRIN 81 MG CHEW TAB CHEW SCH ×2 (09:34→21:37)
[2016-09-06] MEDS: HYDROXYCHLOROQUINE SULFATE 200 MG TAB PO SCH ×2 (09:34→21:36)
[2016-09-06] MEDS: TORSEMIDE 20 MG TAB PO SCH ×2 (09:34→21:36)
[2016-09-06] MEDS: METOPROLOL SUCCINATE 50 MG EXTENDED RELEASE TAB PO SCH ×2 (09:34→21:37)
[2016-09-06] MEDS: predniSONE 20 MG TAB PO SCH (09:34)
[2016-09-06] MEDS: POTASSIUM CHLORIDE 10 MEQ CONTROLLED RELEASE TAB PO SCH (09:34)
[2016-09-06] MEDS: DOFETILIDE 250 MCG CAP PO SCH ×2 (09:34→21:36)
--- NOTE | 2016-09-06 12:33 | HHI.FPPN ---
Subjective Remarks No acute events overnight. Afebrile, vital signs stable. Patient had a large bowel movement with flatus. He is working on eating smaller more frequent meals. He has abdominal tightness relieved with milk of magnesia. He has been walking without difficulty. He has no complaints at this time. (Sarai Cagle MD R3) Objective Vitals Vital Signs Date Time Temp Pulse Resp B/P Pulse Ox O2 Delivery O2 Flow Rate FiO2 09/06/16 08:00 96.4 77 18 131/83 91 09/06/16 04:00 96.3 67 20 142/99 94 09/06/16 00:00 96.1 70 22 133/83 94 09/05/16 20:00 96.8 73 20 131/69 95 09/05/16 19:09 95 21 09/05/16 16:00 98.0 68 18 133/72 97 I/O 09/05/16 09/05/16 09/05/16 09/06/16 09/06/16 09/06/16 07:00 15:00 23:00 07:00 15:00 23:00 Intake Total 480 ml 600 ml 780 ml 579 ml 127 ml Output Total 875 ml 500 ml Balance -395 ml 600 ml 780 ml 79 ml 127 ml Intake Oral 480 ml 600 ml 780 ml 480 ml IV Total 99 ml 127 ml Output Urine Total 875 ml 500 ml # Voids 4 4 # Bowel Movements 0 1 1 0 (Sarai Cagle MD R3) Result Diagram: 09/05/16 0648 09/05/16 0648 Objective Remarks GENERAL: Sitting up in chair, no acute distress. SKIN: Warm/dry. HEAD: Atraumatic. Normocephalic. EYES: No scleral icterus. No injection or drainage. ENT: MMM. NECK: Trachea midline. No JVD. Supple. CARDIOVASCULAR: Regular rate and rhythm. No murmur appreciated. RESPIRATORY: No increased work of breathing. Lungs are clear anteriorly without wheezing, rhonchi or crackles. GASTROINTESTINAL: Abdomen obese, nontender to palpation. Nondistended. Normoactive bowel sounds MUSCULOSKELETAL: No obvious deformities. No cyanosis. 2+ pitting edema to the mid jarquin, improving. NEUROLOGICAL: Awake and alert. 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 Motor grossly within normal limits. Normal speech. PSYCHIATRIC: Appropriate mood and affect; insight and judgment normal. (Sarai Cagle MD R3) A/P Assessment and Plan 66-year-old male with history of COPD, CAD s/p 3-vessel CABG, HTN, HLD, atrial fibrillation, type 2 DM, and lupus. Developed a small bowel obstruction. Currently being treated for superior mesenteric vein partial thrombosis, currently being treated with heparin ggt, transitioning to warfarin. Discharge Planning Pending therapeutic INR (Sarai Cagle MD R3) Attending Attestation Patient seen and examined with the resident team. Case reviewed and discussed Agree with plan of care as discussed with me and documented in the resident note. (Arianna Sanford MD) Problem List: (1) Superior mesenteric vein thrombosis Status: Acute Plan: Partial superior mesenteric venous thrombosis. Patient currently on heparin drip as he developed a partial small bowel obstruction and is being treated medically. PTT within therapeutic limits. Transitioned to Coumadin. Continue heparin drip until INR therapeutic. Patient previously on Coumadin, 10 mg daily. Increase Coumadin to 10 mg daily Follow INR Hematology consulted, patient currently undergoing hypercoagulation workup, unremarkable so far (2) Pleural effusion Status: Acute Plan: CT Abdomen/Pelvis showed loculated effusion at the left lung base. US of thorax showed no collection of anechoic free fluid. Previous work-up by Dr. Crocker, for similar finding showed chronic scarring. Given normal WBCs and lack of fevers, patient is unlikely to have an acute infectious process. (3) SBO (small bowel obstruction) Status: Resolved Plan: General surgery and gastroenterology consulted, appreciate recommendations. Patient tolerating full diet, counseled to eat frequent small meals. Large bowel movement yesterday. (4) Leukocytosis Status: Resolved Plan: Leukocytosis has resolved. (5) Esophageal candidiasis Status: Acute Plan: Patient currently on fluconazole started 08/27. Will treat for 14 days ( end date 09/10). (6) chronic medical problems Status: Chronic Plan: Atrial fibrillation: On heparin drip, continue aspirin 81 mg daily, continue Tikosyn 500 mcg PO BID Hypertension: Continue Metoprolol succinate ER 50 mg in the morning and increase bedtime dose to 50 mg. Continue lisinopril 10 mg by mouth daily at bedtime. Hyperlipidemia: Continue Crestor 5 mg daily at bedtime, continue coenzyme Q10 200 mg by mouth daily at bedtime Congestive heart failure: Continue torsemide 20 mg by mouth twice a day. Lupus: Continue Plaquenil COPD with recent exacerbation: Alternate albuterol and DuoNeb's, oxygen as needed (7) Nutrition, metabolism, and development symptoms Status: Acute Plan: Diet: Regular diet Fluids: Hep-Lock IV Electrolytes: Replete when necessary DVT prophylaxis: b/l SCDs; heparin drip GI prophylaxis: Protonix (Sarai Cagle MD R3) Problem Qualifiers (1) Leukocytosis: Qualified Code: D72.829 - Leukocytosis, unspecified type Sarai Cagle MD R3 Sep 06, 2016 12:33 Arianna Sanford MD Sep 06, 2016 14:26
--- NOTE | 2016-09-06 12:47 | HHI.PR ---
Subjective Subjective Notes Abdomen feels ok to patient. Tolerating meals ok; had some epigastric pain after meals yesterday that has resolved. Breakfast OK with no pain. Objective Vitals/I&O Vital Signs Date Time Temp Pulse Resp B/P Pulse Ox O2 Delivery O2 Flow Rate FiO2 09/06/16 12:00 96.1 74 18 131/69 91 09/05/16 19:09 21 09/05/16 09:04 Room Air Labs Laboratory Tests Test 09/06/16 08:05 Prothrombin Time 12.1 Prothromb Time International 1.1 Ratio Activated Partial 49.9 Thromboplast Time Radiology Last Impressions Abdomen X-Ray 08/30/16 0000 Signed Impressions: Service Date/Time: Tuesday, August 30, 2016 00:28 - CONCLUSION: There appears to be slightly more distention of loops of small bowel characteristic of small bowel obstruction. Oj Rivas MD Abdomen/Pelvis CT 08/27/16 1023 Signed Impressions: Service Date/Time: Saturday, August 27, 2016 11:21 - CONCLUSION: 1. A subtle filling defect involving the superior mesenteric vein. This raises concern for nonocclusive thrombus. 2. Worsening dilatation of the small bowel without a focal transition point. Small amount of free fluid. No free air. 3. Stable small left effusion. Jr Parker Jr., MD Chest X-Ray 08/27/16 0000 Signed Impressions: Service Date/Time: Saturday, August 27, 2016 11:09 - CONCLUSION: Interval improvement with less parenchymal changes left base. Hebert Saldana MD FACR Hepatobiliary Scan Nuclear Medicine 08/26/16 0000 Signed Impressions: Service Date/Time: Friday, August 26, 2016 08:48 - CONCLUSION: Negative exam. No scintigraphic findings of acute or chronic cholecystitis. No significant biliary enteric reflux. David Baltazar MD Lungs: Clear Abdomen: Non-distended, Non-tender A/P Problem List: (1) Abdominal pain (2) chronic medical problems (3) CHF (congestive heart failure) (4) CAD (coronary artery disease) (5) Diabetes mellitus (6) Atrial fibrillation (7) CHF exacerbation (8) Acute renal insufficiency (9) Constipation Assessment and Plan Problem List: (1) Abdominal pain (2) chronic medical problems (3) CHF (congestive heart failure) (4) CAD (coronary artery disease) (5) Diabetes mellitus (6) Atrial fibrillation (7) CHF exacerbation (8) Acute renal insufficiency (9) Constipation Assessment and Plan 66 year old male with extensive cardiac history with epigastric pain; non occlusive thrombus in mesenteric vein -Advanced to soft diet --- encouraged small bland frequent meals- doing better at present -Continue Heparin drip; Hematology following --- transitioning to Coumadin -Vascular following -Continue non operative treatment; appears SBO has resolved -Patient failed on eliquis; to get coumadin for A-fib going forward per hematology Problem Qualifiers (1) Abdominal pain: Qualified Code: R10.9 - Abdominal pain, unspecified location Giuseppe Xiong MD Sep 06, 2016 12:47
[2016-09-06] MEDS: FLUCONAZOLE 200 MG TAB PO SCH (17:30)
[2016-09-06] MEDS: WARFARIN SOD 10 MG TAB PO SCH (17:31)
[2016-09-06] MEDS: oxyCODONE/ACETAMINOPHEN 10 MG/325 MG TAB PO PRN (17:32)
[2016-09-06] MEDS: ALUMINUM/MAGNESIUM/SIMETH 30 ML CUP PO PRN (17:39)
[2016-09-06] MEDS: ATORVASTATIN 10 MG TAB PO SCH (21:36)
[2016-09-06] MEDS: LISINOPRIL 10 MG TAB PO SCH (21:36)
[2016-09-07 00:10] VITALS: BP 138/85; PULSE 69; RESP 18; TEMP 96.9; O2SAT 96
[2016-09-07 04:06] VITALS: BP 136/86; PULSE 70; RESP 18; TEMP 96.8; O2SAT 96
[2016-09-07] MEDS: INSULIN ASPART SUPPLEMENTAL SCALE SQ SCH ×4 (05:39→20:34)
[2016-09-07 07:34] LABS: APTT (PATIENT) 44.9 SEC (24.3-30.1); INTERNATIONAL NORMALIZED RATIO 1.3 RATIO; PROTHROMBIN TIME - PATIENT 14.8 SEC (9.8-11.6)
[2016-09-07 08:00] VITALS: BP 119/76; PULSE 68; RESP 18; TEMP 96.1; O2SAT 94
[2016-09-07] MEDS: LACTULOSE SYRUP 20 GM/30 ML CUP PO SCH ×2 (09:00→20:30)
[2016-09-07] MEDS: HYDROXYCHLOROQUINE SULFATE 200 MG TAB PO SCH ×2 (09:08→20:31)
[2016-09-07] MEDS: TORSEMIDE 20 MG TAB PO SCH ×2 (09:08→20:31)
[2016-09-07] MEDS: METOPROLOL SUCCINATE 50 MG EXTENDED RELEASE TAB PO SCH ×2 (09:08→20:31)
[2016-09-07] MEDS: ASPIRIN 81 MG CHEW TAB CHEW SCH ×2 (09:08→20:31)
[2016-09-07] MEDS: PANTOPRAZOLE SOD 40 MG DELAYED RELEASE TAB PO SCH (09:08)
[2016-09-07] MEDS: POTASSIUM CHLORIDE 10 MEQ CONTROLLED RELEASE TAB PO SCH (09:09)
[2016-09-07] MEDS: predniSONE 20 MG TAB PO SCH (09:10)
[2016-09-07] MEDS: DOFETILIDE 250 MCG CAP PO SCH ×2 (09:10→20:31)
[2016-09-07] MEDS: HEPARIN-D5W INJ 250 ML IV SCH ×2 (09:16→22:32)
--- NOTE | 2016-09-07 09:46 | HHI.FPPN ---
Subjective Remarks Accompanied by his today. He is feeling "great" tolerating whole meals. 3 BMs today, first on at 0200 was runny, but since has been having formed BM. No abdominal pain at rest or with food. No F/C/CP/ or SOB. AFVSS Objective Vitals Vital Signs Date Time Temp Pulse Resp B/P Pulse Ox O2 Delivery O2 Flow Rate FiO2 09/07/16 08:00 96.1 68 18 119/76 94 09/07/16 04:06 96.8 70 18 136/86 96 09/07/16 00:10 96.9 69 18 138/85 96 09/06/16 20:20 97.0 69 18 106/76 96 09/06/16 19:52 69 09/06/16 16:00 95.6 71 18 127/80 94 09/06/16 12:00 96.1 74 18 131/69 91 I/O 09/06/16 09/06/16 09/06/16 09/07/16 09/07/16 09/07/16 07:00 15:00 23:00 07:00 15:00 23:00 Intake Total 579 ml 1087 ml 240 ml 360 ml Output Total 500 ml 350 ml 1000 ml Balance 79 ml 737 ml 240 ml -640 ml Intake Oral 480 ml 960 ml 240 ml 360 ml IV Total 99 ml 127 ml Output Urine Total 500 ml 350 ml 1000 ml # Voids 3 2 2 # Bowel Movements 0 1 0 0 Result Diagram: 09/05/1648 09/05/16 0648 Objective Remarks GENERAL: Sitting up in chair, no acute distress. SKIN: Warm/dry. HEAD: Atraumatic. Normocephalic. EYES: No scleral icterus. No injection or drainage. ENT: MMM. NECK: Trachea midline. No JVD. Supple. CARDIOVASCULAR: Regular rate and rhythm. No murmur appreciated. RESPIRATORY: No increased work of breathing. Lungs are clear anteriorly without wheezing, rhonchi or crackles. GASTROINTESTINAL: Abdomen obese, nontender to palpation. Nondistended. Normoactive bowel sounds MUSCULOSKELETAL: No obvious deformities. No cyanosis. 2+ pitting edema to the mid jarquin, improving. NEUROLOGICAL: Awake and alert. 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 Motor grossly within normal limits. Normal speech. PSYCHIATRIC: Appropriate mood and affect; insight and judgment normal. A/P Assessment and Plan 66-year-old male with history of COPD, CAD s/p 3-vessel CABG, HTN, HLD, atrial fibrillation, type 2 DM, and lupus. Developed a small bowel obstruction. Currently being treated for superior mesenteric vein partial thrombosis, currently being treated with heparin ggt, transitioning to warfarin. Discharge Planning Pending therapeutic INR Problem List: (1) Superior mesenteric vein thrombosis Status: Acute Plan: Partial superior mesenteric venous thrombosis. Patient currently on heparin drip as he developed a partial small bowel obstruction and is being treated medically. PTT within therapeutic limits. Transitioned to Coumadin. Continue heparin drip until INR therapeutic. Patient previously on Coumadin, 10 mg daily. Increase Coumadin to 10 mg daily Follow INR - 1.3 on 09/07. Goal 2.0 -3.0. Hematology consulted, patient currently undergoing hypercoagulation workup, unremarkable so far (2) Pleural effusion Status: Acute Plan: CT Abdomen/Pelvis showed loculated effusion at the left lung base. US of thorax showed no collection of anechoic free fluid. Previous work-up by Dr. Crocker, for similar finding showed chronic scarring. Given normal WBCs and lack of fevers, patient is unlikely to have an acute infectious process. (3) SBO (small bowel obstruction) Status: Resolved Plan: General surgery and gastroenterology consulted, appreciate recommendations. Patient tolerating full diet, counseled to eat frequent small meals. Large bowel movement yesterday. (4) Leukocytosis Status: Resolved Plan: Leukocytosis has resolved. (5) Esophageal candidiasis Status: Acute Plan: Patient currently on fluconazole started 08/27. Will treat for 14 days ( end date 09/10). (6) chronic medical problems Status: Chronic Plan: Atrial fibrillation: On heparin drip, continue aspirin 81 mg daily, continue Tikosyn 500 mcg PO BID Hypertension: Continue Metoprolol succinate ER 50 mg in the morning and increase bedtime dose to 50 mg. Continue lisinopril 10 mg by mouth daily at bedtime. Hyperlipidemia: Continue Crestor 5 mg daily at bedtime, continue coenzyme Q10 200 mg by mouth daily at bedtime Congestive heart failure: Continue torsemide 20 mg by mouth twice a day. Lupus: Continue Plaquenil and prednisone. COPD with recent exacerbation: Alternate albuterol and DuoNeb's, oxygen as needed (7) Nutrition, metabolism, and development symptoms Status: Acute Plan: Diet: Regular diet Fluids: Hep-Lock IV Electrolytes: Replete when necessary DVT prophylaxis: b/l SCDs; heparin drip GI prophylaxis: Protonix Problem Qualifiers (1) Leukocytosis: Qualified Code: D72.829 - Leukocytosis, unspecified type Ulisses Lynn MD R2 Sep 07, 2016 09:46
--- NOTE | 2016-09-07 10:09 | HHI.PR ---
Subjective Subjective Notes no acute issues, abdominal pain resolved, oob, Objective Vitals/I&O Vital Signs Date Time Temp Pulse Resp B/P Pulse Ox O2 Delivery O2 Flow Rate FiO2 09/07/16 08:00 96.1 68 18 119/76 94 09/05/16 19:09 21 09/05/16 09:04 Room Air Labs Laboratory Tests Test 09/07/16 06:13 Prothrombin Time 14.8 Prothromb Time International 1.3 Ratio Activated Partial 44.9 Thromboplast Time Radiology Last Impressions Abdomen X-Ray 08/30/16 0000 Signed Impressions: Service Date/Time: Tuesday, August 30, 2016 00:28 - CONCLUSION: There appears to be slightly more distention of loops of small bowel characteristic of small bowel obstruction. Oj Rivas MD Abdomen/Pelvis CT 08/27/16 1023 Signed Impressions: Service Date/Time: Saturday, August 27, 2016 11:21 - CONCLUSION: 1. A subtle filling defect involving the superior mesenteric vein. This raises concern for nonocclusive thrombus. 2. Worsening dilatation of the small bowel without a focal transition point. Small amount of free fluid. No free air. 3. Stable small left effusion. Jr Pakrer Jr., MD Chest X-Ray 08/27/16 0000 Signed Impressions: Service Date/Time: Saturday, August 27, 2016 11:09 - CONCLUSION: Interval improvement with less parenchymal changes left base. Hebert Saldana MD FACR Hepatobiliary Scan Nuclear Medicine 08/26/16 0000 Signed Impressions: Service Date/Time: Friday, August 26, 2016 08:48 - CONCLUSION: Negative exam. No scintigraphic findings of acute or chronic cholecystitis. No significant biliary enteric reflux. David Baltazar MD Abdomen: Other (soft nt/nd) A/P Problem List: (1) Abdominal pain (2) chronic medical problems (3) CHF (congestive heart failure) (4) CAD (coronary artery disease) (5) Diabetes mellitus (6) Atrial fibrillation (7) CHF exacerbation (8) Acute renal insufficiency (9) Constipation Assessment and Plan 66 year old male with extensive cardiac history with epigastric pain; unknown etiology, concern for mesenteric ischemia -CTA reviewed--- shows subtle filling defect involving mesenteric vein; possible non occlusive thrombus -Heparin drip, transition to coumadin; Hematology following, await INR therapeutic - non op mgnt continue abdominal exams, d/c planning from surgery stand point Problem Qualifiers (1) Abdominal pain: Qualified Code: R10.9 - Abdominal pain, unspecified location Michelet Chino MD Sep 07, 2016 10:09
[2016-09-07 12:00] VITALS: BP 111/71; PULSE 64; RESP 18; TEMP 96; O2SAT 94
[2016-09-07 16:00] VITALS: BP 126/77; PULSE 69; RESP 18; TEMP 96.9; O2SAT 94
[2016-09-07] MEDS: ALUMINUM/MAGNESIUM/SIMETH 30 ML CUP PO PRN (18:11)
[2016-09-07] MEDS: oxyCODONE/ACETAMINOPHEN 10 MG/325 MG TAB PO PRN (18:12)
[2016-09-07] MEDS: FLUCONAZOLE 200 MG TAB PO SCH (18:12)
[2016-09-07] MEDS: WARFARIN SOD 10 MG TAB PO SCH (18:12)
[2016-09-07 20:10] VITALS: BP 110/70; PULSE 75; RESP 18; TEMP 96.2; O2SAT 95
[2016-09-07] MEDS: LISINOPRIL 10 MG TAB PO SCH (20:31)
[2016-09-07] MEDS: ATORVASTATIN 10 MG TAB PO SCH (20:31)
[2016-09-08 00:10] VITALS: BP 111/72; PULSE 64; RESP 18; TEMP 96.8; O2SAT 95
[2016-09-08 04:10] VITALS: BP 114/74; PULSE 69; RESP 18; TEMP 96.6; O2SAT 94
[2016-09-08] MEDS: INSULIN ASPART SUPPLEMENTAL SCALE SQ SCH ×2 (05:42→11:48)
[2016-09-08 05:43] VITALS: PULSE 73
[2016-09-08 06:21] LABS: AUTOMATED NEUTROPHIL # 7.5 TH/MM3 (1.8-7.7); BASOPHIL % 0.2 % (0.0-2.0); EOSINOPHIL # 0.1 TH/MM3 (0-0.4); EOSINOPHIL % 1.4 % (0.0-4.0); HEMATOCRIT 35.7 % (39.0-51.0); HEMO FLAGS DIFF FINAL; LYMPH % 17.2 % (9.0-44.0); LYMPHOCYTE # 1.8 TH/MM3 (1.0-4.8); MEAN CELL VOLUME 90.6 FL (80.0-100.0); MEAN CORPUSCULAR HEMOGLOBIN 29.4 PG (27.0-34.0); MEAN CORPUSCULAR HGB CONC 32.5 % (32.0-36.0); MONO % 8.2 % (0.0-8.0); PLATELET COUNT 300 TH/MM3 (150-450); RED BLOOD COUNT 3.95 MIL/MM3 (4.50-5.90); RED CELL DISTRIBUTION WIDTH 16.5 % (11.6-17.2); WHITE BLOOD COUNT 10.2 TH/MM3 (4.0-11.0)
[2016-09-08 06:36] LABS: APTT (PATIENT) 60.4 SEC (24.3-30.1); INTERNATIONAL NORMALIZED RATIO 2.2 RATIO; PROTHROMBIN TIME - PATIENT 25.4 SEC (9.8-11.6)
[2016-09-08 06:38] LABS: BICARBONATE 31.7 MEQ/L (21.0-32.0); POTASSIUM 3.5 MEQ/L (3.5-5.1)
[2016-09-08] MEDS: DOFETILIDE 250 MCG CAP PO SCH (07:28)
[2016-09-08] MEDS: LACTULOSE SYRUP 20 GM/30 ML CUP PO SCH (07:28)
[2016-09-08] MEDS: PANTOPRAZOLE SOD 40 MG DELAYED RELEASE TAB PO SCH (07:29)
[2016-09-08] MEDS: TORSEMIDE 20 MG TAB PO SCH (07:29)
[2016-09-08] MEDS: HYDROXYCHLOROQUINE SULFATE 200 MG TAB PO SCH (07:29)
[2016-09-08] MEDS: POTASSIUM CHLORIDE 10 MEQ CONTROLLED RELEASE TAB PO SCH (07:30)
[2016-09-08] MEDS: ASPIRIN 81 MG CHEW TAB CHEW SCH (07:30)
[2016-09-08] MEDS: METOPROLOL SUCCINATE 50 MG EXTENDED RELEASE TAB PO SCH (07:30)
[2016-09-08] MEDS: predniSONE 20 MG TAB PO SCH (07:31)
[2016-09-08 07:36] VITALS: PULSE 67
[2016-09-08 08:00] VITALS: BP 129/79; PULSE 74; RESP 20; TEMP 96.6; O2SAT 95
[2016-09-08] MEDS ORDERED: DIFL200T PO (09:41)
[2016-09-08] MEDS ORDERED: COUM10TA PO (09:41)
--- NOTE | 2016-09-08 09:42 | HHI.DCPOC ---
Discharge Care Plan Goals to Promote Your Health * To prevent worsening of your condition and complications take all medications as prescribed * To maintain your health at the optimal level follow all discharge instructions Directions to Meet Your Goals Take your medications as prescribed Follow your dietary instruction Follow activity as directed Keep your appointments as scheduled Take your immunizations and boosters as scheduled If your symptoms worsen call your PCP, if no PCP go to Urgent Care Center or Emergency Room Smoking is Dangerous to Your Health. Avoid second hand smoke Call the 24-hour hour crisis hotline for domestic abuse at Sarai Cagle MD R3 Sep 08, 2016 09:42
--- NOTE | 2016-09-08 14:56 | HHI.FPPN ---
Subjective Remarks No acute events overnight. Afebrile, vital signs stable. Patient continues to have regular bowel movements and is tolerating by mouth. (Sarai Cagle MD R3 ) Objective Vitals Vital Signs Date Time Temp Pulse Resp B/P Pulse Ox O2 Delivery O2 Flow Rate FiO2 09/08/16 08:00 96.6 74 20 129/79 95 09/08/16 07:36 67 09/08/16 05:43 73 09/08/16 04:10 96.6 69 18 114/74 94 09/08/16 00:10 96.8 64 18 111/72 95 09/07/16 20:10 96.2 75 18 110/70 95 09/07/16 16:00 96.9 69 18 126/77 94 I/O 09/07/16 09/07/16 09/07/16 09/08/16 09/08/16 09/08/16 07:00 15:00 23:00 07:00 15:00 23:00 Intake Total 360 ml 960 ml 240 ml 480 ml Output Total 1000 ml 1200 ml Balance -640 ml 960 ml 240 ml -720 ml Intake Oral 360 ml 960 ml 240 ml 480 ml Output Urine Total 1000 ml 1200 ml # Voids 2 3 1 2 # Bowel Movements 0 3 1 1 (Sarai Cagle MD R3) Result Diagram: 09/08/16 0550 09/08/16 0542 Objective Remarks GENERAL: Sitting up in chair, no acute distress. SKIN: Warm/dry. HEAD: Atraumatic. Normocephalic. EYES: No scleral icterus. No injection or drainage. ENT: MMM. NECK: Trachea midline. No JVD. Supple. CARDIOVASCULAR: Regular rate and rhythm. No murmur appreciated. RESPIRATORY: No increased work of breathing. Lungs are clear anteriorly without wheezing, rhonchi or crackles. GASTROINTESTINAL: Abdomen obese, nontender to palpation. Nondistended. Normoactive bowel sounds MUSCULOSKELETAL: No obvious deformities. No cyanosis. Edema improved. NEUROLOGICAL: Awake and alert. 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 Motor grossly within normal limits. Normal speech. PSYCHIATRIC: Appropriate mood and affect; insight and judgment normal. (Sarai Cagle MD R3) A/P Assessment and Plan 66-year-old male with history of COPD, CAD s/p 3-vessel CABG, HTN, HLD, atrial fibrillation, type 2 DM, and lupus. Developed a small bowel obstruction. Currently being treated for superior mesenteric vein partial thrombosis, currently being treated with heparin ggt, transitioning to warfarin. Discharge Planning To home today (Sarai Cagle MD R3) Attending Attestation Patient seen and examined Case reviewed and discussed Agree with plan of care as discussed with me and documented in the resident note. (Arianna Sanford MD) Problem List: (1) Superior mesenteric vein thrombosis Status: Acute Plan: Partial superior mesenteric venous thrombosis. Patient on heparin drip as he developed a partial small bowel obstruction and is being treated medically. PTT within therapeutic limits. Transitioned to Coumadin. Continue heparin drip until INR therapeutic. Patient previously on Coumadin, 10 mg daily. Increase Coumadin to 10 mg daily Follow INR. Goal 2.0 -3.0. Hematology consulted, patient currently undergoing hypercoagulation workup, unremarkable so far Patient's INR therapeutic today at 2.2, will repeat INR as outpatient tomorrow. He will follow with his PCP in [place]. Follow-up with hematology in 1 week. Discharged on 10 mg Coumadin daily. (2) Pleural effusion Status: Acute Plan: CT Abdomen/Pelvis showed loculated effusion at the left lung base. US of thorax showed no collection of anechoic free fluid. Previous work-up by Dr. Crocker, for similar finding showed chronic scarring. Given normal WBCs and lack of fevers, patient is unlikely to have an acute infectious process. (3) SBO (small bowel obstruction) Status: Resolved Plan: General surgery and gastroenterology consulted, appreciate recommendations. Patient tolerating full diet, counseled to eat frequent small meals. Continues to have bowel movements. (4) Leukocytosis Status: Resolved Plan: Leukocytosis has resolved. (5) Esophageal candidiasis Status: Acute Plan: Patient currently on fluconazole started 08/27. Will treat for 14 days ( end date 09/10). (6) chronic medical problems Status: Chronic Plan: Atrial fibrillation: On heparin drip, continue aspirin 81 mg daily, continue Tikosyn 500 mcg PO BID Hypertension: Continue Metoprolol succinate ER 50 mg in the morning and increase bedtime dose to 50 mg. Continue lisinopril 10 mg by mouth daily at bedtime. Hyperlipidemia: Continue Crestor 5 mg daily at bedtime, continue coenzyme Q10 200 mg by mouth daily at bedtime Congestive heart failure: Continue torsemide 20 mg by mouth twice a day. Lupus: Continue Plaquenil COPD with recent exacerbation: Alternate albuterol and DuoNeb's, oxygen as needed (7) Nutrition, metabolism, and development symptoms Status: Acute Plan: Diet: Regular diet Fluids: Hep-Lock IV Electrolytes: Replete when necessary DVT prophylaxis: b/l SCDs; heparin drip GI prophylaxis: Protonix (Sarai Cagle MD R3) Problem Qualifiers (1) Leukocytosis: Qualified Code: D72.829 - Leukocytosis, unspecified type Sarai Cagle MD R3 Sep 08, 2016 14:56 Arianna Sanford MD Sep 18, 2016 11:02
--- NOTE | 2016-09-08 15:04 | HHI.DS ---
Discharge Summary Admission Date August 23, 2016 at 04:47 Discharge Date: Sep 08, 2016 Admitting Diagnosis abdominal pain, lactic acidosis, leukocytosis (1) Superior mesenteric vein thrombosis Diagnosis: Principal Plan: Partial superior mesenteric venous thrombosis. Patient on heparin drip as he developed a partial small bowel obstruction and is being treated medically. PTT within therapeutic limits. Transitioned to Coumadin. Continue heparin drip until INR therapeutic. Patient previously on Coumadin, 10 mg daily. Increase Coumadin to 10 mg daily Follow INR. Goal 2.0 -3.0. Hematology consulted, patient currently undergoing hypercoagulation workup, unremarkable so far Patient's INR therapeutic today at 2.2, will repeat INR as outpatient tomorrow. He will follow with his PCP in [place]. Follow-up with hematology in 1 week. Discharged on 10 mg Coumadin daily. (2) Pleural effusion Diagnosis: Secondary Plan: CT Abdomen/Pelvis showed loculated effusion at the left lung base. US of thorax showed no collection of anechoic free fluid. Previous work-up by Dr. Crocker, for similar finding showed chronic scarring. Given normal WBCs and lack of fevers, patient is unlikely to have an acute infectious process. (3) SBO (small bowel obstruction) Diagnosis: Principal Plan: General surgery and gastroenterology consulted, appreciate recommendations. Patient tolerating full diet, counseled to eat frequent small meals. Continues to have bowel movements. (4) Leukocytosis Diagnosis: Secondary Plan: Leukocytosis has resolved. (5) Esophageal candidiasis Diagnosis: Secondary Plan: Patient currently on fluconazole started 08/27. Will treat for 14 days ( end date 09/10). (6) chronic medical problems Diagnosis: Secondary Plan: Atrial fibrillation: On heparin drip, continue aspirin 81 mg daily, continue Tikosyn 500 mcg PO BID Hypertension: Continue Metoprolol succinate ER 50 mg in the morning and increase bedtime dose to 50 mg. Continue lisinopril 10 mg by mouth daily at bedtime. Hyperlipidemia: Continue Crestor 5 mg daily at bedtime, continue coenzyme Q10 200 mg by mouth daily at bedtime Congestive heart failure: Continue torsemide 20 mg by mouth twice a day. Lupus: Continue Plaquenil COPD with recent exacerbation: Alternate albuterol and DuoNeb's, oxygen as needed Consultants General surgery Vascular surgery Gastroenterology Hematology Brief History 66-year-old male with history of COPD, CAD, triple bypass, HTN, HLD, atrial fibrillation, type 2 DM, and lupus. He was recently hospitalized for COPD exacerbation. He was discharged home on 08/22/16, he went with his to slate picker some medicines at the pharmacy. While there they saw a restaurant next door that looked appealing, he went over and had some [place] olmedo chops. He says this was very tasty however shortly afterwards he started to have severe abdominal pain. He took some Gas-X was did not help, and he tried to rest and relax and thought the pain would eventually go away, however it continued to worsen. He started to feel nauseated and vomited a small about 1 time. He also had one hard small bowel movement followed by some liquid stool and nothing since. He feels like he really needs to have a bowel movement but feels unable to do so. At its worst the pain has been a 10 out of 10. He reports most of his pain being the epigastric region though the left upper and lower quadrants are also tender. With all this going on around midnight () he decided to return to the hospital to be evaluated. His pain was only slightly relieved with morphine in the ED. His labs showed leukocytosis and an elevated lactic acid and it was decided that he be readmitted to the hospital. CBC/BMP: 09/08/16 0550 09/08/16 0542 Significant Findings Laboratory Tests Test 09/06/16 09/07/16 09/08/16 09/08/16 08:05 06:13 05:42 05:50 Prothrombin Time 12.1 SEC 14.8 SEC 25.4 SEC (9.8-11.6) (9.8-11.6) (9.8-11.6) Activated Partial 49.9 SEC 44.9 SEC 60.4 SEC Thromboplast Time (24.3-30.1) (24.3-30.1) (24.3-30.1) Estimat Glomerular Filtration 79 ML/MIN (>89) Rate Random Glucose 124 MG/DL (74-106) Calcium Level 8.4 MG/DL (8.5-10.1) Red Blood Count 3.95 MIL/MM3 (4.50-5.90) Hemoglobin 11.6 GM/DL (13.0-17.0) Hematocrit 35.7 % (39.0-51.0) Neutrophils (%) (Auto) 73.0 % (16.0-70.0) Monocytes (%) (Auto) 8.2 % (0.0-8.0) Imaging Last Impressions Chest X-Ray 09/02/16 0000 Signed Impressions: Service Date/Time: Friday, September 02, 2016 08:40 - CONCLUSION: 1. No pneumothorax identified following thoracentesis. 2. Continued pleural and parenchymal changes. Mckay Saldana MD Chest Ultrasound 09/02/16 Signed Impressions: Service Date/Time: Friday, September 02, 2016 13:22 - CONCLUSION: No collection of anechoic free fluid identified. Jr Simons MD Abdomen/Pelvis CT 09/01/16 0000 Signed Impressions: Service Date/Time: Thursday, September 01, 2016 17:33 - CONCLUSION: 1. Persistent small bowel obstruction and appears to be occurring at the level of the distal ileum. Point of obstruction is likely in the right lower quadrant. I don't see a mass. Small mesenteric and right paracolic gutter fluid again noted, not significantly changed. No evidence of perforation. 2. Loculated effusion with consolidation again seen of the left lung base. 3. Cysts of both kidneys. 1 mm nonobstructing stone of the right kidney. Landon Zarco MD Abdomen X-Ray 08/31/16 0000 Signed Impressions: Service Date/Time: Wednesday, August 31, 2016 23:26 - CONCLUSION: Improvement with numerous air-filled loops of small bowel but not as dilated as they were on the third. Mayco Johnson MD Hepatobiliary Scan Nuclear Medicine 08/26/16 0000 Signed Impressions: Service Date/Time: Friday, August 26, 2016 08:48 - CONCLUSION: Negative exam. No scintigraphic findings of acute or chronic cholecystitis. No significant biliary enteric reflux. David Baltazar MD PE at Discharge GENERAL: Sitting up in chair, no acute distress. SKIN: Warm/dry. HEAD: Atraumatic. Normocephalic. EYES: No scleral icterus. No injection or drainage. ENT: MMM. NECK: Trachea midline. No JVD. Supple. CARDIOVASCULAR: Regular rate and rhythm. No murmur appreciated. RESPIRATORY: No increased work of breathing. Lungs are clear anteriorly without wheezing, rhonchi or crackles. GASTROINTESTINAL: Abdomen obese, nontender to palpation. Nondistended. Normoactive bowel sounds MUSCULOSKELETAL: No obvious deformities. No cyanosis. Edema improved. NEUROLOGICAL: Awake and alert. patient's librarian grossly intact. Motor grossly within normal limits. Normal speech. PSYCHIATRIC: Appropriate mood and affect; insight and judgment normal. Hospital Course Patient admitted for abdominal pain, found to have superior mesenteric venous thrombosis despite anticoagulation with Eliquis. Vascular surgery was consulted out of concern for possible mesenteric ischemia. No surgical interventions were required. Patient developed a small bowel obstruction for which gastroenterology and general surgery were consulted. The patient was managed medically with ultimate resolution of his SBO. EGD revealed esophageal candidiasis which the patient will be treated for for 2 weeks. Hematology was consulted as the patient developed a thrombus despite being on Elliqis. He was placed on a heparin drip while inpatient and transitioned to warfarin with a goal INR of between 2.03.0. The patient has previously been on warfarin for his A. fib and required 10 mg daily. Upon achieving a therapeutic INR the patient was discharged to home with close follow-up from both his primary care physician and hematology who is in the process of a hypercoagulable workup on the patient. Pt Condition on Discharge: Good Discharge Disposition: Discharge Home Discharge Instructions DIET: Follow Instructions for: As Tolerated, No Restrictions Activities you can perform: Regular-No Restrictions Follow up Referrals: Hematology with Karol PCP Follow-up - 1 Week New Orders: PT/INR - Next Day New Medications: Fluconazole (Diflucan) 200 Mg Tab 200 MG PO Q24H #2 TAB Warfarin (Coumadin) 10 Mg Tab 10 MG PO DAILY@16 #30 TAB Continued Medications: Aspirin (Aspirin) 81 Mg Chew 81 MG CHEW BID Ref 0 TAB Cyanocobalamin (B-12) 2,500 Mcg Tab 2500 MCG PO DAILY Nutritional Supplement #1 Ref 0 BOTTLE Dofetilide (Tikosyn) 500 Mcg Cap 500 MCG PO BID For Creatinine Clearance >60 mL/min Regulate Heart Beat #60 Ref 0 CAP NS Fluticasone-Vilanterol Inh (Breo Ellipta Inh) 100-25 Mcg/Act Inh 1 PUFF INH DAILY #30 INHALER Hydrocodone-Acetaminophen (Hydrocodone-Acetaminophen) 10-325 mg Tab 1 TAB PO TID PRN PAIN #30 Ref 0 TAB Hydroxychloroquine (Plaquenil) 200 Mg Tab 200 MG PO BID Take with food #30 Ref 0 TAB x-Mlpjljyqliec-[id number] (Metanx) 1 Cap 1 CAP PO BID Lisinopril (Lisinopril) 10 Mg Tab 10 MG PO HS #30 Ref 0 TAB Magnesium Oxide (Magnesium Oxide) 400 Mg Tab 400 MG PO DAILY Nutritional Supplement Ref 0 TAB Metformin (Metformin) 1,000 Mg Tab 1000 MG PO BIDPC With meals Blood Sugar Management #60 Ref 0 TAB Metoprolol Succinate ER 24 HR (Metoprolol Succinate ER 24 HR) 50 Mg Tab 50 MG PO DAILY IN THE MORNING #30 Ref 0 TAB Metoprolol Succinate ER 24 HR (Toprol XL) 25 Mg Tab 25 MG PO HS #30 Ref 0 TAB Multiple Vitamin (One Daily) 1 Tab 1 TAB PO DAILY Nutritional Supplement Ref 0 TAB Nitroglycerin SL (Nitroglycerin SL) 0.4 Mg Subl 0.4 MG SL DIRECTED ONE TABLET UNDER THE TONGUE NEEDED FOR CHEST PAIN, MAY REPEAT EVERY FIVE MINUTES FOR A TOTAL OF 3 DOSES OR CALL 911 IF NO RELIEF PRN CHEST PAIN #100 Ref 1 TAB.SL Pantoprazole (Protonix) 40 Mg Tab 40 MG PO DAILY #14 TAB Potassium Chloride ER (Potassium Chloride ER) 10 Meq Cap 10 MEQ PO BID Electrolyte Replacement #60 Ref 0 CAP Rosuvastatin (Crestor) 5 Mg Tab 5 MG PO HS Cholesterol Management #30 Ref 0 TAB Torsemide (Torsemide) 20 Mg Tab 20 MG PO BID #30 Ref 0 TAB Discontinued Medications: Apixaban (Eliquis) 5 Mg Tab 5 MG PO BID Blood Clot Prevention #60 Ref 0 TAB Prednisone (Prednisone) 20 Mg Tab 40 MG PO DAILY Take 40 mg (2 tablets) daily for 5 days #5 Ref 0 TAB Sarai Cagle MD R3 Sep 08, 2016 15:04
== END 2016-09-08 14:29 | disposition home or self-care (01) | DRG 442 ==
LOC: NEPE 23:24 → NEDA 08-23 04:47 → N06A 08-23 07:24
PROVIDERS: ADMIT Family Medicine; ATTEND Family Medicine
PROC: 0DB38ZX Excision of Lower Esophagus, Via Natural or Artificial Opening Endoscopic, Diagnostic (ICD-10-PCS; principal; 2016-08-26 11:30)
DX: I81 Portal vein thrombosis (principal); E87.2 Acidosis; K56.60 Unspecified intestinal obstruction; B37.81 Candidal esophagitis; I42.9 Cardiomyopathy, unspecified; E11.40 Type 2 diabetes mellitus with diabetic neuropathy, unspecified; I50.9 Heart failure, unspecified; Z99.81 Dependence on supplemental oxygen; J44.9 Chronic obstructive pulmonary disease, unspecified; E78.5 Hyperlipidemia, unspecified; I48.91 Unspecified atrial fibrillation; I25.10 Atherosclerotic heart disease of native coronary artery without angina pectoris; D72.829 Elevated white blood cell count, unspecified; M19.90 Unspecified osteoarthritis, unspecified site; K22.70 Barrett's esophagus without dysplasia; K29.70 Gastritis, unspecified, without bleeding; M32.9 Systemic lupus erythematosus, unspecified; I10 Essential (primary) hypertension; I70.0 Atherosclerosis of aorta; K59.00 Constipation, unspecified; N40.0 Benign prostatic hyperplasia without lower urinary tract symptoms; I27.2 Other secondary pulmonary hypertension; I73.9 Peripheral vascular disease, unspecified; Z79.899 Other long term (current) drug therapy; Z79.82 Long term (current) use of aspirin; Z79.84 Long term (current) use of oral hypoglycemic drugs; Z95.1 Presence of aortocoronary bypass graft; Z87.891 Personal history of nicotine dependence; Z87.442 Personal history of urinary calculi
CPT/HCPCS: 36600; 71010; 74000; 74020; 74174; 74176; 74177; 76604; 78226; 80048; 80053; 80074; 81001; 81240; 81241; 81270; 81291; 82150; 82272; 82550; 82805; 82948; 83090; 83605; 83690; 83735; 83880; 84100; 84484; 85025; 85027; 85240; 85300; 85303; 85306; 85307; 85598; 85610; 85613; 85730; 86038; 86146; 86147; 86148; 86703; 87040; 88112; 88305; 93005; 93306; 94150; 94620; 94640; 94664; 96361; 96374; 96375; 96376; 99285; A9537; C9113; G0378; J0131; J1450; J1644; J1815; J2060; J2270; J2405; J2543; J2930; J3480; J7030; J7040; J7512; J7613; Q9967

== ENCOUNTER 2016-10-29 12:21 | Observation (INO) | payer MEDICARE ==
[~2016-10-29] VITALS: Ht 190.5 cm; Wt 148.0 kg
[2016-10-29] VITALS (8 sets, daily range): BP systolic 93–132; BP diastolic 55–84; PULSE 60–79; RESP 16–28; TEMP 97.6–98.5; O2SAT 92–100
[~2016-10-29 12:21] MED LIST changes: -APIX5TAB PO; -BROV15NE NEB; -BUDE0.5S NEB; +COUM10TA PO; +DIFL200T PO; -PRED20 PO
--- NOTE | 2016-10-29 12:39 | PD ---
Physical Exam Time Seen by Provider: 12:36 Narrative 66yo M c/o left sided chest pain and SOB. Went to insulation power unit tender and was told HGB dropped 2 points from 13 to 11 in oine week; was told to f/u with agent telegrapher for concern of CHF and was told to come to ER if couldn't get in with agent telegrapher. Hx CHF and COPD. Patient seen in triage. VS reviewed. Patient awaiting bed placement. Data Data Last Documented VS Vital Signs Date Time Temp Pulse Resp B/P Pulse Ox O2 Delivery O2 Flow Rate FiO2 10/29/16 12:23 97.9 70 20 109/70 95 MDM Supervised Visit with TAYLOR: Verito Segal Oct 29, 2016 12:39
[2016-10-29] MEDS ORDERED: SODIUM CHLORIDE 0.9% FLUSH 10 ML FLUSH IVF PRN (15:00)
[2016-10-29 15:42] LABS: AUTOMATED NEUTROPHIL # 5.6 TH/MM3 (1.8-7.7); BASOPHIL # 0.1 TH/MM3 (0-0.2); BASOPHIL % 0.9 % (0.0-2.0); EOSINOPHIL # 0.3 TH/MM3 (0-0.4); EOSINOPHIL % 3.2 % (0.0-4.0); HEMATOCRIT 35.2 % (39.0-51.0); HEMO FLAGS DIFF FINAL; LYMPH % 24.9 % (9.0-44.0); LYMPHOCYTE # 2.4 TH/MM3 (1.0-4.8); MEAN CELL VOLUME 92.5 FL (80.0-100.0); MEAN CORPUSCULAR HEMOGLOBIN 29.3 PG (27.0-34.0); MEAN CORPUSCULAR HGB CONC 31.7 % (32.0-36.0); MONO % 12.3 % (0.0-8.0); NEUT % 58.7 % (16.0-70.0); PLATELET COUNT 350 TH/MM3 (150-450); RED CELL DISTRIBUTION WIDTH 17.4 % (11.6-17.2); WHITE BLOOD COUNT 9.5 TH/MM3 (4.0-11.0)
[2016-10-29 16:03] LABS: APTT (PATIENT) 40.5 SEC (24.3-30.1); INTERNATIONAL NORMALIZED RATIO 3.5 RATIO; PROTHROMBIN TIME - PATIENT 40.9 SEC (9.8-11.6)
--- NOTE | 2016-10-29 16:20 | RADRPT ---
EXAM DATE/TIME: 10/29/2016 15:24 [facility] COMPARISON: CHEST SINGLE AP, September 02, 2016, 8:40. INDICATIONS : Shortness of breath. MEDICAL HISTORY : Chronic obstructive pulmonary disease. Congestive heart failure. SURGICAL HISTORY : CABG. Cardiac stent. ENCOUNTER: Initial ACUITY: 2 weeks PAIN SCORE: 0/10 LOCATION: Bilateral chest FINDINGS: The heart is enlarged with sternal wires of previous bypass. The right lung is clear. Minimal conso lidative changes are present left base. The portion of the bony skeleton visualized is unremarkable. CONCLUSION: Cardiomegaly with consolidations left base atelectasis versus infiltrate. There is no significant fa ilure.. Hebert Saldana MD FACR on October 29, 2016 at 16:18 Board Certified Radiologist. This report was verified electronically.
[2016-10-29] MEDS ORDERED: WARF-22 PO (16:38)
[2016-10-29] MEDS ORDERED: WARF-18 PO (16:38)
[2016-10-29] MEDS ORDERED: FOLI1TAB6 PO (16:41)
[2016-10-29] MEDS ORDERED: DOFE500 PO (16:44)
[2016-10-29] MEDS ORDERED: BROV15NE NEB (16:49)
[2016-10-29] MEDS ORDERED: BUDE0.5S NEB (16:51)
[2016-10-29 17:38] LABS: ALKALINE PHOSPHATASE 75 U/L (45-117); ALT (GPT) 24 U/L (12-78); ANION GAP 7 MEQ/L (5-15); AST (GOT) 24 U/L (15-37); BICARBONATE 27.8 MEQ/L (21.0-32.0); BLOOD UREA NITROGEN 22 MG/DL (7-18); CHLORIDE 106 MEQ/L (98-107); CREATINE KINASE 93 U/L (39-308); GLOMERULAR FILTRATION RATE 63 ML/MIN (>89); MAGNESIUM 2.1 MG/DL (1.5-2.5); POTASSIUM 4.9 MEQ/L (3.5-5.1); SODIUM (NA) 141 MEQ/L (136-145); TOTAL BILIRUBIN ADULT 0.4 MG/DL (0.2-1.0)
[2016-10-29] MEDS ORDERED: FUROSEMIDE 40 MG/4 ML VIAL IV PUSH ONE (18:00)
[2016-10-29] MEDS ORDERED: DEXTROSE 50% IN WATER 50 ML VIAL(D50) IV PRN (18:15)
[2016-10-29] MEDS ORDERED: GLUCAGON 1 MG/ML VIAL OTHER PRN (18:15)
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
[2016-10-29] MEDS: ACETAMINOPHEN/HYDROcodone 325 MG/10 MG TAB PO PRN (20:56)
[2016-10-29] MEDS: INSULIN ASPART SUPPLEMENTAL SCALE SQ SCH (21:26)
[2016-10-30] VITALS (9 sets, daily range): BP systolic 83–126; BP diastolic 53–87; PULSE 68–80; RESP 16–21; TEMP 97.6–98.2; O2SAT 90–98
[2016-10-30] MEDS: ACETAMINOPHEN/HYDROcodone 325 MG/10 MG TAB PO PRN ×2 (00:30→09:57)
[2016-10-30] MEDS ORDERED: DOFETILIDE 500 MCG CAP PO SCH (00:30)
--- NOTE | 2016-10-30 03:37 | HHI.HP ---
HPI Service [facility] Primary Care Physician Uvaldo Arcos MD Admission Diagnosis chf, elevated troponin Diagnoses: Chief Complaint: dysnea Travel History International Travel<30 Days: No Contact w/Intl Traveler <30 Da: No Traveled to Known Affected Are: No History of Present Illness Written by Barbara Calles, acting as scribe for [Tyson] on 10/30/16 at 03:29. 74 y/o male with a history of Lupus, COPD, Gout, AFib with ablation x 4, CAD, HTN, DM presented to the ED with complaints of increasing sob over the last 2 weeks. 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 Dr. Mitchell is out of town so he was unable to see him. Patient states for the last 2 weeks he has been having increased dyspnea with chest pain, no radiation or diaphoresis associated. Reports of abdominal bloating and he needed to increase his pants size by 2 size. He states he does feel better since getting Lasix tonight. Denies any dizziness, nausea, vomiting , fever, chills, or dysuria. Patient did undergo a cath 6 months ago with no intervention. Review of Systems Except as stated in HPI: all other systems reviewed are Neg Past Family Social History Past Medical History Lupus COPD Gout AFib with ablation x 4 CAD HTN DM Kidney stones Mesenteric ischemia BPH Past Surgical History Lithotripsy Cabg Hernia repair Reported Medications Reported Meds & Active Scripts Active Crestor (Rosuvastatin Calcium) 5 Mg Tab 5 Mg PO HS Nitroglycerin SL (Nitroglycerin) 0.4 Mg Subl 0.4 Mg SL DIRECTED PRN ONE TABLET UNDER THE TONGUE NEEDED FOR CHEST PAIN, MAY REPEAT EVERY FIVE MINUTES FOR A TOTAL OF 3 DOSES OR CALL 911 IF NO RELIEF Reported Budesonide Neb 0.5 Mg/2 Ml Neb 0.5 Mg NEB Q12HR NEB Brovana Neb (Arformoterol Neb) 15 Mcg/2 Ml Vial 1 Nebule NEB BID Maintenance treatment of bronchoconstriction in COPD. Tikosyn (Dofetilide) 500 Mcg Cap 500 Mcg PO Q12HR For Creatinine Clearance >60 mL/min Folic Acid 1 Mg Tablet 1 Mg PO DAILY Warfarin 2.5 Mg Tab 2.5 Mg PO EVERY OTHER DAY Warfarin 10 Mg Tab 10 Mg PO EVERY OTHER DAY Metanx (m-Xzzittylnomg-Rqbbn) 1 Cap 1 Cap PO BID One Daily (Multiple Vitamin) 1 Tab 1 Tab PO DAILY Toprol XL (Metoprolol Succinate) 25 Mg Tab 25 Mg PO HS B-12 (Cyanocobalamin) 2,500 Mcg Tab 2,500 Mcg PO DAILY Magnesium Oxide 400 Mg Tab 400 Mg PO DAILY Plaquenil (Hydroxychloroquine Sulfate) 200 Mg Tab 200 Mg PO BID Take with food Hydrocodone-Acetaminophen 10-325 mg Tab 1 Tab PO TID PRN Potassium Chloride ER (Potassium Chloride) 10 Meq Cap 10 Meq PO BID Torsemide 20 Mg Tab 20 Mg PO BID Aspirin 81 Mg Chew 81 Mg CHEW BID Metformin (Metformin HCl) 1,000 Mg Tab 1,000 Mg PO BIDPC With meals Metoprolol Succinate ER 24 HR (Metoprolol Succinate) 50 Mg Tab 50 Mg PO DAILY IN THE MORNING Lisinopril 10 Mg Tab 10 Mg PO HS Allergies: Coded Allergies: HMG-CoA Reductase Inhibitors (Verified Allergy, Unknown, 10/29/16) CRESTOR (Verified Adverse Reaction, Unknown, muscle cramps, 10/29/16) Active Ordered Medications Current Medications Medications (Trade) Dose Ordered Sig/Josie Route Start Time Stop Time Status Last Admin (NS Flush) 2 ml UNSCH PRN IVF 10/29/16 15:00 (D50w (Vial) Inj) 50 ml UNSCH PRN IV 10/29/16 18:15 (Glucagon Inj) 1 mg UNSCH PRN OTHER 10/29/16 18:15 ([place] 10-325 Mg) 1 tab TID PRN PO 10/29/16 20:15 10/30/16 00:30 (Tikosyn) 500 mcg Q12HR PO 10/30/16 00:30 Family History Patient denies any family history of heart disease or cancer. Social History Tobacco use: Quit 29 years ago Alcohol use: rarely Illicit drug use: Denies Physical Exam Vital Signs Vital Signs Date Time Temp Pulse Resp B/P Pulse Ox O2 Delivery O2 Flow Rate FiO2 10/30/16 00:03 97 10/29/16 23:54 97.6 68 17 93/55 92 10/29/16 22:15 97.6 79 20 132/71 94 10/29/16 21:28 18 10/29/16 21:20 98.5 71 18 127/63 97 Nasal Cannula 2 10/29/16 19:35 98.3 67 16 125/74 97 Nasal Cannula 2 10/29/16 18:38 68 125/84 100 10/29/16 18:33 67 22 127/78 100 10/29/16 15:10 96 Room Air 10/29/16 15:10 98 Nasal Cannula 2 10/29/16 15:10 66 28 119/79 96 Room Air 10/29/16 15:10 60 28 119/79 96 Room Air 122/82 10/29/16 12:23 97.9 70 20 109/70 95 Physical Exam GENERAL: This is a well-nourished, obese patient, in no apparent distress. SKIN: No rashes, ecchymoses or lesions. Cool and dry. HEAD: Atraumatic. Normocephalic. No temporal or scalp tenderness. EYES: Pupils equal round and reactive. ENT: Nose without bleeding, purulent drainage or septal hematoma. Airway patent. NECK: Trachea midline. No JVD or lymphadenopathy. CARDIOVASCULAR: Regular rate and rhythm without murmurs, gallops, or rubs. RESPIRATORY: bilaterally decreased air entry at the bases. Breath sounds equal bilaterally. No wheezes, rales, or rhonchi. GASTROINTESTINAL: Abdomen soft, non-tender, nondistended. No hepato-splenomegaly , or palpable masses. No guarding. MUSCULOSKELETAL: Extremities without clubbing, cyanosis. bilateral LE pitting edema 2+ up to knees No joint tenderness, effusion, or edema noted. No calf tenderness. NEUROLOGICAL: Awake and alert. Motor and sensory grossly within normal limits Normal speech. Laboratory Laboratory Tests Test 10/29/16 10/29/16 15:20 20:21 White Blood Count 9.5 Red Blood Count 3.80 Hemoglobin 11.1 Hematocrit 35.2 Mean Corpuscular Volume 92.5 Mean Corpuscular Hemoglobin 29.3 Mean Corpuscular Hemoglobin 31.7 Concent Red Cell Distribution Width 17.4 Platelet Count 350 Mean Platelet Volume 6.8 Neutrophils (%) (Auto) 58.7 Lymphocytes (%) (Auto) 24.9 Monocytes (%) (Auto) 12.3 Eosinophils (%) (Auto) 3.2 Basophils (%) (Auto) 0.9 Neutrophils # (Auto) 5.6 Lymphocytes # (Auto) 2.4 Monocytes # (Auto) 1.2 Eosinophils # (Auto) 0.3 Basophils # (Auto) 0.1 CBC Comment DIFF FINAL Differential Comment Prothrombin Time 40.9 Prothromb Time International 3.5 Ratio Activated Partial 40.5 Thromboplast Time Sodium Level 141 Potassium Level 4.9 Chloride Level 106 Carbon Dioxide Level 27.8 Anion Gap 7 Blood Urea Nitrogen 22 Creatinine 1.15 Estimat Glomerular Filtration 63 Rate Random Glucose 95 Calcium Level 8.7 Magnesium Level 2.1 Total Bilirubin 0.4 Aspartate Amino Transf 24 (AST/SGOT) Alanine Aminotransferase 24 (ALT/SGPT) Alkaline Phosphatase 75 Total Creatine Kinase 93 Troponin I 0.33 0.13 B-Type Natriuretic Peptide 197 Total Protein 7.4 Albumin 3.8 Result Diagram: 10/29/16 1520 10/29/16 1520 Imaging Last Impressions Chest X-Ray 10/29/16 1500 Signed Impressions: Service Date/Time: Saturday, October 29, 2016 15:24 - CONCLUSION: Cardiomegaly with consolidations left base atelectasis versus infiltrate. There is no significant failure.. Hebert Saldana MD FACR Assessment and Plan Problem List: (1) Acute exacerbation of CHF (congestive heart failure) ICD Code: I50.9 Status: Acute Assessment and Plan 74 y/o male with a history of Lupus, COPD, Gout, AFib with ablation x 4, CAD, HTN, DM presented to the ED with complaints of increasing sob over the last 2 weeks. Acute exacerbation of CHF, mild Echo 09/13 shows normal systolic function, LVH with severe tricuspid regurgitation BNP 197 -Lasix IV BID, first dose given in ED Elevated troponin, troponin .33-->.13--.13 -consult cardiology for recommendation, Known to Dr. Mitchell as pt has valvuar heart dx now becoming symptomatic Anemia, likely chronic, no evidence of bleeding Hgb 11.1--> 10.9 -Iron studies ordered -Trend BMP -Occult stool ordered HTN, chronic, currently hypotensive -Hold home medications for now DVT prophylaxis: SCDs This note was transcribed by chani [Barbara Calles]. I, Dr. Jonelle Mehta personally performed the history, physical exam, and medical decision making; and confirmed the accuracy of the information in the transcribed note. Authenticated by Dr. Jonelle Mehta on 10/30/16 at 03:29. Discussed Condition With Patient and RN Barbara Calles Oct 30, 2016 03:37 Jonelle Mehta MD Oct 30, 2016 07:56
[2016-10-30 03:47] LABS: BASOPHIL # 0.1 TH/MM3 (0-0.2); EOSINOPHIL # 0.3 TH/MM3 (0-0.4); EOSINOPHIL % 3.9 % (0.0-4.0); HEMATOCRIT 32.9 % (39.0-51.0); HEMO FLAGS DIFF FINAL; LYMPH % 25.2 % (9.0-44.0); LYMPHOCYTE # 2.1 TH/MM3 (1.0-4.8); MEAN CELL VOLUME 90.6 FL (80.0-100.0); MEAN CORPUSCULAR HEMOGLOBIN 30.1 PG (27.0-34.0); MEAN CORPUSCULAR HGB CONC 33.2 % (32.0-36.0); MONO % 10.4 % (0.0-8.0); NEUT % 59.5 % (16.0-70.0); PLATELET COUNT 306 TH/MM3 (150-450); RED BLOOD COUNT 3.63 MIL/MM3 (4.50-5.90); RED CELL DISTRIBUTION WIDTH 17.2 % (11.6-17.2); WHITE BLOOD COUNT 8.4 TH/MM3 (4.0-11.0)
[2016-10-30 03:55] LABS: INTERNATIONAL NORMALIZED RATIO 3.5 RATIO; PROTHROMBIN TIME - PATIENT 40.4 SEC (9.8-11.6)
[2016-10-30 04:08] LABS: POTASSIUM 4.4 MEQ/L (3.5-5.1)
[2016-10-30] MEDS: INSULIN ASPART SUPPLEMENTAL SCALE SQ SCH ×2 (05:29→13:10)
[2016-10-30 05:50] LABS: TRANSFERRIN IRON PROFILE 354 MG/DL (200-360)
[2016-10-30 05:53] LABS: FERRITIN 63 NG/ML (26-388)
[2016-10-30] MEDS ORDERED: RESP: BUDESONIDE 0.5 MG/2 ML NEB NEB SCH (08:00)
[2016-10-30] MEDS ORDERED: DOFETILIDE 250 MCG CAP PO SCH (09:00)
[2016-10-30] MEDS ORDERED: FUROSEMIDE 20 MG/2 ML VIAL IV PUSH SCH (09:00)
[2016-10-30] MEDS ORDERED: TORSEMIDE 20 MG TAB PO SCH (09:00)
[2016-10-30] MEDS ORDERED: TIKOSYN 500 MCG PO SCH (09:30)
--- NOTE | 2016-10-30 10:18 | PD.CONS ---
HPI Consult Requested By Primary Care Physician Uvaldo Arcos MD History of Present Illness 74 y/o male with pmhx significant for Lupus, COPD, Gout, AFib with ablation x 4 , CAD, HTN, DM, severe tricuspid regurgitation that presented to the ED with complaints of increasing SOB for 2 weeks. SOB is associated with chest pain, abdominal bloating. Denies any dizziness, nausea, vomiting, fever, chills, or dysuria. Patient did undergo a cath 6 months ago with no intervention. Review of Systems Consitutional: DENIES: Fatigue, Fever, Chills, Weight gain, Weight loss Eyes: DENIES: Amaurosis Fugax, Change in vision HEENT: DENIES: Lightheadedness, Change in hearing Respiratory: COMPLAINS OF: See HPI, Shortness of breath Cardiovascular: COMPLAINS OF: See HPI, Chest pain Gastrointestinal: DENIES: Nausea, Vomiting, Change in bowel habits, Reflux, Bloody stools, Melena Genitourinary: DENIES: Urinary incontinence, Difficulty voiding Integumentary: DENIES: Rash Neurologic: DENIES: Tingling or numbness, Memory problems, Poor Balance, Stroke symptoms Musculoskeletal: DENIES: Joint pain, Muscle pain, Limited range of motion, Back pain Psychiatric: DENIES: Anxiety, Depression, Sleep disturbances Hematologic: DENIES: Bruising tendencies, Bleeding tendencies Endocrine: DENIES: Weight gain, Weight loss, Thyroid disease Past Family Social History Allergies: Coded Allergies: HMG-CoA Reductase Inhibitors (Verified Allergy, Unknown, 10/29/16) CRESTOR (Verified Adverse Reaction, Unknown, muscle cramps, 10/29/16) Past Medical History Lupus COPD Gout AFib with ablation x 4 CAD HTN DM Kidney stones Mesenteric ischemia BPH Past Surgical History Lithotripsy Cabg Hernia repair Reported Medications Reported Meds & Active Scripts Active Crestor (Rosuvastatin Calcium) 5 Mg Tab 5 Mg PO HS Nitroglycerin SL (Nitroglycerin) 0.4 Mg Subl 0.4 Mg SL DIRECTED PRN ONE TABLET UNDER THE TONGUE NEEDED FOR CHEST PAIN, MAY REPEAT EVERY FIVE MINUTES FOR A TOTAL OF 3 DOSES OR CALL 911 IF NO RELIEF Reported Budesonide Neb 0.5 Mg/2 Ml Neb 0.5 Mg NEB Q12HR NEB Brovana Neb (Arformoterol Neb) 15 Mcg/2 Ml Vial 1 Nebule NEB BID Maintenance treatment of bronchoconstriction in COPD. Tikosyn (Dofetilide) 500 Mcg Cap 500 Mcg PO Q12HR For Creatinine Clearance >60 mL/min Folic Acid 1 Mg Tablet 1 Mg PO DAILY Warfarin 2.5 Mg Tab 2.5 Mg PO EVERY OTHER DAY Warfarin 10 Mg Tab 10 Mg PO EVERY OTHER DAY Metanx (l-Wawjerihanpt-Wqyad) 1 Cap 1 Cap PO BID One Daily (Multiple Vitamin) 1 Tab 1 Tab PO DAILY Toprol XL (Metoprolol Succinate) 25 Mg Tab 25 Mg PO HS B-12 (Cyanocobalamin) 2,500 Mcg Tab 2,500 Mcg PO DAILY Magnesium Oxide 400 Mg Tab 400 Mg PO DAILY Plaquenil (Hydroxychloroquine Sulfate) 200 Mg Tab 200 Mg PO BID Take with food Hydrocodone-Acetaminophen 10-325 mg Tab 1 Tab PO TID PRN Potassium Chloride ER (Potassium Chloride) 10 Meq Cap 10 Meq PO BID Torsemide 20 Mg Tab 20 Mg PO BID Aspirin 81 Mg Chew 81 Mg CHEW BID Metformin (Metformin HCl) 1,000 Mg Tab 1,000 Mg PO BIDPC With meals Metoprolol Succinate ER 24 HR (Metoprolol Succinate) 50 Mg Tab 50 Mg PO DAILY IN THE MORNING Lisinopril 10 Mg Tab 10 Mg PO HS Active Ordered Medications Current Medications Medications (Trade) Dose Ordered Sig/Josie Route Start Time Stop Time Status Last Admin (NS Flush) 2 ml UNSCH PRN IVF 10/29/16 15:00 (D50w (Vial) Inj) 50 ml UNSCH PRN IV 10/29/16 18:15 (Glucagon Inj) 1 mg UNSCH PRN OTHER 10/29/16 18:15 ([place] 10-325 Mg) 1 tab TID PRN PO 10/29/16 20:15 10/30/16 09:57 (Demadex) 20 mg BID PO 10/30/16 09:00 (Lipitor) 10 mg HS PO 10/30/16 21:00 Patient Own Medication PT OWN MED: TIKOSYN 500 ... Q12HR PO 10/30/16 09:30 10/30/16 08:15 Physical Exam Vital Signs Vital Signs Date Time Temp Pulse Resp B/P Pulse Ox O2 Delivery O2 Flow Rate FiO2 10/30/16 07:57 97.6 74 21 85/53 94 10/30/16 04:31 86/54 10/30/16 04:18 98.2 68 16 83/53 90 10/30/16 03:40 69 10/30/16 00:15 72 10/30/16 00:03 97 10/29/16 23:54 97.6 68 17 93/55 92 10/29/16 22:15 97.6 79 20 132/71 94 10/29/16 21:28 18 10/29/16 21:20 98.5 71 18 127/63 97 Nasal Cannula 2 10/29/16 19:35 98.3 67 16 125/74 97 Nasal Cannula 2 10/29/16 18:38 68 125/84 100 10/29/16 18:33 67 22 127/78 100 10/29/16 15:10 96 Room Air 10/29/16 15:10 98 Nasal Cannula 2 10/29/16 15:10 66 28 119/79 96 Room Air 10/29/16 15:10 60 28 119/79 96 Room Air 122/82 10/29/16 12:23 97.9 70 20 109/70 95 Physical Exam GENERAL: Well-nourished, well-developed patient. SKIN: Warm and dry. HEAD: Normocephalic. EYES: No scleral icterus. No injection or drainage. NECK: Supple, trachea midline. No JVD or lymphadenopathy. CARDIOVASCULAR: Regular rate and rhythm without murmurs, gallops, or rubs. RESPIRATORY: Breath sounds equal bilaterally. No accessory muscle use. GASTROINTESTINAL: Abdomen soft, non-tender, nondistended. EXTREMITIES: No cyanosis, or + edema. NEUROLOGICAL: Awake, alert, and oriented x 3. Non-focal. Laboratory Laboratory Tests Test 10/29/16 10/29/16 10/30/16 15:20 20:21 03:32 White Blood Count 9.5 8.4 Red Blood Count 3.80 3.63 Hemoglobin 11.1 10.9 Hematocrit 35.2 32.9 Mean Corpuscular Volume 92.5 90.6 Mean Corpuscular Hemoglobin 29.3 30.1 Mean Corpuscular Hemoglobin 31.7 33.2 Concent Red Cell Distribution Width 17.4 17.2 Platelet Count 350 306 Mean Platelet Volume 6.8 7.0 Neutrophils (%) (Auto) 58.7 59.5 Lymphocytes (%) (Auto) 24.9 25.2 Monocytes (%) (Auto) 12.3 10.4 Eosinophils (%) (Auto) 3.2 3.9 Basophils (%) (Auto) 0.9 1.0 Neutrophils # (Auto) 5.6 5.0 Lymphocytes # (Auto) 2.4 2.1 Monocytes # (Auto) 1.2 0.9 Eosinophils # (Auto) 0.3 0.3 Basophils # (Auto) 0.1 0.1 CBC Comment DIFF FINAL DIFF FINAL Differential Comment Prothrombin Time 40.9 40.4 Prothromb Time International 3.5 3.5 Ratio Activated Partial 40.5 Thromboplast Time Sodium Level 141 141 Potassium Level 4.9 4.4 Chloride Level 106 104 Carbon Dioxide Level 27.8 32.0 Anion Gap 7 5 Blood Urea Nitrogen 22 24 Creatinine 1.15 1.12 Estimat Glomerular Filtration 63 65 Rate Random Glucose 95 110 Calcium Level 8.7 8.8 Magnesium Level 2.1 Total Bilirubin 0.4 Aspartate Amino Transf 24 (AST/SGOT) Alanine Aminotransferase 24 (ALT/SGPT) Alkaline Phosphatase 75 Total Creatine Kinase 93 Troponin I 0.33 0.13 0.13 B-Type Natriuretic Peptide 197 Total Protein 7.4 Albumin 3.8 Iron Level 38 Total Iron Binding Capacity 496 Percent Iron Saturation 7.7 Ferritin 63 Result Diagram: 10/30/16 0332 10/30/16 0332 Imaging Last Impressions Chest X-Ray 10/29/16 1500 Signed Impressions: Service Date/Time: Saturday, October 29, 2016 15:24 - CONCLUSION: Cardiomegaly with consolidations left base atelectasis versus infiltrate. There is no significant failure.. Hebert Saldana MD FACR Assessment and Plan Problem List: (1) CHF (congestive heart failure) Assessment and Plan: Acute on chronic diastolic heart failure. Afebrile and hemodynamically stable. Much improved with IV diuresis. Regarding elevated troponin 0.33, 0.13, 0.13: No CV complaints. EKG unchanged from previous. Mild troponin elevation likely secondary to demand ischemia in the setting CHF. Recommendations: Daily weight Strict I&O Transition to PO diuresis Cont OAC Encourage ambulation Stable to d/c home from CV standpoint Pulmonary f/u for PHTN/COPD F/U with Dr. Barfield upon discharge (2) Hx of coronary artery disease (3) Hyperlipidemia (4) Hypertension (5) COPD (chronic obstructive pulmonary disease) (6) Atrial fibrillation (7) CAD (coronary artery disease) (8) CHF exacerbation (9) Elevated troponin level (10) Acute exacerbation of CHF (congestive heart failure) Problem Qualifiers (1) CHF (congestive heart failure): Qualified Code: I50.9 - Congestive heart failure, unspecified congestive heart failure chronicity, unspecified congestive heart failure type (2) COPD (chronic obstructive pulmonary disease): Qualified Code: J44.9 - Chronic obstructive pulmonary disease, unspecified COPD type Sherwin Damon MD Oct 30, 2016 10:18
--- NOTE | 2016-10-30 11:27 | HHI.PR ---
Subjective Remarks Follow-up for shortness of breath. The patient saw his dermatology physician yesterday and due to shortness of breath, his dermatology physician recommended either follow-up with his gas welding equipment mechanic immediately as outpatient or go to the ED for evaluation. As the patient's gas welding equipment mechanic is out of town, the patient came to the ED for evaluation. The patient states that he has been having shortness of breath with exertion. He states that his oxygen level has been dropping from around 92 down to 85 when he ambulates. He denies any chest pain. He states that his lower extremity edema is actually better than it has been. He denies any orthopnea. He does have a history of COPD and left lower lung scarring, for which she follows with pulmonology, Dr. Harman. The patient states his blood pressure never goes above 95 systolic. He is feeling well this time and having to go home saying. He would like to avoid home oxygen if possible. He denies any recent illness, cough, fever, chills. Currently awaiting cardiology evaluation. Objective Vitals Vital Signs Date Time Temp Pulse Resp B/P Pulse Ox O2 Delivery O2 Flow Rate FiO2 10/30/16 07:57 97.6 74 21 85/53 94 10/30/16 04:31 86/54 10/30/16 04:18 98.2 68 16 83/53 90 10/30/16 03:40 69 10/30/16 00:15 72 10/30/16 00:03 97 10/29/16 23:54 97.6 68 17 93/55 92 10/29/16 22:15 97.6 79 20 132/71 94 10/29/16 21:28 18 10/29/16 21:20 98.5 71 18 127/63 97 Nasal Cannula 2 10/29/16 19:35 98.3 67 16 125/74 97 Nasal Cannula 2 10/29/16 18:38 68 125/84 100 10/29/16 18:33 67 22 127/78 100 10/29/16 15:10 96 Room Air 10/29/16 15:10 98 Nasal Cannula 2 10/29/16 15:10 66 28 119/79 96 Room Air 10/29/16 15:10 60 28 119/79 96 Room Air 122/82 10/29/16 12:23 97.9 70 20 109/70 95 I/O 10/29/16 10/29/16 10/29/16 10/30/16 10/30/16 10/30/16 07:00 15:00 23:00 07:00 15:00 23:00 Output Total 1700 ml 300 ml Balance -1700 ml -300 ml Output Urine Total 1700 ml 300 ml # Voids 2 1 Result Diagram: 10/30/16 0332 10/30/16 0332 Imaging Last Impressions Chest X-Ray 10/29/16 1500 Signed Impressions: Service Date/Time: Saturday, October 29, 2016 15:24 - CONCLUSION: Cardiomegaly with consolidations left base atelectasis versus infiltrate. There is no significant failure.. Hebert Saldana MD FACR Objective Remarks GENERAL: Well-developed well-nourished morbidly obese. In no acute distress. SKIN: Warm and dry. No lesions noted. HEENT: Normocephalic. Pupils equal and round. Mucous membranes pink and moist. CARDIOVASCULAR: Regular rate and rhythm. No murmur appreciated. RESPIRATORY: No accessory muscle use. Clear to auscultation. Decreased breath sounds in the left lung base. No crackles. GASTROINTESTINAL: Abdomen soft, non-tender, nondistended. Bowel sounds x4. MUSCULOSKELETAL: No obvious deformities. No clubbing or cyanosis. 1+ bilateral lower extremity pitting edema. NEUROLOGICAL: Awake and alert. No focal neurological deficits. Moves upper and lower extremities spontaneously. Normal speech. PSYCHIATRIC: Appropriate mood and affect; insight and judgment normal. A/P Problem List: (1) Shortness of breath ICD Code: R06.02 Status: Acute (2) COPD (chronic obstructive pulmonary disease) ICD Code: J44.9 Status: Chronic (3) CHF (congestive heart failure) ICD Code: I50.9 Status: Chronic Assessment and Plan 74 y/o male with a history of Lupus, COPD, Gout, AFib with ablation x 4, CAD, HTN, DM who was sent by dermatology physician to the ED for shortness of breath on exertion Dyspnea on exertion: Likely multifactorial with chronic diastolic heart failure and COPD. -Continue supplemental oxygen as needed and check O2 walk test Chronic diastolic heart failure: Echocardiogram 09/13 reviewed with moderate severe mitral and tricuspid regurgitation with grossly normal systolic function , dilated right ventricle, dilated left atrium. BNP 197, previously 155 on 08/20. Chest x-ray reviewed and appears left basilar scarring/atelectasis is similar to previous chest x-ray. Does not really appear to be in acute exacerbation. -Resume home metoprolol and lisinopril when BP improves -Continue home torsemide COPD: Chronic. Does not appear to be in acute exacerbation. May need home oxygen. -Continue home Arformoterol, budesonide Elevated troponin, troponin .33-->.13--.13: No specific complaint of chest pain. EKG with anterior T-wave inversions similar to previous. -Cardiology consulted Anemia, likely chronic, no evidence of bleeding Hgb 11.1--> 10.9, stable. Iron studies show iron deficiency. -Start iron supplementation -Occult stool ordered Supratherapeutic INR: On Coumadin for history of mesenteric thrombus. -hold coumadin for now, will monitor INR and restart once therapeutic -Continue outpatient hematology follow-up DVT Prophylaxis - coumadin once therapeutic Discharge Planning Follow-up results of walk test and cardiology recommendations. 1400 clear by cardiology for DC. Walk test performed, patient needs home O2, case management consulted to arrange. Discussed with Dr. Kaye, recommends doxycycline 5 days for pulmonary inflammation. Discharge home today. Discharge patient to home Condition on discharge: Improved Heart healthy, diabetic Diet as tolerated Ad Anita activity Rx written: Doxycycline 100mg BID X 5 days. Follow-up with primary care physician, cardiology and pulmonology. Problem Qualifiers (1) COPD (chronic obstructive pulmonary disease): Qualified Code: J44.9 - Chronic obstructive pulmonary disease, unspecified COPD type (2) CHF (congestive heart failure): Qualified Code: I50.9 - Congestive heart failure, unspecified congestive heart failure chronicity, unspecified congestive heart failure type Tanner Allen Oct 30, 2016 11:26 Greg Kaye DO Oct 31, 2016 00:37
[2016-10-30] MEDS ORDERED: OXYGENDME NAS.CANULA (13:14)
[2016-10-30] MEDS ORDERED: DOXY100C PO (13:56)
[2016-10-30] MEDS ORDERED: ARFORMOTEROL 15 MCG/2 ML NEB SCH (14:00)
--- NOTE | 2016-10-30 14:51 | EKG ---
Date Performed: 10/30/2016 Time Performed: 04:03:56 PTAGE: 66 years EKG: Sinus rhythm WITH SINUS ARRHYTHMIA POSSIBLE RIGHT VENTRICULAR HYPERTROPHY ST DEVIATION AND MODERATE T-WAVE ABNORM ALITY, CONSIDER ANTEROLATERAL ISCHEMIA ABNORMAL ECG PREVIOUS TRACING 10/29/2016 12.47.03 Since previous tracing, no significant change noted DOCTOR: Barbi Chaves Interpretating Date/Time 10/30/2016 14:49:36
--- NOTE | 2016-10-30 14:51 | EKG ---
Date Performed: 10/29/2016 Time Performed: 12:47:03 PTAGE: 66 years EKG: Sinus rhythm RIGHT VENTRICULAR HYPERTROPHY AND ST-T CHANGE ABNORMAL ECG PREVIOUS TRACING : 08/22/2016 23.43 Since previous tracing, no significant change noted DOCTOR: Barbi Chaves Interpretating Date/Time 10/30/2016 14:49:13
[2016-10-30] MEDS ORDERED: ATORVASTATIN 10 MG TAB PO SCH (21:00)
[2016-10-31] MEDS ORDERED: FERROUS SULFATE 325 MG (65 MG ELEMENTAL IRON) TAB PO SCH (09:00)
== END 2016-10-30 16:48 | disposition home or self-care (01) ==
LOC: NEPC 12:21 → NEDA 17:56 → NEPGCP 22:12
PROVIDERS: ADMIT Hospitalist; ATTEND Hospitalist
DX: I11.0 Hypertensive heart disease with heart failure (principal); I50.33 Acute on chronic diastolic (congestive) heart failure; J44.9 Chronic obstructive pulmonary disease, unspecified; I48.91 Unspecified atrial fibrillation; E11.9 Type 2 diabetes mellitus without complications; M10.9 Gout, unspecified; I25.10 Atherosclerotic heart disease of native coronary artery without angina pectoris; T45.515A Adverse effect of anticoagulants, initial encounter; M32.9 Systemic lupus erythematosus, unspecified; D64.9 Anemia, unspecified; I95.9 Hypotension, unspecified; I51.7 Cardiomegaly; N40.0 Benign prostatic hyperplasia without lower urinary tract symptoms; F32.9 Major depressive disorder, single episode, unspecified; R79.1 Abnormal coagulation profile; R74.8 Abnormal levels of other serum enzymes; E78.5 Hyperlipidemia, unspecified; Z95.1 Presence of aortocoronary bypass graft; Z79.01 Long term (current) use of anticoagulants; Z79.899 Other long term (current) drug therapy; Z79.84 Long term (current) use of oral hypoglycemic drugs; Z79.82 Long term (current) use of aspirin
CPT/HCPCS: 71010; 80048; 80053; 82550; 82728; 82948; 83540; 83550; 83735; 83880; 84484; 85025; 85610; 85730; 93005; 94620; 94664; 96372; 96374; 99285; G0378; J1815; J1940; J7626

== ENCOUNTER 2017-02-02 15:10 | Inpatient (IN) | payer MEDICARE ==
[~2017-02-02] VITALS: Ht 190.5 cm; Wt 142.7 kg
[~2017-02-02 15:10] MED LIST changes: +ASPI-516 PO; -ASPI81CH CHEW; +BROV15NE NEB; +BUDE0.5S NEB; -COUM10TA PO; -DIFL200T PO; +DOXY100C PO; -FLUT1INH INH; +FOLI1TAB6 PO; +METO1TAB9 PO; -METO50TA11 PO; +OXYGENDME NAS.CANULA; -OXYGENTANK NAS.CANULA; -PROT40TA PO; +WARF-18 PO; +WARF-22 PO
[2017-02-02 15:11] VITALS: BP 131/72; PULSE 81; RESP 18; TEMP 97.5; O2SAT 89
--- NOTE | 2017-02-02 15:45 | RADRPT ---
EXAM DATE/TIME: 02/02/2017 15:29 [facility] COMPARISON: CHEST PA & LAT, July 07, 2013, 19:10. INDICATIONS : Chest pain and short of breath. MEDICAL HISTORY : Chronic obstructive pulmonary disease. Congestive heart failure. SURGICAL HISTORY : CABG. Cardiac stents. ENCOUNTER: Initial ACUITY: 1 day PAIN SCORE: 6/10 LOCATION: Bilateral chest FINDINGS: PA and lateral views of the chest demonstrate small left pleural effusion and left basilar density. C ardiomegaly and previous CABG. Right lung clear. Pulmonary vascularity normal. No edema. Osseous stru ctures are intact. CONCLUSION: 1. Small left pleural effusion and left basilar density likely atelectasis. 2. Cardiomegaly and CABG. Keo Cuevas MD on February 02, 2017 at 15:39 Board Certified Radiologist. This report was verified electronically.
[2017-02-02] MEDS ORDERED: FUROSEMIDE 20 MG/2 ML VIAL IV PUSH ONE (16:15)
[2017-02-02 16:28] LABS: AUTOMATED NEUTROPHIL # 6.5 TH/MM3 (1.8-7.7); BASOPHIL # 0.1 TH/MM3 (0-0.2); BASOPHIL % 0.7 % (0.0-2.0); EOSINOPHIL # 0.3 TH/MM3 (0-0.4); EOSINOPHIL % 3.2 % (0.0-4.0); HEMO FLAGS DIFF FINAL; LYMPH % 14.5 % (9.0-44.0); LYMPHOCYTE # 1.3 TH/MM3 (1.0-4.8); MEAN CELL VOLUME 92.7 FL (80.0-100.0); MEAN CORPUSCULAR HEMOGLOBIN 30.2 PG (27.0-34.0); MEAN CORPUSCULAR HGB CONC 32.6 % (32.0-36.0); MONO % 8.9 % (0.0-8.0); NEUT % 72.7 % (16.0-70.0); PLATELET COUNT 285 TH/MM3 (150-450)
[2017-02-02 16:43] LABS: INTERNATIONAL NORMALIZED RATIO 3.2 RATIO
[2017-02-02 16:46] LABS: ANION GAP 9 MEQ/L (5-15); BICARBONATE 30.4 MEQ/L (21.0-32.0); BLOOD UREA NITROGEN 20 MG/DL (7-18); CHLORIDE 100 MEQ/L (98-107); GLOMERULAR FILTRATION RATE 65 ML/MIN (>89); MAGNESIUM 1.8 MG/DL (1.5-2.5); POTASSIUM 4.6 MEQ/L (3.5-5.1); SODIUM (NA) 139 MEQ/L (136-145)
[2017-02-02 16:55] LABS: CREATINE KINASE 61 U/L (39-308)
[2017-02-02] MEDS ORDERED: ZINC50TA2 PO (17:16)
[2017-02-02] MEDS ORDERED: LISI-515 PO (17:16)
[2017-02-02] MEDS ORDERED: CYAN1TAB24 PO (17:16)
[2017-02-02] MEDS ORDERED: VITA250T3 PO (17:16)
[2017-02-02] MEDS ORDERED: ALLO300T2 PO (17:16)
[2017-02-02] MEDS ORDERED: [UNRECOGNIZED DRUG - REMARK] PO (17:16)
[2017-02-02] MEDS ORDERED: METH2.5T PO (17:16)
[2017-02-02] MEDS ORDERED: NALOXONE HCL 0.4 MG/ML AMP IV PUSH PRN (17:45)
[2017-02-02] MEDS ORDERED: SODIUM CHLORIDE 0.9% FLUSH 10 ML FLUSH IV FLUSH PRN (17:45)
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
--- NOTE | 2017-02-02 17:57 | HHI.HP ---
HPI Service [facility] Primary Care Physician Unknown Admission Diagnosis congestive heart failure, hypoxia, respiratory distress Diagnoses: Travel History International Travel<30 Days: No Contact w/Intl Traveler <30 Da: No Traveled to Known Affected Are: No History of Present Illness hx from ER communication, review of med records and patient shortness of breath for one to two weeks cant walk more than 20- steps chest tightness with it used nitroglycerin several times in this two weeks has not taken it for past 12yrs but now needed it quite often little bit to left arm no sweating no nausea in shower, had to hold on, because feeling like passign out about a month ago, had pneumonia was coughing more no nausea/ no vomiting did have diarrhea little bit off and on - for about six months now has been taking iron infusions on wednesdays- started about 10 weeks ago usually get diarrhea after this no bleedin in stool or urine diarrhea is somewhat foul smelling no recent long travels on coumadin at home now, INR 3.2 Review of Systems Except as stated in HPI: all other systems reviewed are Neg Past Family Social History Past Medical History htn dm cad- cabg 14 yrs ago, 3 yrs after that one stent in mar 2016- Dr Torres did coronary angiogram- but was not able to stent due to anatomy chf lupus copd kidney stone- lithotripsy bladder stone- lithotripsy BPH Past Surgical History lithotripsies BPH surgery cabg hernia as a child fatty tumor from head Allergies: Coded Allergies: amlodipine (Unverified Allergy, Unknown, 02/02/17) atorvastatin (Unverified Allergy, Unknown, 02/02/17) pravastatin (Unverified Allergy, Unknown, 02/02/17) simvastatin (Unverified Allergy, Unknown, 02/02/17) rosuvastatin (Unverified Adverse Reaction, Unknown, muscle cramps, 02/02/17 ) Family History father- blood clot to heart, at age 51 yo mother- pancreatic cancer some others have cancers in mothers family dm in both family Social History used to smoke, quit 30yrs ago no etoh abuse or drugs used to drink socially used to work in [employer]/ breathed in a lot of chemicals then Physical Exam Vital Signs Vital Signs Date Time Temp Pulse Resp B/P (MAP) Pulse Ox O2 Delivery O2 Flow Rate FiO2 02/02/17 17:25 18 95 Nasal Cannula 3.00 02/02/17 15:11 97.5 81 18 131/72 (91) 89 Nasal Cannula 2.00 Physical Exam GENERAL: This is a well-nourished, well-developed patient, in no apparent distress. SKIN: No rashes, ecchymoses or lesions. Cool and dry. HEAD: Atraumatic. Normocephalic. No temporal or scalp tenderness. EYES: No scleral icterus. No injection or drainage. ENT: Nose without bleeding, purulent drainage or septal hematoma. No JVD CARDIOVASCULAR: Regular rate and rhythm without murmurs, gallops, or rubs. RESPIRATORY: Clear to auscultation. Breath sounds equal bilaterally. No wheezes , rales, or rhonchi. GASTROINTESTINAL: Abdomen soft, non-tender, nondistended.. No guarding. MUSCULOSKELETAL: Extremities without clubbing, cyanosis, or edema.. No calf tenderness. NEUROLOGICAL: Awake and alert. Motor and sensory grossly within normal limits. Normal Speech Laboratory Laboratory Tests Test 02/02/17 15:48 White Blood Count 9.0 Red Blood Count 4.00 Hemoglobin 12.1 Hematocrit 37.0 Mean Corpuscular Volume 92.7 Mean Corpuscular Hemoglobin 30.2 Mean Corpuscular Hemoglobin Concent 32.6 Red Cell Distribution Width 20.0 Platelet Count 285 Mean Platelet Volume 7.8 Neutrophils (%) (Auto) 72.7 Lymphocytes (%) (Auto) 14.5 Monocytes (%) (Auto) 8.9 Eosinophils (%) (Auto) 3.2 Basophils (%) (Auto) 0.7 Neutrophils # (Auto) 6.5 Lymphocytes # (Auto) 1.3 Monocytes # (Auto) 0.8 Eosinophils # (Auto) 0.3 Basophils # (Auto) 0.1 CBC Comment DIFF FINAL Differential Comment Prothrombin Time 37.0 Prothromb Time International Ratio 3.2 Activated Partial Thromboplast Time 42.0 Blood Urea Nitrogen 20 Creatinine 1.13 Random Glucose 125 Calcium Level 8.9 Magnesium Level 1.8 Sodium Level 139 Potassium Level 4.6 Chloride Level 100 Carbon Dioxide Level 30.4 Anion Gap 9 Estimat Glomerular Filtration Rate 65 Total Creatine Kinase 61 Troponin I LESS THAN 0.02 B-Type Natriuretic Peptide 420 Lipase 134 Result Diagram: 02/02/17 1548 02/02/17 1548 Imaging cxr-personally reviewed Denisrini VTE Risk Assessment Caprini VTE Risk Assessment: Mod/High Risk (score >= 2) Caprini Risk Assessment Model Point Value = 1 Point Value = 2 Point Value = 3 Point Value = 5 Age 41-60 Minor surgery BMI > 25 kg/m2 Swollen legs Varicose veins or History of unexplained or recurrent spontaneous Oral contraceptives or hormone replacement Sepsis (< 1 month) Serious lung disease, including pneumonia (< 1 month) Abnormal pulmonary function Acute myocardial infarction Congestive heart failure (< 1 month) History of inflammatory bowel disease Medical patient at bed rest Age 61-74 Arthroscopic surgery Major open surgery (> 45 min) Laparoscopic surgery (> 45 min) Malignancy Confined to bed (> 72 hours) Immobilizing plaster cast Central venous access Age >= 75 History of VTE Family history of VTE Factor V Leiden Prothrombin [id number] Lupus anticoagulant Anticardiolipin antibodies Elevated serum homocysteine Heparin-induced thrombocytopenia Other congenital or acquired thrombophilia Stroke (< 1 month) Elective arthroplasty Hip, pelvis, or leg fracture Acute spinal cord injury (< 1 month) Prophylaxis Regimen Total Risk Factor Score Risk Level Prophylaxis Regimen 0-1 Low Early ambulation 2 Moderate Order ONE of the following: *Sequential Compression Device (SCD) *Heparin 5000 units SQ BID 3-4 Higher Order ONE of the following medications: *Heparin 5000 units SQ TID *Enoxaparin/Lovenox 40 mg SQ daily (WT < 150 kg, CrCl > 30 mL/min) *Enoxaparin/Lovenox 30 mg SQ daily (WT < 150 kg, CrCl > 10-29 mL/min) *Enoxaparin/Lovenox 30 mg SQ BID (WT < 150 kg, CrCl > 30 mL/min) AND/OR *Sequential Compression Device (SCD) 5 or more Highest Order ONE of the following medications: *Heparin 5000 units SQ TID (Preferred with Epidurals) *Enoxaparin/Lovenox 40 mg SQ daily (WT < 150 kg, CrCl > 30 mL/min) *Enoxaparin/Lovenox 30 mg SQ daily (WT < 150 kg, CrCl > 10-29 mL/min) *Enoxaparin/Lovenox 30 mg SQ BID (WT < 150 kg, CrCl > 30 mL/min) AND *Sequential Compression Device (SCD) Assessment and Plan Assessment and Plan Impression: chf exacerbation - acute on chronic chest pain unstable angina htn dm cad- cabg 14 yrs ago, 3 yrs after that one stent in mar 2016- Dr Torres did coronary angiogram- but was not able to stent due to anatomy chf lupus copd kidney stone- lithotripsy bladder stone- lithotripsy BPH Plan: serial enzymes and ekg i/o echo cardiology consult hold coumadin for now till after cardio eval for possible cath INR 3.2 - thus will not start heparin yet if repeat INR in am is <3, then may need to start heparin while awaiting on possible need of angiogram otherwise, resume rest of home meds- see med rec Discussed Condition With patient, ER , nursing staff Jonelle Mehta MD Feb 02, 2017 17:57
[2017-02-02 18:00] VITALS: O2SAT 96
[2017-02-02] MEDS ORDERED: ACETAMINOPHEN/HYDROcodone 325 MG/10 MG TAB PO PRN (18:00)
[2017-02-02] MEDS: FUROSEMIDE 40 MG/4 ML VIAL IV PUSH SCH (18:45)
[2017-02-02 20:22] VITALS: BP 133/81; PULSE 79; RESP 18; TEMP 97.8; O2SAT 95
[2017-02-02] MEDS ORDERED: NON-FORMULARY DRUG (Arformoterol Neb (Brovana Neb) 1 NEBULE) NEB SCH (21:00)
[2017-02-02] MEDS ORDERED: ROSUVASTATIN 5 MG PO SCH (21:00)
[2017-02-02] MEDS ORDERED: NON-FORMULARY DRUG (Rosuvastatin (Crestor) 5 MG) PO SCH (21:00)
[2017-02-02] MEDS ORDERED: [UNRECOGNIZED DRUG - OTHER] INH SCH (21:00)
[2017-02-02] MEDS ORDERED: DOFETILIDE 500 MCG CAP PO SCH (21:00)
[2017-02-02] MEDS: RESP: BUDESONIDE 0.5 MG/2 ML NEB NEB SCH (21:15)
[2017-02-02 21:20] VITALS: O2SAT 97
[2017-02-02] MEDS: DOFETILIDE 250 MCG CAP PO SCH (21:21)
[2017-02-02] MEDS: ASPIRIN 81 MG CHEW TAB PO SCH (21:21)
[2017-02-02] MEDS: SODIUM CHLORIDE 0.9% FLUSH 10 ML FLUSH IV FLUSH SCH (21:21)
[2017-02-02] MEDS: HYDROXYCHLOROQUINE SULFATE 200 MG TAB PO SCH (21:21)
[2017-02-02] MEDS: METOPROLOL SUCCINATE 25 MG EXTENDED RELEASE TAB PO SCH (21:21)
[2017-02-02] MEDS: POTASSIUM CHLORIDE 10 MEQ CAP PO SCH (21:21)
[2017-02-02 23:41] LABS: CREATINE KINASE 57 U/L (39-308)
[2017-02-03] VITALS (10 sets, daily range): BP systolic 89–131; BP diastolic 50–81; PULSE 69–78; RESP 18–20; TEMP 97.3–97.8; O2SAT 91–97
[2017-02-03 04:03] LABS: AUTOMATED NEUTROPHIL # 5.2 TH/MM3 (1.8-7.7); BASOPHIL # 0.1 TH/MM3 (0-0.2); BASOPHIL % 0.8 % (0.0-2.0); EOSINOPHIL # 0.4 TH/MM3 (0-0.4); EOSINOPHIL % 4.5 % (0.0-4.0); HEMATOCRIT 36.8 % (39.0-51.0); HEMO FLAGS DIFF FINAL; LYMPH % 18.1 % (9.0-44.0); LYMPHOCYTE # 1.4 TH/MM3 (1.0-4.8); MEAN CELL VOLUME 93.1 FL (80.0-100.0); MEAN CORPUSCULAR HEMOGLOBIN 29.8 PG (27.0-34.0); MONO % 10.8 % (0.0-8.0); NEUT % 65.8 % (16.0-70.0); PLATELET COUNT 271 TH/MM3 (150-450); RED BLOOD COUNT 3.95 MIL/MM3 (4.50-5.90); RED CELL DISTRIBUTION WIDTH 19.6 % (11.6-17.2); WHITE BLOOD COUNT 7.8 TH/MM3 (4.0-11.0)
[2017-02-03 04:30] LABS: ANION GAP 7 MEQ/L (5-15); BICARBONATE 31.2 MEQ/L (21.0-32.0); BLOOD UREA NITROGEN 20 MG/DL (7-18); CHLORIDE 101 MEQ/L (98-107); GLOMERULAR FILTRATION RATE 88 ML/MIN (>89); POTASSIUM 4.3 MEQ/L (3.5-5.1); SODIUM (NA) 139 MEQ/L (136-145)
[2017-02-03 04:35] LABS: CREATINE KINASE 59 U/L (39-308)
[2017-02-03] MEDS: RESP: BUDESONIDE 0.5 MG/2 ML NEB NEB SCH ×2 (07:13→20:00)
[2017-02-03] MEDS ORDERED: NON-FORMULARY DRUG (Cyanocobalamin (B12) 1,000 MCG) PO SCH (09:00)
[2017-02-03] MEDS ORDERED: DEXTROSE 50% IN WATER 50 ML VIAL(D50) IV PUSH PRN (09:00)
[2017-02-03] MEDS ORDERED: [UNRECOGNIZED DRUG - OTHER] PO SCH (09:00)
[2017-02-03] MEDS ORDERED: GLUCAGON 1 MG/ML VIAL OTHER PRN (09:00)
[2017-02-03] MEDS ORDERED: NON-FORMULARY DRUG (Zinc Gluconate 50 MG) PO SCH (09:00)
[2017-02-03] MEDS ORDERED: INFLUENZA VIRUS VACCINE (QUADRIVALENT) 0.5 ML SYR IM ONE (10:00)
[2017-02-03] MEDS: LISINOPRIL 20 MG TAB PO SCH (10:24)
[2017-02-03] MEDS: ALLOPURINOL 300 MG TAB PO SCH (10:24)
[2017-02-03] MEDS: POTASSIUM CHLORIDE 10 MEQ CAP PO SCH ×2 (10:24→21:22)
[2017-02-03] MEDS: ASPIRIN 81 MG CHEW TAB PO SCH ×2 (10:24→21:22)
[2017-02-03] MEDS: HYDROXYCHLOROQUINE SULFATE 200 MG TAB PO SCH ×2 (10:24→21:22)
[2017-02-03] MEDS: FOLIC ACID 1 MG TAB PO SCH (10:24)
[2017-02-03] MEDS: FUROSEMIDE 40 MG/4 ML VIAL IV PUSH SCH ×2 (10:25→17:52)
[2017-02-03] MEDS: CYANOCOBALAMIN 1,000 MCG TAB PO SCH (10:25)
[2017-02-03] MEDS: MAGNESIUM OXIDE 400 MG TAB PO SCH (10:25)
[2017-02-03] MEDS: DOFETILIDE 250 MCG CAP PO SCH ×2 (10:26→21:22)
[2017-02-03] MEDS: SODIUM CHLORIDE 0.9% FLUSH 10 ML FLUSH IV FLUSH SCH ×2 (10:27→21:23)
[2017-02-03] MEDS ORDERED: MAGNESIUM SULFATE 1 GM PREMIX 100 ML IV ONE (10:30)
--- NOTE | 2017-02-03 11:59 | MB ---
cc: IDALIA MARI M.D. DATE OF CONSULTATION: 02/03/2017 REASON FOR CONSULTATION: Cardiology consult on Marcial Paulino for evaluation shortness of breath. The lower extremity edema. HISTORY OF PRESENT ILLNESS Marcial Rizo is a 66-year-old man with known coronary artery disease, Congestive heart failure and chronic obstructive pulmonary disease. His chronic obstructive pulmonary disease is extremely severe. He has pulmonary hypertension. Pulmonary pressures have been a high as 86 mm on his echo from April 10 and measured 68/34 on his cath from April 16. He has dilatation of the right sided cardiac chambers, he also has morbid obesity. He has congestive heart failure based on diastolic dysfunction last ejection fraction was normal 55% on April 10 echocardiogram. He has known coronary artery disease with diffuse small-vessel disease. He had a cath April 16 with no revascularization indicated. The patient has been noting severely short of breath. He is short of breath just leaning over to tie his shoes. He has had increased edema for the past week. He denies lack of compliance with his 20 mg b.i.d. torsemide but he has been eating out a lot and sounds like he has probably had a salt overload from that portion of his diet. PAST MEDICAL HISTORY: Past medical history includes coronary artery disease, congestive heart failure, chronic obstructive pulmonary disease, morbid obesity, type 2 diabetes, hypertension, paroxysmal Atrial fibrillation with four ablations and now on Tigacin 500 b.i.d. peripheral arterial disease, kidney stones, lupus, followed by <<1:20>> , hypercoagulable state on warfarin followed by credit control manager in [place]. Hyperlipidemia for which he is on Crestor 5 mg. PAST SURGICAL HISTORY: He had a cardiac catheterization April 16, 2016, left main coronary was okay left anterior descending artery was 99% stenosis with patent left internal mammary graft to the left anterior descending. This was also providing some collaterals to the right coronary artery. The Ramus had 99% disease. He had a patent Y-graft to the ramus and circumflex marginal branch. The circumflex artery has diffuse 50% disease and small caliber vessel with 30-40% in-stent restenosis from the stenting he had in 2009. The right coronary artery is diffusely diseased with 40 to 50% mid disease, 70% branch of the posterolateral and severe PDA disease and occlusion of the previous vein graft. However, he does have collaterals from the left internal mammary artery bypass. 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 His weight stays over 300 pounds. PHYSICAL EXAMINATION: IN GENERAL: Physical exam shows a morbidly obese white male, mildly tachypneic but no acute distress. VITAL SIGNS: Charted. He 116/71, pulse 69 on the last available check. HEAD, EYES, EARS, NOSE, AND THROAT: Exam is unremarkable. NECK: Shows no bruits. CHEST: Shows severely diminished breath sounds bilaterally. CARDIAC: Exam distant S1-S2 regular rate and rhythm, I cannot hear murmurs, gallops. ABDOMEN: Abdomen is obese. EXTREMITIES: The extremities revealed. 3+ lower extremity edema. LABORATORY Potassium 4.3, creatinine 0.6. Troponins have been negative. Chest x-ray Shows small left pleural effusion and left basilar density like atelectasis and cardiomegaly. IMPRESSION Acute on chronic diastolic congestive heart failure. Secondary to dietary noncompliance. Morbid obesity. Coronary disease which is severe but stable. RECOMMENDATIONS I am increasing the Lasix 740 mg IV and b.i.d. to 80 mg IV b.i.d. and monitor his potassium and magnesium levels. He was counseled on dietary changes. Further therapy to be determined. MD TIAGO Perez/veronica /10:38 AM /10:50 AM
[2017-02-03] MEDS ORDERED: MENTHOL LOZENGE BUCCAL ONE (13:15)
[2017-02-03] MEDS: INSULIN ASPART SUPPLEMENTAL SCALE SQ SCH ×3 (13:29→21:22)
[2017-02-03 15:29] LABS: INTERNATIONAL NORMALIZED RATIO 2.2 RATIO; PROTHROMBIN TIME - PATIENT 25.7 SEC (9.8-11.6)
--- NOTE | 2017-02-03 16:57 | HHI.PR ---
Subjective Remarks Follow up for congestive heart failure. Patient reports shortness of breath both at rest and on ambulation. Denies any chest pain, fever or chills. Objective Vitals Vital Signs Date Time Temp Pulse Resp B/P (MAP) Pulse Ox O2 Delivery O2 Flow Rate FiO2 02/03/17 12:10 97.4 77 18 115/73 (87) 96 02/03/17 12:00 78 02/03/17 08:06 97.3 69 20 116/71 (86) 97 02/03/17 07:14 94 21 02/03/17 05:16 69 02/03/17 02:54 97.8 70 18 131/81 (98) 96 02/03/17 02:53 74 02/02/17 21:20 97 Nasal Cannula 2.00 02/02/17 20:22 97.8 79 18 133/81 (98) 95 02/02/17 19:29 02/02/17 18:00 96 3.00 02/02/17 17:25 18 95 Nasal Cannula 3.00 I/O 02/02/17 02/02/17 02/02/17 02/03/17 02/03/17 02/03/17 07:00 15:00 23:00 07:00 15:00 23:00 Intake Total 90 ml Output Total 200 ml 825 ml Balance -200 ml -735 ml Intake IV Total 90 ml Output Urine Total 200 ml 825 ml # Voids 1 Result Diagram: 02/03/17 0306 02/03/17 0306 Imaging Last Impressions Chest X-Ray 02/02/17 1516 Signed Impressions: Service Date/Time: Thursday, February 02, 2017 15:29 - CONCLUSION: 1. Small left pleural effusion and left basilar density likely atelectasis. 2. Cardiomegaly and CABG. Keo Cuevas MD Objective Remarks GENERAL: Alert, oriented 3, NAD. SKIN: Warm and dry. HEAD: Normocephalic. EYES: No scleral icterus. No injection or drainage. NECK: Supple, trachea midline. No JVD or lymphadenopathy. CARDIOVASCULAR: Regular rate and rhythm without murmurs, gallops, or rubs. RESPIRATORY: Breath sounds equal bilaterally. No accessory muscle use. GASTROINTESTINAL: Abdomen soft, non-tender, nondistended. MUSCULOSKELETAL: No cyanosis. 2+ edema in bilateral lower extremity. BACK: Nontender without obvious deformity. No CVA tenderness. Procedures None A/P Problem List: (1) CHF exacerbation ICD Code: I50.9 - CHF exacerbation Status: Acute Assessment and Plan Mr. Paulino is a 66-year-old male with a history of coronary artery disease status post stent placement and CABG who was admitted to the hospital due to shortness of breath both at rest and on exertion. He uses 2 L of oxygen 24 hours a day via nasal cannula. However recently his saturation has been in the 86% range on 2 L of oxygen. No fever or chills. He follows up with Dr. Barfield - Acute exacerbation of congestive heart failure - Diastolic congestive heart failure - Severe pulmonary hypertension - Appreciate cardiology input. Dr. Hammer started patient on 80 mg of Lasix IV twice a day. - 2-D echo pending - Coronary artery disease status post stent placement and CABG. - Continue aspirin 81 mg twice a day, lisinopril 20 mg daily, metoprolol succinate 25 mg daily at bedtime - History of Superior mesenteric vein thrombosis - Currently on Warfarin. Goal INR 2 - 3. - Atrial fibrillation - Continue Tikosyn - Continue warfarin. Full code. Warfarin. Greg Kaye DO Feb 03, 2017 4:57 pm
[2017-02-03] MEDS: WARFARIN SOD 5 MG TAB PO SCH (17:52)
[2017-02-03] MEDS ORDERED: FUROSEMIDE 40 MG/4 ML VIAL IV PUSH SCH (18:00)
--- NOTE | 2017-02-03 18:46 | EKG ---
Date Performed: 02/02/2017 Time Performed: 16:25:13 PTAGE: 66 years EKG: Sinus rhythm WITH SINUS ARRHYTHMIA INCOMPLETE RIGHT BUNDLE BRANCH BLOCK POSSIBLE RIGHT VENTRICULAR HYPERTROPHY ST DEVIATION AND MODERATE T-WAVE ABNORMALITY, CONSIDER ANTEROLATERAL ISCHEMIA ST DEVIATION AND MODERATE T-WAVE ABNORMALITY, CONSIDER INFERIOR ISCHEMIA ABNORMAL ECG Compared to prior tracing no significant change PREVIOUS TRACING : 10/30/2016 04.03.56 DOCTOR: Barbi Chaves Interpretating Date/Time 02/03/2017 18:45:53
--- NOTE | 2017-02-03 18:46 | EKG ---
Date Performed: 02/03/2017 Time Performed: 05:41:11 PTAGE: 66 years EKG: Sinus rhythm RIGHT VENTRICULAR HYPERTROPHY ST DEVIATION AND MODERATE T-WAVE ABNORMALITY, CONSIDER LATERAL ISCHEMI A ABNORMAL ECG Compared to prior tracing no significant change PREVIOUS TRACING : 02/02/2017 22.25 DOCTOR: Barbi Chaves Interpretating Date/Time 02/03/2017 18:46:15
--- NOTE | 2017-02-03 18:46 | EKG ---
Date Performed: 02/02/2017 Time Performed: 22:25:46 PTAGE: 66 years EKG: Sinus rhythm RIGHT BUNDLE BRANCH BLOCK LEFT POSTERIOR FASCICULAR BLOCK MODERATE T-WAVE ABNORMALITY, CONSIDER LATE RAL ISCHEMIA MODERATE T-WAVE ABNORMALITY, CONSIDER INFERIOR ISCHEMIA ABNORMAL ECG Compared to prior t racing no significant change PREVIOUS TRACING : 02/02/2017 16.25 DOCTOR: Barbi Chaves Interpretating Date/Time 02/03/2017 18:46:04
[2017-02-03] MEDS: METOPROLOL SUCCINATE 25 MG EXTENDED RELEASE TAB PO SCH ×2 (21:00→21:22)
[2017-02-04] VITALS (13 sets, daily range): BP systolic 103–137; BP diastolic 63–80; PULSE 68–88; RESP 17–20; TEMP 97.4–98.7; O2SAT 91–97
[2017-02-04] MEDS: INSULIN ASPART SUPPLEMENTAL SCALE SQ SCH ×4 (08:00→21:00)
[2017-02-04 08:12] LABS: ANION GAP 5 MEQ/L (5-15); AST (GOT) 24 U/L (15-37); BICARBONATE 33.5 MEQ/L (21.0-32.0); BLOOD UREA NITROGEN 16 MG/DL (7-18); CHLORIDE 101 MEQ/L (98-107); GLOMERULAR FILTRATION RATE 80 ML/MIN (>89); MAGNESIUM 2.1 MG/DL (1.5-2.5); POTASSIUM 4.4 MEQ/L (3.5-5.1); SODIUM (NA) 139 MEQ/L (136-145)
[2017-02-04 08:16] LABS: ALKALINE PHOSPHATASE 136 U/L (45-117); ALT (GPT) 30 U/L (12-78); TOTAL BILIRUBIN ADULT 0.8 MG/DL (0.2-1.0)
[2017-02-04] MEDS: RESP: BUDESONIDE 0.5 MG/2 ML NEB NEB SCH ×2 (08:17→19:55)
--- NOTE | 2017-02-04 09:16 | PD.CARD.PN ---
Subjective Subjective Remarks SOB improving Objective Medications Current Medications Medications (Trade) Dose Ordered Sig/Josie Route Start Time Stop Time Status Last Admin (NS Flush) 2 ml UNSCH PRN IV FLUSH 02/02/17 17:45 (NS Flush) 2 ml BID IV FLUSH 02/02/17 21:00 02/03/17 21:23 (Narcan Inj) 0.4 mg UNSCH PRN IV PUSH 02/02/17 17:45 (Zyloprim) 300 mg DAILY PO 02/03/17 09:00 02/03/17 10:24 (Aspirin Chew) 81 mg BID PO 02/02/17 21:00 02/03/17 21:22 (Pulmicort Respule Neb) 0.5 mg Q12HR NEB NEB 02/02/17 20:00 02/04/17 08:17 (Folate) 1 mg DAILY PO 02/03/17 09:00 02/03/17 10:24 ([place] 10-325 Mg) 1 tab TID PRN PO 02/02/17 18:00 (Plaquenil) 200 mg BID PO 02/02/17 21:00 02/03/17 21:22 (Prinivil) 20 mg DAILY PO 02/03/17 09:00 02/03/17 10:24 (Mag-Ox) 400 mg DAILY PO 02/03/17 09:00 02/03/17 10:25 (Toprol Xl) 25 mg HS PO 02/02/17 21:00 02/02/17 21:21 (KCl) 10 meq BID PO 02/02/17 21:00 02/03/17 21:22 (Vitamin B12) 1,000 mcg DAILY PO 02/03/17 09:00 02/03/17 10:25 Patient Own Medication PT OWN MED: CRESTO... HS PO 02/02/17 21:00 Future Hold Patient Own Medication PT OWN MED: ZINC GLUCON... DAILY PO 02/03/17 09:00 Future Hold Patient Own Medication PT OWN MED: BROV... BID INH 02/02/17 21:00 Future Hold (Tikosyn) 500 mcg Q12HR PO 02/02/17 21:00 02/03/17 21:22 (D50w (Vial) Inj) 50 ml UNSCH PRN IV PUSH 02/03/17 09:00 (Glucagon Inj) 1 mg UNSCH PRN OTHER 02/03/17 09:00 (NovoLOG SUPPLEMENTAL SCALE) 1 ACHS SLIDING SCALE SQ 02/03/17 12:00 02/03/17 21:22 Pharmacy Profile Note 0 ml @ 0 mls/hr UNSCH OTHER 02/03/17 09:00 (Lasix Inj) 80 mg BID@09,18 IV PUSH 02/03/17 18:00 02/03/17 17:52 (Coumadin) 5 mg DAILY@1600 PO 02/03/17 16:00 02/03/17 17:52 Vital Signs / I&O Vital Signs Date Time Temp Pulse Resp B/P (MAP) Pulse Ox O2 Delivery O2 Flow Rate FiO2 02/04/17 08:19 97 Nasal Cannula 2.50 02/04/17 07:42 97.4 88 18 137/80 (99) 95 02/04/17 04:58 73 02/04/17 04:58 68 02/04/17 04:57 81 02/04/17 03:29 97.9 70 18 130/79 (96) 97 02/03/17 23:31 97.8 73 18 130/81 (97) 91 02/03/17 20:51 97.8 72 18 89/50 (63) 97 02/03/17 20:04 Nasal Cannula 2.50 02/03/17 16:00 97.6 69 20 99/68 (78) 96 02/03/17 12:10 97.4 77 18 115/73 (87) 96 02/03/17 12:00 78 I/O 02/03/17 02/03/17 02/03/17 02/04/17 02/04/17 02/04/17 07:00 15:00 23:00 07:00 15:00 23:00 Intake Total 90 ml 300 ml Output Total 825 ml 1300 ml Balance -735 ml -1000 ml Intake Oral 300 ml IV Total 90 ml Output Urine Total 825 ml 1300 ml Physical Exam Alert Chest: dcreased BS CV S1S2 RRR Edema improved but still 3+ Laboratory Laboratory Tests Test 02/03/17 14:55 02/04/17 07:02 Prothrombin Time 25.7 SEC Prothromb Time International Ratio 2.2 RATIO Magnesium Level 2.2 MG/DL 2.1 MG/DL Blood Urea Nitrogen 16 MG/DL Creatinine 0.94 MG/DL Random Glucose 107 MG/DL Total Protein 7.0 GM/DL Albumin 3.6 GM/DL Calcium Level 8.6 MG/DL Alkaline Phosphatase 136 U/L Aspartate Amino Transf (AST/SGOT) 24 U/L Alanine Aminotransferase (ALT/SGPT) 30 U/L Total Bilirubin 0.8 MG/DL Sodium Level 139 MEQ/L Potassium Level 4.4 MEQ/L Chloride Level 101 MEQ/L Carbon Dioxide Level 33.5 MEQ/L Anion Gap 5 MEQ/L Estimat Glomerular Filtration Rate 80 ML/MIN Assessment and Plan Problem List: (1) Paroxysmal atrial fibrillation ICD Codes: I48.0 - Paroxysmal atrial fibrillation Plan: Staing in SR (2) Pulmonary hypertension ICD Codes: I27.20 - Pulmonary hypertension, unspecified (3) Acute on chronic diastolic CHF (congestive heart failure) ICD Codes: I50.33 - Acute on chronic diastolic (congestive) heart failure Plan: Cont. diuresis (4) CAD (coronary artery disease) ICD Codes: I25.10 - CAD (coronary artery disease) Status: Chronic Plan: stable, no NE Danyel Hammer MD Feb 04, 2017 09:16
[2017-02-04] MEDS: CYANOCOBALAMIN 1,000 MCG TAB PO SCH (09:31)
[2017-02-04] MEDS: FUROSEMIDE 40 MG/4 ML VIAL IV PUSH SCH ×2 (09:31→17:49)
[2017-02-04] MEDS: ASPIRIN 81 MG CHEW TAB PO SCH ×2 (09:31→22:10)
[2017-02-04] MEDS: FOLIC ACID 1 MG TAB PO SCH (09:32)
[2017-02-04] MEDS: POTASSIUM CHLORIDE 10 MEQ CAP PO SCH ×2 (09:32→22:10)
[2017-02-04] MEDS: HYDROXYCHLOROQUINE SULFATE 200 MG TAB PO SCH ×2 (09:32→22:10)
[2017-02-04] MEDS: DOFETILIDE 250 MCG CAP PO SCH ×2 (09:32→22:11)
[2017-02-04] MEDS: SODIUM CHLORIDE 0.9% FLUSH 10 ML FLUSH IV FLUSH SCH ×2 (09:32→21:00)
[2017-02-04] MEDS: MAGNESIUM OXIDE 400 MG TAB PO SCH (09:32)
[2017-02-04] MEDS: ALLOPURINOL 300 MG TAB PO SCH (09:32)
[2017-02-04] MEDS: LISINOPRIL 20 MG TAB PO SCH (09:32)
--- NOTE | 2017-02-04 11:51 | HHI.PR ---
Subjective Remarks says that he's feeling much better. sob has improved. no chest pain. overall improving. Objective Vitals Vital Signs Date Time Temp Pulse Resp B/P (MAP) Pulse Ox O2 Delivery O2 Flow Rate FiO2 02/04/17 11:36 97.7 84 20 123/71 (88) 91 02/04/17 08:19 97 Nasal Cannula 2.50 02/04/17 08:00 72 02/04/17 07:42 97.4 88 18 137/80 (99) 95 02/04/17 04:58 73 02/04/17 04:58 68 02/04/17 04:57 81 02/04/17 03:29 97.9 70 18 130/79 (96) 97 02/03/17 23:31 97.8 73 18 130/81 (97) 91 02/03/17 20:51 97.8 72 18 89/50 (63) 97 02/03/17 20:04 Nasal Cannula 2.50 02/03/17 16:00 97.6 69 20 99/68 (78) 96 02/03/17 12:10 97.4 77 18 115/73 (87) 96 02/03/17 12:00 78 I/O 02/03/17 02/03/17 02/03/17 02/04/17 02/04/17 02/04/17 07:00 15:00 23:00 07:00 15:00 23:00 Intake Total 90 ml 300 ml Output Total 825 ml 1675 ml Balance -735 ml -1375 ml Intake Oral 300 ml IV Total 90 ml Output Urine Total 825 ml 1675 ml Result Diagram: 02/03/17 0306 02/04/17 0702 Imaging Last Impressions Chest X-Ray 02/02/17 1516 Signed Impressions: Service Date/Time: Thursday, February 02, 2017 15:29 - CONCLUSION: 1. Small left pleural effusion and left basilar density likely atelectasis. 2. Cardiomegaly and CABG. Keo Cuevas MD Objective Remarks GENERAL: This is a well-nourished, well-developed patient, in no apparent distress. CARDIOVASCULAR: Regular rate and regular rhythm without murmurs, gallops, or rubs. RESPIRATORY: Clear to auscultation. Breath sounds equal bilaterally. No wheezes , rales, or rhonchi. GASTROINTESTINAL: Abdomen soft, non-tender, nondistended. Normal, active bowel sounds MUSCULOSKELETAL: lower extremities with mild bilateral pedal edema. NEURO: Alert & Oriented x4 to person, place, time, situation. Moves all ext x4 Procedures None Medications and IVs Current Medications Furosemide (Lasix Inj) 60 mg ONCE ONCE IV PUSH Last administered on 02/02/17 17:34; Start 02/02/17 at 16:15; Stop 02/02/17 at 16:16; Status DC Sodium Chloride (NS Flush) 2 ml UNSCH PRN IV FLUSH FLUSH AFTER USING IV ACCESS ; Start 02/02/17 at 17:45 Sodium Chloride (NS Flush) 2 ml BID IV FLUSH Last administered on 02/04/17 09: 32; Start 02/02/17 at 21:00 Naloxone HCl (Narcan Inj) 0.4 mg UNSCH PRN IV PUSH SEE LABEL COMMENTS; Start 02/02/17 at 17:45 Furosemide (Lasix Inj) 40 mg BID@09,18 IV PUSH Last administered on 02/03/17 10:25; Start 02/02/17 at 18:00; Stop 02/03/17 at 10:31; Status DC Allopurinol (Zyloprim) 300 mg DAILY PO Last administered on 02/04/17 09:32; Start 02/03/17 at 09:00 Aspirin (Aspirin Chew) 81 mg BID PO Last administered on 02/04/17 09:31; Start 02/02/17 at 21:00 Budesonide (Pulmicort Respule Neb) 0.5 mg Q12HR NEB NEB Last administered on 02/04/17 08:17; Start 02/02/17 at 20:00 Dofetilide (Tikosyn) 500 mcg Q12HR PO ; Start 02/02/17 at 21:00; Stop 02/02/17 at 21:00; Status DC Folic Acid (Folate) 1 mg DAILY PO Last administered on 02/04/17 09:32; Start 02/03/17 at 09:00 Acetaminophen/ Hydrocodone Bitart ([place] 10-325 Mg) 1 tab TID PRN PO PAIN SCALE 1 TO 10; Start 02/02/17 at 18:00 Hydroxychloroquine Sulfate (Plaquenil) 200 mg BID PO Last administered on 09:32; Start 02/02/17 at 21:00 Lisinopril (Prinivil) 20 mg DAILY PO Last administered on 02/04/17 09:32; Start 02/03/17 at 09:00 Magnesium Oxide (Mag-Ox) 400 mg DAILY PO Last administered on 02/04/17 09:32; Start 02/03/17 at 09:00 Metoprolol Succinate (Toprol Xl) 25 mg HS PO Last administered on 02/02/17 21: 21; Start 02/02/17 at 21:00 Potassium Chloride (KCl) 10 meq BID PO Last administered on 02/04/17 09:32; Start 02/02/17 at 21:00 Non-Formulary Medication 1 nebule BID NEB ; Start 02/02/17 at 21:00; Status UNV Non-Formulary Medication 1,000 mcg DAILY PO ; Start 02/03/17 at 09:00; Status UNV Non-Formulary Medication 5 mg HS PO ; Start 02/02/17 at 21:00; Status UNV Non-Formulary Medication 50 mg DAILY PO ; Start 02/03/17 at 09:00; Status UNV Cyanocobalamin (Vitamin B12) 1,000 mcg DAILY PO Last administered on 02/04/17 09:31; Start 02/03/17 at 09:00 Patient Own Medication PT OWN MED: CRESTO... HS PO ; Start 02/02/17 at 21:00; Status Future Hold Patient Own Medication PT OWN MED: ZINC GLUCON... DAILY PO ; Start 02/03/17 at 09:00; Status Future Hold Patient Own Medication PT OWN MED: BROV... BID INH ; Start 02/02/17 at 21:00; Status Future Hold Dofetilide (Tikosyn) 500 mcg Q12HR PO Last administered on 02/04/17 09:32; Start 02/02/17 at 21:00 Influenza Virus Vaccine (Flu (Quadrivalent) Vaccine Inj) 0.5 ml ONCE ONCE IM Last administered on 02/03/17 10:27; Start 02/03/17 at 10:00; Stop 02/03/17 at 10:01; Status DC Dextrose (D50w (Vial) Inj) 50 ml UNSCH PRN IV PUSH HYPOGLYCEMIA-SEE COMMENTS; Start 02/03/17 at 09:00 Glucagon (Glucagon Inj) 1 mg UNSCH PRN OTHER HYPOGLYCEMIA-SEE COMMENTS; Start 02/03/17 at 09:00 Insulin Aspart (NovoLOG SUPPLEMENTAL SCALE) 1 ACHS SLIDING SCALE SQ Last administered on 02/03/17 21:22; Start 02/03/17 at 12:00 Pharmacy Profile Note 0 ml @ 0 mls/hr UNSCH OTHER ; Start 02/03/17 at 09:00 Magnesium Sulfate/ Dextrose 100 ml @ 100 mls/hr ONCE ONCE IV Last administered on 02/03/17 11:53; Start 02/03/17 at 10:30; Stop 02/03/17 at 11:29 ; Status DC Furosemide (Lasix Inj) 80 mg BID@09,18 IV PUSH Last administered on 02/04/17 09:31; Start 02/03/17 at 18:00 Furosemide (Lasix Inj) 80 mg BID@09,18 IV PUSH ; Start 02/03/17 at 18:00; Stop 02/03/17 at 18:00; Status DC Menthol (Shedd [place]) 1 lozenge ONCE ONCE BUCCAL Last administered on 02/03/17 13:29; Start 02/03/17 at 13:15; Stop 02/03/17 at 13:16; Status DC Warfarin Sodium (Coumadin) 5 mg DAILY@1600 PO Last administered on 02/03/17 17 :52; Start 02/03/17 at 16:00 Patient Medication Teaching (Coumadin Booklet) 1 ONCE ONCE .XX Last administered on 02/03/17 17:52; Start 02/03/17 at 17:00; Stop 02/03/17 at 17:01 ; Status DC A/P Assessment and Plan - Acute exacerbation of congestive heart failure - Diastolic congestive heart failure - Severe pulmonary hypertension - Appreciate cardiology input. Dr. Hammer started patient on 80 mg of Lasix IV twice a day. - 2-D echo pending - Coronary artery disease status post stent placement and CABG. - Continue aspirin 81 mg twice a day, lisinopril 20 mg daily, metoprolol succinate 25 mg daily at bedtime - History of Superior mesenteric vein thrombosis - Currently on Warfarin. Goal INR 2 - 3. - Atrial fibrillation - Continue Tikosyn - Continue warfarin. Full code. DVT prophylaxis with Warfarin. Discharge Planning possible dc home within the next 24-48 hrs if continues to improve and cleared by cardiology. Rui Abarca MD Feb 04, 2017 11:51
[2017-02-04] MEDS: WARFARIN SOD 5 MG TAB PO SCH (16:21)
[2017-02-04 16:51] LABS: INTERNATIONAL NORMALIZED RATIO 1.7 RATIO; PROTHROMBIN TIME - PATIENT 18.7 SEC (9.8-11.6)
--- NOTE | 2017-02-04 19:00 | ECHRPT ---
Indication: CHF CONCLUSIONS Mildly dilated left ventricle. Wall thickness is normal. The left ventricular systolic function is low normal with an estimated ejection fraction in the rang e of 50- 55%. The right ventricle is moderately dilated. The right ventricular systolic function is severely decreased. The left atrial size is moderately dilated. The right atrial size is moderately dilated. Moderate to severe mitral valve regurgitation. Aortic valve sclerosis is present. There is moderate to severe tricuspid valve regurgitation. There is estimated severe pulmonary hypertension present ( 90 mmHg). Trivial pulmonary valve regurgitation. BP: 131 / 81 HR: 70 Rhythm: MEASUREMENTS (Male / Female) Normal Values Technical Quality:Good 2D ECHO LV Diastolic Diameter PLAX 5.2 cm 4.2 - 5.9 / 3.9 - 5.3 cm LV Systolic Diameter PLAX 4.0 cm IVS Diastolic Thickness 0.7 cm 0.6 - 1.0 / 0.6 - 0.9 cm LVPW Diastolic Thickness 0.9 cm 0.6 - 1.0 / 0.6 - 0.9 cm LV Relative Wall Thickness 0.3 RV Internal Dim ED PLAX 4.5 cm LA Systolic Diameter LX 4.7 cm 3.0 - 4.0 / 2.7 - 3.8 cm M-MODE IVS Diastolic Thickness MM 2.0 cm 0.6 - 1.0 / 0.6 - 0.9 cm Aortic Root Diameter MM 3.2 cm AV Cusp Separation MM 2.2 cm DOPPLER MR Peak Velocity 468.0 cm/s MR Peak Gradient 87.6 mmHg Mitral E Point Velocity 153.0 cm/s Mitral A Point Velocity 54.8 cm/s Mitral E to A Ratio 2.8 TR Peak Velocity 447.0 cm/s TR Peak Gradient 79.9 mmHg Right Atrial Pressure 10.0 mmHg Pulmonary Artery Systolic Pressu 89.9 mmHg Right Ventricular Systolic Press 89.9 mmHg FINDINGS LEFT VENTRICLE Mildly dilated left ventricle. Wall thickness is normal. The left ventricular systolic function is low normal with an estimated ejection fraction in the rang e of 50- 55%. RIGHT VENTRICLE The right ventricle is moderately dilated. The right ventricular systoilc function is severely decreased. LEFT ATRIUM The left atrial size is moderately dilated. RIGHT ATRIUM The right atrial size is moderately dilated. ATRIAL SEPTUM Normal atrial septal thickness without atrial level shunting by limited color doppler interrogation. AORTA The aortic root and proximal ascending aorta are normal in size on limited imaging. MITRAL VALVE Moderate to severe mitral valve regurgitation. AORTIC VALVE Aortic valve sclerosis is present. TRICUSPID VALVE There is moderate to severe tricuspid valve regurgitation. There is estimated severe pulmonary hypertension present ( 90 mmHg). PULMONARY VALVE Trivial pulmonary valve regurgitation. VESSELS The inferior vena cava is normal in size. PERICARDIUM No pericardial effusion. John Ware MD, FACC (Electronically Signed) Final Date:04 February 2017 18:59
[2017-02-04] MEDS: METOPROLOL SUCCINATE 25 MG EXTENDED RELEASE TAB PO SCH (22:11)
[2017-02-05] VITALS (12 sets, daily range): BP systolic 100–124; BP diastolic 62–79; PULSE 68–91; RESP 17–24; TEMP 95.9–98.2; O2SAT 93–97
[2017-02-05] MEDS: RESP: BUDESONIDE 0.5 MG/2 ML NEB NEB SCH ×2 (07:40→19:07)
[2017-02-05] MEDS: INSULIN ASPART SUPPLEMENTAL SCALE SQ SCH ×4 (08:00→22:48)
[2017-02-05 08:51] LABS: INTERNATIONAL NORMALIZED RATIO 1.4 RATIO; PROTHROMBIN TIME - PATIENT 16.1 SEC (9.8-11.6)
--- NOTE | 2017-02-05 09:02 | PD.CARD.PN ---
Subjective Subjective Remarks SOB improving Objective Medications Current Medications Medications (Trade) Dose Ordered Sig/Josie Route Start Time Stop Time Status Last Admin (NS Flush) 2 ml UNSCH PRN IV FLUSH 02/02/17 17:45 (NS Flush) 2 ml BID IV FLUSH 02/02/17 21:00 02/04/17 21:00 (Narcan Inj) 0.4 mg UNSCH PRN IV PUSH 02/02/17 17:45 (Zyloprim) 300 mg DAILY PO 02/03/17 09:00 02/04/17 09:32 (Aspirin Chew) 81 mg BID PO 02/02/17 21:00 02/04/17 22:10 (Pulmicort Respule Neb) 0.5 mg Q12HR NEB NEB 02/02/17 20:00 02/05/17 07:40 (Folate) 1 mg DAILY PO 02/03/17 09:00 02/04/17 09:32 ([place] 10-325 Mg) 1 tab TID PRN PO 02/02/17 18:00 (Plaquenil) 200 mg BID PO 02/02/17 21:00 02/04/17 22:10 (Prinivil) 20 mg DAILY PO 02/03/17 09:00 02/04/17 09:32 (Mag-Ox) 400 mg DAILY PO 02/03/17 09:00 02/04/17 09:32 (Toprol Xl) 25 mg HS PO 02/02/17 21:00 02/04/17 22:11 (KCl) 10 meq BID PO 02/02/17 21:00 02/04/17 22:10 (Vitamin B12) 1,000 mcg DAILY PO 02/03/17 09:00 02/04/17 09:31 Patient Own Medication PT OWN MED: CRESTO... HS PO 02/02/17 21:00 Future Hold Patient Own Medication PT OWN MED: ZINC GLUCON... DAILY PO 02/03/17 09:00 Future Hold Patient Own Medication PT OWN MED: BROV... BID INH 02/02/17 21:00 Future Hold (Tikosyn) 500 mcg Q12HR PO 02/02/17 21:00 02/04/17 22:11 (D50w (Vial) Inj) 50 ml UNSCH PRN IV PUSH 02/03/17 09:00 (Glucagon Inj) 1 mg UNSCH PRN OTHER 02/03/17 09:00 (NovoLOG SUPPLEMENTAL SCALE) 1 ACHS SLIDING SCALE SQ 02/03/17 12:00 02/04/17 13:34 Pharmacy Profile Note 0 ml @ 0 mls/hr UNSCH OTHER 02/03/17 09:00 (Lasix Inj) 80 mg BID@09,18 IV PUSH 02/03/17 18:00 02/04/17 17:49 (Coumadin) 5 mg DAILY@1600 PO 02/03/17 16:00 02/04/17 16:21 Vital Signs / I&O Vital Signs Date Time Temp Pulse Resp B/P (MAP) Pulse Ox O2 Delivery O2 Flow Rate FiO2 02/05/17 07:40 97 Nasal Cannula 2.00 02/05/17 03:17 74 02/05/17 03:16 97.9 74 17 101/65 (77) 97 02/05/17 00:30 72 02/04/17 23:52 98.7 75 19 115/64 (81) 91 02/04/17 21:48 98.7 83 17 107/73 (84) 93 02/04/17 20:45 84 02/04/17 19:56 93 Nasal Cannula 2.50 02/04/17 18:00 82 02/04/17 15:00 97.7 78 20 103/63 (76) 94 02/04/17 11:36 97.7 84 20 123/71 (88) 91 I/O 02/04/17 02/04/17 02/04/17 02/05/17 02/05/17 02/05/17 07:00 15:00 23:00 07:00 15:00 23:00 Intake Total 1020 ml Output Total 3225 ml Balance -2205 ml Intake Oral 1020 ml Output Urine Total 3225 ml # Bowel Movements 1 Physical Exam Alert Chest: decreased BS CV S1S2 RRR Edema improved 2+ Laboratory Laboratory Tests Test 02/04/17 15:49 02/05/17 08:03 Prothrombin Time 18.7 SEC 16.1 SEC Prothromb Time International Ratio 1.7 RATIO 1.4 RATIO Assessment and Plan Problem List: (1) Paroxysmal atrial fibrillation ICD Codes: I48.0 - Paroxysmal atrial fibrillation (2) Pulmonary hypertension ICD Codes: I27.20 - Pulmonary hypertension, unspecified (3) Acute on chronic diastolic CHF (congestive heart failure) ICD Codes: I50.33 - Acute on chronic diastolic (congestive) heart failure (4) CAD (coronary artery disease) ICD Codes: I25.10 - CAD (coronary artery disease) Status: Chronic Assessment and Plan continue diuresis Danyel Hammer MD Feb 05, 2017 09:02
[2017-02-05 09:07] LABS: BICARBONATE 30.4 MEQ/L (21.0-32.0); MAGNESIUM 2.3 MG/DL (1.5-2.5); POTASSIUM 4.1 MEQ/L (3.5-5.1)
[2017-02-05] MEDS: SODIUM CHLORIDE 0.9% FLUSH 10 ML FLUSH IV FLUSH SCH ×2 (09:29→21:00)
[2017-02-05] MEDS: FUROSEMIDE 40 MG/4 ML VIAL IV PUSH SCH ×2 (09:30→17:37)
[2017-02-05] MEDS: CYANOCOBALAMIN 1,000 MCG TAB PO SCH (09:30)
[2017-02-05] MEDS: MAGNESIUM OXIDE 400 MG TAB PO SCH (09:30)
[2017-02-05] MEDS: HYDROXYCHLOROQUINE SULFATE 200 MG TAB PO SCH ×2 (09:30→21:34)
[2017-02-05] MEDS: ALLOPURINOL 300 MG TAB PO SCH (09:31)
[2017-02-05] MEDS: ASPIRIN 81 MG CHEW TAB PO SCH ×2 (09:31→21:35)
[2017-02-05] MEDS: FOLIC ACID 1 MG TAB PO SCH (09:31)
[2017-02-05] MEDS: POTASSIUM CHLORIDE 10 MEQ CAP PO SCH ×2 (09:31→21:34)
[2017-02-05] MEDS: LISINOPRIL 20 MG TAB PO SCH (09:31)
[2017-02-05] MEDS: DOFETILIDE 250 MCG CAP PO SCH ×2 (09:32→21:35)
--- NOTE | 2017-02-05 12:27 | HHI.PR ---
Subjective Remarks in no acute distress. good urine output. sob is better. no new complaints. Objective Vitals Vital Signs Date Time Temp Pulse Resp B/P (MAP) Pulse Ox O2 Delivery O2 Flow Rate FiO2 02/05/17 11:35 95.9 80 21 124/79 (94) 95 02/05/17 09:37 96.2 91 24 117/76 (90) 93 02/05/17 07:40 97 Nasal Cannula 2.00 02/05/17 03:17 74 02/05/17 03:16 97.9 74 17 101/65 (77) 97 02/05/17 00:30 72 02/04/17 23:52 98.7 75 19 115/64 (81) 91 02/04/17 21:48 98.7 83 17 107/73 (84) 93 02/04/17 20:45 84 02/04/17 19:56 93 Nasal Cannula 2.50 02/04/17 18:00 82 02/04/17 15:00 97.7 78 20 103/63 (76) 94 I/O 02/04/17 02/04/17 02/04/17 02/05/17 02/05/17 02/05/17 07:00 15:00 23:00 07:00 15:00 23:00 Intake Total 1020 ml Output Total 3225 ml Balance -2205 ml Intake Oral 1020 ml Output Urine Total 3225 ml # Bowel Movements 1 Result Diagram: 02/03/17 0306 02/05/17 0803 Imaging Last Impressions Chest X-Ray 02/02/17 1516 Signed Impressions: Service Date/Time: Thursday, February 02, 2017 15:29 - CONCLUSION: 1. Small left pleural effusion and left basilar density likely atelectasis. 2. Cardiomegaly and CABG. Keo Cuevas MD Objective Remarks GENERAL: This is a well-nourished, well-developed patient, in no apparent distress. CARDIOVASCULAR: Regular rate and regular rhythm without murmurs, gallops, or rubs. RESPIRATORY: Clear to auscultation. Breath sounds equal bilaterally. No wheezes , rales, or rhonchi. GASTROINTESTINAL: Abdomen soft, non-tender, nondistended. Normal, active bowel sounds MUSCULOSKELETAL: lower extremities with mild bilateral pedal edema. NEURO: Alert & Oriented x4 to person, place, time, situation. Moves all ext x4 Procedures None Medications and IVs Current Medications Furosemide (Lasix Inj) 60 mg ONCE ONCE IV PUSH Last administered on 02/02/17 17:34; Start 02/02/17 at 16:15; Stop 02/02/17 at 16:16; Status DC Sodium Chloride (NS Flush) 2 ml UNSCH PRN IV FLUSH FLUSH AFTER USING IV ACCESS ; Start 02/02/17 at 17:45 Sodium Chloride (NS Flush) 2 ml BID IV FLUSH Last administered on 02/05/17 09: 29; Start 02/02/17 at 21:00 Naloxone HCl (Narcan Inj) 0.4 mg UNSCH PRN IV PUSH SEE LABEL COMMENTS; Start 02/02/17 at 17:45 Furosemide (Lasix Inj) 40 mg BID@09,18 IV PUSH Last administered on 02/03/17 10:25; Start 02/02/17 at 18:00; Stop 02/03/17 at 10:31; Status DC Allopurinol (Zyloprim) 300 mg DAILY PO Last administered on 02/05/17 09:31; Start 02/03/17 at 09:00 Aspirin (Aspirin Chew) 81 mg BID PO Last administered on 02/05/17 09:31; Start 02/02/17 at 21:00 Budesonide (Pulmicort Respule Neb) 0.5 mg Q12HR NEB NEB Last administered on 02/05/17 07:40; Start 02/02/17 at 20:00 Dofetilide (Tikosyn) 500 mcg Q12HR PO ; Start 02/02/17 at 21:00; Stop 02/02/17 at 21:00; Status DC Folic Acid (Folate) 1 mg DAILY PO Last administered on 02/05/17 09:31; Start 02/03/17 at 09:00 Acetaminophen/ Hydrocodone Bitart ([place] 10-325 Mg) 1 tab TID PRN PO PAIN SCALE 1 TO 10; Start 02/02/17 at 18:00 Hydroxychloroquine Sulfate (Plaquenil) 200 mg BID PO Last administered on 09:30; Start 02/02/17 at 21:00 Lisinopril (Prinivil) 20 mg DAILY PO Last administered on 02/05/17 09:31; Start 02/03/17 at 09:00 Magnesium Oxide (Mag-Ox) 400 mg DAILY PO Last administered on 02/05/17 09:30; Start 02/03/17 at 09:00 Metoprolol Succinate (Toprol Xl) 25 mg HS PO Last administered on 02/04/17 22: 11; Start 02/02/17 at 21:00 Potassium Chloride (KCl) 10 meq BID PO Last administered on 02/05/17 09:31; Start 02/02/17 at 21:00 Non-Formulary Medication 1 nebule BID NEB ; Start 02/02/17 at 21:00; Status UNV Non-Formulary Medication 1,000 mcg DAILY PO ; Start 02/03/17 at 09:00; Status UNV Non-Formulary Medication 5 mg HS PO ; Start 02/02/17 at 21:00; Status UNV Non-Formulary Medication 50 mg DAILY PO ; Start 02/03/17 at 09:00; Status UNV Cyanocobalamin (Vitamin B12) 1,000 mcg DAILY PO Last administered on 02/05/17 09:30; Start 02/03/17 at 09:00 Patient Own Medication PT OWN MED: CRESTO... HS PO ; Start 02/02/17 at 21:00; Status Future Hold Patient Own Medication PT OWN MED: ZINC GLUCON... DAILY PO ; Start 02/03/17 at 09:00; Status Future Hold Patient Own Medication PT OWN MED: BROV... BID INH ; Start 02/02/17 at 21:00; Status Future Hold Dofetilide (Tikosyn) 500 mcg Q12HR PO Last administered on 02/05/17 09:32; Start 02/02/17 at 21:00 Influenza Virus Vaccine (Flu (Quadrivalent) Vaccine Inj) 0.5 ml ONCE ONCE IM Last administered on 02/03/17 10:27; Start 02/03/17 at 10:00; Stop 02/03/17 at 10:01; Status DC Dextrose (D50w (Vial) Inj) 50 ml UNSCH PRN IV PUSH HYPOGLYCEMIA-SEE COMMENTS; Start 02/03/17 at 09:00 Glucagon (Glucagon Inj) 1 mg UNSCH PRN OTHER HYPOGLYCEMIA-SEE COMMENTS; Start 02/03/17 at 09:00 Insulin Aspart (NovoLOG SUPPLEMENTAL SCALE) 1 ACHS SLIDING SCALE SQ Last administered on 02/04/17 13:34; Start 02/03/17 at 12:00 Pharmacy Profile Note 0 ml @ 0 mls/hr UNSCH OTHER ; Start 02/03/17 at 09:00 Magnesium Sulfate/ Dextrose 100 ml @ 100 mls/hr ONCE ONCE IV Last administered on 02/03/17 11:53; Start 02/03/17 at 10:30; Stop 02/03/17 at 11:29 ; Status DC Furosemide (Lasix Inj) 80 mg BID@09,18 IV PUSH Last administered on 02/05/17 09:30; Start 02/03/17 at 18:00 Furosemide (Lasix Inj) 80 mg BID@09,18 IV PUSH ; Start 02/03/17 at 18:00; Stop 02/03/17 at 18:00; Status DC Menthol ([place] Jeffrey) 1 lozenge ONCE ONCE BUCCAL Last administered on 02/03/17 13:29; Start 02/03/17 at 13:15; Stop 02/03/17 at 13:16; Status DC Warfarin Sodium (Coumadin) 5 mg DAILY@1600 PO Last administered on 02/04/17 16 :21; Start 02/03/17 at 16:00; Stop 02/05/17 at 10:38; Status DC Patient Medication Teaching (Coumadin Booklet) 1 ONCE ONCE .XX Last administered on 02/03/17 17:52; Start 02/03/17 at 17:00; Stop 02/03/17 at 17:01 ; Status DC Warfarin Sodium (Coumadin) 7.5 mg DAILY@1600 PO ; Start 02/05/17 at 16:00 A/P Problem List: (1) CHF exacerbation ICD Code: I50.9 - CHF exacerbation Status: Acute Assessment and Plan - Acute exacerbation of congestive heart failure - Diastolic congestive heart failure - Severe pulmonary hypertension - Appreciate cardiology input. Dr. Hammer started patient on 80 mg of Lasix IV twice a day. - 2-D echo with EF55% and severe pulmonary hypertension. - Coronary artery disease status post stent placement and CABG. - Continue aspirin 81 mg twice a day, lisinopril 20 mg daily, metoprolol succinate 25 mg daily at bedtime - History of Superior mesenteric vein thrombosis - Currently on Warfarin. Goal INR 2 - 3. -COPD with no exacerbation; continue pulmicort - Atrial fibrillation - Continue Tikosyn - Continue warfarin. Full code. DVT prophylaxis with Warfarin. Discharge Planning possible dc home within the next 24-48 hrs if continues to improve and cleared by cardiology. Rui Abarca MD Feb 05, 2017 12:27
[2017-02-05] MEDS: WARFARIN SOD 7.5 MG TAB PO SCH (17:38)
[2017-02-05] MEDS: METOPROLOL SUCCINATE 25 MG EXTENDED RELEASE TAB PO SCH (21:35)
[2017-02-06] VITALS (12 sets, daily range): BP systolic 104–127; BP diastolic 56–82; PULSE 63–78; RESP 18–20; TEMP 97.5–98.2; O2SAT 92–98
[2017-02-06] MEDS: INSULIN ASPART SUPPLEMENTAL SCALE SQ SCH ×4 (08:00→20:51)
[2017-02-06] MEDS: RESP: BUDESONIDE 0.5 MG/2 ML NEB NEB SCH ×2 (08:18→20:55)
[2017-02-06] MEDS: FUROSEMIDE 40 MG/4 ML VIAL IV PUSH SCH ×2 (08:30→18:30)
[2017-02-06] MEDS: CYANOCOBALAMIN 1,000 MCG TAB PO SCH (08:30)
[2017-02-06] MEDS: MAGNESIUM OXIDE 400 MG TAB PO SCH (08:31)
[2017-02-06] MEDS: LISINOPRIL 20 MG TAB PO SCH (08:31)
[2017-02-06] MEDS: POTASSIUM CHLORIDE 10 MEQ CAP PO SCH ×3 (08:31→18:31)
[2017-02-06] MEDS: ASPIRIN 81 MG CHEW TAB PO SCH ×2 (08:31→21:01)
[2017-02-06] MEDS: ALLOPURINOL 300 MG TAB PO SCH (08:31)
[2017-02-06] MEDS: FOLIC ACID 1 MG TAB PO SCH (08:31)
[2017-02-06] MEDS: SODIUM CHLORIDE 0.9% FLUSH 10 ML FLUSH IV FLUSH SCH ×2 (08:32→21:00)
[2017-02-06 08:43] LABS: INTERNATIONAL NORMALIZED RATIO 1.3 RATIO; PROTHROMBIN TIME - PATIENT 14.1 SEC (9.8-11.6)
[2017-02-06] MEDS: HYDROXYCHLOROQUINE SULFATE 200 MG TAB PO SCH ×2 (09:00→21:01)
[2017-02-06] MEDS: DOFETILIDE 250 MCG CAP PO SCH ×2 (09:00→21:01)
--- NOTE | 2017-02-06 09:09 | PD.CARD.PN ---
Subjective Subjective Remarks SOB improving Objective Medications Current Medications Medications (Trade) Dose Ordered Sig/Josie Route Start Time Stop Time Status Last Admin (NS Flush) 2 ml UNSCH PRN IV FLUSH 02/02/17 17:45 (NS Flush) 2 ml BID IV FLUSH 02/02/17 21:00 02/06/17 08:32 (Narcan Inj) 0.4 mg UNSCH PRN IV PUSH 02/02/17 17:45 (Zyloprim) 300 mg DAILY PO 02/03/17 09:00 02/06/17 08:31 (Aspirin Chew) 81 mg BID PO 02/02/17 21:00 02/06/17 08:31 (Pulmicort Respule Neb) 0.5 mg Q12HR NEB NEB 02/02/17 20:00 02/06/17 08:18 (Folate) 1 mg DAILY PO 02/03/17 09:00 02/06/17 08:31 ([place] 10-325 Mg) 1 tab TID PRN PO 02/02/17 18:00 (Plaquenil) 200 mg BID PO 02/02/17 21:00 02/05/17 21:34 (Prinivil) 20 mg DAILY PO 02/03/17 09:00 02/06/17 08:31 (Mag-Ox) 400 mg DAILY PO 02/03/17 09:00 02/06/17 08:31 (Toprol Xl) 25 mg HS PO 02/02/17 21:00 02/05/17 21:35 (Vitamin B12) 1,000 mcg DAILY PO 02/03/17 09:00 02/06/17 08:30 Patient Own Medication PT OWN MED: CRESTO... HS PO 02/02/17 21:00 Future Hold Patient Own Medication PT OWN MED: ZINC GLUCON... DAILY PO 02/03/17 09:00 Future Hold Patient Own Medication PT OWN MED: BROV... BID INH 02/02/17 21:00 Future Hold (Tikosyn) 500 mcg Q12HR PO 02/02/17 21:00 02/05/17 21:35 (D50w (Vial) Inj) 50 ml UNSCH PRN IV PUSH 02/03/17 09:00 (Glucagon Inj) 1 mg UNSCH PRN OTHER 02/03/17 09:00 (NovoLOG SUPPLEMENTAL SCALE) 1 ACHS SLIDING SCALE SQ 02/03/17 12:00 02/05/17 22:48 Pharmacy Profile Note 0 ml @ 0 mls/hr UNSCH OTHER 02/03/17 09:00 (Lasix Inj) 80 mg BID@09,18 IV PUSH 02/03/17 18:00 02/06/17 08:30 (Coumadin) 7.5 mg DAILY@1600 PO 02/05/17 16:00 02/05/17 17:38 (KCl) 20 meq TID PO 02/06/17 13:00 UNV Vital Signs / I&O Vital Signs Date Time Temp Pulse Resp B/P (MAP) Pulse Ox O2 Delivery O2 Flow Rate FiO2 02/06/17 08:22 97 Nasal Cannula 2.00 02/06/17 04:00 97.7 73 18 127/82 (97) 95 02/06/17 03:04 Nasal Cannula 2.00 02/06/17 01:07 97.5 70 20 117/63 (81) 96 02/06/17 00:09 98.2 69 18 121/56 (77) 96 02/06/17 00:00 63 02/05/17 21:01 98.2 76 18 100/62 (75) 94 02/05/17 20:00 80 02/05/17 19:09 97 Nasal Cannula 2.00 02/05/17 16:12 96.6 74 20 111/73 (86) 96 02/05/17 15:09 68 02/05/17 11:35 95.9 80 21 124/79 (94) 95 02/05/17 09:37 96.2 91 24 117/76 (90) 93 I/O 02/05/17 02/05/17 02/05/17 02/06/17 02/06/17 02/06/17 07:00 15:00 23:00 07:00 15:00 23:00 Intake Total 240 ml Output Total 1750 ml 400 ml Balance -1750 ml -160 ml Intake Oral 240 ml Output Urine Total 1750 ml 400 ml # Bowel Movements 1 Physical Exam Alert, no distress Chest: decreased BS CV S1S2 RRR Edema improved 2+ Laboratory Laboratory Tests Test 02/06/17 07:50 Prothrombin Time 14.1 SEC Prothromb Time International Ratio 1.3 RATIO Assessment and Plan Problem List: (1) Paroxysmal atrial fibrillation ICD Codes: I48.0 - Paroxysmal atrial fibrillation Plan: cont Tikosyn (2) Pulmonary hypertension ICD Codes: I27.20 - Pulmonary hypertension, unspecified (3) Acute on chronic diastolic CHF (congestive heart failure) ICD Codes: I50.33 - Acute on chronic diastolic (congestive) heart failure Plan: change to torsemide 50mg bid, KCL 20meq bid either Sat or Sun once [place] better and BUN > 20 (4) CAD (coronary artery disease) ICD Codes: I25.10 - CAD (coronary artery disease) Status: Chronic Assessment and Plan continue diuresis Danyel Hammer MD Feb 06, 2017 09:09
[2017-02-06] MEDS ORDERED: DOFETILIDE 500 MCG CAP PO SCH (09:15)
--- NOTE | 2017-02-06 09:19 | HHI.PR ---
Subjective Remarks in no acute distress. sob continues to improve. no chest pain. Objective Vitals Vital Signs Date Time Temp Pulse Resp B/P (MAP) Pulse Ox O2 Delivery O2 Flow Rate FiO2 02/06/17 08:22 97 Nasal Cannula 2.00 02/06/17 04:00 97.7 73 18 127/82 (97) 95 02/06/17 03:04 Nasal Cannula 2.00 02/06/17 01:07 97.5 70 20 117/63 (81) 96 02/06/17 00:09 98.2 69 18 121/56 (77) 96 02/06/17 00:00 63 02/05/17 21:01 98.2 76 18 100/62 (75) 94 02/05/17 20:00 80 02/05/17 19:09 97 Nasal Cannula 2.00 02/05/17 16:12 96.6 74 20 111/73 (86) 96 02/05/17 15:09 68 02/05/17 11:35 95.9 80 21 124/79 (94) 95 02/05/17 09:37 96.2 91 24 117/76 (90) 93 I/O 02/05/17 02/05/17 02/05/17 02/06/17 02/06/17 02/06/17 07:00 15:00 23:00 07:00 15:00 23:00 Intake Total 240 ml Output Total 1750 ml 400 ml Balance -1750 ml -160 ml Intake Oral 240 ml Output Urine Total 1750 ml 400 ml # Bowel Movements 1 Result Diagram: 02/03/17 0306 02/05/17 0803 Imaging Last Impressions Chest X-Ray 02/02/17 1516 Signed Impressions: Service Date/Time: Thursday, February 02, 2017 15:29 - CONCLUSION: 1. Small left pleural effusion and left basilar density likely atelectasis. 2. Cardiomegaly and CABG. Keo Cuevas MD Objective Remarks GENERAL: This is a well-nourished, well-developed patient, in no apparent distress. CARDIOVASCULAR: Regular rate and regular rhythm without murmurs, gallops, or rubs. RESPIRATORY: Clear to auscultation. Breath sounds equal bilaterally. No wheezes , rales, or rhonchi. GASTROINTESTINAL: Abdomen soft, non-tender, nondistended. Normal, active bowel sounds MUSCULOSKELETAL: lower extremities with mild bilateral pedal edema. NEURO: Alert & Oriented x4 to person, place, time, situation. Moves all ext x4 skin; wound noted on the right leg- with no discharge. Procedures None Medications and IVs Current Medications Furosemide (Lasix Inj) 60 mg ONCE ONCE IV PUSH Last administered on 02/02/17 17:34; Start 02/02/17 at 16:15; Stop 02/02/17 at 16:16; Status DC Sodium Chloride (NS Flush) 2 ml UNSCH PRN IV FLUSH FLUSH AFTER USING IV ACCESS ; Start 02/02/17 at 17:45 Sodium Chloride (NS Flush) 2 ml BID IV FLUSH Last administered on 02/06/17 08 :32; Start 02/02/17 at 21:00 Naloxone HCl (Narcan Inj) 0.4 mg UNSCH PRN IV PUSH SEE LABEL COMMENTS; Start 02/02/17 at 17:45 Furosemide (Lasix Inj) 40 mg BID@09,18 IV PUSH Last administered on 02/03/17 10:25; Start 02/02/17 at 18:00; Stop 02/03/17 at 10:31; Status DC Allopurinol (Zyloprim) 300 mg DAILY PO Last administered on 02/06/17 08:31; Start 02/03/17 at 09:00 Aspirin (Aspirin Chew) 81 mg BID PO Last administered on 02/06/17 08:31; Start 02/02/17 at 21:00 Budesonide (Pulmicort Respule Neb) 0.5 mg Q12HR NEB NEB Last administered on 02/06/17 08:18; Start 02/02/17 at 20:00 Dofetilide (Tikosyn) 500 mcg Q12HR PO ; Start 02/02/17 at 21:00; Stop 02/02/17 at 21:00; Status DC Folic Acid (Folate) 1 mg DAILY PO Last administered on 02/06/17 08:31; Start 02/03/17 at 09:00 Acetaminophen/ Hydrocodone Bitart ([place] 10-325 Mg) 1 tab TID PRN PO PAIN SCALE 1 TO 10; Start 02/02/17 at 18:00 Hydroxychloroquine Sulfate (Plaquenil) 200 mg BID PO Last administered on 21:34; Start 02/02/17 at 21:00 Lisinopril (Prinivil) 20 mg DAILY PO Last administered on 02/06/17 08:31; Start 02/03/17 at 09:00 Magnesium Oxide (Mag-Ox) 400 mg DAILY PO Last administered on 02/06/17 08:31 ; Start 02/03/17 at 09:00 Metoprolol Succinate (Toprol Xl) 25 mg HS PO Last administered on 02/05/17 21: 35; Start 02/02/17 at 21:00 Potassium Chloride (KCl) 10 meq BID PO Last administered on 02/06/17 08:31; Start 02/02/17 at 21:00; Stop 02/06/17 at 09:05; Status DC Non-Formulary Medication 1 nebule BID NEB ; Start 02/02/17 at 21:00; Status UNV Non-Formulary Medication 1,000 mcg DAILY PO ; Start 02/03/17 at 09:00; Status UNV Non-Formulary Medication 5 mg HS PO ; Start 02/02/17 at 21:00; Status UNV Non-Formulary Medication 50 mg DAILY PO ; Start 02/03/17 at 09:00; Status UNV Cyanocobalamin (Vitamin B12) 1,000 mcg DAILY PO Last administered on 08:30; Start 02/03/17 at 09:00 Patient Own Medication PT OWN MED: CRESTO... HS PO ; Start 02/02/17 at 21:00; Status Future Hold Patient Own Medication PT OWN MED: ZINC GLUCON... DAILY PO ; Start 02/03/17 at 09:00; Status Future Hold Patient Own Medication PT OWN MED: BROV... BID INH ; Start 02/02/17 at 21:00; Status Future Hold Dofetilide (Tikosyn) 500 mcg Q12HR PO Last administered on 02/05/17 21:35; Start 02/02/17 at 21:00 Influenza Virus Vaccine (Flu (Quadrivalent) Vaccine Inj) 0.5 ml ONCE ONCE IM Last administered on 02/03/17 10:27; Start 02/03/17 at 10:00; Stop 02/03/17 at 10:01; Status DC Dextrose (D50w (Vial) Inj) 50 ml UNSCH PRN IV PUSH HYPOGLYCEMIA-SEE COMMENTS; Start 02/03/17 at 09:00 Glucagon (Glucagon Inj) 1 mg UNSCH PRN OTHER HYPOGLYCEMIA-SEE COMMENTS; Start 02/03/17 at 09:00 Insulin Aspart (NovoLOG SUPPLEMENTAL SCALE) 1 ACHS SLIDING SCALE SQ Last administered on 02/05/17 22:48; Start 02/03/17 at 12:00 Pharmacy Profile Note 0 ml @ 0 mls/hr UNSCH OTHER ; Start 02/03/17 at 09:00 Magnesium Sulfate/ Dextrose 100 ml @ 100 mls/hr ONCE ONCE IV Last administered on 02/03/17 11:53; Start 02/03/17 at 10:30; Stop 02/03/17 at 11:29 ; Status DC Furosemide (Lasix Inj) 80 mg BID@09,18 IV PUSH Last administered on 02/06/17 08:30; Start 02/03/17 at 18:00 Furosemide (Lasix Inj) 80 mg BID@09,18 IV PUSH ; Start 02/03/17 at 18:00; Stop 02/03/17 at 18:00; Status DC Menthol ([place] Jeffrey) 1 lozenge ONCE ONCE BUCCAL Last administered on 02/03/17 13:29; Start 02/03/17 at 13:15; Stop 02/03/17 at 13:16; Status DC Warfarin Sodium (Coumadin) 5 mg DAILY@1600 PO Last administered on 02/04/17 16 :21; Start 02/03/17 at 16:00; Stop 02/05/17 at 10:38; Status DC Patient Medication Teaching (Coumadin Booklet) 1 ONCE ONCE .XX Last administered on 02/03/17 17:52; Start 02/03/17 at 17:00; Stop 02/03/17 at 17:01 ; Status DC Warfarin Sodium (Coumadin) 7.5 mg DAILY@1600 PO Last administered on 02/05/17 17:38; Start 02/05/17 at 16:00 Dofetilide (Tikosyn) 500 mcg BID PO ; Start 02/06/17 at 09:15; Stop 02/06/17 at 09:15; Status DC Potassium Chloride (KCl) 20 meq TID PO ; Start 02/06/17 at 13:00; Status UNV A/P Problem List: (1) CHF exacerbation ICD Code: I50.9 - CHF exacerbation Status: Acute Assessment and Plan - Acute exacerbation of congestive heart failure - Diastolic congestive heart failure - Severe pulmonary hypertension - Appreciate cardiology input. Dr. Hammer started patient on 80 mg of Lasix IV twice a day. -good urine output; lost about five Kg. - 2-D echo with EF55% and severe pulmonary hypertension. - Coronary artery disease status post stent placement and CABG. - Continue aspirin 81 mg twice a day, lisinopril 20 mg daily, metoprolol succinate 25 mg daily at bedtime - History of [place] mesenteric vein thrombosis - Currently on Warfarin. Goal INR 2 - 3. -pharmacy consulted for coumadin dosing. -COPD with no exacerbation; continue pulmicort - Atrial fibrillation - Continue Tikosyn - Continue warfarin. -right leg wound; consult wound care Full code. DVT prophylaxis with Warfarin. Discharge Planning possible dc home within the next one-two days if continues to improve and cleared by cardiology. Rui Abarca MD Feb 06, 2017 09:19
[2017-02-06 09:50] LABS: BICARBONATE 28.4 MEQ/L (21.0-32.0); POTASSIUM 4.1 MEQ/L (3.5-5.1)
[2017-02-06] MEDS ORDERED: WARFARIN SOD 2.5 MG TAB PO ONE (16:00)
[2017-02-06] MEDS: WARFARIN SOD 7.5 MG TAB PO SCH (18:31)
[2017-02-06] MEDS: METOPROLOL SUCCINATE 25 MG EXTENDED RELEASE TAB PO SCH (21:01)
[2017-02-07] VITALS: BP 104/62; PULSE 66; RESP 19; TEMP 97.5; O2SAT 95
[2017-02-07 04:00] VITALS: BP 106/69; PULSE 80; RESP 19; TEMP 97.4; O2SAT 97
[2017-02-07 08:00] VITALS: BP_SYST 101; BP_SYST 119; BP_DIAS 50; BP_DIAS 62; PULSE 72; PULSE 75; PULSE 76; PULSE 79; RESP 17; RESP 18; TEMP 97.4; TEMP 97.9; O2SAT 92; O2SAT 95
[2017-02-07] MEDS: INSULIN ASPART SUPPLEMENTAL SCALE SQ SCH ×3 (08:00→16:54)
[2017-02-07 08:03] LABS: INTERNATIONAL NORMALIZED RATIO 1.2 RATIO; PROTHROMBIN TIME - PATIENT 13.7 SEC (9.8-11.6)
[2017-02-07 08:12] LABS: BICARBONATE 32.2 MEQ/L (21.0-32.0); POTASSIUM 4.4 MEQ/L (3.5-5.1)
[2017-02-07] MEDS: LISINOPRIL 20 MG TAB PO SCH (08:35)
[2017-02-07] MEDS: MAGNESIUM OXIDE 400 MG TAB PO SCH (08:35)
[2017-02-07] MEDS: ASPIRIN 81 MG CHEW TAB PO SCH (08:35)
[2017-02-07] MEDS: FOLIC ACID 1 MG TAB PO SCH (08:35)
[2017-02-07] MEDS: HYDROXYCHLOROQUINE SULFATE 200 MG TAB PO SCH (08:35)
[2017-02-07] MEDS: TORSEMIDE 20 MG TAB PO SCH ×2 (08:36→16:52)
[2017-02-07] MEDS: POTASSIUM CHLORIDE 10 MEQ CAP PO SCH ×3 (08:36→16:51)
[2017-02-07] MEDS: ALLOPURINOL 300 MG TAB PO SCH (08:36)
[2017-02-07] MEDS: DOFETILIDE 250 MCG CAP PO SCH (08:36)
[2017-02-07] MEDS: CYANOCOBALAMIN 1,000 MCG TAB PO SCH (08:36)
[2017-02-07] MEDS: SODIUM CHLORIDE 0.9% FLUSH 10 ML FLUSH IV FLUSH SCH (08:43)
[2017-02-07 09:01] VITALS: O2SAT 94
[2017-02-07] MEDS: RESP: BUDESONIDE 0.5 MG/2 ML NEB NEB SCH (09:01)
[2017-02-07 12:00] VITALS: BP 109/57; PULSE 69; RESP 19; TEMP 97.7; O2SAT 94
[2017-02-07] MEDS ORDERED: TORS1TAB12 PO (15:43)
--- NOTE | 2017-02-07 15:46 | HHI.DS ---
Discharge Summary Admission Date Feb 03, 2017 at 13:28 Discharge Date: Feb 07, 2017 Admitting Diagnosis congestive heart failure, hypoxia, respiratory distress (1) CHF exacerbation ICD Code: I50.9 - CHF exacerbation Status: Acute Procedures None Brief History - From Admission shortness of breath for one to two weeks cant walk more than 20- steps chest tightness with it used nitroglycerin several times in this two weeks has not taken it for past 12yrs but now needed it quite often little bit to left arm n osweating no nausea in shower, had to hold on, because feeling klike passign out about a month ago, had pneumonia was coughing more no nausea/ no vomiting did have diarrhea little bit off and on - for about six months now has been taking iron infusions on wednesdays- started about 10 weeks ago usually get diarrhea after this no bleedin in stool or urine diarrhea is somewhat foul smelling no recent long travels on coumadin at home now, INR 3.2 CBC/BMP: 02/03/17 0306 02/07/17 0704 Significant Findings Laboratory Tests Test 02/04/17 15:49 02/05/17 08:03 02/06/17 07:50 02/07/17 07:04 Prothrombin Time 18.7 SEC (9.8-11.6) 16.1 SEC (9.8-11.6) 14.1 SEC (9.8-11.6) 13.7 SEC (9.8-11.6) Random Glucose 119 MG/DL (74-106) 114 MG/DL (74-106) 108 MG/DL (74-106) Estimat Glomerular Filtration Rate 80 ML/MIN (>89) 78 ML/MIN (>89) 87 ML/MIN (>89) Blood Urea Nitrogen 20 MG/DL (7-18) Carbon Dioxide Level 32.2 MEQ/L (21.0-32.0) PE at Discharge GENERAL: This is a well-nourished, well-developed patient, in no apparent distress. CARDIOVASCULAR: Regular rate and regular rhythm without murmurs, gallops, or rubs. RESPIRATORY: Clear to auscultation. Breath sounds equal bilaterally. No wheezes , rales, or rhonchi. GASTROINTESTINAL: Abdomen soft, non-tender, nondistended. Normal, active bowel sounds MUSCULOSKELETAL: lower extremities with mild bilateral pedal edema. NEURO: Alert & Oriented x4 to person, place, time, situation. Moves all ext x4 skin; wound noted on the right leg- with no discharge. Hospital Course Mr. Paulino is a 66-year-old male. He has CHF at baseline. He came in secondary to CHF exacerbation with hypoxia and respiratory distress. This has been a gradual progression over 1-2 weeks. Fluid overload was present and with aggressive diuresis this was returned back to his baseline. Right now he feels at his baseline. He is using oxygen and uses oxygen at baseline. Medically stable for discharge to home today on increased dosing of diuretic and resumption of baseline home treatments. Pt Condition on Discharge: Stable Discharge Disposition: Discharge Home Discharge Time: <= 30 minutes Discharge Instructions DIET: Follow Instructions for: Heart Healthy Diet Activities you can perform: Regular-No Restrictions Follow up Referrals: Cardiology - 1 Week with Danyel Hammer MD PCP Follow-up - 1 Week New Medications: Torsemide (Demadex) 20 Mg Tab 50 MG PO BID@09,18 for Diuresis, #60 TAB Continued Medications: Allopurinol (Allopurinol) 300 Mg Tab 300 MG PO DAILY for Gout, #30 TAB 0 Refills Arformoterol Neb ([place]rov[place] Neb) 15 Mcg/2 Ml Vial 1 NEBULE NEB BID for Broncospasm, #60 NEBULE Maintenance treatment of bronchoconstriction in COPD. Ascorbic Acid (Vitamin C) 250 Mg Tab 500 MG PO DAILY for Nutritional Supplement, TAB 0 Refills Aspirin (Aspirin) 81 Mg Chew 81 MG PO BID, TAB 0 Refills Budesonide Neb (Budesonide Neb) 0.5 Mg/2 Ml Neb 0.5 MG NEB Q12HR NEB for Breathing Treatment, #60 NEBULE 0 Refills Cyanocobalamin (B12) 1,000 Mcg Tab 1000 MCG PO DAILY for Nutritional Supplement Dofetilide (Tikosyn) 500 Mcg Cap 500 MCG PO Q12HR for Regulate Heart Beat, #30 CAP 0 Refills BRAND MEDICALLY NECESSARY Folic Acid (Folic Acid) 1 Mg Tablet 1 MG PO DAILY Hydrocodone-Acetaminophen (Hydrocodone-Acetaminophen) 10-325 mg Tab 1 TAB PO TID PRN for PAIN, #30 TAB 0 Refills Hydroxychloroquine (Plaquenil) 200 Mg Tab 200 MG PO BID, #30 TAB 0 Refills Take with food Lisinopril (Lisinopril) 20 Mg Tab 20 MG PO DAILY, #30 TAB 0 Refills Magnesium Oxide (Magnesium Oxide) 400 Mg Tab 400 MG PO DAILY for Nutritional Supplement, TAB 0 Refills Metformin (Metformin) 1,000 Mg Tab 1000 MG PO BIDPC for Blood Sugar Management, #60 TAB 0 Refills With meals Methotrexate (Methotrexate) 2.5 Mg Tab 10 MG PO THURSDAY, TAB 0 Refills Metoprolol Succinate ER 24 HR (Metoprolol Succinate ER 24 HR) 50 Mg Tab 50 MG PO DAILY IN THE MORNING, #30 TAB 0 Refills Metoprolol Succinate ER 24 HR (Toprol XL) 25 Mg Tab 25 MG PO HS, #30 TAB 0 Refills Multiple Vitamin (One Daily) 1 Tab 1 TAB PO DAILY for Nutritional Supplement, TAB 0 Refills Nitroglycerin SL (Nitroglycerin SL) 0.4 Mg Subl 0.4 MG SL DIRECTED PRN for CHEST PAIN, #100 TAB.SL 1 Refill ONE TABLET UNDER THE TONGUE NEEDED FOR CHEST PAIN, MAY REPEAT EVERY FIVE MINUTES FOR A TOTAL OF 3 DOSES OR CALL 911 IF NO RELIEF Potassium Chloride ER (Potassium Chloride ER) 10 Meq Cap 10 MEQ PO BID for Electrolyte Replacement, #60 CAP 0 Refills Rosuvastatin (Crestor) 5 Mg Tab 5 MG PO HS for Cholesterol Management, #30 TAB 0 Refills Warfarin (Warfarin) 10 Mg Tab 10 MG PO EVERY OTHER DAY for Blood Clot Prevention, #30 TAB 0 Refills Take on even numbered days Warfarin (Warfarin) 2.5 Mg Tab 2.5 MG PO EVERY OTHER DAY for Blood Clot Prevention, #30 TAB 0 Refills Take on odd numbered days Zinc Gluconate (Zinc Gluconate) 50 Mg Tab 50 MG PO DAILY, TAB [Eb-N3 Food Pill] () 1 TAB PO DAILY for Nutritional Supplement Discontinued Medications: Torsemide (Torsemide) 20 Mg Tab 20 MG PO BID, #30 TAB 0 Refills Mckay Ruby MD Feb 07, 2017 15:46
[2017-02-07] MEDS ORDERED: WARFARIN SOD 10 MG TAB PO SCH (16:00)
[2017-02-07] MEDS ORDERED: BACI28.3 TOPICAL (16:20)
== END 2017-02-07 21:31 | disposition home or self-care (01) | DRG 293 ==
LOC: NEPC 15:10 → NEDA 17:42 → NEPGCP 19:24 → OBSVTOIN 02-03 13:28 → N04A 02-06 01:14
PROVIDERS: ADMIT Hospitalist; ATTEND Hospitalist
DX: I11.0 Hypertensive heart disease with heart failure (principal); E11.51 Type 2 diabetes mellitus with diabetic peripheral angiopathy without gangrene; I27.20 Pulmonary hypertension, unspecified; E66.01 Morbid (severe) obesity due to excess calories; Z99.81 Dependence on supplemental oxygen; E78.5 Hyperlipidemia, unspecified; R06.03 Acute respiratory distress; R09.02 Hypoxemia; I50.33 Acute on chronic diastolic (congestive) heart failure; G47.30 Sleep apnea, unspecified; I48.0 Paroxysmal atrial fibrillation; M19.90 Unspecified osteoarthritis, unspecified site; I25.10 Atherosclerotic heart disease of native coronary artery without angina pectoris; F32.9 Major depressive disorder, single episode, unspecified; J44.9 Chronic obstructive pulmonary disease, unspecified; N40.0 Benign prostatic hyperplasia without lower urinary tract symptoms; Z79.01 Long term (current) use of anticoagulants; Z79.84 Long term (current) use of oral hypoglycemic drugs; Z91.11 Patient's noncompliance with dietary regimen; Z95.5 Presence of coronary angioplasty implant and graft; Z79.82 Long term (current) use of aspirin; Z87.891 Personal history of nicotine dependence; Z23 Encounter for immunization; Z95.1 Presence of aortocoronary bypass graft; Z68.39 Body mass index [BMI] 39.0-39.9, adult
CPT/HCPCS: 71020; 80048; 80053; 82550; 82948; 83690; 83735; 83880; 84484; 85025; 85610; 85730; 90686; 93005; 93306; 94640; 94664; 96374; 96376; G0378; G8987-GP; G8988-GP; J1815; J1940; J3475; J7626; Q2038